=== PATIENT | male | born 1950 | race Caucasian/White ===

== ENCOUNTER 2020-12-23 15:35 | Emergency (ER) | payer MEDICARE, OTHER, SELFPAY ==
[2020-12-23] VITALS (14 sets, daily range): BP systolic 148–215; BP diastolic 80–120; PULSE 74–97; RESP 17–18; TEMP 36.6; O2SAT 97–98; BMI 28.2
--- NOTE | 2020-12-23 15:36 | EKG12_ITS ---
Test Reason : STROKE TEAM Blood Pressure : / mmHG Vent. Rate : 076 BPM Atrial Rate : 076 BPM P-R Int : 162 ms QRS Dur : 102 ms QT Int : 406 ms P-R-T Axes : 063 046 047 degrees QTc Int : 456 ms Sinus rhythm with occasional Premature ventricular complexes Otherwise normal ECG Confirmed by YUNG CHANEY, HALLE ([id number]), editor producer MELBA PERRY ([id number]) on 12/27/2020 2:15:58 PM Referred By: ELE Confirmed By:HALLE BARRAGAN MD
--- NOTE | 2020-12-23 15:36 | CT_ITS ---
STUDY: CT HEAD STROKE PROTOCOL W/O CONTRAST INJECTION REASON FOR EXAM: Male, 70 years old. Neuro deficit, acute, stroke suspected RADIATION DOSAGE (If Supplied By Facility): CTDIvol = ( ) mGy, DLP = ( ) mGycm TECHNIQUE: Transaxial CT imaging of the brain was performed without administration of intravenous contrast material. Individualized dose optimization techniques were used for this CT. COMPARISON: No relevant priors. FINDINGS: Normal soft tissue structures. Normal calvarium. Normal size ventricles and extra-axial spaces for the patient''s age. Normal white matter tracts of the cerebral hemispheres. Normal basal ganglia and thalami. Normal brainstem. Normal cerebellum. 5 cm oval area of increased attenuation within the left parietal lobe consistent with an acute parenchymal hematoma, likely hypertensive hemorrhage. Associated mass effect on the left lateral ventricle and third ventricle with approximately 5 mm of [id number] midline shift (subfalcine herniation). There are no findings of an acute ischemic infarction. Normal visualized paranasal sinuses. ASPECT score: CT/STROKE Brain/Head without Cont IMPRESSION: 5 cm acute parenchymal hematoma of the left parietal lobe likely consistent with a hypertensive hemorrhage with mass effect in 5 mm of [id number] midline shift (subfalcine herniation). N.B. : The above information has been verbally conveyed by Alvaro Villanueva MD to Jameson Gregory on 12/23/2020 15:50:46 (ET). Electronically Signed: Alvaro Villanueva MD at 15:52 EDT Tel , Service support ,
[2020-12-23] MEDS: Ondansetron 4 MG/2 ML Vial IV (15:49)
[2020-12-23] MEDS: Labetalol (Prefilled) 20 MG/4 ML IV (15:49)
[2020-12-23 15:55] LABS: Absolute Lymphocyte Count 1.29 X10^3/uL (0.83-4.51); Absolute Neutrophil Count 5.3 X10^3/uL (2.0-7.7); Basophil# 0.04 X10^3/uL; Basophil% 0.5 % (0-1); Eosinophil# 0.14 X10^3/uL; Eosinophils% 1.9 % (0-5); Hematocrit 40.8 % (40-54); Hemoglobin 14.2 g/dL (13.0-16.5); Lymphocyte # 1.29 X10^3/ul (4.0); Lymphocyte % 17.1 % (19-41); Mean Corp Hgb Conc 34.8 g/dL (32-36); Mean Corpuscular Hgb 31.6 pg (27.0-32.0); Mean Corpuscular Volume 90.9 fL (80-94); Mean Platelet Vol. 8.9 fl (6.2-12.0); Monocyte# 0.72 X10^3/uL; Monocyte% 9.6 % (0-10); NRBC Flagged by Analyzer 0 % (0-5); Neutrophil # 5.31 X10^3/uL (2.7-7.7); Neutrophil % 70.5 % (47-70); Platelet Count 260 K/mm3 (150-450); RBC Distribution Width CV 12.2 % (11.6-14.6); RBC Distribution Width SD 39.9 fl (35.1-43.9); Red Blood Count 4.49 M/mm3 (4.6-6.2); White Blood Count 7.5 K/mm3 (4.4-11.0)
--- NOTE | 2020-12-23 15:57 | CM.ED ---
Social Work Responding to stroke alert, patient spouse, Marge (Azra) present. Support provided. Patient to be life flighted to [facility]. Azra provided with directions to get to [facility]. Azra with no further questions. Azra given patient belongings. Will continue to follow as needed. Yamini ANTHONY, DIEGO-S
[2020-12-23 16:06] LABS: International Normalized Ratio 1.2; Prothrombin Time (Protime)PT. 14.2 SECONDS (11.7-14.9)
[2020-12-23] MEDS: Nicardipine HCl-0.9% Sod Chlor 20 MG/200 ML IV.SOLN 50 MG IV (16:06)
[2020-12-23 16:07] LABS: Anion Gap 6 (5-15); BUN 8 mg/dL (7-18); BUN/Creat Ratio 13.1 RATIO (10-20); Calcium,Total 9.1 mg/dL (8.5-10.1); Chloride 97 mmol/L (98-107); Creatinine, Serum 0.61 mg/dL (0.70-1.30); EST Glomerular Filtration Rate 138 mL/min (>60); Est Glom Filt Rate - Afr Amer 167 mL/min (>60); Estimated Creatinine Clearance 74.37 ml/min; Glucose 101 mg/dL (74-106); Partial Thromboplast Time 28.4 Seconds (24.1-36.2); Potassium 3.5 mmol/L (3.5-5.1); Sodium Level 130 mmol/L (136-145)
--- NOTE | 2020-12-23 16:13 | RAD_ITS ---
STUDY: X-RAY CHEST REASON FOR EXAM: Male, 70 years old. Neuro deficit, acute, stroke suspected TECHNIQUE: Single AP portable view of the chest. COMPARISON: 01/13/1950 FINDINGS: The lungs are clear and expanded. There is no demonstrated pleural abnormality. Normal size heart. Normal mediastinum and shahnaz. Normal visualized pulmonary arteries. Normal visualized aortic arch and descending thoracic aorta. Normal visualized thoracic spine. Healed fracture the right clavicle There is no demonstrated abnormality of the visualized soft tissue structures of the upper abdomen. RAD/Chest 1 View IMPRESSION: Normal x-ray examination of the chest. Electronically Signed: Alvaro Villanueva MD at 16:29 EDT Tel , Service support ,
--- NOTE | 2020-12-23 16:48 | CHAPLAIN ---
Type of Pastoral Visit ___ Initial Visit ___ Follow-up Visit ___ On-call Visit ___ General Patient Visit ___ Spiritual Assessment ___ Family Conference ___ Bereavement _x__ Rapid Response ___ Code Blue ___ Other (describe below) Pastoral Care Referral From ___ Patient ___ Family ___ Nurse ___ Physician ___ Boom Supervisor ___ Rn Immunology _x__ Other (describe below) Sacrament/Intervention ___ Active listening ___ Anointing ___ Episcopalian ___ Bereavement ___ Communion ___ Maritza exploration ___ ___ Life review ___ Prayer ___ Reconciliation ___ Sacrament of Sick _x__ Supportive presence ___ Wedding ___ Other (describe below) Pastoral Comments came to ED for stroke alert; pt is going to be transferred out to [facility]; met when she arrived and offered presence and support; SW also present; spouse declined any further services at this time
--- NOTE | 2020-12-23 16:55 | ED.DCSUM_ITS ---
- ER Visit Summary Date of Service: 12/23/20 Chief Complaint: Stroke History of Present Illness: The patient is a 70 M who presents with stroke symptoms that began approximately 30 to 45 minutes prior to arrival. Patient was installing a floor with his . His reports that he asked her to pass the bucket of glue. states that she was able to understand him when he said that. However, few minutes later he became confused and aphasic. states she has been unable to understand him since. also noted right facial weakness and right upper and lower extremity weakness. immediately called 911. EMS brought the patient to the emergency department. Patient was incontinent of urine at home. Physical Examination: Vital signs showed an elevated blood pressure 199/109. Patient is afebrile. Patient is in no acute distress. Patient is aphasic. There is right facial weakness. There is weakness of his right upper and lower extremity. Patient is able to hold his left leg and left arm up without difficulty. Heart was regular rate and rhythm. Lungs are clear and equal bilaterally. Abdomen is soft. Bowel sounds are normal. There is no tenderness. Neck is supple. Trachea is midline. There is no JVD. Oral mucosa is pink and moist. Airway is patent. Test Results: CT scan of the brain was obtained. There is a large 5 cm intraparenchymal hemorrhage in the left parietal area. There is approximately 3 to 4 mm of midline shift. There is compression on the lateral ventricle. This was interpreted by the radiologist and reviewed by myself. Portable 1 view chest x-ray was obtained. On my interpretation, lung katz are clear. There is normal cardiac silhouette. Bony thorax is normal. There is no acute process noted. Radiologist also interpreted the x-ray and agrees. CBC was within normal limits. PT with INR and PTT were normal. Basic metabolic profile showed a mild hyponatremia of 130 and chloride of 97. Creatinine was 0.61. Troponin was normal. Emergency Department Course and Treatment: Patient was given a dose of labetalol initially. Patient was started on a Cardene drip. Case was discussed with the transfer line at [facility]. Patient was transferred to the emergency department there to the service of Dr. Vaz. Patient and understood and were agreeable with the plan. All questions were answered. Disposition: Transfer to [facility] Impression: 1. Acute hemorrhagic stroke Critical care time: 30 minutes. This was time spent obtaining history, per forming physical examination, documenting, interpreting test results, discussion with consultants, and determining disposition. This note was generated with [employer] dictation software. It may contain incorrect words, spelling, and punctuation that were not noted in review of the chart prior to signing ED Disposition - Plan for ED Patient: Disposition: [facility] Diagnosis: Stroke, hemorrhagic Referrals: Care Physician,No Primary [Primary Care Provider] -
== END 2020-12-23 16:34 | disposition short-term general hospital (02) ==
PROVIDERS: Emergency Provider Emergency Medicine
DX: I61.8 Other nontraumatic intracerebral hemorrhage (principal); R47.01 Aphasia; R29.810 Facial weakness; G81.91 Hemiplegia, unspecified affecting right dominant side
CPT/HCPCS: 51702; 70450; 71045; 80048; 84484; 85025; 85610; 85730; 93005; 96365; 96374; 99285; J7030; J2405

== ENCOUNTER 2021-01-03 16:33 | Inpatient (IN) | payer MEDICARE, OTHER, SELFPAY ==
[2020-12-23 15:50] VITALS: BMI 28.2
[2021-01-03 16:42] VITALS: BP 142/72; PULSE 68; RESP 18; TEMP 37.6; O2SAT 99; BMI 27.5
--- NOTE | 2021-01-03 18:54 | NURSING ---
according to pt , pt had dentures while at [facility]. This pt did not arrive with any belongings when EMS dropped pt off. SUMEET Chavez calls [facility] about belongings and was advised to call lost and found at [facility]. This RN calls [facility] to check and see if belongings were possibly left in squad. EMS states that EMS team was informed from [facility] that the pt had no belongings.
[2021-01-03 19:40] VITALS: BP 138/72; PULSE 72; RESP 17; TEMP 37.4; O2SAT 99
[2021-01-03 20:25] VITALS: O2SAT 93
[2021-01-03 22:00] VITALS: PULSE 86; RESP 16; O2SAT 95; BMI 27.5
[2021-01-03] MEDS: Atorvastatin Calcium 20 MG Tablet PO (22:20)
[2021-01-03] MEDS: Doxazosin 1 MG Tablet 2 MG PO (22:20)
[2021-01-03] MEDS: Senna/Docusate Sodium 1 Tablet 2 TABLET PO (22:20)
[2021-01-03] MEDS: 0.9% Saline Lock 10 ML Syringe IV (23:16)
[2021-01-04 05:58] LABS: Absolute Lymphocyte Count 0.74 X10^3/uL (0.83-4.51); Absolute Neutrophil Count 6.9 X10^3/uL (2.0-7.7); Basophil# 0.04 X10^3/uL; Basophil% 0.5 % (0-1); Eosinophil# 0.18 X10^3/uL; Eosinophils% 2.1 % (0-5); Hemoglobin 12.2 g/dL (13.0-16.5); Lymphocyte # 0.74 X10^3/ul (0.83-4.51); Lymphocyte % 8.7 % (19-41); Mean Corp Hgb Conc 32.1 g/dL (32-36); Mean Corpuscular Hgb 31.4 pg (27.0-32.0); Mean Corpuscular Volume 97.9 fL (80-94); Mean Platelet Vol. 12.2 fl (6.2-12.0); Monocyte# 0.58 X10^3/uL; Monocyte% 6.8 % (0-10); NRBC Flagged by Analyzer 0 % (0-5); Neutrophil # 6.91 X10^3/uL (2.7-7.7); Neutrophil % 81.4 % (47-70); Platelet Count 161 K/mm3 (150-450); RBC Distribution Width CV 11.8 % (11.6-14.6); RBC Distribution Width SD 42.4 fl (35.1-43.9); Red Blood Count 3.88 M/mm3 (4.6-6.2); White Blood Count 8.5 K/mm3 (4.4-11.0)
[2021-01-04 06:58] LABS: Anion Gap 7 (5-15); BUN 28 mg/dL (7-18); BUN/Creat Ratio 45.2 RATIO (10-20); Calcium,Total 8.3 mg/dL (8.5-10.1); Chloride 114 mmol/L (98-107); Creatinine, Serum 0.62 mg/dL (0.70-1.30); EST Glomerular Filtration Rate 136 mL/min (>60); Est Glom Filt Rate - Afr Amer 165 mL/min (>60); Estimated Creatinine Clearance 72.16 ml/min; Glucose 108 mg/dL (74-106); Magnesium 2.2 mg/dL (1.6-2.6); Phosphorus 3.3 mg/dL (2.5-4.9); Potassium 3.6 mmol/L (3.5-5.1); Sodium Level 146 mmol/L (136-145)
[2021-01-04 07:00] VITALS: O2SAT 97
[2021-01-04] MEDS: Folic Acid 1 MG Tablet PO (08:04)
[2021-01-04] MEDS: Multivitamins,Therapeutic Tablet 1 TABLET PO (08:04)
[2021-01-04 08:13] VITALS: BP 143/77; PULSE 62; RESP 18; TEMP 36.5; O2SAT 97
[2021-01-04] MEDS: hydroCHLOROthiazide 25 MG Tablet PO (08:44)
[2021-01-04] MEDS: Senna/Docusate Sodium 1 Tablet 2 TABLET PO ×2 (08:44→20:08)
[2021-01-04] MEDS: Lisinopril 40 MG Tablet PO (08:45)
[2021-01-04 09:47] VITALS: RESP 16
--- NOTE | 2021-01-04 10:42 | PCM.HP.STD ---
Problem List (1) Hemorrhagic cerebrovascular accident (CVA) Status: Acute Comment: Intraparenchymal left parietal hemorrhage on 12/23/2020 (2) Hypertension Status: Chronic Comment: untreated at the time of hemorrhagic CVA on 12/23/20 (3) History of hepatitis C Status: Chronic Comment: Treated in 2016 (4) Heavy alcohol use Status: Chronic Comment: 6-12 beers a day (5) Tobacco dependence due to cigarettes, in remission Status: Chronic Comment: quit in 1991 but, prior to that smoked 3 PPD x 12 years (6) Hypernatremia Status: Acute (7) Macrocytic anemia Status: Acute (8) Physical debility Status: Acute (9) Oropharyngeal dysphagia Status: Acute (10) Urine retention Status: Acute (11) BPH (benign prostatic hyperplasia) Status: Suspected (12) Right hemiparesis Status: Acute (13) Anthony-neglect of right side Status: Acute (14) Aphasia complicating stroke Status: Acute History of Present Illness Date of Admission: 01/03/21 Chief Complaint: Physical debility secondary to large intraparenchymal hemorrhage involving the left basal ganglia/L frontal areas on 12/23/2020 with aphasia, right hemiplegia, dysphagia and right facial droop. Fede Dobbs is a 70 year old M with a PMH of HTN (untreated), Hep C, smoking dependence in remission and varicose VV who had an acute intraparenchymal hemorrhage on 12/23/20 involving the left basal ganglia and the L frontal lobe causing R hemiparesis, R facial droop, dysarthria and dysphagia. He was transferred from an outside ED to [facility] for definitive care. He did not regularly see a physician and in fact had no PCP prior to the hemorrhage. LDL was 89 and the HGBA1C was 5.2%. There was no aneurysm and no vascular malformation on imaging. TTE showed an EF of 58% and no atrial septal defect. His blood pressure at the outside emergency department was 224/116. NIH upon arrival at [facility] was 19. While at [facility] he completed a Phenobarb taper from 12/24/20 to 12/30/20 due to heavy ETOH use. He received Folic acid, thiamine and a MV. He was diagnosed with urine retention and at the time of transfer to the inpt rehab unit at [facility] he was being straight cath'd every 6 hours. At one time at [facility] he had a Munoz catheter. He was transferred to the acute inpt rehab unit at [facility] on 01/03/21 for > 3 hours of therapy daily to restore him at or near his baseline function prior to the hemorrhage. All paperwork from [facility] was reviewed. He did not require neurosurgical intervention while at [facility]. [] Past Medical History Past Medical History (Chronic Problems): Chronic Problems Hypertension (Chronic) untreated at the time of hemorrhagic CVA on 12/23/20 History of hepatitis C (Chronic) Treated in 2016 Heavy alcohol use (Chronic) 6-12 beers a day Tobacco dependence due to cigarettes, in remission (Chronic) quit in 1991 but, prior to that smoked 3 PPD x 12 years Allergies No Known Allergies Allergy (Verified 12/23/20 15:57) Home Medications: Ambulatory Orders Medication Instructions Recorded Multivitamins,Therapeutic 1 tablet PO DAILY 09/14/14 [Multivitamin] Psychiatric History: No pertinent psych hx Lives: Spouse/ Significant Other - 's name is Colleen Smoking Status: Former smoker - quit in 1991 - smoked 3 PPD for 12 years Tobacco Use: Cigarettes Alcohol: Heavy - 6-12 beers a day Drugs: None - *Family History Maternal History Items: - - unable to obtain due to severe aphasia Review of Systems Constitutional: Reports: Weakness. Denies: Chills, Fever, Weight Change HEENT: Reports: Difficulty Swallowing. Denies: Head Aches, Sinus Congestion, Sinus Drainage, Sore Throat Cardiovascular: Denies: Chest Pain, Edema, Light Headedness, Palpitations Respiratory: Denies: Cough, Shortness of breath at rest Gastrointestinal: Denies: Abdominal Pain, Constipation, Diarrhea, Nausea, Vomiting Genitourinary: Reports: Retention. Denies: Dysuria Musculoskeletal: Denies: Joint Pain, Joint Tenderness Skin: Denies: Rash, Wounds Neurological: Reports: Balance problems, Change in Speech, Slurred speech, Difficulty swallowing, Focal weakness, Numbness, Tingling. Denies: Headaches, Tremor, Seizures Psychiatric: Denies: Anxiety, Depression, Homicidal Ideations, Suicidal Ideations VTE Information - Inpt Only VTE Present on Admission: No VTE Mechan Device Prophylaxis: SCD's, Knee High JATIN Hose VTE Pharm Prophylaxis ordered?: No Reason prophylaxis not ordered:: Treatment Not Indicated - recent large hemorrhagic CVA Patient Problems: Active and Suspected Problems Hemorrhagic cerebrovascular accident (CVA) (Acute) Intraparenchymal left parietal hemorrhage on 12/23/2020 - Physical Exam Vitals/I&O's: Vital Signs Temp Pulse Resp BP Pulse Ox 97.7 F L 62 16 143/77 H 97 01/04/21 08:13 01/04/21 08:13 01/04/21 09:47 01/04/21 08:13 01/04/21 08:13 Oxygen Delivery Method Room Air Weight: 197 lb 5.019 oz Body Mass Index (BMI) 27.5 Finger Stick Blood Glucose 101 Intake and Output for Last 24 Hours 01/02/21 01/03/21 01/04/21 23:59 23:59 23:59 Intake Total 360 / 600 540 / 540 Output Total 1150 / 1150 Balance 360 / 0 -610 / -610 General: Alert, Cooperative, Well developed, Well nourished, - - He seems frustrated. He is able to follow simple commands but he is aphasic and answers me yes or no with any question I ask him. Not able to get his words out. HEENT: Atraumatic, PERRLA, EOMI, Normocephalic Oral: Moist Mucosa Neck: Supple, No JVD Lungs: Clear to auscultation, Diminished - in the bases, - - He is not tachypneic and there is no accessory muscle use Cardiovascular: Regular rate, Regular Rhythm, Normal S1, Normal S2, No murmurs, No Ectopic Activity, No rub noted, No Gallop Abdomen: Bowel Sounds Present, Soft, Non Tender, Non-Distended Extremities: No clubbing, No cyanosis, No edema, Capillary Refill Less than 3 Seconds, No Calf Tenderness Skin: No rashes, No breakdown Musculoskeletal: No Muscle Wasting Neurological: - - R facial droop, expressive aphasia, alert and able to follow simple commands. He has R side neglect Psych/Mental Status: Appropriate Laboratory Results 01/04/21 05:38: WBC 8.5, RBC 3.88 L, Hgb 12.2 L, Hct 38.0 L, MCV 97.9 H, MCH 31.4, MCHC 32.1, RDW Std Deviation 42.4, RDW Coeff of Osiris 11.8, Plt Count 161, MPV 12.2 H, Immature Gran % (Auto) 0.500, Neut % (Auto) 81.4 H, Lymph % (Auto) 8.7 L, Bingham % (Auto) 6.8, Eos % (Auto) 2.1, Baso % (Auto) 0.5, Absolute Neuts (auto) 6.9, Absolute Lymphs (auto) 0.74 L, Nucleated RBC % 0 01/04/21 05:38: Sodium 146 H, Potassium 3.6, Chloride 114 H, Carbon Dioxide 25.0, Anion Gap 7, BUN 28 H, Creatinine 0.62 L, Estim Creat Clear Calc 72.16, Est GFR (MDRD) Af Amer 165, Est GFR (MDRD) Non-Af 136, BUN/Creatinine Ratio 45.2 H, Glucose 108 H, Calcium 8.3 L, Phosphorus 3.3, Magnesium 2.2 Current Medications Atorvastatin Calcium (Atorvastatin Calcium 20 Mg Tablet) 20 mg PO QHS [facility] Last Admin: 01/03/21 22:20 Dose: 20 mg Documented by: Bisacodyl (Bisacodyl 10 Mg Suppository) 10 mg RC .PRN X 1 PRN PRN Reason: Constipation Doxazosin Mesylate (Doxazosin 1 Mg Tablet) 2 mg PO QHS [facility] Last Admin: 01/03/21 22:20 Dose: 2 mg Documented by: Folic Acid (Folic Acid 1 Mg Tablet) 1 mg PO DAILY@0800 [facility] Last Admin: 01/04/21 08:04 Dose: 1 mg Documented by: Hydrochlorothiazide (Hydrochlorothiazide 25 Mg Tablet) 25 mg PO DAILY [facility] Last Admin: 01/04/21 08:44 Dose: 25 mg Documented by: Lisinopril (Lisinopril 40 Mg Tablet) 40 mg PO DAILY [facility] Last Admin: 01/04/21 08:45 Dose: 40 mg Documented by: Magnesium Hydroxide (Magnesium Hydroxide 30 Ml Udc) 30 ml PO .PRN X 1 PRN PRN Reason: Constipation Multivitamins (Multivitamins,Therapeutic Tablet) [facility] Admin: 01/04/21 08:04 Dose: 1 tablet Documented by: Senna/Docusate Sodium (Senna/Docusate Sodium 1 Tablet) 2 tablet PO BID [facility] Last Admin: 01/04/21 08:44 Dose: 2 tablet Documented by: Sodium Chloride (0.9% Saline Lock 10 Ml Syringe) 10 - 40 ml IV UD PRN PRN Reason: SALINE FLUSH Last Admin: 01/03/21 23:16 Dose: 10 ml Documented by: Assessment/Plan All Active Problems Hemorrhagic cerebrovascular accident (CVA) (Acute) Hypernatremia (Acute) Macrocytic anemia (Acute) Physical debility (Acute) Oropharyngeal dysphagia (Acute) Urine retention (Acute) Right hemiparesis (Acute) Anthony-neglect of right side (Acute) Aphasia complicating stroke (Acute) Impressions 1. Physical debility due to Large L IPH involving the Left basal ganglia and the left frontal lobe on 12/23/20 - presumed to be due to uncontrolled HTN 2. HTN - untreated prior to the hemorrhage 3. Heavy ETOH use - 6-12 beers daily 4. Macrocytic anemia 5. Hypernatremia 6. Elevated BUN/creatinine ratio-more likely than not secondary to intravascular volume depletion related to diuretic use and dysphagia with less than normal intake 7. Oral pharyngeal dysphagia 8. Right side neglect 9. Right hemiparesis/right facial droop 10. Severe aphasia - expressive > receptive. He is able to follow commands 11. 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 Urine retention-BPH suspected 13. History of hepatitis C-treated in 2016 14. Tobacco dependence in remission PLAN PT for gait stability OT for ADL's ST for evaluation Analgesics as needed Bowel protocol Fall precautions Assess for Anxiety/Depression GI prophylaxis not necessary - he has no N/V/Abd pain/heartburn and no hx of GERD or PUD DVT prophylaxis with SCDs and JATIN wisdome. No pharmacologic prophylaxis at this time secondary to recent intracerebral hemorrhage Follow up with PCP, neurology following DC from IP Rehab If BP improves try Flomax - for now will maintain the Munoz Recheck a BMP in a few days - may need to discontinue the HCTZ due to hypernatremia and IV volume depletion BP goal is less than 135/85 Inpatient E&M: 23910 Init Hosp L3
[2021-01-04 11:20] LABS: AST(SGOT) 39 U/L (15-37); Alanine Aminotransfer ALT/SGPT 51 U/L (16-61); Albumin, Serum 2.9 g/dL (3.2-5.0); Alkaline Phosphatase 80 U/L (45-117); Bilirubin, Direct 0.19 mg/dL (0.00-0.30); Globulin 3.5 g/dL (2.2-4.2); Protein, Total 6.4 g/dL (6.4-8.2)
--- NOTE | 2021-01-04 11:32 | REHABEVAL_ITS ---
Admission Information Primary Diagnosis:: physical debility due to hemorrhagic CVA on 12/23/20 Actual Problem List:: Bleeding, Cognitve Impr/Memory Loss, Mobility Impaired, Self Care Deficit, Ineffective Communication, BP, Hypertension, Fluid Change- Dehydration, Alteration-Leisure Activ. Potential Problem List:: DVT, Bleeding, Infection, UTI, Aspiration, Falls, Skin Integrity, Depression Risk of Complications DVT: JATIN Hose, Sequential Compression Device, - - Pharmacologic anticoagulation for DVT prophylaxis is contraindicated at this time due to recent intracerebral hemorrhagic CVA Bleeding: Monitor Lab Values, Nursing to Teach Precautions for anti-coagulation therapy., Wound, if applicable, to be assessed every shift., Stroke patients assessed for lethargy or change in status. Infection: Clinical Staff to Monitor for S/S of infection:, S/S of infection include fever, redness, warmth, etc. Urinary Tract Infection: Monitor for frequency, burning, discomfort, or incontinence., Nursing will obtain urine sample for urinalysis and C&S when ordered. Aspiration: Clinical staff will monitor for coughing, drooling, congestion., Speech will evaluate swallowing and dsyphasia., Nursing will monitor patient swallowing during meals. Falls: Patient will be evaluated for Fall Precautions, Patient will be placed on Fall Precautions as indicated per protocol. Skin Breakdown: Nursing will assess skin daily using assessment tool., Nursing will place on Skin Breakdown Precautions as indicated. Pain: Clinical staff will assess patient's pain level per protocol., Medications will be given, if needed, and the pain level reassessed., Other methods: Massage, distraction, decrease stimulus, etc. used PRN. Plan of Care Patient requires physician specializing in physical medicine and rehab oversight to provide close medical supervision of rehab issues including: Pain Management, Sleep Problems, Bowel and Bladder, Medical and co-morbidity Management, DVT prophylaxis, Rehabilitation Leadership, Coordination of treatment team Patient needs Physical Therapy: For a minimum of 1 hour, At least 5 out of 7 days Patient needs Physical Therapy to improve:: Mobility, Mobility, Mobility, Strengthening, Transfers, Stretching, ROM, Endurance, Stairs, Gait, Balance Patient needs Occupational Therapy: For a minimum of 1 hour, At least 5 out of 7 days Patient needs Occupational Therapy to improve ADL's incl.: Eating, Grooming, Bathing, Dressing, Toileting, Toilet transfers, Community Reintegration, Higher functioning activities, Household tasks, Adaptive Equipment, Splinting, Other activities as determined Patient requires speech therapy: For a minimum of 1 hour, At least 5 out of 7 days Patient requires speech therapy for: Swallowing, Cognition, Language Skills, Compensatory Strategies Patient requires 24/ Rehabilitation Nursing for: Pain Issues, Identifying and preventing risk factors, Monitoring and reporting current medical conditions, Assisting with ambulation, transfer, and all ADL's, Teaching patients about disease process and medications, Family teaching, Providing safe environment, Bowel and Bladder Issues, Skin integrity, Medication Management Patient needs Risk And Insurance Manager/ Case Management for: Discharge Planning, Arran ging Home Equipment or Services, Family Interventions Patient needs Dietary and Nutrition Services for: Adequate Nutrition, Nutritional Supplements, Nutritional Education Goals Patient will remain: free from falls, or injury at time of discharge. Patient will perform bed mobility at: MOD I level of assist. Patient will complete transfers from bed to chair at: MOD I level of assist. Patient will ambulate: with MOD I assist, 50 feet, with LRD Patient will complete upper body dressing at: MOD I level of assist. Patient will complete lower body dressing at: Standby Assist. Patient will complete toileting at: Standby Assist. Patient will perform bathing at: Standby Assist. Patient will complete grooming at: MOD I level of assist. Patient will complete home management skills at: Standby Assist. Patient will achieve: at MOD I assist, - - 1 curb step Patient will have pain level of: of 3 or less Patient's skin will: remain intact, free from infection. Patient will receive: adequate nutrition. Discharge Planning Pt Prognosis for Sig. Practical Improv. w/in Reasonable Time: Good Estimated Length of stay (days): 28 Anticipated D/C Destination: Home with Outpt Therapy Was Preadmission Assessment Accurate?: Yes
--- NOTE | 2021-01-04 15:10 | CASEMGMT ---
Social Work Met with patient. Pt has severe expressive aphasia and unable to answer questions. Could shake head yes/no to basic questions. Unable to complete BIMS and PHQ-9. Spoke with to complete assessment. explained at length pt hx. reports pt is functioning alcoholic - does not get mean - mostly stems from untreated depression from life events. However, recently he was drinking more for pleasure as they are working hard on fixing up a home for their care home. Discussed stroke support group and depression being common after strokes due to change in lifestyle. reports she is HCPOA and is bringing in copies of AD this date. Discussed code status and she reports pt wishes to be DNR-CCA, with intubation. Notified nursing. Explained Medicare benefit and Team meeting. expressed understanding. SW to continue to follow. Frieda Stringer, RESPIRATORY SCIENTIST CLAMMER
[2021-01-04 15:18] VITALS: BMI 27.5
[2021-01-04 19:19] VITALS: BP 149/83; PULSE 75; RESP 18; TEMP 36.9; O2SAT 95
[2021-01-04 19:50] VITALS: BMI 27.5
[2021-01-04] MEDS: 0.9% Saline Lock 10 ML Syringe IV (19:51)
[2021-01-04] MEDS: Doxazosin 1 MG Tablet 2 MG PO (20:09)
[2021-01-04] MEDS: Atorvastatin Calcium 20 MG Tablet PO (20:09)
[2021-01-04 20:14] VITALS: PULSE 77; RESP 17; O2SAT 96
[2021-01-05 07:44] VITALS: O2SAT 94
[2021-01-05] MEDS: Senna/Docusate Sodium 1 Tablet 2 TABLET PO (08:08)
[2021-01-05] MEDS: Lisinopril 40 MG Tablet PO (08:08)
[2021-01-05] MEDS: hydroCHLOROthiazide 25 MG Tablet PO (08:09)
[2021-01-05] MEDS: Folic Acid 1 MG Tablet PO (08:09)
[2021-01-05] MEDS: Multivitamins,Therapeutic Tablet 1 TABLET PO (08:09)
[2021-01-05 08:20] VITALS: BP 143/75; PULSE 64; RESP 16; TEMP 37.1; O2SAT 95
--- NOTE | 2021-01-05 13:09 | NURSING ---
Msg left with Colleen about being able to be present for team in AM.
[2021-01-05 14:19] VITALS: BMI 27.5
[2021-01-05 19:19] VITALS: BP 152/70; PULSE 62; RESP 16; TEMP 36.8; O2SAT 97
[2021-01-05 19:39] VITALS: PULSE 62; RESP 16; O2SAT 97; BMI 27.5
[2021-01-05] MEDS: 0.9% Saline Lock 10 ML Syringe IV (19:59)
[2021-01-05] MEDS: Atorvastatin Calcium 20 MG Tablet PO (20:01)
[2021-01-05] MEDS: Doxazosin 1 MG Tablet 2 MG PO (20:01)
[2021-01-05] MEDS: Menthol/Lanolin/Calamine/Znox 113 GM Tube 1 APPLIC TOPICAL (20:02)
[2021-01-06] MEDS: Lisinopril 40 MG Tablet PO (07:41)
[2021-01-06] MEDS: Multivitamins,Therapeutic Tablet 1 TABLET PO (07:41)
[2021-01-06] MEDS: Senna/Docusate Sodium 1 Tablet 2 TABLET PO (07:41)
[2021-01-06] MEDS: hydroCHLOROthiazide 25 MG Tablet PO (07:41)
[2021-01-06] MEDS: Folic Acid 1 MG Tablet PO (07:41)
[2021-01-06] MEDS: Menthol/Lanolin/Calamine/Znox 113 GM Tube 1 APPLIC TOPICAL ×2 (07:48→19:56)
[2021-01-06 07:56] VITALS: BP 152/76; PULSE 60; RESP 16; TEMP 36.2; O2SAT 93
--- NOTE | 2021-01-06 11:56 | PCM.PN.BLA ---
Progress Note Brady was seen on TEAM rounds today. His Colleen was present in the room for rounds. Afebrile VSS-systolic blood pressure is mildly elevated above goal. Diastolic is within acceptable range. The heart rate has ranged from 60bpm to 77 bpm. Maintaining appropriate oxygen saturation on RA Oral intake is adequate Munoz is in place....placed for urine retention. Discussed with nursing - no problems that need addressed Reviewed the PT/OT/ST notes Medication list reviewed. No complaints today. He is more alert than he has been earlier in the week. He is sitting in the recliner and appears comfortable and in NAD. Persistent R facial droop Lungs - diminished but, CTA HRRR - no MM no edema of the ankles no rashes, no skin breakdown no calf pain poor core strength, leans heavily to the right, fatigues easily Impressions 1. post hemorrhagic stroke debility with aphasia, dysarthria, R facial droop and R hemiparesis 2. HTN 3. urine retention - suspected BPH. Was unable to tolerate Flomax at [facility] due to low blood pressures but the BP is better and will try again. 4. macrocytic anemia 5. hypernatremia - etiology? with an increased BUN/CREAT ratio.....consider DI - He has also been on a diuretic to control the BP 6. Oral pharyngeal dysphagia UA today recheck a BMP in the AM continue therapy all questions were answered Inpatient E&M: 63121 Subs Hosp L2
[2021-01-06 13:38] LABS: Bacteria 0 SEEN /hpf (None Seen); Mucous, Urine 0 SEEN /hpf (<or=2+); Squamous Epithelial Cells - UA 0 SEEN /hpf (0-5); White Blood Cells 0 SEEN /hpf (0-5)
[2021-01-06 13:48] LABS: Color, Urine Yellow (Yellow); Glucose, Dipstick Normal (Normal); Ketone-Dipstick Negative (Negative); Leukocyte Esterase-Dipstick 25 /ul (Negative); Nitrite-Dipstick Negative (Negative); Occult Blood-Urine 250 /ul (Negative); Protein-Dipstick 30 mg/dl (Negative); Urine Bilirubin Dipstick Negative (Negative); Urine Clarity Clear (Clear); Urine Urobilinogen Normal (Normal)
[2021-01-06 13:55] VITALS: BMI 27.5
[2021-01-06 14:00] LABS: Red Blood Cells-Urine 25-50 SEEN /hpf (0-5)
--- NOTE | 2021-01-06 14:30 | CASEMGMT ---
Social Work IDT met with patient and for Team meeting. Discussed patient's progress in therapy and nursing. Pt able to answer yes/no questions but still having some inaccuracy with those responses. Pt is total assist with ADLs, working on head and trunk control. Explained Medicare approved 23 days with [facility] 01/26. inquired about appeal rights, private pay and alternative DC plans. Briefly explained appeal rights and SNF placement under Medicare after RU and provided daily private pay rate. SW offered to discuss in further details those options closer to DC date to better determine pt's needs and progress at that time. agreeable. Will ReTeam. Frieda Stringer, GABRIELLE TURF KEEPER
[2021-01-06] MEDS: Tamsulosin HCl 0.4 MG Capsule PO (16:51)
[2021-01-06] MEDS: Doxazosin 1 MG Tablet 2 MG PO (19:54)
[2021-01-06] MEDS: Atorvastatin Calcium 20 MG Tablet PO (19:54)
[2021-01-06 22:00] VITALS: BP 169/86; PULSE 67; RESP 17; TEMP 36.5; O2SAT 97
[2021-01-06 23:13] VITALS: BMI 27.5
[2021-01-07 05:57] LABS: Anion Gap 7 (5-15); BUN 18 mg/dL (7-18); BUN/Creat Ratio 32.5 RATIO (10-20); Calcium,Total 8.3 mg/dL (8.5-10.1); Chloride 106 mmol/L (98-107); Creatinine, Serum 0.55 mg/dL (0.70-1.30); EST Glomerular Filtration Rate 155 mL/min (>60); Est Glom Filt Rate - Afr Amer 187 mL/min (>60); Estimated Creatinine Clearance 72.16 ml/min; Glucose 104 mg/dL (74-106); Potassium 3.2 mmol/L (3.5-5.1); Sodium Level 138 mmol/L (136-145)
[2021-01-07] MEDS: Multivitamins,Therapeutic Tablet 1 TABLET PO (07:38)
[2021-01-07] MEDS: Senna/Docusate Sodium 1 Tablet 2 TABLET PO ×2 (07:38→22:57)
[2021-01-07] MEDS: Lisinopril 40 MG Tablet PO (07:39)
[2021-01-07] MEDS: hydroCHLOROthiazide 25 MG Tablet PO (07:39)
[2021-01-07] MEDS: Folic Acid 1 MG Tablet PO (07:39)
[2021-01-07] MEDS: Menthol/Lanolin/Calamine/Znox 113 GM Tube 1 APPLIC TOPICAL ×2 (07:43→22:58)
[2021-01-07 08:04] VITALS: BP 143/69; PULSE 65; RESP 17; TEMP 36.1; O2SAT 96
[2021-01-07 08:36] VITALS: BMI 27.5
--- NOTE | 2021-01-07 09:19 | PCM.PN.BLA ---
Progress Note Afebrile Systolic blood pressure is consistently above goal. Maintaining appropriate oxygen saturation on room air. Good oral intake Urine with no white blood cells but with 25-50 RBCs per high-power field. BMP today shows a low potassium at 3.2. Sodium is down to 138 and the BUN is 18 with a creatinine of 0.55. Calcium corrected for hypoalbuminemia is within normal limits. lungs - CTA, diminished HRRR, no gallop abd - soft, ND, NT to palpation no edema, no calf tenderness no rashes and no skin breakdown Impressions 1. post stroke debility 2. HTN - not yet adequately controlled 3. hypokalemia- due to HCTZ.....he is on 40 mg of Lisinopril a day and still losing potassium. BUN/CREAT ratio is > 30. He is having some lightheadedness 4. Macrocytic anemia - etiology? May be due to the blood loss from the intracerebral bleed 5. BPH with urine retention - Munoz in place. Started on Flomax yesterday. Will order a voiding trial in 5 days. supplement potassium Recheck BMP, MAG, HH on Sunday Continue Therapy Add Amlodipine 5 mg daily to the drug regimen DC HCTZ - he has IV volume depletion, hypokalemia and lightheadedness. I do not want to compromise the intracerebral circulation in light of recent CVA and with the R hemiplegia and gait instability he is at high risk for falls if orthostatic. I suspect the reason he did not tolerate the Flomax at [facility] was hypotension due to severe dehydration...the BUN/CREAT ratio at presentation to rehab was 45. Start Sertraline 50 mg daily STROKE Vital Signs/Narrative: Vital Signs Temp Pulse Resp BP Pulse Ox 01/07/21 08:04 97 F L 65 17 143/69 H 96 Inpatient E&M: 24177 Subs Hosp L2
[2021-01-07] MEDS: Sertraline 50 MG Tablet PO (10:16)
[2021-01-07] MEDS: Potassium Chloride Oral Tablet 20 MEQ PO ×3 (10:16→15:41)
[2021-01-07] MEDS: amLODIPine 5 MG Tablet PO (10:16)
[2021-01-07] MEDS: Baclofen 10 MG Tablet 5 MG PO ×2 (15:41→22:57)
[2021-01-07] MEDS: Tamsulosin HCl 0.4 MG Capsule PO (16:30)
[2021-01-07 19:38] VITALS: BP 152/71; PULSE 63; RESP 17; TEMP 36.6; O2SAT 93
[2021-01-07] MEDS: Doxazosin 1 MG Tablet 2 MG PO (22:57)
[2021-01-07] MEDS: Atorvastatin Calcium 20 MG Tablet PO (22:57)
[2021-01-07] MEDS: 0.9% Saline Lock 10 ML Syringe IV (23:20)
[2021-01-08] MEDS: Baclofen 10 MG Tablet 5 MG PO ×3 (07:01→21:27)
[2021-01-08] MEDS: Potassium Chloride Oral Tablet 20 MEQ PO (08:10)
[2021-01-08] MEDS: Folic Acid 1 MG Tablet PO (08:10)
[2021-01-08] MEDS: amLODIPine 5 MG Tablet PO (08:11)
[2021-01-08] MEDS: Multivitamins,Therapeutic Tablet 1 TABLET PO (08:11)
[2021-01-08] MEDS: Lisinopril 40 MG Tablet PO (08:12)
[2021-01-08] MEDS: Sertraline 50 MG Tablet PO (08:12)
[2021-01-08] MEDS: Menthol/Lanolin/Calamine/Znox 113 GM Tube 1 APPLIC TOPICAL ×2 (08:16→21:26)
[2021-01-08 08:17] VITALS: BP 143/74; PULSE 60; RESP 16; TEMP 37.1; O2SAT 95
[2021-01-08 15:08] VITALS: BMI 27.5
[2021-01-08] MEDS: Tamsulosin HCl 0.4 MG Capsule PO (17:54)
[2021-01-08 18:53] VITALS: BP 135/66; PULSE 81; RESP 15; TEMP 36.7; O2SAT 96
[2021-01-08 19:45] VITALS: BMI 27.5
[2021-01-08 19:52] VITALS: PULSE 81; RESP 16; O2SAT 96
[2021-01-08] MEDS: Atorvastatin Calcium 20 MG Tablet PO (21:27)
[2021-01-08] MEDS: Doxazosin 1 MG Tablet 2 MG PO (21:27)
[2021-01-08] MEDS: 0.9% Saline Lock 10 ML Syringe IV (21:45)
[2021-01-09] MEDS: Baclofen 10 MG Tablet 5 MG PO ×3 (05:14→20:12)
[2021-01-09] MEDS: Sertraline 50 MG Tablet PO (08:16)
[2021-01-09] MEDS: Potassium Chloride Oral Tablet 20 MEQ PO (08:16)
[2021-01-09] MEDS: Folic Acid 1 MG Tablet PO (08:16)
[2021-01-09] MEDS: Multivitamins,Therapeutic Tablet 1 TABLET PO (08:16)
[2021-01-09] MEDS: amLODIPine 5 MG Tablet PO (08:16)
[2021-01-09] MEDS: Lisinopril 40 MG Tablet PO (08:16)
[2021-01-09] MEDS: Menthol/Lanolin/Calamine/Znox 113 GM Tube 1 APPLIC TOPICAL ×2 (08:18→20:11)
[2021-01-09 08:19] VITALS: BP 150/73; PULSE 63; RESP 16; TEMP 36.7; O2SAT 94
[2021-01-09 15:31] VITALS: BMI 27.5
[2021-01-09] MEDS: Tamsulosin HCl 0.4 MG Capsule PO (17:06)
[2021-01-09 19:07] VITALS: BP 165/78; PULSE 76; RESP 16; TEMP 36.7; O2SAT 94
[2021-01-09 19:25] VITALS: BMI 27.5
[2021-01-09] MEDS: Atorvastatin Calcium 20 MG Tablet PO (20:12)
[2021-01-09] MEDS: Doxazosin 1 MG Tablet 2 MG PO (20:12)
[2021-01-09] MEDS: 0.9% Saline Lock 10 ML Syringe IV (20:23)
[2021-01-09 20:33] VITALS: PULSE 76; RESP 16; O2SAT 94
[2021-01-10] MEDS: Baclofen 10 MG Tablet 5 MG PO (05:35)
[2021-01-10 05:43] LABS: Hematocrit 35.6 % (40-54); Hemoglobin 12.1 g/dL (13.0-16.5)
[2021-01-10 05:59] LABS: Anion Gap 6 (5-15); BUN 10 mg/dL (7-18); Calcium,Total 8.5 mg/dL (8.5-10.1); Chloride 102 mmol/L (98-107); EST Glomerular Filtration Rate 174 mL/min (>60); Est Glom Filt Rate - Afr Amer 210 mL/min (>60); Estimated Creatinine Clearance 72.16 ml/min; Glucose 99 mg/dL (74-106); Potassium 3.7 mmol/L (3.5-5.1); Sodium Level 134 mmol/L (136-145)
[2021-01-10] MEDS: amLODIPine 5 MG Tablet PO (07:32)
[2021-01-10] MEDS: Potassium Chloride Oral Tablet 20 MEQ PO (07:32)
[2021-01-10] MEDS: Lisinopril 40 MG Tablet PO (07:32)
[2021-01-10] MEDS: Multivitamins,Therapeutic Tablet 1 TABLET PO (07:32)
[2021-01-10] MEDS: Folic Acid 1 MG Tablet PO (07:32)
[2021-01-10] MEDS: Sertraline 50 MG Tablet PO (07:32)
[2021-01-10] MEDS: NYSTATIN 500,000 UNIT/5 ML UDC 500000 UNIT PO ×4 (07:33→21:03)
[2021-01-10] MEDS: Menthol/Lanolin/Calamine/Znox 113 GM Tube 1 APPLIC TOPICAL ×2 (07:34→21:03)
[2021-01-10 08:18] VITALS: BP 159/74; PULSE 78; RESP 15; TEMP 36.8; O2SAT 95
--- NOTE | 2021-01-10 08:24 | PCM.PN.BLA ---
Progress Note Afebrile VSS-systolic blood pressure remains above goal most of the time. Diastolic is within goal consistently now. The heart rate ranges from 60-81. Maintaining appropriate oxygen saturation on RA Oral intake is good Discussed with nursing - no problems that need addressed Reviewed the PT/OT/ST notes - PT and OT comment on Sunday that the pt was very drowsy. He was unable to feed himself or gro0om Medication list reviewed. All labs personally reviewed. The hemoglobin is 12.1 and stable. Sodium is mildly decreased at 134 and the potassium is now normal at 3.7 following supplementation. Serum bicarb is within normal limits and the BUN is 10 with a creatinine of 0.50. The magnesium is normal at 2.0. very drowsy, eyes closed, max assist to do anything in therapy today Decrease the Baclofen to 5 mg BID. Hold Baclofen until tomorrow morning at 1000. If he continues to be drowsy will DC the Baclofen PO and try neuropathic cream to the RUE prior to therapy sessions. COntinue therapy Increase the Amlodipine to 5 mg BID STROKE Vital Signs/Narrative: Vital Signs Temp Pulse Resp BP Pulse Ox 01/10/21 08:18 98.3 F 78 15 159/74 H 95
[2021-01-10 09:15] VITALS: BMI 27.5
[2021-01-10] MEDS: Tamsulosin HCl 0.4 MG Capsule PO (16:27)
[2021-01-10 19:19] VITALS: BP 154/96; PULSE 76; RESP 17; TEMP 36.6; O2SAT 95
[2021-01-10 20:48] VITALS: BMI 27.5
[2021-01-10 20:49] VITALS: PULSE 76; RESP 15; O2SAT 95
[2021-01-10] MEDS: 0.9% Saline Lock 10 ML Syringe IV (20:56)
[2021-01-10] MEDS: Doxazosin 1 MG Tablet 2 MG PO (21:03)
[2021-01-10] MEDS: Atorvastatin Calcium 20 MG Tablet PO (21:03)
[2021-01-11] MEDS: Baclofen 10 MG Tablet 5 MG PO ×2 (08:00→21:06)
[2021-01-11] MEDS: NYSTATIN 500,000 UNIT/5 ML UDC 500000 UNIT PO ×4 (08:00→20:23)
[2021-01-11] MEDS: Sertraline 50 MG Tablet PO (08:00)
[2021-01-11] MEDS: Multivitamins,Therapeutic Tablet 1 TABLET PO (08:00)
[2021-01-11] MEDS: Lisinopril 40 MG Tablet PO (08:00)
[2021-01-11] MEDS: Menthol/Lanolin/Calamine/Znox 113 GM Tube 1 APPLIC TOPICAL ×2 (08:00→21:07)
[2021-01-11] MEDS: amLODIPine 5 MG Tablet PO (08:00)
[2021-01-11] MEDS: Folic Acid 1 MG Tablet PO (08:00)
[2021-01-11 08:54] VITALS: BP 146/90; PULSE 79; RESP 16; TEMP 36.6; O2SAT 97
[2021-01-11 09:42] VITALS: BMI 27.5
--- NOTE | 2021-01-11 11:46 | NURSING ---
pt had small yellow emesis while working with therapy. BP 117/67 T 97.1, P 80 R 16, SPO2 97% RA. Dr Lemus made aware. will continue to monitor pt
[2021-01-11 11:48] VITALS: BP 117/67; PULSE 80; RESP 16; TEMP 36.2; O2SAT 97
[2021-01-11] MEDS: Tamsulosin HCl 0.4 MG Capsule PO (16:52)
[2021-01-11 18:55] VITALS: BP 146/94; PULSE 89; RESP 18; TEMP 36.7; O2SAT 96
[2021-01-11 20:45] VITALS: BMI 27.5
[2021-01-11 20:51] VITALS: PULSE 79; RESP 16; O2SAT 96
--- NOTE | 2021-01-11 21:00 | NURSING ---
Pt kept eyes closed during assessment. Pt cooperative with nursing care & hs ADLs, but drowsy. Pt opened eyes fleetingly when called by name. Pt feet elevated while in bed & positioned w/ pillow under left hip to offload buttocks while sleeping.
[2021-01-11] MEDS: Atorvastatin Calcium 20 MG Tablet PO (21:06)
[2021-01-11] MEDS: Doxazosin 1 MG Tablet 2 MG PO (21:07)
[2021-01-12 07:23] VITALS: BP 131/68; PULSE 63; RESP 16; TEMP 36.7; O2SAT 96
[2021-01-12] MEDS: Sertraline 50 MG Tablet PO (08:28)
[2021-01-12] MEDS: Folic Acid 1 MG Tablet PO (08:28)
[2021-01-12] MEDS: NYSTATIN 500,000 UNIT/5 ML UDC 500000 UNIT PO ×4 (08:29→20:46)
[2021-01-12] MEDS: amLODIPine 5 MG Tablet PO (08:29)
[2021-01-12] MEDS: Multivitamins,Therapeutic Tablet 1 TABLET PO (08:29)
[2021-01-12] MEDS: Baclofen 10 MG Tablet 5 MG PO (08:29)
[2021-01-12] MEDS: Lisinopril 40 MG Tablet PO (08:32)
[2021-01-12] MEDS: Menthol/Lanolin/Calamine/Znox 113 GM Tube 1 APPLIC TOPICAL ×2 (08:37→20:48)
--- NOTE | 2021-01-12 10:49 | PCM.PROGNOTE ---
Subjective Subjective: Pain is adequately controlled. She is sleeping well. She denies CP, SOB, calf pain, N/V, constipation and abd pain. She has no complaints today. Family is coming in tomorrow for family training. nicola lives alone and she still needs some assistance with posterior care after toileting and getting her shoes on. Objective Data Objective Data Vital Signs: Vital Signs Temp Pulse Resp BP Pulse Ox 98.0 F 63 16 131/68 H 96 01/12/21 07:23 01/12/21 07:23 01/12/21 07:23 01/12/21 07:23 01/12/21 07:23 Oxygen Delivery Method Room Air Weight: 180 lb 15.992 oz Body Mass Index (BMI) 27.5 Finger Stick Blood Glucose 101 Intake & Output: Intake and Output for Last 24 Hours 01/10/21 01/11/21 01/12/21 23:59 23:59 23:59 Intake Total 1120 / 1120 1430 / 1430 150 / 150 Output Total 1999 / 1999 1300 / 1300 250 / 250 Balance -880 / -880 130 / 130 -100 / -100 Lab / Micro Data Result Diagrams: 01/10/21 05:35 01/10/21 05:35 Physical Exam Const no apparent distress Constitutional Narrative: very drowsy, he does arouse and will keep his eyes open at times HEENT normocephalic Mouth: dry mucous membranes Neck no JVD General: trachea midline Resp clear to auscultation bilaterally Auscultation: diminished lung sounds Cardio regular rate, regular rhythm, S1 normal heart sound, S2 normal heart sound, no murmurs and no gallops Cardio Narrative: No ectopy GI normal to inspection, nondistended, normoactive bowel sounds, soft to palpation, non-tender and non-distended Extremity no clubbing, cyanosis or edema and no calf tenderness Skin General Skin Exam: no breakdown Rashes: no rashes Neuro Sensorium / Orientation: somnolent and fluctuating sensorium Meningeal Signs: no meningeal signs Cranial Nerves: other R facial droop Speech: speech abnormal Details: Positive for slurred and complete aphasia Gait (Neuro): unable to assess gait Motor Exam: strength abnormal and muscle tone abnormal hypertonic: RUE Psych Mood & Affect: flat affect Assessment & Plan Assessment/Plan (1) Hemorrhagic cerebrovascular accident (CVA): Status: Acute Code(s): I61.9 - Nontraumatic intracerebral hemorrhage, unspecified Plan: Continue therapy (2) Hypertension: Status: Chronic Code(s): I10 - Essential (primary) hypertension Qualifiers: Hypertension type: essential hypertension Qualified Code(s): I10 - Essential (primary) hypertension Plan: Continue current medications (3) History of hepatitis C: Status: Chronic Code(s): Z86.19 - Personal history of other infectious and parasitic diseases (4) Heavy alcohol use: Status: Chronic Code(s): Z78.9 - Other specified health status (5) Tobacco dependence due to cigarettes, in remission: Status: Chronic Code(s): F17.211 - Nicotine dependence, cigarettes, in remission (6) Hypernatremia: Status: Acute Code(s): E87.0 - Hyperosmolality and hypernatremia (7) Macrocytic anemia: Status: Acute Code(s): D53.9 - Nutritional anemia, unspecified (8) Physical debility: Status: Acute Code(s): R53.81 - Other malaise (9) Oropharyngeal dysphagia: Status: Acute Code(s): R13.12 - Dysphagia, oropharyngeal phase (10) Urine retention: Status: Acute Code(s): R33.9 - Retention of urine, unspecified Plan: He is currently on Flomax and doxazosin and tolerating these medications without hypotension. Voiding trial on Sunday. (11) BPH (benign prostatic hyperplasia): Status: Suspected Code(s): N40.0 - Benign prostatic hyperplasia without lower urinary tract symptoms Qualifiers: Lower urinary tract symptom detail: urinary retention Lower urinary tract symptom presence: symptoms present Qualified Code(s): N40.1 - Benign prostatic hyperplasia with lower urinary tract symptoms; R33.8 - Other retention of urine (12) Right hemiparesis: Status: Acute Code(s): G81.91 - Hemiplegia, unspecified affecting right dominant side (13) Anthony-neglect of right side: Status: Acute Code(s): R41.4 - Neurologic neglect syndrome (14) Aphasia complicating stroke: Status: Acute (15) Stuporous: Status: Acute Code(s): R40.1 - Stupor Plan: Discontinue baclofen 5 mg p.o. twice daily. Start arthritis compounded cream containing 2% baclofen, lidocaine and Voltaren to the right upper extremity 3 times daily Capacity Capacity Assessment Tool Can the patient make a choice & communicate that choice?: No Can the patient understand benefits, risks and alternatives?: No Can the patient make a logical, rational choice?: No Is there an impending, emergent risk to the patient?: No i.e. close relative (spouse, child, parent, sibling)?: Yes Inpatient E&M: 42799 Subs Hosp L2
[2021-01-12] MEDS: Arthritis Pain Compound 60 CLICK TUBE TOPICAL ×2 (13:02→20:48)
[2021-01-12 14:20] VITALS: BMI 27.5
[2021-01-12] MEDS: Tamsulosin HCl 0.4 MG Capsule PO (16:36)
[2021-01-12 19:12] VITALS: BP 114/66; PULSE 76; RESP 16; TEMP 36.6; O2SAT 98
[2021-01-12] MEDS: Atorvastatin Calcium 20 MG Tablet PO (20:46)
[2021-01-12] MEDS: Doxazosin 1 MG Tablet 2 MG PO (20:47)
[2021-01-13] MEDS: Arthritis Pain Compound 60 CLICK TUBE TOPICAL ×3 (06:19→21:42)
[2021-01-13 07:21] VITALS: BP 151/81; PULSE 67; RESP 16; TEMP 36.5; O2SAT 98
[2021-01-13] MEDS: NYSTATIN 500,000 UNIT/5 ML UDC 500000 UNIT PO ×4 (07:50→21:41)
[2021-01-13] MEDS: Multivitamins,Therapeutic Tablet 1 TABLET PO (07:50)
[2021-01-13] MEDS: Sertraline 50 MG Tablet PO (07:50)
[2021-01-13] MEDS: Folic Acid 1 MG Tablet PO (07:50)
[2021-01-13] MEDS: amLODIPine 5 MG Tablet PO (07:50)
[2021-01-13] MEDS: Lisinopril 40 MG Tablet PO (07:50)
[2021-01-13] MEDS: Menthol/Lanolin/Calamine/Znox 113 GM Tube 1 APPLIC TOPICAL ×2 (07:59→21:42)
[2021-01-13 08:40] VITALS: BMI 27.5
--- NOTE | 2021-01-13 10:26 | CASEMGMT ---
Social Work IDT met with patient and via conference call for Team meeting. Discussed patient's progress in therapy and nursing. All disciplines continue to work with pt. adjusting some medications and treatment in attempt for pt to become more alert. Explained Medicare approved 23 days with DC 01/26. IDT recommending continued therapy at SNF at that time. agreeable. Provided list of SNFs in pt room for to retrieve during visitation this date. The list provided can meet pt's needs, in desired area and in insurance network. SW offered continued assistance with DC plans. Will ReTeam. GABRIELLE SheltonW
--- NOTE | 2021-01-13 12:05 | PCM.PN.BLA ---
Progress Note Brady was seen on team rounds today. His Colleen participated by phone. He is more alert today and better able to participate with the therapists. He answers all the ROS questions with no and this is not reliable. He does not appear to be in any discomfort. Afebrile VSS - BP's are variable and have ranged from 114/66 to 151/81 over the past 24 hours. He is tilt + today. Urine in the Munoz bag appears concentrated. Maintaining appropriate oxygen saturation on RA Oral intake is fair but he put out more than he took in yesterday. Discussed with nursing - Nursing reports he is having loose stools. He is afebrile Reviewed the PT/OT/ST notes Medication list reviewed. the weights I do not think are accurate....they are a mix of bed weights and I do not find these to be reliable. I think the weight of 181 LB 10 oz is accurate and I also think the weight of 180 lb 15.99 ounces today is accurate. He did not eat well for a few days due to being so drowsy from the Baclofen. He was able to feed himself 80% of the bites he took yesterday when eating with supervision by the ST. He need voacl cues to decrease the size of the bites he is taking and he does have a weight cough when eating. Physical Exam Const no apparent distress Constitutional Narrative: he is more alert today and opening his eyes and looking at me when I speak to him General Appearance: cooperative Orientation / Consciousness: other Other Details: severe expressive aphasia Exam Limitations: language barrier and physical limitations Nutritional Appearance: thin HEENT normocephalic HEENT Narrative: MM are dry Mouth: dry mucous membranes Resp clear to auscultation bilaterally Effort and Inspection: symmetric chest movement and decreased respiratory effort Auscultation: diminished lung sounds Cardio regular rate, regular rhythm, S1 normal heart sound, S2 normal heart sound, no murmurs and no gallops Cardio Narrative: No ectopy GI normal to inspection, nondistended, normoactive bowel sounds, soft to palpation, non-tender and non-distended GI Narrative: no guarding with palpation Auscultation: normoactive bowel sounds Bladder / Kidney Exam: catheter in place Extremity no calf tenderness Skin General Skin Exam: no breakdown Rashes: no rashes Neuro Sensorium / Orientation: somnolent and fluctuating sensorium Meningeal Signs: no meningeal signs Cranial Nerves: other R facial droop Speech: speech abnormal Details: Positive for slurred and complete aphasia Gait (Neuro): unable to assess gait Motor Exam: strength abnormal and muscle tone abnormal hypertonic: RUE Assessment & Plan Assessment/Plan (1) Hemorrhagic cerebrovascular accident (CVA): Status: Acute Code(s): I61.9 - Nontraumatic intracerebral hemorrhage, unspecified Plan: Continue therapy (2) Hypertension: Status: Chronic Code(s): I10 - Essential (primary) hypertension Qualifiers: Hypertension type: essential hypertension Qualified Code(s): I10 - Essential (primary) hypertension (3) History of hepatitis C: Status: Chronic Code(s): Z86.19 - Personal history of other infectious and parasitic diseases (4) Heavy alcohol use: Status: Chronic Code(s): Z78.9 - Other specified health status (5) Tobacco dependence due to cigarettes, in remission: Status: Chronic Code(s): F17.211 - Nicotine dependence, cigarettes, in remission (6) Hypernatremia: Status: Resolved Code(s): E87.0 - Hyperosmolality and hypernatremia (7) Macrocytic anemia: Status: Acute Code(s): D53.9 - Nutritional anemia, unspecified (8) Physical debility: Status: Acute Code(s): R53.81 - Other malaise (9) Oropharyngeal dysphagia: Status: Acute Code(s): R13.12 - Dysphagia, oropharyngeal phase Plan: Plan a MBS when the effects of the PO Baclofen have worn off completely (10) Urine retention: Status: Acute Code(s): R33.9 - Retention of urine, unspecified Plan: He is currently on Flomax and doxazosin and tolerating these medications without hypotension. Voiding trial on Sunday. (11) BPH (benign prostatic hyperplasia): Status: Suspected Code(s): N40.0 - Benign prostatic hyperplasia without lower urinary tract symptoms Qualifiers: Lower urinary tract symptom presence: symptoms present Lower urinary tract symptom detail: urinary retention Qualified Code(s): N40.1 - Benign prostatic hyperplasia with lower urinary tract symptoms; R33.8 - Other retention of urine (12) Right hemiparesis: Status: Acute Code(s): G81.91 - Hemiplegia, unspecified affecting right dominant side (13) Anthony-neglect of right side: Status: Acute Code(s): R41.4 - Neurologic neglect syndrome Plan: he is now starting to move his leg on the R when the PT is showing him how to move with the R leg (14) Aphasia complicating stroke: Status: Acute (15) Stuporous: Status: Resolved Code(s): R40.1 - Stupor (16) Orthostatic hypotension: Status: Acute Code(s): I95.1 - Orthostatic hypotension Capacity Capacity Assessment Tool Can the patient make a choice & communicate that choice?: No Can the patient understand benefits, risks and alternatives?: No Can the patient make a logical, rational choice?: No i.e. close relative (spouse, child, parent, sibling)?: Comment (his Colleen is very involved with his care and visits frequently) Inpatient E&M: [id number] Subs Hosp L2
[2021-01-13] MEDS: 0.9% Normal Saline 1,000 ML 100 ML IV (12:14)
[2021-01-13] MEDS: Tamsulosin HCl 0.4 MG Capsule PO (17:02)
[2021-01-13 19:11] VITALS: BP 156/87; PULSE 77; RESP 16; TEMP 36.9; O2SAT 96
[2021-01-13] MEDS: Doxazosin 1 MG Tablet 2 MG PO (21:41)
[2021-01-13] MEDS: Atorvastatin Calcium 20 MG Tablet PO (21:41)
[2021-01-14 05:19] VITALS: BP 152/88; BP 170/93; PULSE 71; PULSE 73
[2021-01-14] MEDS: Arthritis Pain Compound 60 CLICK TUBE TOPICAL ×3 (05:24→22:29)
[2021-01-14 07:14] VITALS: BP 152/88; PULSE 59; RESP 16; TEMP 36.6; O2SAT 95
[2021-01-14] MEDS: amLODIPine 5 MG Tablet PO (08:54)
[2021-01-14] MEDS: Folic Acid 1 MG Tablet PO (08:54)
[2021-01-14] MEDS: NYSTATIN 500,000 UNIT/5 ML UDC 500000 UNIT PO ×4 (08:55→22:31)
[2021-01-14] MEDS: Sertraline 50 MG Tablet PO (08:55)
[2021-01-14] MEDS: Lisinopril 40 MG Tablet PO (08:55)
[2021-01-14] MEDS: Multivitamins,Therapeutic Tablet 1 TABLET PO (08:55)
[2021-01-14 09:00] VITALS: BP 132/68; BP 146/82; BP 160/82; PULSE 100; PULSE 79; PULSE 90
[2021-01-14] MEDS: Menthol/Lanolin/Calamine/Znox 113 GM Tube 1 APPLIC TOPICAL ×2 (13:47→22:30)
[2021-01-14 14:43] VITALS: BMI 27.5
--- NOTE | 2021-01-14 16:18 | CASEMGMT ---
Social Work Spoke with . provided preferences for SNFs - [facility] and [facility]. SW to refer. Frieda Stringer, BLOCKING MACHINE OPERATOR RN TRANSPLANT
[2021-01-14] MEDS: Tamsulosin HCl 0.4 MG Capsule PO (17:46)
[2021-01-14 19:21] VITALS: BP 157/91; PULSE 87; RESP 16; TEMP 36.4; O2SAT 96
[2021-01-14] MEDS: Doxazosin 1 MG Tablet 2 MG PO (22:30)
[2021-01-14] MEDS: Atorvastatin Calcium 20 MG Tablet PO (22:30)
[2021-01-14 22:45] VITALS: BMI 27.5
[2021-01-14] MEDS: 0.9% Saline Lock 10 ML Syringe IV (23:08)
--- NOTE | 2021-01-15 02:17 | NURSING ---
Addendum entered by Sandie Armstrong 01/15/21 06:53: PT HAD 600 MLS OF URINE OUT WHEN AGUIRRE WAS INSERTED. Original Note: 0207; PT INCONT X 2 FOR SMALL AMOUNTS OF URINE THIS ADRIANNE. BLADDER SCAN DONE 2 TIMES THIS ADRIANNE AFTER INCONTINENCE WITHIN 8 HOURS OF LAST STRAIGHT CATH. PT BLADDER SCAN AT [id number] MLS AND AT 0150 600 MLS. DUE TO PT INABILITY TO EMPTY BLADDER 16 F AGUIRRE WITH 10 ML BALLOON PLACED WITH RETURN OF 800 MLS CLEAR YELLOW URINE. PT TOLERATED PROCEDURE WITHOUT DIFFICUTLY.
[2021-01-15] MEDS: Arthritis Pain Compound 60 CLICK TUBE TOPICAL ×3 (05:28→21:26)
[2021-01-15 07:38] VITALS: BP 154/86; PULSE 72; RESP 18; TEMP 36.7; O2SAT 95
[2021-01-15] MEDS: Multivitamins,Therapeutic Tablet 1 TABLET PO (07:42)
[2021-01-15] MEDS: Folic Acid 1 MG Tablet PO (07:42)
[2021-01-15] MEDS: Lisinopril 40 MG Tablet PO (07:42)
[2021-01-15] MEDS: Sertraline 50 MG Tablet PO (07:42)
[2021-01-15] MEDS: amLODIPine 5 MG Tablet PO (07:42)
[2021-01-15] MEDS: Menthol/Lanolin/Calamine/Znox 113 GM Tube 1 APPLIC TOPICAL ×2 (07:43→21:29)
[2021-01-15 08:00] VITALS: BP 120/76; BP 128/80; BP 132/70; PULSE 78; PULSE 80; PULSE 89
[2021-01-15 09:08] VITALS: BMI 27.5
[2021-01-15] MEDS: NYSTATIN 500,000 UNIT/5 ML UDC 500000 UNIT PO ×4 (09:09→21:29)
[2021-01-15] MEDS: Loperamide 2 MG Capsule PO (16:46)
[2021-01-15] MEDS: Tamsulosin HCl 0.4 MG Capsule PO (16:47)
[2021-01-15 21:25] VITALS: BP 157/85; PULSE 69; RESP 18; TEMP 36.7; O2SAT 94; BMI 27.5
[2021-01-15] MEDS: Atorvastatin Calcium 20 MG Tablet PO (21:28)
[2021-01-15] MEDS: Doxazosin 1 MG Tablet 2 MG PO (21:28)
--- NOTE | 2021-01-15 22:36 | NURSING ---
pt tried to communicated needs to staff this and became frustrated being unable to do so, saying no, no, no. staff stated a list of needs to pt and pt would shake his head indicating no and repeating no. pt would grab this workers' hand or pat my face , trying to express what he needed. pt positioned for comfort, po fluids given, and pt was clean and dry. will leave e-mail to speech for a better communication board for pt to try. pt does follow simple commands and tries to assist staff with rolling in the bed and lifting leg .
--- NOTE | 2021-01-16 02:06 | MDS.RN ---
REVIEWED AND AGREE WITH DIRECTOR OF RELIGIOUS LIFE ASSESSMENT AND HAND OFF NOTE
[2021-01-16] MEDS: Arthritis Pain Compound 60 CLICK TUBE TOPICAL ×3 (05:45→22:03)
[2021-01-16 07:40] VITALS: BP 140/78; PULSE 63; RESP 16; TEMP 36.3; O2SAT 97
[2021-01-16 08:30] VITALS: BP 110/70; BP 120/64; BP 124/78; PULSE 75; PULSE 80; PULSE 82
[2021-01-16 08:48] VITALS: BMI 27.5
[2021-01-16] MEDS: NYSTATIN 500,000 UNIT/5 ML UDC 500000 UNIT PO ×4 (09:29→22:02)
[2021-01-16] MEDS: Lisinopril 40 MG Tablet PO (09:29)
[2021-01-16] MEDS: Multivitamins,Therapeutic Tablet 1 TABLET PO (09:29)
[2021-01-16] MEDS: amLODIPine 5 MG Tablet PO (09:29)
[2021-01-16] MEDS: Sertraline 50 MG Tablet PO (09:29)
[2021-01-16] MEDS: Folic Acid 1 MG Tablet PO (09:29)
[2021-01-16] MEDS: Menthol/Lanolin/Calamine/Znox 113 GM Tube 1 APPLIC TOPICAL ×2 (09:30→22:03)
[2021-01-16] MEDS: Loperamide 2 MG Capsule PO (09:30)
--- NOTE | 2021-01-16 11:58 | PCM.PROGNOTE ---
Subjective Subjective: Brady has no complaints. He still has severe expressive aphasia and all he can say is no and sometimes he is nodding his head yes at the same time he is saying no. He is able to follow simple commands and he does feed himself for ST. Since he can no get his words out he sometimes makes gestures to express himself. He waves good morning and smiles at me when I am talking with him. I reviewed the PT/OT/ST notes and we discussed him on TEAM rounds this morning. He is much more alert this week and the Arthritis compounded cream is helping with the spasms in the RUE. He appears to be comfortable in the recliner in the therapy room. He is tolerating the Sertraline with no obvious side effect. Objective Data Objective Data He is no longer tilt positive. The Munoz catheter had to be reinserted for urine retention while on doxazosin 2 mg p.o. nightly and Flomax 0.4 mg daily. He is not feeding himself but eats well when the nurses feed him. He will drink his supplements when he is handed the cup. Vital Signs: Vital Signs Temp Pulse Resp BP Pulse Ox 97.3 F L 82 16 120/64 97 01/16/21 07:40 01/16/21 08:30 01/16/21 07:40 01/16/21 08:30 01/16/21 07:40 Oxygen Delivery Method Room Air Weight: 180 lb 15.992 oz Body Mass Index (BMI) 27.5 Finger Stick Blood Glucose 101 Orthostatic Vital Signs Start: 01/14/21 05:19 Freq: q24h Status: Active Protocol: Activity Type Activity Date Activity User E-Sign Co-Sign Detail Recorded Client Recorded Date Recorded By Document 01/16/21 08:30 BL [id number] 01/16/21 11:27 BL 01/16/21 08:30 Orthostatic Vitals Standing -Blood Pressure (90/60-120/80) 110/70 -Extremity Use Left Arm -Pulse Rate (60-100) 80 Sitting -Blood Pressure (90/60-120/80) 124/78 H -Extremity Use Left Arm -Pulse Rate (60-100) 75 Lying -Blood Pressure (90/60-120/80) 120/64 -Extremity Use Left Arm -Pulse Rate (60-100) 82 Intake & Output: Intake and Output for Last 24 Hours 01/14/21 01/15/21 01/16/21 23:59 23:59 23:59 Intake Total 1320 / 1320 1290 / 1290 240 / 240 Output Total 1475 / 1475 2074 / 2074 450 / 450 Balance -155 / -155 -785 / -785 -210 / -210 Lab / Micro Data Result Diagrams: 01/17/21 05:52 01/17/21 05:52 Physical Exam Const alert and no apparent distress Constitutional Narrative: Continues to have severe expressive aphasia and unable to say anything but no to me. He is able to say a few common automatisms with ST. he is able to follow some simple commands for me. General Appearance: cooperative Orientation / Consciousness: other Other Details: severe expressive aphasia Exam Limitations: language barrier and physical limitations Nutritional Appearance: thin HEENT head/scalp atraumatic Neck supple General: trachea midline Resp clear to auscultation bilaterally Effort and Inspection: symmetric chest movement and decreased respiratory effort Auscultation: diminished lung sounds Cardio regular rate, regular rhythm, S1 normal heart sound, S2 normal heart sound, no murmurs, no rub and no gallops Cardio Narrative: No ectopy GI normal to inspection, nondistended, normoactive bowel sounds and soft to palpation GI Narrative: no guarding with palpation Auscultation: normoactive bowel sounds Bladder / Kidney Exam: catheter in place Extremity no clubbing, cyanosis or edema Extremity Narrative: Negative Homans, negative Dilip Skin General Skin Exam: no breakdown Rashes: no rashes Neuro Neuro Narrative: Persistent right facial droop. Severe expressive aphasia and receptive aphasia to a lesser degree. Continues to have right side neglect especially of the right upper extremity. Strength in the right upper extremity is 0/5. He is able to move the right lower extremity somewhat and strength is 2/5. No seizure like activity. Sensorium / Orientation: somnolent and fluctuating sensorium Meningeal Signs: no meningeal signs Cranial Nerves: other R facial droop Speech: speech abnormal Details: Positive for slurred and complete aphasia Gait (Neuro): unable to assess gait Motor Exam: strength abnormal and muscle tone abnormal hypertonic: RUE Psych Psych Narrative: He makes eye contact and he smiles at the staff. He is waving good morning to me. Has good facial expression and does not appear to be in any distress. Mood & Affect: flat affect Assessment & Plan Assessment/Plan (1) Hemorrhagic cerebrovascular accident (CVA): Status: Acute Code(s): I61.9 - Nontraumatic intracerebral hemorrhage, unspecified Plan: Continue therapy. I suspect that he will need to go to a SNF for additional therapy prior to returning home. (2) Aphasia complicating stroke: Status: Acute Plan: Continue speech therapy (3) Physical debility: Status: Acute Code(s): R53.81 - Other malaise Plan: Continue therapy (4) Right hemiparesis: Status: Acute Code(s): G81.91 - Hemiplegia, unspecified affecting right dominant side (5) Oropharyngeal dysphagia: Status: Acute Code(s): R13.12 - Dysphagia, oropharyngeal phase Plan: He will have an MBS on 01/18/21. (6) Anthony-neglect of right side: Status: Acute Code(s): R41.4 - Neurologic neglect syndrome Plan: he is now starting to move his leg on the R when the PT is showing him how to move with the R leg (7) Urine retention: Status: Acute Code(s): R33.9 - Retention of urine, unspecified Plan: He is currently on Flomax and doxazosin and tolerating these medications without hypotension. Voiding trial failed and the Munoz had to be reinserted. Will likely try 1 more voiding trial prior to DC. I am going to DC the Cardura and start Proscar to help shrink the prostate. (8) Hypertension: Status: Chronic Code(s): I10 - Essential (primary) hypertension Qualifiers: Hypertension type: essential hypertension Qualified Code(s): I10 - Essential (primary) hypertension Plan: Blood pressure is currently well controlled. (9) Heavy alcohol use: Status: Chronic Code(s): Z78.9 - Other specified health status Plan: Drinks 6-12 beers daily at home. Alcohol cessation advised or at least cutting back to 1-2 beers daily. (10) Tobacco dependence due to cigarettes, in remission: Status: Chronic Code(s): F17.211 - Nicotine dependence, cigarettes, in remission Plan: Smoking cessation counseling was done. (11) Hypernatremia: Status: Resolved Code(s): E87.0 - Hyperosmolality and hypernatremia (12) History of hepatitis C: Status: Chronic Code(s): Z86.19 - Personal history of other infectious and parasitic diseases (13) Macrocytic anemia: Status: Acute Code(s): D53.9 - Nutritional anemia, unspecified (14) BPH (benign prostatic hyperplasia): Status: Suspected Code(s): N40.0 - Benign prostatic hyperplasia without lower urinary tract symptoms Qualifiers: Lower urinary tract symptom presence: symptoms present Lower urinary tract symptom detail: urinary retention Qualified Code(s): N40.1 - Benign prostatic hyperplasia with lower urinary tract symptoms; R33.8 - Other retention of urine (15) Stuporous: Status: Resolved Code(s): R40.1 - Stupor (16) Orthostatic hypotension: Status: Resolved Code(s): I95.1 - Orthostatic hypotension (17) Dehydration: Status: Resolved Code(s): E86.0 - Dehydration Visit Charges Inpatient E&M: 02141 Subs Hosp L2
[2021-01-16] MEDS: Tamsulosin HCl 0.4 MG Capsule PO (18:25)
[2021-01-16 19:34] VITALS: BP 144/73; PULSE 60; RESP 17; TEMP 36.4; O2SAT 97
[2021-01-16] MEDS: Atorvastatin Calcium 20 MG Tablet PO (22:02)
[2021-01-16] MEDS: Doxazosin 1 MG Tablet 2 MG PO (22:03)
[2021-01-16 22:50] VITALS: BMI 27.5
[2021-01-16] MEDS: 0.9% Saline Lock 10 ML Syringe IV (23:04)
[2021-01-17 05:59] LABS: Hematocrit 35.3 % (40-54); Hemoglobin 12.2 g/dL (13.0-16.5); Mean Corp Hgb Conc 34.6 g/dL (32-36); Mean Corpuscular Hgb 31.6 pg (27.0-32.0); Mean Corpuscular Volume 91.5 fL (80-94); Mean Platelet Vol. 9.8 fl (6.2-12.0); Platelet Count 215 K/mm3 (150-450); RBC Distribution Width CV 12.2 % (11.6-14.6); RBC Distribution Width SD 40.6 fl (35.1-43.9); Red Blood Count 3.86 M/mm3 (4.6-6.2); White Blood Count 5.1 K/mm3 (4.4-11.0)
[2021-01-17] MEDS: Arthritis Pain Compound 60 CLICK TUBE TOPICAL ×3 (06:00→20:49)
[2021-01-17 06:40] LABS: Anion Gap 7 (5-15); BUN 8 mg/dL (7-18); BUN/Creat Ratio 14.8 RATIO (10-20); Calcium,Total 8.6 mg/dL (8.5-10.1); Chloride 102 mmol/L (98-107); Creatinine, Serum 0.54 mg/dL (0.70-1.30); EST Glomerular Filtration Rate 158 mL/min (>60); Est Glom Filt Rate - Afr Amer 192 mL/min (>60); Estimated Creatinine Clearance 72.16 ml/min; Glucose 97 mg/dL (74-106); Potassium 3.2 mmol/L (3.5-5.1); Sodium Level 136 mmol/L (136-145)
[2021-01-17] MEDS: Lisinopril 40 MG Tablet PO (07:33)
[2021-01-17] MEDS: Loperamide 2 MG Capsule PO (07:33)
[2021-01-17] MEDS: Multivitamins,Therapeutic Tablet 1 TABLET PO (07:33)
[2021-01-17] MEDS: Sertraline 50 MG Tablet PO (07:33)
[2021-01-17] MEDS: Folic Acid 1 MG Tablet PO (07:33)
[2021-01-17] MEDS: amLODIPine 5 MG Tablet PO (07:33)
[2021-01-17] MEDS: Menthol/Lanolin/Calamine/Znox 113 GM Tube 1 APPLIC TOPICAL ×2 (07:37→20:49)
[2021-01-17 08:00] VITALS: BP 135/75; PULSE 63; RESP 16; TEMP 36.6; O2SAT 95
[2021-01-17] MEDS: NYSTATIN 500,000 UNIT/5 ML UDC 500000 UNIT PO ×4 (11:31→20:50)
[2021-01-17 12:15] VITALS: BP 126/70; BP 132/74; BP 138/80; PULSE 74; PULSE 76; PULSE 80
[2021-01-17 13:35] VITALS: BMI 27.5
[2021-01-17] MEDS: Tamsulosin HCl 0.4 MG Capsule PO (17:27)
[2021-01-17 19:07] VITALS: BP 147/81; PULSE 63; RESP 16; TEMP 36.7; O2SAT 96
[2021-01-17 20:35] VITALS: BMI 27.5
[2021-01-17] MEDS: Atorvastatin Calcium 20 MG Tablet PO (20:48)
[2021-01-17] MEDS: Doxazosin 1 MG Tablet 2 MG PO (20:49)
[2021-01-17 20:59] VITALS: PULSE 63; RESP 16
[2021-01-18] MEDS: Arthritis Pain Compound 60 CLICK TUBE TOPICAL ×3 (05:45→22:19)
[2021-01-18 08:38] VITALS: BP 124/78; PULSE 71; RESP 16; TEMP 36.7; O2SAT 93
[2021-01-18] MEDS: Potassium Chloride Oral Tablet 20 MEQ PO (08:49)
[2021-01-18] MEDS: Sertraline 50 MG Tablet PO (08:49)
[2021-01-18] MEDS: Multivitamins,Therapeutic Tablet 1 TABLET PO (08:49)
[2021-01-18] MEDS: NYSTATIN 500,000 UNIT/5 ML UDC 500000 UNIT PO ×4 (08:49→22:20)
[2021-01-18] MEDS: Folic Acid 1 MG Tablet PO (08:49)
[2021-01-18] MEDS: Lisinopril 40 MG Tablet PO (08:49)
[2021-01-18] MEDS: amLODIPine 5 MG Tablet PO (08:49)
[2021-01-18 10:12] VITALS: BMI 27.5
--- NOTE | 2021-01-18 14:48 | SP.MBSS_ITS ---
Modified Barium Swallow - Patient Information Study Date: 01/18/21 Study Time: 10:45 Direct Billable Minutes: 140 Total Minutes procedure & reportin Diagnosis: dysphagia Referring Physician: Annie Lemus Reason for Referral: Objective assessment of swallow function under fluoroscopy recommended; history of silent aspiration on previous MBS Medical History: Fede Dobbs is a 70 year old M with a PMH of HTN (untreated), Hep C, smoking dependence in remission and varicose VV who had an acute intraparenchymal hemorrhage on 12/23/20 involving the left basal ganglia and the L frontal lobe causing R hemiparesis, R facial droop, dysarthria and dysphagia. He was transferred from an outside ED to [facility] for definitive care. He did not regularly see a physician and in fact had no PCP prior to the hemorrhage. LDL was 89 and the HGBA1C was 5.2%. There was no aneurysm and no vascular malformation on imaging. TTE showed an EF of 58% and no atrial septal defect. His blood pressure at the outside emergency department was 224/116. NIH upon arrival at [facility] was 19. While at [facility] he completed a Phenobarb taper from 12/24/20 to 12/30/20 due to heavy ETOH use. He received Folic acid, thiamine and a MV. He was diagnosed with urine retention and at the time of transfer to the inpt rehab unit at [facility] he was being straight cath'd every 6 hours. At one time at [facility] he had a Munoz catheter. He was transferred to the acute inpt rehab unit at [facility] on 01/03/21 for > 3 hours of therapy daily to restore him at or near his baseline function prior to the hemorrhage. MBS completed at [facility] on 12/29/20 w/ patient noted to be a silent aspirator. Recommended puree textures/mildly thick liquids. Aspiration precautions - strict 1:1 supervision, placement on left side, benefits from liquid wash, and medications crushed in pureed textures. Current Diet Ordered: pureed textures/mildly thick (nectar) liquids Dentition: Upper Dentures, Lower Dentures - newest dentures were lost at [facility] prior to [facility] RU admission; old dentures used & require adhesive d/t poor fit Mental Status: Impaired - difficulty following commands s/p CVA d/t expressive/receptive aphasia Respiratory Status: Oxygenating on Room Air - Penetration-Aspiration Scale Penetration-Aspiration Scale: OBJECTIVE ASSESSMENT OF SWALLOW FUNCTION (QUANTITATIVE ? PER TRIAL): PENETRATION / ASPIRATION SCALE (MONIQUE): 1 = does not enter airway 2 = enters airway/above vocal folds/ejected 3 = enters airway/above vocal folds/not ejected 4 = enters airway/contacts vocal folds/ejected 5 = enters airway/contacts vocal folds/not ejected 6 = enters airway/below vocal folds/ejected 7 = enters airway/below vocal folds/not ejected despite effort 8 = enters airway/below vocal folds/no effort VIDEOFLOROSCOPIC SCALE SCORE (MONIQUE): Grade I = aspiration of material that has penetrated into the laryngeal vestibule, intact cough reflex Grade II = aspiration < 10 % of the bolus, intact cough reflex Grade III = aspiration of < 10 % of the bolus, reduced cough reflex or aspiration of > 10 % of the bolus, intact cough reflex Grade IV = aspiration of > 10 % of the bolus, reduced cough reflex - Penetration-Aspiration Scale Score Thin Liquid via teaspoon Result: 5= enters airways/contacts vocal folds/not ejected - weak cough response Comment: Grade III = aspiration of > 10 % of the bolus, intact cough reflex Thin Liquid via teaspoon Trial 2 Result: 1= does not enter airway Thin Liquid via cup Result: 8= enters airway/below vocal folds/no effort Comment: Grade III = aspiration of < 10 % of the bolus, reduced cough reflex Thin Liquid via cup Trial 2 Result: 8= enters airway/below vocal folds/no effort Comment: Grade III = aspiration of < 10 % of the bolus, reduced cough reflex Thin Liquid via large sip from straw Result: 8= enters airway/below vocal folds/no effort Comment: Grade III = aspiration of < 10 % of the bolus, reduced cough reflex Thin Liquid via small single sip from cup Result: 4= enters airway/contacts vocal folds/ejected Thin Liquid via small single sip from cup Trial 2 Result: 1= does not enter airway Pudding Result: 1= does not enter airway Pudding Trial 2 Result: 1= does not enter airway Comment: visible contrast lining the vocal folds during/after deglutition but was unable to visualize cause, suspect d/t pharyngeal residue penetrating into the laryngeal vestibule between trials and/or laryngeal vestibule penetration from prior trials accumulating/consolidating atop vocal folds Cookie Result: 1= does not enter airway Comment: penetration that lined the vocal folds previously dropped below the folds (silent aspiration) - aspiration not resultant from this trial but likely from pharyngeal residue penetration between trials that was not visible under fluoroscopy [place] Thick Liquid via large single sip from cup Result: 3= enters airways/above vocal folds/not ejected [place] Thick Liquid via small single sip from cup Result: 1= does not enter airway Thin Liquid via small single sip from cup Trial 3 Result: 2= enter airway/above vocal folds/ejected Thin Liquid via small single sip from cup Trial 4 Result: 5= enters airways/contacts vocal folds/not ejected - Oral Phase Labial Seal: Interlabial escape, no progression to anterior lip Tongue Control During Bolus Hold: Posterior escape of greater than half of bolus Bolus Preparation/Mastication: Disorganized chewing/mashing with solid pieces of bolus unchewed Bolus Transport/Lingual Motion: Slowed tongue motion Oral Residue: Residue collection on oral structures - Pharyngeal Phase Initiation of Pharyngeal Swallow: Bolus head in pyriforms Soft Palate Elevation: No bolus between soft palate and pharyngeal wall Laryngeal Elevation: Comp. Superior move thyroid cart w/comp. apprx arytenoid cart-epig pet Anterior Hyoid Excursion: No anterior movement Epiglottic Movement: Complete inversion Laryngeal Vestibule Closure at Height of Swallow: Incomplete; narrow column of air/contrast in laryngeal vestibule Pharyngeal Stripping Wave: Present - diminished Pharyngoesophageal Segment Opening: Complete distension and complete duration; no obstruction of flow Tongue Base Retraction: Narrow column of contrast between tongue base & post. pharyngeal wall Pharyngeal Residue: Trace residue within or on pharyngeal structures - Treatment Strategies Effects of treatment strategies attemped:: Chin tuck attempted = unable to accurately execute Cued cough/throat clearing = able to expel penetration/aspiration, although inconsistently able to execute Dry swallow = effective to clear pharyngeal residue, unable to execute swallow consistently which resulted in additional penetration/aspiration of residue - Diagnosis/Impression Diagnosis: moderate oropharyngeal dysphagia Impression: Patient presents with moderate oropharyngeal dysphagia (R13.12) s/p an acute intraparenchymal hemorrhage on 12/23/20 involving the left basal ganglia and the L frontal lobe. Swallow function is characterized by: * impaired labial seal w/ anterior bolus leakage * suboptimal lingual control w/ bolus pooling to the floor of mouth and into the R buccal cavity, as well as posterior pharyngeal loss contributing to pre- prandial penetration and aspiration * mild mastication inefficiency w/ reduced oral clearance and right buccal pocketing * delayed pharyngeal swallow onset timing w/ liquids pooling to the pyriform sinuses prior to swallow onset resulting in penetration/aspiration of contrast from the pyriforms * adequate hyolaryngeal elevation, suboptimal anterior hyoid movement * oral weakness, reduced tongue based retraction, reduced posterior pharyngeal stripping wave action and suboptimal thyrohyoid elevation resulted in oral and pharyngeal residue retention noted which contributed to post-prandial penetration/aspiration between swallows * unable to view esophageal clearance d/t shoulder width/positioning blocking esophagus * weak cough response to initial aspiration; all subsequent aspiration was silent * cued cough/throat clear was effective to eject penetration/aspiration, but unable to consistently initiate a swallow to clear expectorated contrast w/ subsequent re-penetration/aspiration of contrast - Recommendations Diet: Puree Textures, [place]-thick Liquids Compensatory Strategies: Small Bites, Small Sips, No Straws, Slow Rate, Sitting upright, Remain sitting upright for 30 minutes after PO intake Supervision: 1:1 Close Supervision - feed as needed Recommend Repeat Modified Barium Swallow: Yes Need for Skilled Speech Therapy Services: Yes Comment: Patient requires intensive skilled speech-language intervention targeting: * Oral strengthening exercises to facilitate improved lingual and labial strength/control * Oropharyngeal strengthening exercises to facilitate improved swallow onset timing, laryngeal vestibule closure/pressure, pharyngeal motility * Respiratory Muscle Strength Training to improve cough strength for improve airway protection * Would strongly discourage advancement past nectar thickened liquids without completion of a repeat modified barium swallow study due to the extent of aspirate identified that was SILENT in nature * Consider implementation of the Huang Free Water Protocol (FFWP), as manipulation of thin liquids with above recommended aspiration precautions may promote improved hydration and improved intraoral bolus control during initiation and execution of the swallow to facilitate improved airway protection and eventual successful upgrade to least restrictive means of PO intake (thin liquids) Education Completed: 1. Described result of evaluation., 2. Pt understands evaluation & agrees with goals and treatment plan. - verbally updated re: MBS findings, 7. Pt requires further education on strategies & risks. - Status Active ST Patient: Active - Contact Information [facility] Speech Therapy:: Dionne Blanton M.A., [facility] [address] [id number] [email or web address]
--- NOTE | 2021-01-18 16:39 | CASEMGMT ---
Social Work Met with patient's at length per her request to discuss several topics. overall expressed concerns financially for her and her patient. Discussed finances and SW explained Medicaid for her and pt. agreeable to complete application and realistic that pt may need LTC. Provided [place] application and offered continued assistance until DC. Explained whichever SNF pt DCs to, staff will continue to assist with MILEY process. also very overwhelmed with situation - tearful, anxious - and inquiring about support services for her. Explained and provided information on stroke support group, individual counseling. states she has her own medical issues and does not have a PCP. Encouraged to establish a PCP to assist with those concerns as well as anxiety. agreeable. Provided healthcare provider directory. Provided ongoing supportive listening, emotional and verbal support throughout conversation. Informed [facility] and [facility] have accepted pt. Left two messages with Tamanna Aguirre and not return. Encouraged to choose facility at Team and SW to assist with finalizing DC plans. appreciative of support and time from SW. Will continue to follow. GABRIELLE SheltonW
[2021-01-18] MEDS: Tamsulosin HCl 0.4 MG Capsule PO (17:01)
--- NOTE | 2021-01-18 19:01 | PN.TCU_ITS ---
Subjective Subjective: Patient seen, examined. He has no new problems, concerns, issues, complaints. He is sleepy, but it is early in the AM. Objective Data Objective Data Vital Signs: Vital Signs Temp Pulse Resp BP Pulse Ox 98.0 F 71 16 124/78 H 93 01/18/21 08:38 01/18/21 08:38 01/18/21 08:38 01/18/21 08:38 01/18/21 08:38 Oxygen Delivery Method Room Air Weight: 82.1 kg Body Mass Index (BMI) 27.5 Finger Stick Blood Glucose 101 Orthostatic Vital Signs Start: 01/14/21 05:19 Freq: q24h Status: Active Protocol: Activity Type Activity Date Activity User E-Sign Co-Sign Detail Recorded Client Recorded Date Recorded By Document 01/17/21 12:15 BL [id number] 01/17/21 13:35 BL 01/17/21 12:15 Orthostatic Vitals Standing -Blood Pressure (90/60-120/80) 138/80 H -Extremity Use Left Arm -Pulse Rate (60-100) 74 Sitting -Blood Pressure (90/60-120/80) 126/70 H -Extremity Use Left Arm -Pulse Rate (60-100) 80 Lying -Blood Pressure (90/60-120/80) 132/74 H -Extremity Use Left Arm -Pulse Rate (60-100) 76 Intake & Output: Intake and Output for Last 24 Hours 01/16/21 01/17/21 01/18/21 23:59 23:59 23:59 Intake Total 1160 / 1160 1260 / 1260 1080 / 1080 Output Total 1250 / 1250 1150 / 1250 1300 / 1300 Balance -90 / -90 110 / 10 -220 / -220 Lab / Micro Data Result Diagrams: 01/17/21 05:52 01/17/21 05:52 Physical Exam Const alert and oriented x3 General Appearance: cooperative HEENT normocephalic Eyes PERRL and EOMs intact bilaterally Neck supple, no JVD and no carotid bruits Resp normal respiratory effort, normal air movement and clear to auscultation bilaterally Cardio regular rate and regular rhythm GI normal to inspection, nondistended, normoactive bowel sounds, non-tender and non-distended Extremity normal capillary refill General Extremity: Negative for edema Skin no rashes or lesions noted General Skin Exam: no breakdown Neuro Neuro Narrative: Right hemiparesis. Psych affect normal Appearance: appropriate Assessment & Plan Assessment/Plan (1) Debility: Status: Acute Code(s): R53.81 - Other malaise (2) Dysphagia: Status: Acute Code(s): R13.10 - Dysphagia, unspecified (3) Stroke: Status: Acute Code(s): I63.9 - Cerebral infarction, unspecified (4) Hypertension: Status: Chronic Code(s): I10 - Essential (primary) hypertension (5) Hyperlipidemia: Status: Acute Code(s): E78.5 - Hyperlipidemia, unspecified (6) Osteoarthritis: Status: Acute Code(s): M19.90 - Unspecified osteoarthritis, unspecified site (7) Benign prostate hyperplasia: Status: Acute Code(s): N40.0 - Benign prostatic hyperplasia without lower urinary tract symptoms (8) Chronic diarrhea: Status: Chronic Code(s): K52.9 - Noninfective gastroenteritis and colitis, unspecified (9) Hypokalemia: Status: Acute Code(s): E87.6 - Hypokalemia (10) Depression: Status: Acute Code(s): F32.9 - Major depressive disorder, single episode, unspecified Plan: 70 year old male with below past medical history hospitalized for stroke, admitted to for > 3 hours daily rehabilitation, strengthening, prior to disposition determination. * Debility - PT/OT. * Dysphagia - ST. * Pain - Tylenol 650MG Q6H PRN. * Bowel - Senna/colace 2 tablets BID, MOM 30ML daily PRN, Dulcolax 10MG [place] daily PRN. * Hypertension - Lisinopril 40MG daily, Amlodipine 5MG daily. * Osteoarthritis - Arthritis Compound topical TID. * Hyperlipidemia - Atorvastatin 20MG QHS. * BPH - Doxazosin 2MG QHS, Tamsulosin 0.4MG daily. * Folate deficiency - Folic acid 1MG daily. * Chronic diarrhea - Loperamide 2MG Q4H PRN. * Skin irritation - Calmoseptine topica BID. * Nutrition - MVI daily. * Thrush - Nystatin 500,000 4x/day for 10 days. * Hypokalemia - KCL 20MEQ daily. * Depression - Sertraline 50MG daily. Capacity Capacity Assessment Tool Can the patient make a choice & communicate that choice?: Unable to Determine Can the patient understand benefits, risks and alternatives?: Unable to Determine Can the patient make a logical, rational choice?: Unable to Determine Is the choice the patient makes consistent w/ their values?: Unable to Determine Is there an impending, emergent risk to the patient?: No Does the patient have an Advance Directive?: Yes Is there a Surrogate Available?: Yes i.e. HCPOA: Yes i.e. close relative (spouse, child, parent, sibling)?: Yes
[2021-01-18 19:35] VITALS: BP 149/83; PULSE 66; RESP 16; TEMP 36.9; O2SAT 94
[2021-01-18 21:16] VITALS: BMI 27.5
[2021-01-18 21:23] VITALS: PULSE 68; RESP 16; O2SAT 97
[2021-01-18] MEDS: Doxazosin 1 MG Tablet 2 MG PO (22:20)
[2021-01-18] MEDS: Atorvastatin Calcium 20 MG Tablet PO (22:20)
[2021-01-18] MEDS: Menthol/Lanolin/Calamine/Znox 113 GM Tube 1 APPLIC TOPICAL (22:20)
[2021-01-19] MEDS: Arthritis Pain Compound 60 CLICK TUBE TOPICAL ×3 (04:41→21:42)
[2021-01-19] MEDS: Folic Acid 1 MG Tablet PO (07:50)
[2021-01-19] MEDS: Potassium Chloride Oral Tablet 20 MEQ PO (07:50)
[2021-01-19] MEDS: Multivitamins,Therapeutic Tablet 1 TABLET PO (07:50)
[2021-01-19] MEDS: NYSTATIN 500,000 UNIT/5 ML UDC 500000 UNIT PO ×4 (07:51→21:42)
[2021-01-19] MEDS: Sertraline 50 MG Tablet PO (07:51)
[2021-01-19] MEDS: Lisinopril 40 MG Tablet PO (07:51)
[2021-01-19] MEDS: amLODIPine 5 MG Tablet PO (07:51)
[2021-01-19] MEDS: Menthol/Lanolin/Calamine/Znox 113 GM Tube 1 APPLIC TOPICAL ×2 (07:52→21:43)
[2021-01-19 08:39] VITALS: BP 143/77; PULSE 70; RESP 18; TEMP 36.9; O2SAT 94
[2021-01-19 09:02] VITALS: BMI 27.5
--- NOTE | 2021-01-19 14:14 | CASEMGMT ---
Social Work completed both Medicaid applications. Submitted to S. Frieda Stringer, REHABILITATION ENGINEER EXPORT DOCUMENTS CLERK
[2021-01-19] MEDS: Tamsulosin HCl 0.4 MG Capsule PO (16:39)
--- NOTE | 2021-01-19 18:54 | PN.TCU_ITS ---
Subjective Subjective: Patient seen, examined. He is more awake today. He can only say no, and point, significant aphasia. Objective Data Objective Data Vital Signs: Vital Signs Temp Pulse Resp BP Pulse Ox 98.5 F 70 18 143/77 H 94 01/19/21 08:39 01/19/21 08:39 01/19/21 08:39 01/19/21 08:39 01/19/21 08:39 Oxygen Delivery Method Room Air Weight: 82.3 kg Body Mass Index (BMI) 27.5 Finger Stick Blood Glucose 101 Orthostatic Vital Signs Start: 01/14/21 05:19 Freq: Status: Active Protocol: Activity Type Activity Date Activity User E-Sign Co-Sign Detail Recorded Client Recorded Date Recorded By Document 01/17/21 12:15 BL [id number] 01/17/21 13:35 BL 01/17/21 12:15 Orthostatic Vitals Standing -Blood Pressure (90/60-120/80) 138/80 H -Extremity Use Left Arm -Pulse Rate (60-100) 74 Sitting -Blood Pressure (90/60-120/80) 126/70 H -Extremity Use Left Arm -Pulse Rate (60-100) 80 Lying -Blood Pressure (90/60-120/80) 132/74 H -Extremity Use Left Arm -Pulse Rate (60-100) 76 Intake & Output: Intake and Output for Last 24 Hours 01/17/21 01/18/21 01/19/21 23:59 23:59 23:59 Intake Total 1260 / 1260 1080 / 1330 1390 / 1390 Output Total 1150 / 1250 1300 / 1600 1840 / 1840 Balance 110 / 10 -220 / -270 -450 / -450 Lab / Micro Data Result Diagrams: 01/17/21 05:52 01/17/21 05:52 Physical Exam Const alert and oriented x3 General Appearance: cooperative HEENT normocephalic Eyes PERRL and EOMs intact bilaterally Neck supple, no JVD and no carotid bruits Resp normal respiratory effort, normal air movement and clear to auscultation bilaterally Cardio regular rate and regular rhythm GI normal to inspection, nondistended, normoactive bowel sounds, non-tender and non-distended Bladder / Kidney Exam: catheter in place Extremity normal capillary refill General Extremity: Negative for edema Skin no rashes or lesions noted General Skin Exam: no breakdown Neuro Neuro Narrative: Right hemiplegia. Psych affect normal Appearance: appropriate Assessment & Plan Assessment/Plan (1) Debility: (2) Dysphagia: (3) Stroke: (4) Hypertension: (5) Hyperlipidemia: (6) Osteoarthritis: (7) Benign prostate hyperplasia: (8) Chronic diarrhea: (9) Hypokalemia: (10) Depression: PLAN: 70 year old male with below past medical history hospitalized for stroke, admitted to for > 3 hours daily rehabilitation, strengthening, prior to disposition determination. * Debility - PT/OT. * Dysphagia - ST. * Pain - Tylenol 650MG Q6H PRN. * Bowel - Senna/colace 2 tablets BID, MOM 30ML daily PRN, Dulcolax 10MG UT daily PRN. * Hypertension - Lisinopril 40MG daily, Amlodipine 5MG daily. * Osteoarthritis - Arthritis Compound topical TID. * Hyperlipidemia - Atorvastatin 20MG QHS. * BPH - Doxazosin 2MG QHS, Tamsulosin 0.4MG daily. * Folate deficiency - Folic acid 1MG daily. * Chronic diarrhea - Loperamide 2MG Q4H PRN. * Skin irritation - Calmoseptine topica BID. * Nutrition - MVI daily. * Thrush - Nystatin 500,000 4x/day for 10 days. * Hypokalemia - KCL 20MEQ daily. * Depression - Sertraline 50MG daily. Capacity Capacity Assessment Tool Can the patient make a choice & communicate that choice?: Unable to Determine Can the patient understand benefits, risks and alternatives?: Unable to Determine Can the patient make a logical, rational choice?: Unable to Determine Is the choice the patient makes consistent w/ their values?: Unable to Determine Is there an impending, emergent risk to the patient?: No Does the patient have an Advance Directive?: Yes Is there a Surrogate Available?: Yes i.e. HCPOA: Yes i.e. close relative (spouse, child, parent, sibling)?: Yes
[2021-01-19 21:00] VITALS: BMI 27.5
[2021-01-19] MEDS: Doxazosin 1 MG Tablet 2 MG PO (21:42)
[2021-01-19] MEDS: Atorvastatin Calcium 20 MG Tablet PO (21:42)
[2021-01-19 22:00] VITALS: BP 151/88; PULSE 73; RESP 16; TEMP 36.8; O2SAT 95
[2021-01-20 06:00] VITALS: BP 129/86; PULSE 64; RESP 16; TEMP 36.8; O2SAT 93
[2021-01-20 06:19] LABS: Anion Gap 5 (5-15); BUN 5 mg/dL (7-18); BUN/Creat Ratio 8.5 RATIO (10-20); Calcium,Total 8.5 mg/dL (8.5-10.1); Chloride 104 mmol/L (98-107); Creatinine, Serum 0.59 mg/dL (0.70-1.30); EST Glomerular Filtration Rate 144 mL/min (>60); Est Glom Filt Rate - Afr Amer 174 mL/min (>60); Estimated Creatinine Clearance 72.16 ml/min; Glucose 91 mg/dL (74-106); Potassium 3.4 mmol/L (3.5-5.1); Sodium Level 136 mmol/L (136-145)
[2021-01-20] MEDS: Loperamide 2 MG Capsule PO ×2 (06:23→16:02)
[2021-01-20] MEDS: Arthritis Pain Compound 60 CLICK TUBE TOPICAL ×3 (06:24→20:33)
[2021-01-20] MEDS: Multivitamins,Therapeutic Tablet 1 TABLET PO (08:14)
[2021-01-20] MEDS: Sertraline 50 MG Tablet PO (08:14)
[2021-01-20] MEDS: amLODIPine 5 MG Tablet PO (08:14)
[2021-01-20] MEDS: Potassium Chloride Oral Tablet 20 MEQ PO (08:14)
[2021-01-20] MEDS: Folic Acid 1 MG Tablet PO (08:14)
[2021-01-20] MEDS: NYSTATIN 500,000 UNIT/5 ML UDC 500000 UNIT PO (08:14)
[2021-01-20] MEDS: Lisinopril 40 MG Tablet PO (08:14)
[2021-01-20 08:45] VITALS: BMI 27.5
--- NOTE | 2021-01-20 10:17 | NURSING ---
see therapy notes for functional abilities and goals
[2021-01-20] MEDS: Menthol/Lanolin/Calamine/Znox 113 GM Tube 1 APPLIC TOPICAL ×2 (11:10→20:33)
--- NOTE | 2021-01-20 15:54 | CASEMGMT ---
Social Work IDT met with patient and for Team meeting. Discussed patient's progress in therapy and nursing.Therapy modeling task prior to pt completing and having improved accuracy, however, remains max-total x2 for ADLS. ST to begin working on Vital Stim treatment. Per and ST request, contacted [facility] and [facility] to inquire if ST has Vital Stim - [facility] does not, [facility] does. would like pt to DC to [facility] 01/26. Notified both facilities. Scheduled cot transport through [facility] for 1100. Plan: DC to [facility] skilled 01/26 GABRIELLE SheltonW
[2021-01-20] MEDS: Tamsulosin HCl 0.4 MG Capsule PO (17:40)
--- NOTE | 2021-01-20 20:04 | PCM.DC.SUM ---
Providers Date of Admission: 01/03/21 Primary Care Physician: No Primary Care Phys Reason For Visit: STROKE Diagnosis Discharge Diagnosis (1) Debility: Status: Acute Code(s): R53.81 - Other malaise (2) Dysphagia: Status: Acute Code(s): R13.10 - Dysphagia, unspecified (3) Stroke: Status: Acute Code(s): I63.9 - Cerebral infarction, unspecified (4) Hypertension: Status: Chronic Code(s): I10 - Essential (primary) hypertension (5) Hyperlipidemia: Status: Acute Code(s): E78.5 - Hyperlipidemia, unspecified (6) Osteoarthritis: Status: Acute Code(s): M19.90 - Unspecified osteoarthritis, unspecified site (7) Benign prostate hyperplasia: Status: Acute Code(s): N40.0 - Benign prostatic hyperplasia without lower urinary tract symptoms (8) Chronic diarrhea: Status: Chronic Code(s): K52.9 - Noninfective gastroenteritis and colitis, unspecified (9) Hypokalemia: Status: Acute Code(s): E87.6 - Hypokalemia (10) Depression: Status: Acute Code(s): F32.9 - Major depressive disorder, single episode, unspecified Medications at Discharge Home Medications multivitamin with folic acid [Thera] 1 tab PO DAILY 09/14/14 acetaminophen [Tylenol] 650 mg PO Q6H PRN PRN 30 Days tab 01/20/21 amlodipine 5 mg PO DAILY #30 tab 01/20/21 atorvastatin 20 mg PO QHS 30 Days #30 tab 01/20/21 baclofen 2.5 mg PO 2000 30 Days #8 tab 01/20/21 bisacodyl 10 mg NJ .PRN X 1 PRN 30 Days ea 01/20/21 doxazosin 2 mg PO QHS 30 Days #60 tab 01/20/21 folic acid 1 mg PO DAILY@0800 30 Days tab 01/20/21 lisinopril 40 mg PO DAILY 30 Days #30 tab 01/20/21 loperamide 2 mg PO Q4H PRN PRN 30 Days cap 01/20/21 magnesium hydroxide 30 ml PO .PRN X 1 PRN 30 Days ml 01/20/21 menthol-zinc oxide [Calmoseptine] 1 applic TOPICAL BID 30 Days g 01/20/21 potassium chloride [Klor-Con M20] 20 meq PO DAILYCM 30 Days #30 tab 01/20/21 sennosides-docusate sodium [Stool Softener-Stimulant Laxat] 2 tab PO BID 30 Days #120 tab 01/20/21 sertraline 50 mg PO DAILY 30 Days #30 tab 01/20/21 tamsulosin 0.4 mg PO DAILY@1730 30 Days cap 01/20/21 Hospital Course Operations None Procedures None Summary of Care Provided Minutes Spent on Discharge: 35 Hospital Course: ? 70 year old male with below past medical history hospitalized for stroke, admitted to for > 3 hours daily rehabilitation, strengthening, prior to disposition determination. Right upper extremity spasticity treated with low dose Baclofen 2.5MG QHS, consider splint. Vital stim recommended to help strengthening swallowing muscles. ?Discharge to [facility] Skilled 01/26/2021. Physical Exam Const alert and oriented x3 General Appearance: cooperative HEENT normocephalic Eyes PERRL and EOMs intact bilaterally Neck supple, no JVD and no carotid bruits Resp normal respiratory effort, normal air movement and clear to auscultation bilaterally Cardio regular rate and regular rhythm GI normal to inspection, nondistended, normoactive bowel sounds, non-tender and non-distended Extremity normal capillary refill General Extremity: Negative for edema Skin no rashes or lesions noted General Skin Exam: no breakdown Neuro Neuro Narrative: Right hemiplegia. Speech: speech abnormal Details: Positive for other (Expressive aphasia.) Gait (Neuro): spastic hemiparesis Psych affect normal Appearance: appropriate ABG / Lab / Microbiology Data Result Diagrams: 01/17/21 05:52 01/20/21 05:15 Laboratory: Laboratory Results - last 24 hr 01/20/21 05:15 Sodium 136 Potassium 3.4 L Chloride 104 Carbon Dioxide 27.0 Anion Gap 5 BUN 5 L Creatinine 0.59 L Estim Creat Clear Calc 72.16 Est GFR (MDRD) Af Amer 174 Est GFR (MDRD) Non-Af 144 BUN/Creatinine Ratio 8.5 L Glucose 91 Calcium 8.5 D/C Instructions Discharge Diet: - (Pureed food, nectar/mildly thick liquids; 1500ML Fluid restriction. ) Weight Bearing Status: Weight bearing as tolerated Call your doctor if you observe: Fever of 101 or Higher, Inability to urinate, Shortness of breath, Dizziness, Chest pain and Uncontrolled pain Additional Instructions: Discharge to [facility] skilled 01/26/2021. Please Follow Up With: Shubham Saez When: 1 week. Meaningful Use Info Meaningful Use Diagnoses (Choose all that apply): Hemorrhagic CVA CVA Therapy Assessed for PT,OT and/or ST?: Yes Discharge Plan Admission Admit Date/Time: 01/03/21 16:33 Primary Reason for Your Visit: Debility Attending Provider: Annie Lemus Primary Care Provider: Care Physician,No Primary Instructions Additional Instructions / Restrictions: Discharge to [facility] skilled 01/26/2021. Discharge Orders/Prescriptions Prescriptions: New acetaminophen [Tylenol] 325 mg Tablet 650 mg PO Q6H PRN PRN (Reason: Pain Score 1-10) 30 Days RF: 0 atorvastatin 20 mg Tablet 20 mg PO QHS 30 Days Qty: 30 RF: 0 amlodipine 5 mg Tablet 5 mg PO DAILY Qty: 30 RF: 0 baclofen 10 mg Tablet 2.5 mg PO 1999 30 Days Qty: 8 RF: 0 bisacodyl 10 mg Suppository 10 mg NJ .PRN X 1 PRN (Reason: Constipation) 30 Days RF: 0 doxazosin 1 mg Tablet 2 mg PO QHS 30 Days Qty: 60 RF: 0 folic acid 1 mg Tablet 1 mg PO DAILY@0800 30 Days RF: 0 loperamide 2 mg Capsule 2 mg PO Q4H PRN PRN (Reason: Diarrhea) 30 Days RF: 0 magnesium hydroxide 400 mg/5 mL Suspension 30 ml PO .PRN X 1 PRN (Reason: Constipation) 30 Days RF: 0 lisinopril 40 mg Tablet 40 mg PO DAILY 30 Days Qty: 30 RF: 0 Calmoseptine 0.44-20.6 % Ointment 1 applic topical BID 30 Days RF: 0 sennosides-docusate sodium [Stool Softener-Stimulant Laxat] 8.6-50 mg Tablet 2 tab PO BID 30 Days Qty: 120 RF: 0 potassium chloride [Klor-Con M20] 20 mEq Tablet,Er Particles/Crystals 20 meq PO DAILYCM 30 Days Qty: 30 RF: 0 tamsulosin 0.4 mg Capsule 0.4 mg PO DAILY@1730 30 Days RF: 0 sertraline 50 mg Tablet 50 mg PO DAILY 30 Days Qty: 30 RF: 0 Continued multivitamin with folic acid [Thera] 1 TABLET tablet 1 tab PO DAILY RF: 0 Referrals / Follow Up: Care Physician,No Primary [Primary Care Provider] - Disposition Disposition (needs filled in before D/C Order can be placed): Retirement Facility
[2021-01-20 20:29] VITALS: BP 155/89; PULSE 86; RESP 16; TEMP 36.6; O2SAT 97
[2021-01-20] MEDS: Doxazosin 1 MG Tablet 2 MG PO (20:32)
[2021-01-20] MEDS: Atorvastatin Calcium 20 MG Tablet PO (20:32)
[2021-01-20] MEDS: Baclofen 10 MG Tablet 2.5 MG PO (20:33)
--- NOTE | 2021-01-20 20:38 | TREXTCAR_ITS ---
Diet 01/10/21 15:01 Diet: Cardiac - Heart Healthy Food consistency:: Pureed Liquid Consistency:: Kibler/Mildly Thick Dietary Modifications:: Sodium Restricted Type of Dietary Supplement:: Ensure Pudding Is pt able to select menu?: No Fluid restriction:: 1500 mL Diet Comments: THOROUGH ORAL CARE; Ensure Pudding L&D; 1 scoop beneprotein ev gianfranco meal Wound(s) rt frontal neck: Wound Type: Abrasion Problem/Diagnosis (1) Debility: Status: Acute (2) Dysphagia: Status: Acute (3) Stroke: Status: Acute (4) Hypertension: Status: Chronic (5) Hyperlipidemia: Status: Acute (6) Osteoarthritis: Status: Acute (7) Benign prostate hyperplasia: Status: Acute (8) Chronic diarrhea: Status: Chronic (9) Hypokalemia: Status: Acute (10) Depression: Status: Acute Allergies/Procedures Done in Hospital Allergies No Known Allergies Allergy (Verified 12/23/20 15:57) Type of Care/Length of Stay Estimated LOS: More Than 30 Days Type of Care Needed: Skilled Rehab Potential: Fair Prognosis: Fair Additional Orders/Day of Discharge Day of Discharge: 01/26/21 Dietary and Speech Recommendations Dietitian Recommendations/Changes: Therapeutic diet Cardiac; sodium-restricted; 1500ml FR w/ consistency 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 Will continue ensure pudding BID w/ lunch and dinner; will add 1 scoop darian eprotein w/ meals Speech Linguistic Eval Summary: Initially, not oriented, alert, or conversant. Pt. extremely lethargic, required max tactile stimulation to become alert. Pt. unable to express wants/needs besides basic yes/no questions. Automatic speech impaired, attempted to verbalize however significantly impaired articulation. Able to imitate ah mama w/ mod cues, unable to repeat any other vowels or CVCV words. Phrase completions w/ open ended nursery rhymes w/ mod-max cues. Pt. able to follow 1 step directions w/ 80% acc after model from ST. Pt. benefit s from modeling of desired task before assessment d/t to decreased receptive comprehension. Pt. performed significantly higher when he was aware/understood what was being asked of him. When utilizing iPad, able to identify correct picture out of an array of 2 with 90% acc Elisabeth once a model/trials w/ hand over hand assistance provided. D/t suspected hemispatial neglect, pt. benefited from yes/no options being placed up/down vs. left/right. Able to answer orientation yes/no questions w/ 80% acc utilizing visual aid (pointing to the yes/no up/down on paper). Able to answer simple yes no questions w/ 75% utilizing visual aid. Pt presents w/ receptive and severe expressive non-fluent aphasia, complicated by dysarthria and a possible hemispatial neglect. Further assessment of vision recommended. Follow Up Care Please Follow Up With: Shubham Saez Discharge Plan Admission Admit Date/Time: 01/03/21 16:33 Primary Reason for Your Visit: Debility Attending Provider: Annie Lemus Primary Care Provider: Care Physician,Zo Primary Instructions Additional Instructions / Restrictions: Discharge to [facility] skilled 01/26/2021. Discharge Orders/Prescriptions Prescriptions: New acetaminophen [Tylenol] 325 mg Tablet 650 mg PO Q6H PRN PRN (Reason: Pain Score 1-10) 30 Days RF: 0 atorvastatin 20 mg Tablet 20 mg PO QHS 30 Days Qty: 30 RF: 0 amlodipine 5 mg Tablet 5 mg PO DAILY Qty: 30 RF: 0 baclofen 10 mg Tablet 2.5 mg PO 1999 30 Days Qty: 8 RF: 0 bisacodyl 10 mg Suppository 10 mg RI .PRN X 1 PRN (Reason: Constipation) 30 Days RF: 0 doxazosin 1 mg Tablet 2 mg PO QHS 30 Days Qty: 60 RF: 0 folic acid 1 mg Tablet 1 mg PO DAILY@0800 30 Days RF: 0 loperamide 2 mg Capsule 2 mg PO Q4H PRN PRN (Reason: Diarrhea) 30 Days RF: 0 magnesium hydroxide 400 mg/5 mL Suspension 30 ml PO .PRN X 1 PRN (Reason: Constipation) 30 Days RF: 0 lisinopril 40 mg Tablet 40 mg PO DAILY 30 Days Qty: 30 RF: 0 Calmoseptine 0.44-20.6 % Ointment 1 applic topical BID 30 Days RF: 0 sennosides-docusate sodium [Stool Softener-Stimulant Laxat] 8.6-50 mg Tablet 2 tab PO BID 30 Days Qty: 120 RF: 0 potassium chloride [Klor-Con M20] 20 mEq Tablet,Er Particles/Crystals 20 meq PO DAILYCM 30 Days Qty: 30 RF: 0 tamsulosin 0.4 mg Capsule 0.4 mg PO DAILY@1730 30 Days RF: 0 sertraline 50 mg Tablet 50 mg PO DAILY 30 Days Qty: 30 RF: 0 Continued multivitamin with folic acid [Thera] 1 TABLET tablet 1 tab PO DAILY RF: 0 Referrals / Follow Up: Care Physician,No Primary [Primary Care Provider] - Disposition Disposition (needs filled in before D/C Order can be placed): [facility]
[2021-01-21] MEDS: Arthritis Pain Compound 60 CLICK TUBE TOPICAL ×3 (05:12→21:15)
[2021-01-21 08:06] VITALS: BP 153/90; PULSE 75; RESP 12; TEMP 36.9; O2SAT 96
[2021-01-21] MEDS: Multivitamins,Therapeutic Tablet 1 TABLET PO (08:52)
[2021-01-21] MEDS: Folic Acid 1 MG Tablet PO (08:52)
[2021-01-21] MEDS: Potassium Chloride Oral Tablet 20 MEQ PO (08:52)
[2021-01-21] MEDS: amLODIPine 5 MG Tablet PO (08:53)
[2021-01-21] MEDS: Sertraline 50 MG Tablet PO (08:54)
[2021-01-21] MEDS: Lisinopril 40 MG Tablet PO (08:54)
[2021-01-21] MEDS: Menthol/Lanolin/Calamine/Znox 113 GM Tube 1 APPLIC TOPICAL ×2 (08:59→23:01)
--- NOTE | 2021-01-21 10:56 | CASEMGMT ---
Social Work Received pt's Medicaid pending number #[id number]. Notified [facility]. Frieda Stringer, [employer]
[2021-01-21 15:39] VITALS: BMI 27.5
[2021-01-21] MEDS: Tamsulosin HCl 0.4 MG Capsule PO (17:40)
[2021-01-21] MEDS: Baclofen 10 MG Tablet 2.5 MG PO (21:13)
[2021-01-21] MEDS: Doxazosin 1 MG Tablet 2 MG PO (21:15)
[2021-01-21] MEDS: Atorvastatin Calcium 20 MG Tablet PO (21:15)
[2021-01-21 21:40] VITALS: BP 141/86; PULSE 99; RESP 18; TEMP 36.9; O2SAT 95
[2021-01-21 23:39] VITALS: BMI 27.5
[2021-01-22] MEDS: Arthritis Pain Compound 60 CLICK TUBE TOPICAL ×3 (05:54→20:12)
[2021-01-22] MEDS: Multivitamins,Therapeutic Tablet 1 TABLET PO (08:09)
[2021-01-22] MEDS: Sertraline 50 MG Tablet PO (08:09)
[2021-01-22] MEDS: Folic Acid 1 MG Tablet PO (08:09)
[2021-01-22] MEDS: Lisinopril 40 MG Tablet PO (08:09)
[2021-01-22] MEDS: amLODIPine 5 MG Tablet PO (08:09)
[2021-01-22] MEDS: Potassium Chloride Oral Tablet 20 MEQ PO (08:10)
[2021-01-22] MEDS: Loperamide 2 MG Capsule PO (08:11)
[2021-01-22] MEDS: Menthol/Lanolin/Calamine/Znox 113 GM Tube 1 APPLIC TOPICAL ×2 (08:11→20:32)
[2021-01-22 10:00] VITALS: BP 141/81; PULSE 77; RESP 18; TEMP 36.6; O2SAT 95
[2021-01-22 15:24] VITALS: BMI 27.5
[2021-01-22] MEDS: Tamsulosin HCl 0.4 MG Capsule PO (17:21)
[2021-01-22 19:57] VITALS: BP 154/80; PULSE 72; RESP 18; TEMP 36.4; O2SAT 97
[2021-01-22] MEDS: Baclofen 10 MG Tablet 2.5 MG PO (20:11)
[2021-01-22] MEDS: Doxazosin 1 MG Tablet 2 MG PO (20:13)
[2021-01-22] MEDS: Atorvastatin Calcium 20 MG Tablet PO (20:13)
[2021-01-22 20:30] VITALS: BMI 27.5
[2021-01-23] MEDS: Arthritis Pain Compound 60 CLICK TUBE TOPICAL ×3 (05:19→20:44)
[2021-01-23] MEDS: Loperamide 2 MG Capsule PO (06:08)
[2021-01-23] MEDS: Potassium Chloride Oral Tablet 20 MEQ PO (07:49)
[2021-01-23] MEDS: Folic Acid 1 MG Tablet PO (07:49)
[2021-01-23] MEDS: Sertraline 50 MG Tablet PO (07:49)
[2021-01-23] MEDS: Lisinopril 40 MG Tablet PO (07:49)
[2021-01-23] MEDS: amLODIPine 5 MG Tablet PO (07:49)
[2021-01-23] MEDS: Menthol/Lanolin/Calamine/Znox 113 GM Tube 1 APPLIC TOPICAL ×2 (07:50→20:44)
[2021-01-23] MEDS: Multivitamins,Therapeutic Tablet 1 TABLET PO (07:50)
[2021-01-23 08:27] VITALS: BP 120/70; PULSE 70; RESP 18; TEMP 36.4; O2SAT 95
[2021-01-23 15:13] VITALS: BMI 27.5
[2021-01-23] MEDS: Tamsulosin HCl 0.4 MG Capsule PO (17:49)
[2021-01-23 20:03] VITALS: BP 134/82; PULSE 84; RESP 17; TEMP 36.1; O2SAT 96
[2021-01-23] MEDS: Atorvastatin Calcium 20 MG Tablet PO (20:44)
[2021-01-23] MEDS: Doxazosin 1 MG Tablet 2 MG PO (20:44)
[2021-01-23] MEDS: Baclofen 10 MG Tablet 2.5 MG PO (20:45)
[2021-01-24] MEDS: Arthritis Pain Compound 60 CLICK TUBE TOPICAL ×3 (05:54→21:12)
[2021-01-24 07:10] VITALS: BP 149/88; PULSE 61; RESP 12; TEMP 36.7; O2SAT 98
[2021-01-24] MEDS: Potassium Chloride Oral Tablet 20 MEQ PO (08:11)
[2021-01-24] MEDS: Sertraline 50 MG Tablet PO (08:11)
[2021-01-24] MEDS: Loperamide 2 MG Capsule PO (08:11)
[2021-01-24] MEDS: amLODIPine 5 MG Tablet PO (08:11)
[2021-01-24] MEDS: Multivitamins,Therapeutic Tablet 1 TABLET PO (08:11)
[2021-01-24] MEDS: Folic Acid 1 MG Tablet PO (08:11)
[2021-01-24] MEDS: Lisinopril 40 MG Tablet PO (08:11)
[2021-01-24] MEDS: Menthol/Lanolin/Calamine/Znox 113 GM Tube 1 APPLIC TOPICAL ×2 (08:12→21:12)
[2021-01-24 09:07] VITALS: BMI 27.5
--- NOTE | 2021-01-24 11:59 | PCM.PROGNOTE ---
Subjective Subjective: Afebrile since admission Blood pressure is still not consistently controlled with diastolic frequently greater than 85 and systolic greater than 135. Heart rate is within normal limits. Maintaining appropriate oxygen saturation on room air. Oral intake is adequate. PT/ST/OT notes were reviewed. Therapy reports that the patient is more awake but is still requiring a max assist of 2 for all activities. The right upper extremity is contracted.....no change with the reinstitution of very low Baclofen at by Dr. Mcqueen. He also goes into spasm when you touch the R hamstring and he appears to be in pain. He does not look comfortable in the chair and seems to be sitting so the R buttock is not firmly on the seat. ? whether he may have sciatica? He still is only saying no to me. I reviewed the labs from 1 week ago and his hemoglobin is stable at 12.1. White blood cell count is within normal limits. Platelets are normal. Potassium was low at 3.4 but he was placed on supplementation. Creatinine was stable. Objective Data Objective Data Vital Signs: Vital Signs Temp Pulse Resp BP Pulse Ox 98.0 F 61 12 149/88 H 98 01/24/21 07:10 01/24/21 07:10 01/24/21 07:10 01/24/21 07:10 01/24/21 07:10 Oxygen Delivery Method Room Air Weight: 181 lb 7.047 oz Body Mass Index (BMI) 27.5 Finger Stick Blood Glucose 101 Orthostatic Vital Signs Start: 01/14/21 05:19 Freq: Status: Active Protocol: Activity Type Activity Date Activity User E-Sign Co-Sign Detail Recorded Client Recorded Date Recorded By Document 01/17/21 12:15 [id number] 01/17/21 13:35 01/17/21 12:15 Orthostatic Vitals Standing -Blood Pressure (90/60-120/80) 138/80 H -Extremity Use Left Arm -Pulse Rate (60-100) 74 Sitting -Blood Pressure (90/60-120/80) 126/70 H -Extremity Use Left Arm -Pulse Rate (60-100) 80 Lying -Blood Pressure (90/60-120/80) 132/74 H -Extremity Use Left Arm -Pulse Rate (60-100) 76 Intake & Output: Intake and Output for Last 24 Hours 01/22/21 01/23/21 01/24/21 23:59 23:59 23:59 Intake Total 1340 / 1340 1330 / 1330 582 / 582 Output Total 1370 / 1370 1230 / 1230 950 / 950 Balance -30 / -30 100 / 100 -368 / -368 Lab / Micro Data Result Diagrams: 01/17/21 05:52 01/20/21 05:15 Micro: Microbiology 01/24/21 06:15 Interface Orders SARS-CoV-2 Antigen (Rapid) - Final Physical Exam Const alert Constitutional Narrative: follows me with his eyes. Able to follow commands but, still with severe expressive aphasia. General Appearance: cooperative HEENT normocephalic and moist oral mucous membranes Eyes PERRL Neck supple Resp normal respiratory effort Auscultation: diminished lung sounds Cardio regular rate, regular rhythm, S1 normal heart sound, S2 normal heart sound, no murmurs and no gallops GI normal to inspection, nondistended, normoactive bowel sounds Extremity no clubbing, cyanosis or edema Skin General Skin Exam: no breakdown Rashes: no rashes Neuro Neuro Narrative: Persistent right facial droop. Moving his right leg well now but has rigidity/contracture of the right upper extremity and little movement. Psych Appearance: appropriate Assessment & Plan Assessment/Plan (1) Hemorrhagic cerebrovascular accident (CVA): PLAN: Continue therapy. He has made progress but it has been very slow and he will need fpc facility at discharge. (2) Rigidity (muscles): PLAN: Baclofen at 2.5 mg nightly has not been helpful. An increased dose of baclofen was tried in the past and he became very somnolent. The arthritis compounded cream worked for a brief time but then he became more rigid in his right upper extremity. He now also has some rigidity in his right leg especially when stimulated. Hx is very limited due to the aphasia. He could be having focal seizures OR sciatica in the leg and just increased tone in the RUE? Will DC the Baclofen and start low dose Gabapentin. (3) Hypokalemia: PLAN: started on a potassium supplement by Dr. Mcqueen - will check a BMP in the AM (4) Hypertension: PLAN: controlled with the current medication (5) Aphasia complicating stroke: PLAN: Continue speech therapy (6) Benign prostate hyperplasia: PLAN: with obstruction leading to urine retention......failed voiding trial on Cardura 2 mg at HS and Flomax 0.4 mg daily. Will DC the Cardura and start Proscar. Monitor the BP closely for any increase off Cardura. Visit Charges Inpatient E&M: 29580 Subs Hosp L2
[2021-01-24] MEDS: Gabapentin 100 MG Capsule PO (16:15)
[2021-01-24] MEDS: Tamsulosin HCl 0.4 MG Capsule PO (16:16)
[2021-01-24 18:37] VITALS: BP 145/81; PULSE 70; RESP 18; TEMP 36.8; O2SAT 96
[2021-01-24] MEDS: Atorvastatin Calcium 20 MG Tablet PO (21:13)
[2021-01-24 22:00] VITALS: PULSE 76; RESP 16
[2021-01-25] MEDS: Arthritis Pain Compound 60 CLICK TUBE TOPICAL ×3 (04:40→20:03)
[2021-01-25 06:00] LABS: Hematocrit 38.2 % (40-54); Hemoglobin 12.4 g/dL (13.0-16.5); Mean Corp Hgb Conc 32.5 g/dL (32-36); Mean Corpuscular Hgb 29.7 pg (27.0-32.0); Mean Corpuscular Volume 91.6 fL (80-94); Platelet Count 160 K/mm3 (150-450); RBC Distribution Width CV 12.3 % (11.6-14.6); RBC Distribution Width SD 41.2 fl (35.1-43.9); Red Blood Count 4.17 M/mm3 (4.6-6.2); White Blood Count 5.4 K/mm3 (4.4-11.0)
[2021-01-25 06:27] LABS: Anion Gap 4 (5-15); BUN 8 mg/dL (7-18); Chloride 102 mmol/L (98-107); Creatinine, Serum 0.57 mg/dL (0.70-1.30); EST Glomerular Filtration Rate 149 mL/min (>60); Est Glom Filt Rate - Afr Amer 180 mL/min (>60); Estimated Creatinine Clearance 72.16 ml/min; Glucose 92 mg/dL (74-106); Potassium 4.4 mmol/L (3.5-5.1); Sodium Level 133 mmol/L (136-145)
[2021-01-25] MEDS: Finasteride 5 MG Tablet PO (07:47)
[2021-01-25] MEDS: Multivitamins,Therapeutic Tablet 1 TABLET PO (07:47)
[2021-01-25] MEDS: Potassium Chloride Oral Tablet 20 MEQ PO (07:47)
[2021-01-25] MEDS: amLODIPine 5 MG Tablet PO (07:47)
[2021-01-25] MEDS: Gabapentin 100 MG Capsule PO ×2 (07:47→18:00)
[2021-01-25] MEDS: Folic Acid 1 MG Tablet PO (07:47)
[2021-01-25] MEDS: Lisinopril 40 MG Tablet PO (07:48)
[2021-01-25] MEDS: Sertraline 50 MG Tablet PO (07:48)
[2021-01-25] MEDS: Menthol/Lanolin/Calamine/Znox 113 GM Tube 1 APPLIC TOPICAL ×2 (07:50→20:03)
[2021-01-25 09:13] VITALS: BP 146/84; PULSE 76; RESP 17; TEMP 36.6; O2SAT 95
[2021-01-25 17:00] VITALS: BMI 27.5
[2021-01-25] MEDS: Tamsulosin HCl 0.4 MG Capsule PO (18:00)
[2021-01-25] MEDS: Senna/Docusate Sodium 1 Tablet 2 TABLET PO (20:04)
[2021-01-25] MEDS: Atorvastatin Calcium 20 MG Tablet PO (20:04)
[2021-01-25 20:07] VITALS: BP 141/85; PULSE 72; RESP 18; TEMP 37.2; O2SAT 93
[2021-01-26] MEDS: Arthritis Pain Compound 60 CLICK TUBE TOPICAL (05:07)
[2021-01-26 07:09] VITALS: BP 121/69; PULSE 86; RESP 17; TEMP 36.6; O2SAT 96
[2021-01-26] MEDS: Folic Acid 1 MG Tablet PO (07:51)
[2021-01-26] MEDS: Loperamide 2 MG Capsule PO (07:51)
[2021-01-26] MEDS: Menthol/Lanolin/Calamine/Znox 113 GM Tube 1 APPLIC TOPICAL (07:52)
[2021-01-26] MEDS: Multivitamins,Therapeutic Tablet 1 TABLET PO (07:52)
[2021-01-26] MEDS: amLODIPine 5 MG Tablet PO (07:52)
[2021-01-26] MEDS: Gabapentin 100 MG Capsule PO (07:52)
[2021-01-26] MEDS: Potassium Chloride Oral Tablet 20 MEQ PO (07:52)
[2021-01-26] MEDS: Lisinopril 40 MG Tablet PO (07:53)
[2021-01-26] MEDS: Sertraline 50 MG Tablet PO ×2 (07:53→11:15)
[2021-01-26] MEDS: Finasteride 5 MG Tablet PO (07:53)
[2021-01-26 09:01] VITALS: BMI 27.5
--- NOTE | 2021-01-26 09:54 | PN_ITS ---
Subjective Subjective Afebrile VSS-blood pressure today is 121/69. Heart rate is within normal limits. Maintaining appropriate oxygen saturation on RA Oral intake is good I am not sure the weights prior to 01/05 were reliable as they are bed weights. I do not believe he has lost 27 lbs since admission to the rehab unit. His weight has been stable since 01/05/21. Tammy remains in due to failing the voiding trial on 2 agents for BPH and the doses could not be further increased due to orthostatic hypotension Discussed with nursing - no problems that need addressed Reviewed the PT/OT/ST notes - He stood up and took a few steps yesterday for the first time. Rigidity has improved with Gabapentin Medication list reviewed. All lab from 01/25/2021 was reviewed. Sodium is a little low at 133. The BUN/creatinine ratio is 14. Creatinine is stable at 0.57. Hemoglobin is stable. Potassium is 4.4 on potassium supplementation. Mag is 2. don has no complaints today. He denies CP, SOB, cough, burning with urination. Objective Data Objective Data Vital Signs: Vital Signs Temp Pulse Resp BP Pulse Ox 97.9 F 86 17 121/69 H 96 01/26/21 07:09 01/26/21 07:09 01/26/21 07:09 01/26/21 07:09 01/26/21 07:09 Oxygen Delivery Method Room Air Weight: 179 lb 7.3 oz Body Mass Index (BMI) 27.5 Finger Stick Blood Glucose 101 Orthostatic Vital Signs Start: 01/14/21 05:19 Freq: Status: Active Protocol: Activity Type Activity Date Activity User E-Sign Co-Sign Detail Recorded Client Recorded Date Recorded By Document 01/17/21 12:15 BL [id number] 01/17/21 13:35 BL 01/17/21 12:15 Orthostatic Vitals Standing -Blood Pressure (90/60-120/80) 138/80 H -Extremity Use Left Arm -Pulse Rate (60-100) 74 Sitting -Blood Pressure (90/60-120/80) 126/70 H -Extremity Use Left Arm -Pulse Rate (60-100) 80 Lying -Blood Pressure (90/60-120/80) 132/74 H -Extremity Use Left Arm -Pulse Rate (60-100) 76 Intake & Output: Intake and Output for Last 24 Hours 01/24/21 01/25/21 01/26/21 23:59 23:59 23:59 Intake Total 1492 / 1492 930 / 1170 840 / 840 Output Total 2525 / 2525 1750 / 2450 1000 / 1000 Balance -1033 / -1033 -820 / -1280 -160 / -160 Lab / Micro Data Result Diagrams: 01/25/21 05:34 01/25/21 05:34 Micro: Microbiology 01/24/21 06:15 Interface Orders SARS-CoV-2 Antigen (Rapid) - Final Physical Exam Const alert and no apparent distress Constitutional Narrative: follows me with his eyes. Able to follow commands but, still with severe expressive aphasia. He was able to say Hi to me today and I was able to understand him. He was also able to say a few words I understood. General Appearance: cooperative Orientation / Consciousness: other Other Details: severe expressive aphasia Exam Limitations: language barrier and physical limitations Nutritional Appearance: thin HEENT normocephalic, head/scalp atraumatic and moist oral mucous membranes Eyes PERRL and EOMs intact bilaterally Neck supple and no JVD General: trachea midline Resp normal respiratory effort and clear to auscultation bilaterally Resp Narrative: He was lying nearly flat in bed with no SOB, conversational dyspnea or tachypnea. Effort and Inspection: symmetric chest movement and decreased respiratory effort Auscultation: diminished lung sounds Cardio regular rate, regular rhythm, S1 normal heart sound, S2 normal heart sound, no murmurs, no rub and no gallops GI normal to inspection, nondistended, normoactive bowel sounds, soft to palpation, non-tender and non-distended Auscultation: normoactive bowel sounds Bladder / Kidney Exam: catheter in place Extremity no clubbing, cyanosis or edema and no calf tenderness Skin General Skin Exam: no breakdown Rashes: no rashes Neuro Neuro Narrative: Persistent right facial droop. Moving his right leg well now but has rigidity/contracture of the right upper extremity and little movement. He has some shoulder movement today but is still rigid and contracted at the elbow. Sensorium / Orientation: somnolent and fluctuating sensorium Cranial Nerves: other R facial droop Speech: speech abnormal Details: Positive for slurred and complete aphasia Gait (Neuro): unable to assess gait Motor Exam: strength abnormal and muscle tone abnormal hypertonic: RUE Psych Psych Narrative: He is more interactive now. He is paying attention to where other people are in the therapy room and he is able to focus better when you are addressing him. Much more alert than at admission to the wound care center. Appearance: appropriate Assessment & Plan Assessment/Plan (1) Hemorrhagic cerebrovascular accident (CVA): PLAN: Continue therapy. Transfer to SNF today. He is very alert and he was able to take a few steps yesterday with a lot of assistance but, he has been unable to do that prior to today. (2) Rigidity (muscles): PLAN: He did not tolerate Baclofen due to severe drowsiness and inability to participate in therapy. HE is now on Gabapentin at 100 mg BID......since Sunday and he is alert and less rigid in the RLE and somewhat less rigid in the RUE but still has contracture in the RUE. If he continues to have contracture in the RUE in a few days I would increase the Gabapentin to 200 mg BID. (3) Hypokalemia: PLAN: resolved (4) Hypertension: QUALIFIERS: Hypertension type: essential hypertension Qualified Code(s): I10 - Essential (primary) hypertension PLAN: controlled with the current medication (5) Aphasia complicating stroke: PLAN: Continue speech therapy......mostly expressive aphasia. (6) Benign prostate hyperplasia: QUALIFIERS: Lower urinary tract symptom presence: symptoms present Lower urinary tract symptom detail: urinary retention Qualified Code(s): N40.1 - Benign prostatic hyperplasia with lower urinary tract symptoms; R33.8 - Other retention of urine PLAN: with obstruction leading to urine retention......failed voiding trial on Cardura 2 mg at HS and Flomax 0.4 mg daily. Cardura was discontinued and the patient was started on Proscar 5 mg daily. He is tolerating this without orthostatic hypotension. Blood pressure remains well controlled off Cardura. Would attempt a voiding trial in approximately 1 week on Flomax and Proscar. Will need to follow-up with urology post discharge (7) Hyponatremia: PLAN: Mild. Not on a diuretic. Would recheck a BMP in 5 to 7 days. Visit Charges Inpatient E&M: [id number] [facility] L2
--- NOTE | 2021-01-26 10:00 | NURSING ---
Report called to [facility] nurse Ness at this time.
--- NOTE | 2021-01-26 11:15 | ED.RN ---
pt discharged to [facility] via stretcher and [facility].
[2021-01-26 11:37] VITALS: BP 146/84; PULSE 76; RESP 17; TEMP 36.6; O2SAT 95
== END 2021-01-26 11:40 | disposition skilled nursing facility (03) | DRG 57 ==
PROVIDERS: Family Medicine Geriatric Medicine; Admitting Provider Internal Medicine; Visit Provider Internal Medicine
DX: I69.351 Hemiplegia and hemiparesis following cerebral infarction affecting right dominant side (principal); E87.0 Hyperosmolality and hypernatremia; B37.0 Candidal stomatitis; I69.391 Dysphagia following cerebral infarction; I69.392 Facial weakness following cerebral infarction; I69.320 Aphasia following cerebral infarction; R13.12 Dysphagia, oropharyngeal phase; N40.0 Benign prostatic hyperplasia without lower urinary tract symptoms; I10 Essential (primary) hypertension; Z86.19 Personal history of other infectious and parasitic diseases; E87.6 Hypokalemia; R33.9 Retention of urine, unspecified; E78.5 Hyperlipidemia, unspecified; M19.90 Unspecified osteoarthritis, unspecified site; F32.9 Major depressive disorder, single episode, unspecified; I95.1 Orthostatic hypotension; Z87.891 Personal history of nicotine dependence
CPT/HCPCS: 36415; 74230; 80048; 80076; 81001; 83735; 84100; 85014; 85018; 85025; 85027; 87426; 92507; 92523; 92526; 92610; 92611; 97110; 97112; 97116; 97140; 97162; 97166; 97530; 97535; 97802; 97803; 99251; J7030; J7040; A4216; G0463

== ENCOUNTER 2021-03-21 17:49 | Emergency (ER) | payer MEDICARE, OTHER, SELFPAY ==
[2021-03-21 17:51] VITALS: BP 136/83; PULSE 102; RESP 26; TEMP 36.3; O2SAT 94; BMI 26.2
--- NOTE | 2021-03-21 18:22 | CT_ITS ---
STUDY: CT BRAIN WITHOUT CONTRAST REASON FOR EXAM: Male, 70 years old. seizure RADIATION DOSAGE (If Supplied By Facility): CTDIvol = ( 44.99 ) mGy, DLP = ( 812.98 ) mGycm TECHNIQUE: Transaxial CT imaging of the brain was performed without administration of intravenous contrast material. Individualized dose optimization techniques were used for this CT. COMPARISON: 12/23/2020 FINDINGS: Normal soft tissue structures. Normal calvarium. There is mild cerebral atrophy with widening of the extra-axial spaces and ventricular dilatation. There are areas of decreased attenuation within the white matter tracts of the supratentorial brain, consistent with microvascular disease changes. Normal basal ganglia and thalami. Normal brainstem. Normal cerebellum. Encephalomalacia within the left parietal lobe at the site of the previously seen hemorrhage. No acute hemorrhage. There are no findings of an acute ischemic infarction. Normal visualized paranasal sinuses. CT/Brain/Head without Contrast IMPRESSION: Encephalomalacia within the left parietal lobe at site of prior hemorrhage. No acute hemorrhage. Electronically Signed: Alvaro Villanueva MD at 20:32 EDT Tel , Service support ,
--- NOTE | 2021-03-21 18:22 | EKG12_ITS ---
Test Reason : CP Blood Pressure : / mmHG Vent. Rate : 090 BPM Atrial Rate : 090 BPM P-R Int : 140 ms QRS Dur : 102 ms QT Int : 382 ms P-R-T Axes : 050 040 058 degrees QTc Int : 467 ms Normal sinus rhythm Normal ECG Confirmed by ANGELIQUE CHANEY, MILTON ([id number]), book editor MELBA PERRY ([id number]) on 03/23/2021 1:57:01 PM Referred By: JOSE Confirmed By:MILTON MERINO MD
[2021-03-21 18:40] LABS: Anion Gap 10 (5-15); BUN 10 mg/dL (7-18); BUN/Creat Ratio 13.7 RATIO (10-20); Calcium,Total 9.1 mg/dL (8.5-10.1); Chloride 100 mmol/L (98-107); Creatinine, Serum 0.73 mg/dL (0.70-1.30); EST Glomerular Filtration Rate 113 mL/min (>60); Est Glom Filt Rate - Afr Amer 136 mL/min (>60); Estimated Creatinine Clearance 63.35 ml/min; Glucose 107 mg/dL (74-106); Potassium 4.1 mmol/L (3.5-5.1); Sodium Level 132 mmol/L (136-145)
[2021-03-21 18:48] LABS: Mucous, Urine 0 SEEN /hpf (<or=2+); Squamous Epithelial Cells - UA 0 SEEN /hpf (0-5)
[2021-03-21 18:54] LABS: Color, Urine Yellow (Yellow); Glucose, Dipstick Normal (Normal); Ketone-Dipstick 5 mg/dl (Negative); Leukocyte Esterase-Dipstick 500 /ul (Negative); Nitrite-Dipstick Positive (Negative); Occult Blood-Urine 25 /ul (Negative); Protein-Dipstick 30 mg/dl (Negative); Urine Bilirubin Dipstick Negative (Negative); Urine Clarity Cloudy (Clear); Urine Urobilinogen Normal (Normal); Urine pH 6.5 (5.0 - 8.0)
[2021-03-21 18:55] LABS: Absolute Lymphocyte Count 0.87 X10^3/uL (0.83-4.51); Absolute Neutrophil Count 8.1 X10^3/uL (2.0-7.7); Basophil# 0.08 X10^3/uL; Basophil% 0.8 % (0-1); Eosinophil# 0.16 X10^3/uL; Eosinophils% 1.6 % (0-5); Hemoglobin 13.1 g/dL (13.0-16.5); Lymphocyte # 0.87 X10^3/ul (0.83-4.51); Lymphocyte % 8.7 % (19-41); Mean Corp Hgb Conc 32.8 g/dL (32-36); Mean Corpuscular Hgb 28.9 pg (27.0-32.0); Mean Corpuscular Volume 88.1 fL (80-94); Mean Platelet Vol. 9.8 fl (6.2-12.0); Monocyte# 0.66 X10^3/uL; Monocyte% 6.6 % (0-10); NRBC Flagged by Analyzer 0 % (0-5); Neutrophil # 8.14 X10^3/uL (2.7-7.7); Neutrophil % 80.9 % (47-70); Platelet Count 326 K/mm3 (150-450); RBC Distribution Width CV 12.4 % (11.6-14.6); RBC Distribution Width SD 39.9 fl (35.1-43.9); Red Blood Count 4.54 M/mm3 (4.6-6.2); White Blood Count 10.1 K/mm3 (4.4-11.0)
--- NOTE | 2021-03-21 18:57 | EDS_ITS ---
HPI History of Present Illness Chief Complaint: Seizure Informant: EMS and SNF Onset/Context/Timing Onset: Today Narrative Narrative: Patient presents via EMS secondary to concern for possible seizure. Patient had history of hemorrhagic stroke in December of this year. He has right- sided hemiparesis and aphasia. Per EMS, staff at the F noted some twitching in his upper extremities. EMS states patient did not seem postictal on their arrival. Past history significant for BPH Hypertension High cholesterol CVA with right hemiparesis and aphasia. [facility] Medical History (Updated 03/21/21 @ 21:[address] Nelda Luo MD) Aphasia complicating stroke Benign prostate hyperplasia Hyperlipidemia Hypertension Osteoarthritis Right hemiparesis Stroke Home Medications multivitamin with folic acid [Thera] 1 tab PO DAILY 09/14/14 [History Last Taken Unknown] acetaminophen [Tylenol] 650 mg PO Q6H PRN PRN 30 Days tab 01/20/21 [Rx Last Taken Unknown] amlodipine 5 mg PO DAILY #30 tab 01/20/21 [Rx Last Taken Unknown] atorvastatin 20 mg PO QHS 30 Days #30 tab 01/20/21 [Rx Last Taken Unknown] bisacodyl 10 mg RI .PRN X 1 PRN 30 Days ea 01/20/21 [Rx Last Taken Unknown] folic acid 1 mg PO DAILY@0800 30 Days tab 01/20/21 [Rx Last Taken Unknown] lisinopril 40 mg PO DAILY 30 Days #30 tab 01/20/21 [Rx Last Taken Unknown] loperamide 2 mg PO Q4H PRN PRN 30 Days cap 01/20/21 [Rx Last Taken Unknown] magnesium hydroxide 30 ml PO .PRN X 1 PRN 30 Days ml 01/20/21 [Rx Last Taken Unknown] menthol-zinc oxide [Calmoseptine] 1 applic TOPICAL BID 30 Days g 01/20/21 [Rx Last Taken Unknown] potassium chloride [Klor-Con M20] 20 meq PO DAILYCM 30 Days #30 tab 01/20/21 [Rx Last Taken Unknown] sennosides-docusate sodium [Stool Softener-Stimulant Laxat] 2 tab PO BID 30 Days #120 tab 01/20/21 [Rx Last Taken Unknown] tamsulosin 0.4 mg PO DAILY@1730 30 Days cap 01/20/21 [Rx Last Taken Unknown] gabapentin [Neurontin] 100 mg PO BID #60 cap 01/26/21 [Rx Last Taken Unknown] sertraline [Zoloft] 100 mg PO DAILY #30 tab 01/26/21 [Rx Last Taken Unknown] sulfamethoxazole-trimethoprim [Bactrim] 2 tab PO BID 03/21/21 [History Last Taken Unknown] Allergy/AdvReac Type Severity Reaction Status Date / Time No Known Allergies Allergy Verified 03/21/21 18:01 Social History Smoking Status: Former smoker ROS ROS ED Review of Systems ROS Unobtainable: other Details: Patient does have some aphasia noted from prior stroke. He is able to answer yes/no questions. Constitutional Constitutional ED: Denies chills or fever(s) Eyes Eyes: Denies change in vision ENT ENT ED: Denies sore throat Cardiovascular Cardiovascular: Denies chest pain Respiratory/Chest Respiratory/Chest: Denies cough or dyspnea Gastrointestinal Gastrointestinal: Denies abdominal pain, diarrhea, nausea or vomiting Genitourinary Genitourinary ED: Reports dysuria Neurologic Neurologic: Reports other Details: Chronic right-sided ; Denies headache(s) Allergic/Immunologic Allergic/Immunologic ED: Denies urticaria EXAM Physical Exam Const Vital Signs: 03/21/21 17:51 03/21/21 19:53 03/21/21 21:16 Temperature 97.3 F L Temperature Source Temporal Pulse Rate 102 H 84 80 Respiratory Rate 26 H 21 H 19 H Blood Pressure 136/83 H 140/78 H 124/78 H Blood Pressure Mean 100 98 93 Pulse Ox 94 94 94 Oxygen Delivery Method Room Air Room Air Room Air 03/21/21 21:43 Temperature Temperature Source Pulse Rate 82 Respiratory Rate 23 H Blood Pressure 142/82 H Blood Pressure Mean Pulse Ox 95 Oxygen Delivery Method Positive well nourished and well developed General Appearance ED: well developed HEENT Reports normocephalic and head/scalp atraumatic Eyes PERRL and EOMs intact bilaterally Neck supple Chest Wall inspection of chest normal and palpation of chest normal Resp normal respiratory effort and clear to auscultation bilaterally Cardio regular rate and regular rhythm GI normal to inspection, nondistended, normoactive bowel sounds Palpation: soft Extremity Extremity Narrative: Right upper extremity contracture. Right lower extremity weakness. Neuro Neuro Narrative: Neuro exam at baseline per at bedside. Sensorium / Orientation: alert Psych mental status grossly normal Skin no rashes or lesions noted MDM MDM MDM Narrative Medical decision making narrative: EKG, labs, urinalysis are obtained. Lab Data Attestation: I reviewed the patient's lab results. Labs: Laboratory Results - last 24 hr 03/21/21 03/21/21 03/21/21 17:35 17:35 18:45 WBC 10.1 RBC 4.54 L Hgb 13.1 Hct 40.0 MCV 88.1 MCH 28.9 MCHC 32.8 RDW Std Deviation 39.9 RDW Coeff of Osiris 12.4 Plt Count 326 MPV 9.8 Immature Gran % (Auto) 1.400 H Neut % (Auto) 80.9 H Lymph % (Auto) 8.7 L Anderson % (Auto) 6.6 Eos % (Auto) 1.6 Baso % (Auto) 0.8 Absolute Neuts (auto) 8.1 H Absolute Lymphs (auto) 0.87 Nucleated RBC % 0 Sodium 132 L Potassium 4.1 Chloride 100 Carbon Dioxide 22.0 Anion Gap 10 BUN 10 Creatinine 0.73 Estim Creat Clear Calc 63.35 Est GFR (MDRD) Af Amer 136 Est GFR (MDRD) Non-Af 113 BUN/Creatinine Ratio 13.7 Glucose 107 H Calcium 9.1 Urine Color Yellow Urine Clarity Cloudy Urine pH 6.5 Ur Specific [place] 1.020 Urine Protein 30 H Urine Glucose (UA) Normal Urine Ketones 5 H Urine Occult Blood 25 H Urine Nitrite Positive H Urine Bilirubin Negative Urine Urobilinogen Normal Ur Leukocyte Esterase 500 H Urine RBC 0-5 SEEN Urine WBC 10-25 SEEN Ur Squamous Epith Cells 0 SEEN Urine Bacteria 1+ Urine Mucus 0 SEEN Radiography Diagnostic Testing: Radiology Impression Brain CT 03/21/21 18:22 IMPRESSION: Encephalomalacia within the left parietal lobe at site of prior hemorrhage. No acute hemorrhage. Electronically Signed: Alvaro Villanueva MD at 20:32 EDT Tel , Service support , EKG Initial EKG: Attestation: I personally reviewed and interpreted this EKG as follows: Interpretation: Sinus Rhythm (Sinus at 90 with no acute ischemia.) Treatment and Re-Evaluation Comments:: Test results discussed with patient and at bedside. At this ti me I cannot verify whether the patient truly had a seizure or not. Urinalysis this does reveal infection, however patient is currently on antibiotic and has a chronic indwelling Munoz catheter. He will continue the antibiotic treatment recently started. I did speak with Dr. Levi, covering for Dr. Nadja hernandez. He will pass along the information to Dr. Saez for further follow- up. Discharge Plan Triage Chief Complaint: Seizure ED Provider: Nelda Luo Dx/Rx/DC Orders Clinical Impression: Episode of shaking Prescriptions: No Action multivitamin with folic acid [Thera] 1 TABLET tablet 1 tab PO DAILY RF: 0 acetaminophen [Tylenol] 325 mg Tablet 650 mg PO Q6H PRN PRN (Reason: Pain Score 1-10) 30 Days RF: 0 atorvastatin 20 mg Tablet 20 mg PO QHS 30 Days Qty: 30 RF: 0 amlodipine 5 mg Tablet 5 mg PO DAILY Qty: 30 RF: 0 bisacodyl 10 mg Suppository 10 mg RI .PRN X 1 PRN (Reason: Constipation) 30 Days RF: 0 folic acid 1 mg Tablet 1 mg PO DAILY@0800 30 Days RF: 0 loperamide 2 mg Capsule 2 mg PO Q4H PRN PRN (Reason: Diarrhea) 30 Days RF: 0 magnesium hydroxide 400 mg/5 mL Suspension 30 ml PO .PRN X 1 PRN (Reason: Constipation) 30 Days RF: 0 lisinopril 40 mg Tablet 40 mg PO DAILY 30 Days Qty: 30 RF: 0 Calmoseptine 0.44-20.6 % Ointment 1 applic topical BID 30 Days RF: 0 sennosides-docusate sodium [Stool Softener-Stimulant Laxat] 8.6-50 mg Tablet 2 tab PO BID 30 Days Qty: 120 RF: 0 potassium chloride [Klor-Con M20] 20 mEq Tablet,Er Particles/Crystals 20 meq PO DAILYCM 30 Days Qty: 30 RF: 0 tamsulosin 0.4 mg Capsule 0.4 mg PO DAILY@1730 30 Days RF: 0 sertraline [Zoloft] 100 mg Tablet 100 mg PO DAILY Qty: 30 RF: 0 gabapentin [Neurontin] 100 mg Capsule 100 mg PO BID Qty: 60 RF: 0 sulfamethoxazole-trimethoprim [Bactrim] 400-80 mg Tablet 2 tab PO BID RF: 0 Primary Care Provider: Shubham Saez Referrals: Shubham Saez MD [Primary Care Provider] - Activity Restrictions/Additional Instructions: As discussed at bedside, I am unable to determine whether the shaking activity that was witnessed was truly seizure activity or not. Please continue the antibiotics you are on for your UTI. I did speak with your physician and they will follow up with you closely. Disposition Disposition: Home, Self Care Discharge Date/Time: 03/21/21 22:20
[2021-03-21 19:05] LABS: Bacteria 1+ /hpf (None Seen); Red Blood Cells-Urine 0-5 SEEN /hpf (0-5); White Blood Cells 10-25 SEEN /hpf (0-5)
[2021-03-21] MEDS: 0.9% Normal Saline 1,000 ML 200 ML IV (19:35)
[2021-03-21 19:53] VITALS: BP 140/78; PULSE 84; RESP 21; O2SAT 94
[2021-03-21 21:16] VITALS: BP 124/78; PULSE 80; RESP 19; O2SAT 94
[2021-03-21 21:43] VITALS: BP 142/82; PULSE 82; RESP 23; O2SAT 95
--- NOTE | 2021-03-21 22:20 | ED.RN ---
Report called to [facility].
== END 2021-03-21 22:20 | disposition home or self-care (01) ==
PROVIDERS: Emergency Provider Emergency Medicine; PCP Family Medicine
DX: R25.3 Fasciculation (principal); N39.0 Urinary tract infection, site not specified; Z96.0 Presence of urogenital implants; I10 Essential (primary) hypertension; I69.320 Aphasia following cerebral infarction; I69.351 Hemiplegia and hemiparesis following cerebral infarction affecting right dominant side; N40.0 Benign prostatic hyperplasia without lower urinary tract symptoms; E78.00 Pure hypercholesterolemia, unspecified; E78.5 Hyperlipidemia, unspecified; M19.90 Unspecified osteoarthritis, unspecified site; Z79.899 Other long term (current) drug therapy; Z87.891 Personal history of nicotine dependence
CPT/HCPCS: 70450; 80048; 81001; 85025; 87077; 87086; 87088; 87186; 93005; 96360; 96361; 99285; J7030; A4216

== ENCOUNTER 2021-04-28 11:31 | Inpatient (IN) | payer MEDICARE, OTHER, SELFPAY ==
[2021-04-28] VITALS (12 sets, daily range): BP systolic 115–186; BP diastolic 61–111; PULSE 84–128; RESP 16–22; TEMP 36.7–37.8; O2SAT 93–98; BMI 25.0
--- NOTE | 2021-04-28 11:45 | RAD_ITS ---
STUDY: X-RAY CHEST REASON FOR EXAM: Male, 70 years old. Dyspnea TECHNIQUE: Single AP portable view of the chest. Limited examination overlying the right hemithorax. COMPARISON: Comparison is made with prior study dated 12/23/2020. FINDINGS: The lungs are clear and expanded. There is no demonstrated pleural abnormality. Normal size heart. Normal mediastinum and shahnaz. Normal visualized pulmonary arteries. There is atherosclerotic tortuosity of the aortic arch and descending thoracic aorta. There are diffuse degenerative changes of the visualized thoracic spine. Normal visualized ribs, clavicles, and shoulders. There is no demonstrated abnormality of the visualized soft tissue structures of the upper abdomen. RAD/Chest 1 View (Portable) IMPRESSION: Limited exam. The patient''s left upper extremity is overlying the right hemithorax. Left lung is clear. Electronically Signed: Robles Sanchez MD at 12:45 EDT , Service support ,
--- NOTE | 2021-04-28 11:45 | EKG12_ITS ---
Test Reason : GEN ILL Blood Pressure : / mmHG Vent. Rate : 121 BPM Atrial Rate : 121 BPM P-R Int : 148 ms QRS Dur : 094 ms QT Int : 336 ms P-R-T Axes : 046 059 055 degrees QTc Int : 477 ms Sinus tachycardia Nonspecific ST abnormality Abnormal ECG Confirmed by ANGELIQUE CHANEY, MILTON ([id number]), story editor MEME YANEZ ([id number]) on 05/03/2021 8:41:40 AM Referred By: Confirmed By:MILTON MERINO MD
--- NOTE | 2021-04-28 11:48 | EX.ED.DYSGE1 ---
HPI History of Present Illness Chief Complaint: General Illness Detail of Chief Complaint: Not feeling well since last evening Informant: patient Narrative Narrative: Patient presents from [facility] with complaint of feeling shaky and loose stools throughout the night. Patient was noted to be tachycardic. Patient denies nausea or vomiting. He denies abdominal pain. He denies any chest pain. He complains of some mild shortness of breath. He has had no cough. He has had both Covid vaccines. Patient sustained a stroke that was hemorrhagic on December 23 and has right-sided weakness related to that. Patient has speech difficulty related to that. gives a lot of the history but patient is appropriate in answering questions and following commands. Patient has an indwelling Munoz catheter and apparently had a UTI 1 month ago. Prior similar symptoms: No PFSH PFS Medical History (Updated 04/28/21 @ 14:[address] Bere Gloria, ) Aphasia complicating stroke Benign prostate hyperplasia Hyperlipidemia Hypertension Osteoarthritis Right hemiparesis Stroke Home Medications multivitamin with folic acid [Thera] 1 tab PO DAILY 09/14/14 [History Last Taken 04/28/21] amlodipine 5 mg PO DAILY #30 tab 01/20/21 [Rx Last Taken 04/28/21] atorvastatin 20 mg PO QHS 30 Days #30 tab 01/20/21 [Rx Last Taken 04/27/21] folic acid 1 mg PO DAILY@0800 30 Days tab 01/20/21 [Rx Last Taken 04/28/21] lisinopril 40 mg PO DAILY 30 Days #30 tab 01/20/21 [Rx Last Taken 04/28/21] tamsulosin 0.4 mg PO DAILY@1730 30 Days cap 01/20/21 [Rx Last Taken 04/27/21] gabapentin [Neurontin] 100 mg PO BID #60 cap 01/26/21 [Rx Last Taken 04/28/21] sertraline [Zoloft] 100 mg PO DAILY #30 tab 01/26/21 [Rx Last Taken 04/28/21] acetaminophen [Tylenol] 650 mg PO Q4H PRN PRN 04/28/21 [History Last Taken 04/28/21 06:45] cyclobenzaprine [Flexeril] 5 mg PO QHS 04/28/21 [History Last Taken 04/27/21] potassium chloride 20 meq PO TIDCM 04/28/21 [History Last Taken 04/28/21] Allergy/AdvReac Type Severity Reaction Status Date / Time No Known Allergies Allergy Verified 04/28/21 11:37 Social History Smoking Status: Former smoker ROS ROS ED ROS Narrative Generalized weakness Constitutional Constitutional ED: Reports systems reviewed and no addt'l complaints, except as documented; Denies body ache(s), change in weight or chills Eyes Eyes: Denies acute decrease in peripheral vision, change in vision, double vision or loss of vision ENT ENT ED: Reports none; Denies ear pain, lip swelling, loss taste/smell, neck pain, otalgia or sore throat Cardiovascular Cardiovascular: Reports none; Denies abdominal pain, chest pain with activity, leg edema, lightheadedness, palpitations, rapid heart rate or syncope Respiratory/Chest Respiratory/Chest: Reports none and dyspnea; Denies change in mental status, dry cough, hemoptysis, shortness of breath at rest or shortness of breath with exertion Gastrointestinal Gastrointestinal: Reports none and diarrhea; Denies abdominal pain, change in stool character, hematemesis, hematochezia, melena, rectal bleeding or vomiting Genitourinary Genitourinary ED: Reports none; Denies abdominal discomfort, anuria, dysuria, genital pain or polyuria Musculoskeletal Musculoskeletal: Reports none; Denies arthralgias, back pain, difficulty walking, extremity pain, muscle weakness or myalgias Integumentary Reports none; Denies abscess or rash Neurologic Neurologic: Reports none; Denies abnormal gait, confusion, focal weakness, frequent falls, headache(s), loss of vision, numbness, paresthesias, radicular pain, vertigo or weakness Psychiatric Psychiatric: Reports systems reviewed and no addt'l complaints, except as documented and none; Denies behavioral changes, confusion, difficulty concentrating, hallucinations, suicidal ideation, tactile hallucinations or visual hallucinations Endocrine Endocrinology: Denies none, cold intolerance, excessive sweating, fatigue or heat intolerance Hematologic/Lymphatic Hematologic/Lymphatic: Reports none; Denies anemia, easy bleeding or easy bruising Allergic/Immunologic Allergic/Immunologic ED: Denies as per HPI, none, lip swelling, mouth swelling, throat swelling, tongue swelling or hives EXAM Physical Exam Const Vital Signs: 04/28/21 11:31 04/28/21 11:36 04/28/21 11:37 Temperature 100.1 F H 100.1 F H Temperature Source Temporal Temporal Pulse Rate 128 H 128 H Respiratory Rate 22 H 22 H Respiratory Effort Short of Breath Blood Pressure 182/111 H 182/111 H Blood Pressure Mean 134 134 Pulse Ox 97 97 Oxygen Delivery Method Room Air Room Air 04/28/21 12:36 04/28/21 13:00 04/28/21 13:31 Temperature 98.6 F 98.6 F Temperature Source Oral Oral Pulse Rate 121 H 121 H 124 H Respiratory Rate 18 18 20 H Respiratory Effort Blood Pressure 183/110 H 183/110 H 186/110 H Blood Pressure Mean 134 134 135 Pulse Ox 95 95 94 Oxygen Delivery Method Room Air Room Air Room Air 04/28/21 14:00 Temperature 98.7 F Temperature Source Oral Pulse Rate 116 H Respiratory Rate 18 Respiratory Effort Blood Pressure 179/99 H Blood Pressure Mean 125 Pulse Ox 93 Oxygen Delivery Method Room Air Positive well nourished and well developed General Appearance ED: well developed and NAD HEENT Reports TM's clear and moist mucous membranes normocephalic and atraumatic; Negative for trauma or tenderness Tympanic Membrane ED: Yes TM's clear Eyes PERRL and EOMs intact bilaterally General Eye ED: Negative for pale conjunctiva or scleral icterus Neck no lymphadenopathy, supple and no JVD General: Negative for tenderness Chest Wall inspection of chest normal and palpation of chest normal Chest: Negative for tenderness Resp normal respiratory effort and clear to auscultation bilaterally Effort and Inspection: Negative for respiratory distress or pain with movement Auscultation: Negative for rhonchi, wheezes or diminished lung sounds Cardio regular rhythm, S1 normal heart sound, S2 normal heart sound and no murmurs Rate: tachycardic Peripheral Pulses: pulses 2+ throughout GI normal to inspection, nondistended, normoactive bowel sounds, soft to palpation, non-tender, non-distended and no masses Back/Spine no CVA tenderness and no thoracic nor lumbar tenderness Extremity normal to inspection General Extremety ED: Negative for edema General Extremity: Negative for edema Neuro oriented x3, CN's II-XII intact bilaterally, no sensory deficits noted and gait normal Sensorium / Orientation: awake, alert, oriented to person, oriented to place and oriented to time Motor Exam: strength 5/5 throughout and strength abnormal Psych mental status grossly normal Skin no rashes or lesions noted and no wounds MDM MDM MDM Narrative Medical decision making narrative: Patient noted to have significant UTI. Initially was empiricly started on Levaquin eyes I thought he may have the development of a right lower lobe pneumonia. Radiology however thought his x-ray appeared unremarkable other than he had his right arm across his chest which may have caused some increased artifact over the right lungs. Patient will be admitted for IV antibiotics and fluids. He meets sepsis criteria. Lab Data Attestation: I reviewed the patient's lab results. Labs: Laboratory Results - last 24 hr 04/28/21 04/28/21 04/28/21 11:50 11:50 11:50 WBC 10.0 RBC 4.74 Hgb 13.6 Hct 40.3 MCV 85.0 MCH 28.7 MCHC 33.7 RDW Std Deviation 40.9 RDW Coeff of Osiris 13.1 Plt Count 257 MPV 10.1 Immature Gran % (Auto) 0.800 Neut % (Auto) 80.8 H Lymph % (Auto) 4.5 L [place] % (Auto) 5.2 Eos % (Auto) 8.5 H Baso % (Auto) 0.2 Absolute Neuts (auto) 8.1 H Absolute Lymphs (auto) 0.45 L Nucleated RBC % 0 Sodium 132 L Potassium 3.7 Chloride 99 Carbon Dioxide 20.0 L Anion Gap 13 BUN 12 Creatinine 0.63 L Estim Creat Clear Calc 65.55 Est GFR (MDRD) Af Amer 162 Est GFR (MDRD) Non-Af 134 BUN/Creatinine Ratio 19.1 Glucose 138 H Lactic Acid 2.0 Calcium 9.1 Total Bilirubin 0.70 AST 21 ALT 29 Alkaline Phosphatase 113 Troponin I High Sens 26.0 Total Protein 7.1 Albumin 4.0 Globulin 3.1 Albumin/Globulin Ratio 1.3 Urine Color Urine Clarity Urine pH Ur Specific [place] Urine Protein Urine Glucose (UA) Urine Ketones Urine Occult Blood Urine Nitrite Urine Bilirubin Urine Urobilinogen Ur Leukocyte Esterase Urine RBC Urine WBC Ur Squamous Epith Cells Urine Bacteria Urine Mucus 04/28/21 14:07 WBC RBC Hgb Hct MCV MCH MCHC RDW Std Deviation RDW Coeff of Osiris Plt Count MPV Immature Gran % (Auto) Neut % (Auto) Lymph % (Auto) [place] % (Auto) Eos % (Auto) Baso % (Auto) Absolute Neuts (auto) Absolute Lymphs (auto) Nucleated RBC % Sodium Potassium Chloride Carbon Dioxide Anion Gap BUN Creatinine Estim Creat Clear Calc Est GFR (MDRD) Af Amer Est GFR (MDRD) Non-Af BUN/Creatinine Ratio Glucose Lactic Acid Calcium Total Bilirubin AST ALT Alkaline Phosphatase Troponin I High Sens Total Protein Albumin Globulin Albumin/Globulin Ratio Urine Color Yellow Urine Clarity Cloudy Urine pH 7.0 Ur Specific [place] 1.010 Urine Protein 100 H Urine Glucose (UA) Normal Urine Ketones 5 H Urine Occult Blood 250 H Urine Nitrite Positive H Urine Bilirubin Negative Urine Urobilinogen Normal Ur Leukocyte Esterase 500 H Urine RBC 0 SEEN Urine WBC >100 SEEN Ur Squamous Epith Cells 0 SEEN Urine Bacteria 0 SEEN Urine Mucus 0 SEEN Radiography Chest X-Ray - ED: 1 View Diagnostic Testing: Radiology Impression Chest X-Ray 04/28/21 11:45 IMPRESSION: Limited exam. The patient''s left upper extremity is overlying the right hemithorax. Left lung is clear. Electronically Signed: Robles Sanchez MD at 12:45 EDT , Service support , 1 view chest x-ray obtained interpreted by myself initially as increased markings in the right lower lobe consistent with infiltrate however radiology felt the lungs were clear and exam was limited to the fact that patient had his right arm across his chest due to the fact that he is got contractures from prior stroke. EKG Initial EKG: Comments: Sinus rhythm with a ventricular rate of [address] changes Discharge Plan Triage Chief Complaint: General Illness ED Provider: Bere Gloria Dx/Rx/DC Orders Clinical Impression: Acute UTI, Sepsis Prescriptions: No Action multivitamin with folic acid [Thera] 1 TABLET tablet 1 tab PO DAILY RF: 0 atorvastatin 20 mg Tablet 20 mg PO QHS 30 Days Qty: 30 RF: 0 amlodipine 5 mg Tablet 5 mg PO DAILY Qty: 30 RF: 0 folic acid 1 mg Tablet 1 mg PO DAILY@0800 30 Days RF: 0 lisinopril 40 mg Tablet 40 mg PO DAILY 30 Days Qty: 30 RF: 0 tamsulosin 0.4 mg Capsule 0.4 mg PO DAILY@1730 30 Days RF: 0 sertraline [Zoloft] 100 mg Tablet 100 mg PO DAILY Qty: 30 RF: 0 gabapentin [Neurontin] 100 mg Capsule 100 mg PO BID Qty: 60 RF: 0 potassium chloride 20 mEq/15 mL Liquid 20 meq PO TIDCM RF: 0 cyclobenzaprine [Flexeril] 5 mg Tablet 5 mg PO QHS RF: 0 acetaminophen [Tylenol] 325 mg tablet 650 mg PO Q4H PRN PRN (Reason: Pain Score 1-10) RF: 0 Primary Care Provider: Shubham Saez Referrals: Shubham Saez MD [Primary Care Provider] - Disposition Disposition: Acute Care Hospital [facility]
[2021-04-28] MEDS: 0.9% Normal Saline 1,000 ML 1000 ML IV (11:58)
[2021-04-28 12:24] LABS: ALB/GLOB Ratio 1.3 RATIO (0.9-2.4); AST(SGOT) 21 U/L (15-37); Alanine Aminotransfer ALT/SGPT 29 U/L (16-61); Alkaline Phosphatase 113 U/L (45-117); Anion Gap 13 (5-15); BUN 12 mg/dL (7-18); BUN/Creat Ratio 19.1 RATIO (10-20); Calcium,Total 9.1 mg/dL (8.5-10.1); Chloride 99 mmol/L (98-107); Creatinine, Serum 0.63 mg/dL (0.70-1.30); EST Glomerular Filtration Rate 134 mL/min (>60); Est Glom Filt Rate - Afr Amer 162 mL/min (>60); Estimated Creatinine Clearance 65.55 ml/min; Globulin 3.1 g/dL (2.2-4.2); Glucose 138 mg/dL (74-106); Potassium 3.7 mmol/L (3.5-5.1); Protein, Total 7.1 g/dL (6.4-8.2); Sodium Level 132 mmol/L (136-145)
[2021-04-28 12:56] LABS: Absolute Lymphocyte Count 0.45 X10^3/uL (0.83-4.51); Absolute Neutrophil Count 8.1 X10^3/uL (2.0-7.7); Basophil# 0.02 X10^3/uL; Basophil% 0.2 % (0-1); Eosinophil# 0.85 X10^3/uL; Eosinophils% 8.5 % (0-5); Hematocrit 40.3 % (40-54); Hemoglobin 13.6 g/dL (13.0-16.5); Lymphocyte # 0.45 X10^3/ul (0.83-4.51); Lymphocyte % 4.5 % (19-41); Mean Corp Hgb Conc 33.7 g/dL (32-36); Mean Corpuscular Hgb 28.7 pg (27.0-32.0); Mean Platelet Vol. 10.1 fl (6.2-12.0); Monocyte# 0.52 X10^3/uL; Monocyte% 5.2 % (0-10); NRBC Flagged by Analyzer 0 % (0-5); Neutrophil # 8.06 X10^3/uL (2.7-7.7); Neutrophil % 80.8 % (47-70); POSITIVE DIFFERENTIAL YES; POSITIVE MORPHOLOGY YES; Platelet Count 257 K/mm3 (150-450); RBC Distribution Width CV 13.1 % (11.6-14.6); RBC Distribution Width SD 40.9 fl (35.1-43.9); Red Blood Count 4.74 M/mm3 (4.6-6.2)
[2021-04-28] MEDS: Ondansetron 4 MG/2 ML Vial IV (13:00)
[2021-04-28] MEDS: Morphine 4 MG/ML Syringe IV (13:00)
[2021-04-28 13:01] LABS: Differential Indicated SCAN CRITERIA MET
[2021-04-28] MEDS: levoFLOXacin IV 750 MG/150 ML BAG 100 MG IV (13:01)
[2021-04-28] MEDS: 0.9% Normal Saline 1,000 ML 150 ML IV (13:01)
[2021-04-28 14:14] LABS: Bacteria 0 SEEN /hpf (None Seen); Mucous, Urine 0 SEEN /hpf (<or=2+); Red Blood Cells-Urine 0 SEEN /hpf (0-5); Squamous Epithelial Cells - UA 0 SEEN /hpf (0-5)
[2021-04-28 14:17] LABS: Color, Urine Yellow (Yellow); Glucose, Dipstick Normal (Normal); Ketone-Dipstick 5 mg/dl (Negative); Leukocyte Esterase-Dipstick 500 /ul (Negative); Nitrite-Dipstick Positive (Negative); Occult Blood-Urine 250 /ul (Negative); Protein-Dipstick 100 mg/dl (Negative); Urine Bilirubin Dipstick Negative (Negative); Urine Clarity Cloudy (Clear); Urine Urobilinogen Normal (Normal)
[2021-04-28 14:27] LABS: White Blood Cells >100 SEEN /hpf (0-5)
--- NOTE | 2021-04-28 15:00 | HP.PCM.HOS_ITS ---
HPI - General General Date of Admission: 04/28/21 Date of Service: 04/28/21 Chief Complaint: Lethargy, fatigue, fever, chills, loose stools, tachycardic. HPI Narrative The patient is a 70 y/o M w/ PMHx: HTN, HLD, OBED, Hx Hemorrhagic CVA w/ chronic R sided hemiparesis, aphasia and oropharyngeal dysphagia who presents to the [facility] ED on 04/28/21 with history of chills, fevers, intermittent loose stools, tachycardia, lethargy starting 24 hours prior, worsening prompting transition from residential facility to ED for evaluation. Patient did have urinary tract infection 1 month prior and was treated but patient and family are unable to relay specific antibiotic therapy regimen. We have you of records does demonstrate notable resistance patterns. Work-up in the ED included T1 100.1, heart rate initially 128, BP initially 182/111, respiratory rate 22, 97% on room air, CBC with WC 10, hemoglobin 13.6, platelet 257 with left shift and lymphopenia, BMP with sodium 132,, DEXA 20, BUN/creatinine 12/0.63, glucose 138, lactic acid 2.0, unremarkable hepatic profile, high-sensitivity troponin XX 6, chest x-ray with no acute cardiopulmonary findings although limited study, rapid Covid antigen negative. In the ED following review of cultures from prior with the ED physician decision for meropenem administration. [facility] Medical History (Updated 04/28/21 @ 17:[address] Natividad Starr MD) Aphasia complicating stroke Benign prostate hyperplasia Hyperlipidemia Hypertension Osteoarthritis Right hemiparesis Stroke Home Medications multivitamin with folic acid [Thera] 1 tab PO DAILY 09/14/14 [History Last Taken 04/28/21] amlodipine 5 mg PO DAILY #30 tab 01/20/21 [Rx Last Taken 04/28/21] atorvastatin 20 mg PO QHS 30 Days #30 tab 01/20/21 [Rx Last Taken 04/27/21] folic acid 1 mg PO DAILY@0800 30 Days tab 01/20/21 [Rx Last Taken 04/28/21] lisinopril 40 mg PO DAILY 30 Days #30 tab 01/20/21 [Rx Last Taken 04/28/21] tamsulosin 0.4 mg PO DAILY@1730 30 Days cap 01/20/21 [Rx Last Taken 04/27/21] gabapentin [Neurontin] 100 mg PO BID #60 cap 01/26/21 [Rx Last Taken 04/28/21] sertraline [Zoloft] 100 mg PO DAILY #30 tab 01/26/21 [Rx Last Taken 04/28/21] acetaminophen [Tylenol] 650 mg PO Q4H PRN PRN 04/28/21 [History Last Taken 04/28/21 06:45] cyclobenzaprine [Flexeril] 5 mg PO QHS 04/28/21 [History Last Taken 04/27/21] potassium chloride 20 meq PO TIDCM 04/28/21 [History Last Taken 04/28/21] Allergy/AdvReac Type Severity Reaction Status Date / Time No Known Allergies Allergy Verified 04/28/21 11:37 Family History (Updated 04/28/21 @ 17:[address] Natividad Starr MD) Mother CVA (cerebral vascular accident) Rheumatoid arthritis Father Cancer Pancreatic cancer Surgical History (Updated 04/28/21 @ 17:[address] Natividad Starr MD) History of umbilical hernia repair S/P tonsillectomy and adenoidectomy Social History (Updated 04/28/21 @ 17:[address] Natividad Starr MD) housing: senior care Smoking Status: Former smoker alcohol intake: former substance use type: does not use ROS ROS Narrative Admission Review of Systems: CONSTITUTIONAL: No weight loss, + fever, chills, weakness or fatigue. HEENT: Eyes: No visual loss, blurred vision, double vision or yellow sclerae. Ears, Nose, Throat: No hearing loss, sneezing, congestion, runny nose or sore throat. SKIN: No rash or itching, lesions, wounds. CARDIOVASCULAR: No chest pain, chest pressure or chest discomfort, palpitations, edema, orthopnea, syncopal events. RESPIRATORY: No shortness of breath, cough or sputum, wheezing, hemoptysis. GASTROINTESTINAL: + anorexia, diarrhea, No nausea, vomiting, abdominal pain, melena, BRBPR. GENITOURINARY: No dysuria, frequency, urgency or retention. NEUROLOGICAL: + Lethargy, s/p prior CVA w/ R sided hemiparesis. No headache, dizziness, syncope, paralysis, ataxia, change in bowel or bladder control, s eizure. MUSCULOSKELETAL: + muscle, back pain, joint pain or stiffness. HEMATOLOGIC: + anemia, bleeding or bruising. LYMPHATICS: No enlarged nodes. No history of splenectomy. PSYCHIATRIC: + history of depression or anxiety. ENDOCRINOLOGIC: No reports of sweating, cold or heat intolerance. No polyuria or polydipsia. ALLERGIES: No history of asthma, hives, eczema or rhinitis. Vital Signs Vital Signs Vital Signs: 04/28/21 11:31 04/28/21 11:36 04/28/21 11:37 Temperature 100.1 F H 100.1 F H Temperature Source Temporal Temporal Pulse Rate 128 H 128 H Respiratory Rate 22 H 22 H Respiratory Effort Short of Breath Blood Pressure 182/111 H 182/111 H Blood Pressure Mean 134 134 Pulse Ox 97 97 Oxygen Delivery Method Room Air Room Air 04/28/21 12:36 04/28/21 13:00 04/28/21 13:31 Temperature 98.6 F 98.6 F Temperature Source Oral Oral Pulse Rate 121 H 121 H 124 H Respiratory Rate 18 18 20 H Respiratory Effort Blood Pressure 183/110 H 183/110 H 186/110 H Blood Pressure Mean 134 134 135 Pulse Ox 95 95 94 Oxygen Delivery Method Room Air Room Air Room Air 04/28/21 14:00 Temperature 98.7 F Temperature Source Oral Pulse Rate 116 H Respiratory Rate 18 Respiratory Effort Blood Pressure 179/99 H Blood Pressure Mean 125 Pulse Ox 93 Oxygen Delivery Method Room Air Weight Weight: 164 lb 14.492 oz Body Mass Index (BMI) 25.0 Physical Exam Narrative Physical Examination: General: Awake, alert, oriented to self, place and recent events, improved from initial presentation, remains cooperative, seated upright in the ED bed, fatigued appearing. Skin: Normal color, normal turgor, no icterus, no cyanosis. HEENT: AT/NC, EOMI, PERRLA, dry MM, no carotid bruits or JVD noted. Lungs: Mildly diminished, greater bases, appropriate effort, no evidence of any distress, no rales, ronchi or wheezing. Heart: Tachycardic with regular rhythm; no gallop, rub audible. Abdomen: Soft, NTTP, no suprapubic tenderness, ND, mildly hyperactive BS, no HSM. Extremities: No cyanosis, no clubbing, status post prior CVA with right-sided hemiparesis, contractures present especially right upper extremity. Neurological: Patient awake, alert, oriented as noted, cognitive function appears baseline intact, improved as had been more lethargic per report; pupils equally reactive to light and accommodation, cranial nerves II-XII grossly normal, status post CVA with right-sided chronic hemiparesis, contractors present, strength severely globally decreased given underlying prior deficits and acute presentation as noted. Psychiatric: Affect appears fatigued, no acute evidence of depressive or anxiety feelings. Results Lab / Micro Data Result Diagrams: 04/28/21 11:50 04/28/21 11:50 Labs: Laboratory Results - last 24 hr 04/28/21 11:50: Sodium 132 L, Potassium 3.7, Chloride 99, Carbon Dioxide 20.0 L, Anion Gap 13, BUN 12, Creatinine 0.63 L, Estim Creat Clear Calc 65.55, Est GFR (MDRD) Af Amer 162, Est GFR (MDRD) Non-Af 134, BUN/Creatinine Ratio 19.1, Glucose 138 H, Calcium 9.1, Total Bilirubin 0.70, AST 21, ALT 29, Alkaline Phosphatase 113, Troponin I High Sens 26.0, Total Protein 7.1, Albumin 4.0, Globulin 3.1, Albumin/Globulin Ratio 1.3 04/28/21 11:50: Lactic Acid 2.0 04/28/21 11:50: WBC 10.0, RBC 4.74, Hgb 13.6, Hct 40.3, MCV 85.0, MCH 28.7, MCHC 33.7, RDW Std Deviation 40.9, RDW Coeff of Osiris 13.1, Plt Count 257, MPV 10.1, Immature Gran % (Auto) 0.800, Neut % (Auto) 80.8 H, Lymph % (Auto) 4.5 L, [place] % (Auto) 5.2, Eos % (Auto) 8.5 H, Baso % (Auto) 0.2, Absolute Neuts (auto) 8.1 H, Absolute Lymphs (auto) 0.45 L, Nucleated RBC % 0 04/28/21 14:07: Urine Color Yellow, Urine Clarity Cloudy, Urine pH 7.0, Ur Specific [place] 1.010, Urine Protein 100 H, Urine Glucose (UA) Normal, Urine Ketones 5 H, Urine Occult Blood 250 H, Urine Nitrite Positive H, Urine Bilirubin Negative, Urine Urobilinogen Normal, Ur Leukocyte Esterase 500 H, Urine RBC 0 SEEN, Urine WBC >100 SEEN, Ur Squamous Epith Cells 0 SEEN, Urine Bacteria 0 SEEN, Urine Mucus 0 SEEN Micro: Microbiology 04/28/21 12:00 Mucosa - Nose SARS-CoV-2 Antigen (Rapid) - Final Radiology Impression Chest X-Ray 04/28/21 11:45 IMPRESSION: Limited exam. The patient''s left upper extremity is overlying the right hemithorax. Left lung is clear. Electronically Signed: Robles Sanchez MD at 12:45 EDT , Service support , Assessment & Plan Assessment/Plan (1) Acute UTI: (2) Sepsis: QUALIFIERS: Sepsis type: sepsis due to unspecified organism Sepsis acute organ dysfunction status: with acute organ dysfunction Severe sepsis acute organ dysfunction type: unspecified Severe sepsis shock status: without septic shock Qualified Code(s): A41.9 - Sepsis, unspecified organism; R65.20 - Severe sepsis without septic shock PLAN: The patient is a 70 y/o M w/ PMHx: HTN, HLD, OBED, Hx Hemorrhagic CVA w/ chronic R sided hemiparesis, aphasia and oropharyngeal dysphagia who presents to the [facility] ED on 04/28/21 with history of chills, fevers, intermittent loose stools, tachycardia, lethargy starting 24 hours prior, worsening prompting transition from residential facility to ED for evaluation. 1. Acute Sepsis secondary to Acute Complicated UTI with Chronic Indwelling Engle Catheter: Will admit to [place] telemetry status, UA upon ED evaluation remarkable, engle changed in the ED prior to admission, pending UCx, continue IVFs, monitor I/Os, continue IV meropenem from review of most recent cultures as notable resistance patterns and request ID evaluation w/ transition as able pending sensitivities and speciation. Given history of loose stools although suspect likely associate with UTI will request stool enteric pathogen as well as C. difficile to be cautious. Bld cx x 2 obtained in the ED. 2. History of Hemorrhagic CVA: Patient with chronic right-sided hemiparesis, aphasia as well as oropharyngeal dysphagia, will continue on mechanical soft/nectar thick with continued PT, OT, speech therapy consultations, maintain on aspiration and fall precautions, continue hypertensive regimen, statin therapy. 3. Hypertension: Continue home regimen including amlodipine, lisinopril with hold parameters as needed, PRN hydralazine. 4. Hyperlipidemia: We will continue statin home therapy. 5. Anxiety and depression: We will continue patient home Zoloft regimen. 6. BPH: We will continue patient home Flomax regimen. 7. DVT prophylaxis: SCDs, given significant hemorrhagic stroke history recently this year will defer chemoprophylaxis at this time. 8. CODE status: Patient DANYA is his who is and living will is currently in place. Discussed CODE status at length including difference between FULL code, DNR-CCA and DNR-CC status. Following discussions about the differences in these status, requested \Full Code status. Advanced Care Planning Face to Face Time: 16 minutes. Charges/Coding Visit Charges Inpatient E&M: 13045 Init Hosp L3 Procedures Hospitalists Procedures: 44134 Advncd Care Plan 30 Min
--- NOTE | 2021-04-28 15:13 | NURSING ---
MED SURG WHITE UTI, SEPSIS
[2021-04-28 15:52] LABS: Magnesium 1.7 mg/dL (1.6-2.6); Phosphorus 2.4 mg/dL (2.5-4.9)
[2021-04-28] MEDS: Potassium Chloride Oral Soln 20 MEQ/15 ML UDC PO (18:04)
[2021-04-28] MEDS: Tamsulosin HCl 0.4 MG Capsule PO (18:04)
[2021-04-28] MEDS: Atorvastatin Calcium 20 MG Tablet PO (22:36)
[2021-04-28] MEDS: cycloBENZAPRine HCl 5 MG TABLET PO (22:36)
[2021-04-28] MEDS: Gabapentin 100 MG Capsule PO (22:36)
[2021-04-29] VITALS (12 sets, daily range): BP systolic 99–145; BP diastolic 38–92; PULSE 66–101; RESP 16–18; TEMP 36.4–37.2; O2SAT 94–100
[2021-04-29] MEDS: 0.9% Normal Saline 1,000 ML 125 ML IV ×2 (01:09→12:25)
[2021-04-29 07:14] LABS: Absolute Lymphocyte Count 0.77 X10^3/uL (0.83-4.51); Absolute Neutrophil Count 3.8 X10^3/uL (2.0-7.7); Basophil# 0.01 X10^3/uL; Basophil% 0.2 % (0-1); Eosinophil# 0.07 X10^3/uL; Eosinophils% 1.4 % (0-5); Hematocrit 38.3 % (40-54); Hemoglobin 12.1 g/dL (13.0-16.5); Lymphocyte # 0.77 X10^3/ul (0.83-4.51); Lymphocyte % 15.4 % (19-41); Mean Corp Hgb Conc 31.6 g/dL (32-36); Mean Corpuscular Hgb 28.5 pg (27.0-32.0); Mean Corpuscular Volume 90.3 fL (80-94); Mean Platelet Vol. 10.1 fl (6.2-12.0); Monocyte# 0.38 X10^3/uL; Monocyte% 7.6 % (0-10); NRBC Flagged by Analyzer 0 % (0-5); Neutrophil # 3.75 X10^3/uL (2.7-7.7); Platelet Count 194 K/mm3 (150-450); RBC Distribution Width CV 13.2 % (11.6-14.6); RBC Distribution Width SD 43.9 fl (35.1-43.9); Red Blood Count 4.24 M/mm3 (4.6-6.2)
[2021-04-29 07:55] LABS: ALB/GLOB Ratio 1.1 RATIO (0.9-2.4); AST(SGOT) 25 U/L (15-37); Alanine Aminotransfer ALT/SGPT 27 U/L (16-61); Albumin, Serum 3.3 g/dL (3.2-5.0); Alkaline Phosphatase 87 U/L (45-117); Anion Gap 6 (5-15); BUN 7 mg/dL (7-18); BUN/Creat Ratio 13.6 RATIO (10-20); Calcium,Total 8.7 mg/dL (8.5-10.1); Chloride 106 mmol/L (98-107); Creatinine, Serum 0.52 mg/dL (0.70-1.30); EST Glomerular Filtration Rate 168 mL/min (>60); Est Glom Filt Rate - Afr Amer 203 mL/min (>60); Estimated Creatinine Clearance 65.55 ml/min; Globulin 2.9 g/dL (2.2-4.2); Glucose 82 mg/dL (74-106); Potassium 3.6 mmol/L (3.5-5.1); Protein, Total 6.2 g/dL (6.4-8.2); Sodium Level 137 mmol/L (136-145)
[2021-04-29] MEDS: Multivitamins,Therapeutic Tablet 1 TABLET PO (08:34)
[2021-04-29] MEDS: Sertraline 100 MG Tablet PO (08:34)
[2021-04-29] MEDS: Folic Acid 1 MG Tablet PO (08:34)
[2021-04-29] MEDS: Lisinopril 40 MG Tablet PO (08:34)
[2021-04-29] MEDS: amLODIPine 5 MG Tablet PO (08:34)
[2021-04-29] MEDS: Potassium Chloride Oral Soln 20 MEQ/15 ML UDC PO ×3 (08:35→19:15)
[2021-04-29] MEDS: Gabapentin 100 MG Capsule PO ×2 (08:35→21:51)
--- NOTE | 2021-04-29 10:26 | CASEMGMT ---
Addendum entered by Luiza Jacome 04/29/21 12:12: CAROLINA placed another call to Rubina at [facility]. Rubina confirms pt is able to return when medically ready. Rubina states if pt discharges tomorrow (Sunday) pt will not need a new COVID but if pt discharges Sunday, pt will need new COVID. CAROLINA wrote this on Green Sheet. SW placed Green sheet, transport form, COVID tool on pt's chart. Plan: Return to [facility] skilled when medically cleared. If pt discharges Sunday, pt will NOT NEED a new COVID test. If pt discharges on Sunday, pt WILL NEED a new COVID test. Addendum entered by Luiza Jacome 04/29/21 11:10: CAROLINA met with pt. Pt is very hard to understanding, unsure if he knows orientation questions. Pt did confirm he came from [facility] and plan is to return. Pt gave permission for this worker to call his . SW placed a call to pt's Colleen. Colleen confirms pt is from [facility] and plan is to return. Colleen states pt will need transportation back to [facility]. Original Note: Social Work Note Pt is listed as being from [facility]. CAROLINA placed a call to [facility] and spoke with Rubina in admissions. Rubina states pt is skilled, pt is at [facility] under Medicare A, will need to check with business office to determine if pt is able to return when medically cleared. CAROLINA faxed updated clinicals to [facility]. Luiza Jacome CLINIC RECEPTIONIST, FILAMENT COIL WINDER
--- NOTE | 2021-04-29 12:20 | CASEMGMT ---
Social Work Note Per teaching manager questions, pt has completed HCPOA and LW and provided copies to [facility]. SW reviewed chart, both HCPOA and LW are on file. SW printed off copies and placed on pt's chart. Luiza Jacome CRIMINAL DEFENSE LAWYER, FLASH WELDER
--- NOTE | 2021-04-29 13:13 | PN.HOSP_ITS ---
Subjective Subjective Patient seen and examined. Patient is quite confused and unable to answer any questions and keeps muttering incoherently. Unable to do comprehensive review of systems. He has otherwise remained hemodynamically stable. He has been managed for UTI. Objective Data Objective Data Vital Signs: Vital Signs Temp Pulse Resp BP Pulse Ox 97.7 F L 96 18 145/92 H 94 04/29/21 08:47 04/29/21 11:35 04/29/21 08:47 04/29/21 08:47 04/29/21 08:47 Oxygen Delivery Method Room Air Weight: 164 lb 14.492 oz Body Mass Index (BMI) 25.0 Intake & Output: Intake and Output for Last 24 Hours 04/27/21 04/28/21 04/29/21 23:59 23:59 23:59 Intake Total 1290 / 1290 2269.16 / 2269.16 Output Total 1000 / 1600 850 / 850 Balance 290 / -310 1419.16 / 1419.16 Medical Nutrition Assessment Dietitian: Nutrition Therapy Diagnosis Start: 04/29/21 11:05 Freq: Status: Active Protocol: Document 04/29/21 11:22 SUBHA (Rec: 04/29/21 11:22 [facility] [id number]) Nutrition Malnutrition Evidence of Malnutrition Exists Yes Malnutrition (moderate): Chronic Evidenced By Weight Loss (Severe),Physical Changes (Moderate) Clinical Problem Biting/Chewing Difficulty Etiology and swallowing difficulties related to CVA Signs/Symptoms as evidenced by need for modified consistency diet Status Active Problem Acute Disease or Injury Related Malnutrition Etiology related to chronic diarrhea and inadequate oral intake to meet estimated nutrition needs and maintain stable weight Signs/Symptoms as evidenced by fat/muscle loss in arms/face and 20.8% weight loss x 4 months prior to admission Status Active Problem Recommendation Dietitian Recommendations/Changes Will change diet to Cardiac - mech soft (moist&minced) / nectar thick liquids. Will provide magic cup or ensure pudding w/ meals for increased nutrition if consumed. Lab / Micro Data Result Diagrams: 04/29/21 06:31 04/29/21 06:31 Labs: Laboratory Results - last 24 hr 04/28/21 11:50: Phosphorus 2.4 L, Magnesium 1.7 04/28/21 14:07: Urine Color Yellow, Urine Clarity Cloudy, Urine pH 7.0, Ur Specific [place] 1.010, Urine Protein 100 H, Urine Glucose (UA) Normal, Urine Ketones 5 H, Urine Occult Blood 250 H, Urine Nitrite Positive H, Urine Bilirubin Negative, Urine Urobilinogen Normal, Ur Leukocyte Esterase 500 H, Urine RBC 0 SEEN, Urine WBC >100 SEEN, Ur Squamous Epith Cells 0 SEEN, Urine Bacteria 0 SEEN, Urine Mucus 0 SEEN 04/29/21 06:31: WBC 5.0, RBC 4.24 L, Hgb 12.1 L, Hct 38.3 L, MCV 90.3 D, MCH 28.5, MCHC 31.6 L D, RDW Std Deviation 43.9, RDW Coeff of Osiris 13.2, Plt Count 194, MPV 10.1, Immature Gran % (Auto) 0.400, Neut % (Auto) 75.0 H, Lymph % (Auto) 15.4 L, [place] % (Auto) 7.6, Eos % (Auto) 1.4, Baso % (Auto) 0.2, Absolute Neuts (auto) 3.8, Absolute Lymphs (auto) 0.77 L, Nucleated RBC % 0 04/29/21 06:31: Sodium 137, Potassium 3.6, Chloride 106, Carbon Dioxide 25.0, Anion Gap 6, BUN 7, Creatinine 0.52 L, Estim Creat Clear Calc 65.55, Est GFR (MDRD) Af Amer 203, Est GFR (MDRD) Non-Af 168, BUN/Creatinine Ratio 13.6, Glucose 82, Calcium 8.7, Total Bilirubin 0.60, AST 25, ALT 27, Alkaline Phosphatase 87, Total Protein 6.2 L, Albumin 3.3, Globulin 2.9, Albumin/Globulin Ratio 1.1 Micro: Microbiology 04/28/21 12:00 Mucosa - Nose SARS-CoV-2 Antigen (Rapid) - Final 04/28/21 14:07 Urine Catheter - Engle Urine Culture - Preliminary GNR lactose paper pattern inspector Physical Exam Const alert Orientation / Consciousness: confused and disoriented Exam Limitations: altered mental status HEENT head/scalp atraumatic Head and Scalp: normocephalic Mouth: dry mucous membranes Eyes PERRL, EOMs intact bilaterally and conjunctivae normal Neck no lymphadenopathy Resp Resp Narrative: diminished breath sounds bibasally. on room air. Cardio regular rate, regular rhythm, S1 normal heart sound, S2 normal heart sound and no murmurs GI normal to inspection, nondistended, normoactive bowel sounds and soft to palpation Extremity normal to inspection, full ROM and no clubbing, cyanosis or edema Peripheral Pulses: Yes pulses 2+ throughout Skin no rashes or lesions noted Neuro Neuro Narrative: confused, residual right hemiparesis from previous CVA Sensorium / Orientation: awake Psych Psych Narrative: confused, flat affect Assessment & Plan Assessment/Plan (1) Acute UTI: (2) Sepsis: QUALIFIERS: Sepsis type: sepsis due to unspecified organism Sepsis acute organ dysfunction status: with acute organ dysfunction Severe sepsis acute organ dysfunction type: unspecified Severe sepsis shock status: without septic shock Qualified Code(s): A41.9 - Sepsis, unspecified organism; R65.20 - Severe sepsis without septic shock PLAN: #Sepsis due to UTI * in setting of chronic indwelling Engle catheter * engle catheter was changed in the ED. * on IV meropenem due to previous culture sensitivities * ID consulted. * blood cultures also pending * urine culture growing gram negative lactose paper pattern inspector; speciation pending * #History of hemorrhagic CVA with chronic right hemiparesis * PT/OT on board. Fall precautions * #Expressive aphasia with oropharyngeal dysphagia * on mechanical soft/nectar thick diet * aspiration precautions * #Hypertension: on amlodipine and lisinopril. IV hydralazine prn. #Hyperlipidemia: on statin #Anxiety and depression: on zoloft. #BPH: on flomax DVT prophylaxis; SCDs. Charges/Coding Visit Charges Inpatient E&M: 52340 Subs Hosp L2
--- NOTE | 2021-04-29 15:06 | PCM.CONS.GEN ---
Assessment & Plan Assessment/Plan (1) Acute UTI: PLAN: Prior cx with resistant citrobacter and morganella. Ucx pending, agree with meropenem. Encouraged him to get covid shot, and he is interested. Will follow, thank you HPI Consult Data Date of Consult: 04/29/21 HPI Narrative HPI Narrative: HALLE ALVA, is a 70 M with h/o HTN, HLD, OBED, Hx Hemorrhagic CVA w/ chronic R sided hemiparesis, aphasia and oropharyngeal dysphagia, presented from [facility] with 1-2 days of fever, chills, decreased mental status. Denies any abd pain, flank pain, dysuria. Has not gotten covid vaccine. Admitted, started on meropenem, feeling better today. Full ROS performed and neg except as noted above. [facility] Medical History Aphasia complicating stroke Benign prostate hyperplasia Hyperlipidemia Hypertension Osteoarthritis Right hemiparesis Stroke Home Medications multivitamin with folic acid [Thera] 1 tab PO DAILY 09/14/14 [History Last Taken 04/28/21] amlodipine 5 mg PO DAILY #30 tab 01/20/21 [Rx Last Taken 04/28/21] atorvastatin 20 mg PO QHS 30 Days #30 tab 01/20/21 [Rx Last Taken 04/27/21] folic acid 1 mg PO DAILY@0800 30 Days tab 01/20/21 [Rx Last Taken 04/28/21] lisinopril 40 mg PO DAILY 30 Days #30 tab 01/20/21 [Rx Last Taken 04/28/21] tamsulosin 0.4 mg PO DAILY@1730 30 Days cap 01/20/21 [Rx Last Taken 04/27/21] gabapentin [Neurontin] 100 mg PO BID #60 cap 01/26/21 [Rx Last Taken 04/28/21] sertraline [Zoloft] 100 mg PO DAILY #30 tab 01/26/21 [Rx Last Taken 04/28/21] acetaminophen [Tylenol] 650 mg PO Q4H PRN PRN 04/28/21 [History Last Taken 04/28/21 06:45] cyclobenzaprine [Flexeril] 5 mg PO QHS 04/28/21 [History Last Taken 04/27/21] potassium chloride 20 meq PO TIDCM 04/28/21 [History Last Taken 04/28/21] Allergy/AdvReac Type Severity Reaction Status Date / Time No Known Allergies Allergy Verified 04/28/21 11:37 Family History (Updated 04/28/21 @ 17:[address] Natividad Starr MD) Mother CVA (cerebral vascular accident) Rheumatoid arthritis Father Cancer Pancreatic cancer Surgical History (Updated 04/28/21 @ 17:[address] Natividad Starr MD) History of umbilical hernia repair S/P tonsillectomy and adenoidectomy Social History (Updated 04/28/21 @ 17:[address] Natividad Starr MD) [facility]: [facility] Smoking Status: Former smoker alcohol intake: former substance use type: does not use Physical Exam Const alert and no apparent distress General Appearance: cooperative HEENT normocephalic and head/scalp atraumatic Eyes PERRL Neck supple and No nodes Resp normal air movement and clear to auscultation bilaterally Cardio regular rate and regular rhythm GI normal to inspection, nondistended, normoactive bowel sounds Extremity no clubbing, cyanosis or edema Skin no rashes or lesions noted Neuro Neuro Narrative: prior stroke Medical Records Data Medical Nutrition Assessment Dietitian: Nutrition Therapy Diagnosis Start: 04/29/21 11:05 Freq: Status: Active Protocol: Document 04/29/21 11:22 SUBHA (Rec: 04/29/21 11:22 [facility] [id number]) Nutrition Malnutrition Evidence of Malnutrition Exists Yes Malnutrition (moderate): Chronic Evidenced By Weight Loss (Severe),Physical Changes (Moderate) Clinical Problem Biting/Chewing Difficulty Etiology and swallowing difficulties related to CVA Signs/Symptoms as evidenced by need for modified consistency diet Status Active Problem Acute Disease or Injury Related Malnutrition Etiology related to chronic diarrhea and inadequate oral intake to meet estimated nutrition needs and maintain stable weight Signs/Symptoms as evidenced by fat/muscle loss in arms/face and 20.8% weight loss x 4 months prior to admission Status Active Problem Recommendation Dietitian Recommendations/Changes Will change diet to Cardiac - mech soft (moist&minced) / nectar thick liquids. Will provide magic cup or ensure pudding w/ meals for increased nutrition if consumed. Lab / Micro Data Result Diagrams: 04/29/21 06:31 04/29/21 06:31 Labs: Laboratory Results - last 24 hr 04/28/21 11:50: Phosphorus 2.4 L, Magnesium 1.7 08/13/21 06:31: WBC 5.0, RBC 4.24 L, Hgb 12.1 L, Hct 38.3 L, MCV 90.3 D, MCH 28.5, MCHC 31.6 L D, RDW Std Deviation 43.9, RDW Coeff of Osiris 13.2, Plt Count 194, MPV 10.1, Immature Gran % (Auto) 0.400, Neut % (Auto) 75.0 H, Lymph % (Auto) 15.4 L, [place] % (Auto) 7.6, Eos % (Auto) 1.4, Baso % (Auto) 0.2, Absolute Neuts (auto) 3.8, Absolute Lymphs (auto) 0.77 L, Nucleated RBC % 0 04/29/21 06:31: Sodium 137, Potassium 3.6, Chloride 106, Carbon Dioxide 25.0, Anion Gap 6, BUN 7, Creatinine 0.52 L, Estim Creat Clear Calc 65.55, Est GFR (MDRD) Af Amer 203, Est GFR (MDRD) Non-Af 168, BUN/Creatinine Ratio 13.6, Glucose 82, Calcium 8.7, Total Bilirubin 0.60, AST 25, ALT 27, Alkaline Phosphatase 87, Total Protein 6.2 L, Albumin 3.3, Globulin 2.9, Albumin/Globulin Ratio 1.1 Micro: Microbiology 04/28/21 12:00 Mucosa - Nose SARS-CoV-2 Antigen (Rapid) - Final 04/28/21 14:07 Urine Catheter - Munoz Urine Culture - Preliminary GNR lactose special needs nanny
[2021-04-29] MEDS: Tamsulosin HCl 0.4 MG Capsule PO (16:48)
[2021-04-29] MEDS: cycloBENZAPRine HCl 5 MG TABLET PO (21:51)
[2021-04-29] MEDS: Atorvastatin Calcium 20 MG Tablet PO (21:51)
[2021-04-30] VITALS (8 sets, daily range): BP systolic 113–137; BP diastolic 76–84; PULSE 66–108; RESP 16–18; TEMP 36.3–37.2; O2SAT 93–100
[2021-04-30] MEDS: 0.9% Normal Saline 1,000 ML 100 ML IV ×2 (02:23→18:25)
[2021-04-30 06:32] LABS: Absolute Lymphocyte Count 1.14 X10^3/uL (0.83-4.51); Absolute Neutrophil Count 3.7 X10^3/uL (2.0-7.7); Basophil# 0.03 X10^3/uL; Basophil% 0.5 % (0-1); Eosinophils% 3.6 % (0-5); Hematocrit 38.2 % (40-54); Hemoglobin 12.3 g/dL (13.0-16.5); Lymphocyte # 1.14 X10^3/ul (0.83-4.51); Lymphocyte % 20.8 % (19-41); Mean Corp Hgb Conc 32.2 g/dL (32-36); Mean Corpuscular Hgb 28.3 pg (27.0-32.0); Mean Platelet Vol. 9.9 fl (6.2-12.0); Monocyte# 0.43 X10^3/uL; Monocyte% 7.8 % (0-10); NRBC Flagged by Analyzer 0 % (0-5); Neutrophil # 3.66 X10^3/uL (2.7-7.7); Neutrophil % 66.9 % (47-70); Platelet Count 180 K/mm3 (150-450); RBC Distribution Width CV 13.2 % (11.6-14.6); RBC Distribution Width SD 42.8 fl (35.1-43.9); Red Blood Count 4.34 M/mm3 (4.6-6.2); White Blood Count 5.5 K/mm3 (4.4-11.0)
[2021-04-30 06:46] LABS: Anion Gap 6 (5-15); BUN 9 mg/dL (7-18); BUN/Creat Ratio 27.5 RATIO (10-20); Calcium,Total 8.3 mg/dL (8.5-10.1); Chloride 106 mmol/L (98-107); Creatinine, Serum 0.33 mg/dL (0.70-1.30); EST Glomerular Filtration Rate 284 mL/min (>60); Est Glom Filt Rate - Afr Amer 343 mL/min (>60); Estimated Creatinine Clearance 65.55 ml/min; Glucose 81 mg/dL (74-106); Potassium 3.6 mmol/L (3.5-5.1); Sodium Level 137 mmol/L (136-145)
[2021-04-30] MEDS: Gabapentin 100 MG Capsule PO ×2 (08:07→21:23)
[2021-04-30] MEDS: Multivitamins,Therapeutic Tablet 1 TABLET PO (08:07)
[2021-04-30] MEDS: amLODIPine 5 MG Tablet PO (08:07)
[2021-04-30] MEDS: Folic Acid 1 MG Tablet PO (08:07)
[2021-04-30] MEDS: Sertraline 100 MG Tablet PO (08:07)
[2021-04-30] MEDS: Potassium Chloride Oral Soln 20 MEQ/15 ML UDC PO (08:08)
[2021-04-30] MEDS: Lisinopril 40 MG Tablet PO (08:08)
--- NOTE | 2021-04-30 13:17 | PN.HOSP_ITS ---
Subjective Subjective Patient seen and examined. He is much more alert today and communicative. He has no complaints today and feels much better. He has no complaints today. Review of systems is otherwise negative. Objective Data Objective Data Vital Signs: Vital Signs Temp Pulse Resp BP Pulse Ox 97.3 F L 74 18 133/84 H 93 04/30/21 07:55 04/30/21 09:00 04/30/21 07:55 04/30/21 07:55 04/30/21 07:57 Oxygen Delivery Method Room Air Weight: 165 lb 9.074 oz Body Mass Index (BMI) 25.0 Intake & Output: Intake and Output for Last 24 Hours 04/28/21 04/29/21 04/30/21 23:59 23:59 23:59 Intake Total 1290 / 1290 3199.58 / 3399.58 1356.25 / 1356.25 Output Total 1000 / 1600 1500 / 2000 2300 / 2300 Balance 290 / -310 1699.58 / 1399.58 -943.75 / -943.75 Medical Nutrition Assessment Dietitian: Nutrition Therapy Diagnosis Start: 04/29/21 11:05 Freq: Status: Active Protocol: Document 04/29/21 11:22 SUBHA (Rec: 04/29/21 11:22 [facility] [id number]) Nutrition Malnutrition Evidence of Malnutrition Exists Yes Malnutrition (moderate): Chronic Evidenced By Weight Loss (Severe),Physical Changes (Moderate) Clinical Problem Biting/Chewing Difficulty Etiology and swallowing difficulties related to CVA Signs/Symptoms as evidenced by need for modified consistency diet Status Active Problem Acute Disease or Injury Related Malnutrition Etiology related to chronic diarrhea and inadequate oral intake to meet estimated nutrition needs and maintain stable weight Signs/Symptoms as evidenced by fat/muscle loss in arms/face and 20.8% weight loss x 4 months prior to admission Status Active Problem Recommendation Dietitian Recommendations/Changes Will change diet to Cardiac - mech soft (moist&minced) / nectar thick liquids. Will provide magic cup or ensure pudding w/ meals for increased nutrition if consumed. Lab / Micro Data Result Diagrams: 04/30/21 05:55 04/30/21 05:55 Labs: Laboratory Results - last 24 hr 04/30/21 05:55: WBC 5.5, RBC 4.34 L, Hgb 12.3 L, Hct 38.2 L, MCV 88.0, MCH 28.3, MCHC 32.2, RDW Std Deviation 42.8, RDW Coeff of Osiris 13.2, Plt Count 180, MPV 9.9, Immature Gran % (Auto) 0.400, Neut % (Auto) 66.9, Lymph % (Auto) 20.8, [place] % (Auto) 7.8, Eos % (Auto) 3.6, Baso % (Auto) 0.5, Absolute Neuts (auto) 3.7, Absolute Lymphs (auto) 1.14, Nucleated RBC % 0 04/30/21 05:55: Sodium 137, Potassium 3.6, Chloride 106, Carbon Dioxide 25.0, Anion Gap 6, BUN 9, Creatinine 0.33 L, Estim Creat Clear Calc 65.55, Est GFR (MDRD) Af Amer 343, Est GFR (MDRD) Non-Af 284, BUN/Creatinine Ratio 27.5 H, Glucose 81, Calcium 8.3 L Micro: Microbiology 04/28/21 12:10 Blood Culture (Wb) - Left Forearm Blood Culture - Preliminary No growth in 48 hours. 04/28/21 11:50 Blood Culture (Wb) - Left Hand Blood Culture - Preliminary No growth in 48 hours. 04/28/21 12:00 Mucosa - Nose SARS-CoV-2 Antigen (Rapid) - Final 04/28/21 14:07 Urine Catheter - Engle Urine Culture - Preliminary GNR lactose director of district office Physical Exam Const alert, oriented x3 and no apparent distress Exam Limitations: no limitations HEENT head/scalp atraumatic Head and Scalp: normocephalic Eyes PERRL, EOMs intact bilaterally and conjunctivae normal Neck no lymphadenopathy Resp normal respiratory effort and no use of accessory muscles Resp Narrative: diminished breath sounds bibasally. on room air. Cardio regular rate, regular rhythm, S1 normal heart sound, S2 normal heart sound and n o murmurs GI normal to inspection, nondistended, normoactive bowel sounds and soft to palpation Extremity normal to inspection, full ROM and no clubbing, cyanosis or edema Peripheral Pulses: Yes pulses 2+ throughout Skin no rashes or lesions noted Neuro oriented x3 Neuro Narrative: residual right hemiparesis from previous CVA Sensorium / Orientation: awake and alert Psych affect normal Assessment & Plan Assessment/Plan (1) Acute UTI: (2) Sepsis: QUALIFIERS: Sepsis type: sepsis due to unspecified organism Sepsis acute organ dysfunction status: with acute organ dysfunction Severe sepsis acute organ dysfunction type: unspecified Severe sepsis shock status: without septic shock Qualified Code(s): A41.9 - Sepsis, unspecified organism; R65.20 - Severe sepsis without septic shock PLAN: #Sepsis due to UTI * in setting of chronic indwelling Engle catheter * engle catheter was changed in the ED. * on IV meropenem due to previous culture sensitivities * urine culture growing gram negative rods * blood cultures negative so far * await speciation * #History of hemorrhagic CVA with chronic right hemiparesis * PT/OT on board. Fall precautions * #Expressive aphasia with oropharyngeal dysphagia * on mechanical soft/nectar thick diet * aspiration precautions * #Hypertension: on amlodipine and lisinopril. IV hydralazine prn. #Hyperlipidemia: on statin #Anxiety and depression: on zoloft. #BPH: on flomax DVT prophylaxis; SCDs. Disposition: for dc tomorrow. Charges/Coding Visit Charges Inpatient E&M: 66293 Subs Hosp L2
[2021-04-30] MEDS: Potassium Chloride Oral Tablet 20 MEQ PO (16:53)
[2021-04-30] MEDS: Tamsulosin HCl 0.4 MG Capsule PO (16:53)
[2021-04-30] MEDS: cycloBENZAPRine HCl 5 MG TABLET PO (21:23)
[2021-04-30] MEDS: Atorvastatin Calcium 20 MG Tablet PO (21:23)
[2021-05-01 03:32] VITALS: BP 148/83; PULSE 82; RESP 16; TEMP 36.4; O2SAT 96
[2021-05-01] MEDS: 0.9% Normal Saline 1,000 ML 100 ML IV (04:02)
[2021-05-01 06:59] LABS: Absolute Lymphocyte Count 0.81 X10^3/uL (0.83-4.51); Basophil# 0.04 X10^3/uL; Basophil% 0.6 % (0-1); Eosinophil# 0.19 X10^3/uL; Eosinophils% 2.9 % (0-5); Hematocrit 36.3 % (40-54); Hemoglobin 11.7 g/dL (13.0-16.5); Lymphocyte # 0.81 X10^3/ul (0.83-4.51); Lymphocyte % 12.5 % (19-41); Mean Corp Hgb Conc 32.2 g/dL (32-36); Mean Corpuscular Hgb 28.5 pg (27.0-32.0); Mean Corpuscular Volume 88.5 fL (80-94); Monocyte# 0.47 X10^3/uL; Monocyte% 7.2 % (0-10); NRBC Flagged by Analyzer 0 % (0-5); Neutrophil # 4.96 X10^3/uL (2.7-7.7); Neutrophil % 76.3 % (47-70); Platelet Count 198 K/mm3 (150-450); RBC Distribution Width CV 12.9 % (11.6-14.6); White Blood Count 6.5 K/mm3 (4.4-11.0)
[2021-05-01 07:05] LABS: Anion Gap 6 (5-15); BUN 8 mg/dL (7-18); BUN/Creat Ratio 26.7 RATIO (10-20); Calcium,Total 8.3 mg/dL (8.5-10.1); Chloride 104 mmol/L (98-107); EST Glomerular Filtration Rate 313 mL/min (>60); Est Glom Filt Rate - Afr Amer 379 mL/min (>60); Estimated Creatinine Clearance 65.55 ml/min; Glucose 85 mg/dL (74-106); Potassium 3.4 mmol/L (3.5-5.1); Sodium Level 137 mmol/L (136-145)
[2021-05-01 08:16] VITALS: BP 158/100; PULSE 89; RESP 20; TEMP 36.8; O2SAT 100
[2021-05-01] MEDS: Multivitamins,Therapeutic Tablet 1 TABLET PO (08:59)
[2021-05-01] MEDS: Potassium Chloride Oral Tablet 20 MEQ PO ×2 (08:59→12:05)
[2021-05-01] MEDS: Folic Acid 1 MG Tablet PO (08:59)
[2021-05-01] MEDS: Potassium Chloride Oral Tablet 20 MEQ 40 MEQ PO (08:59)
[2021-05-01] MEDS: Gabapentin 100 MG Capsule PO (08:59)
[2021-05-01] MEDS: Lisinopril 40 MG Tablet PO (08:59)
[2021-05-01] MEDS: amLODIPine 5 MG Tablet PO (08:59)
[2021-05-01] MEDS: Sertraline 100 MG Tablet PO (09:00)
--- NOTE | 2021-05-01 11:26 | DS.PCM_ITS ---
Providers Date of Admission: 04/28/21 Primary Care Physician: Dr. Shubham Saez MD Consultations 04/28/21 17:44 Consult: Infectious Disease Routine Consulting Provider: Abel Lee Reason for Consult: Complicated UTI, several resistances on prior UCx EMERGENT Consult: No MD Notified: Yes Date Notified: 04/29/21 Time Notified: 05:16 Method of Notification: Answering Service Reason For Visit: SEPSIS, COMPLICATED UTI Diagnosis Discharge Diagnosis (1) Acute UTI: Status: Acute Code(s): N39.0 - Urinary tract infection, site not specified (2) Sepsis: Status: Acute Code(s): A41.9 - Sepsis, unspecified organism Qualifiers: Sepsis type: sepsis due to unspecified organism Sepsis acute organ dysfunction status: with acute organ dysfunction Severe sepsis acute organ dysfunction type: unspecified Severe sepsis shock status: without septic shock Qualified Code(s): A41.9 - Sepsis, unspecified organism; R65.20 - Severe sepsis without septic shock Medications at Discharge Home Medications multivitamin with folic acid [Thera] 1 tab PO DAILY 09/14/14 amlodipine 5 mg PO DAILY #30 tab 01/20/21 atorvastatin 20 mg PO QHS 30 Days #30 tab 01/20/21 folic acid 1 mg PO DAILY@0800 30 Days tab 01/20/21 lisinopril 40 mg PO DAILY 30 Days #30 tab 01/20/21 tamsulosin 0.4 mg PO DAILY@1730 30 Days cap 01/20/21 gabapentin [Neurontin] 100 mg PO BID #60 cap 01/26/21 sertraline [Zoloft] 100 mg PO DAILY #30 tab 01/26/21 acetaminophen [Tylenol] 650 mg PO Q4H PRN PRN 04/28/21 cyclobenzaprine 5 mg PO QHS 04/28/21 potassium chloride 20 meq PO TIDCM 04/28/21 cefdinir 300 mg PO BID #14 cap 05/01/21 Hospital Course Operations None Procedures None Summary of Care Provided Minutes Spent on Discharge: 45 Hospital Course: Patient is a 70 y/o male with an extensive PMH as outlined who was admitted via the ED on 04/28/2021 with a complaint of fever, chills, intermittent diarrhea, tachycardia and lethargy which had all started about 24 hours prior. he had been treated for UTI one month ago. On admission he was found to have lactic acid of 2, wbc of 10 and covid test was negative. CXR showed no acute cardiopumonary findings. Urinalysis showed evidence of UTI. She was admitted and managed for sepsis due to UTI and started on IV meropenem based on previous sensitivities. He was hydrated with IV fluids. Patient started feeling better and his altered mentation improved. Blood cultures were negative and urine culture Citrobacter freundii which was sensitive to ceftriaxone. [facility]. cefdinir 300 mg twice daily for 5 days. He is to follow-up with his primary care doctor in 1 to 2 weeks. Patient was seen and examined prior to discharge. He felt much better and had no complaints. Review of systems is otherwise negative. Labs and vitals reviewed. Home meds reviewed and reconciled. Physical Exam Const alert, oriented x3 and no apparent distress General Appearance: cooperative and comfortable Orientation / Consciousness: confused and disoriented Exam Limitations: no limitations HEENT normocephalic, head/scalp atraumatic, hearing grossly normal bilaterally and moist oral mucous membranes Eyes PERRL, EOMs intact bilaterally and conjunctivae normal Neck no lymphadenopathy Resp normal respiratory effort, no retractions, no use of accessory muscles and clear to auscultation bilaterally Resp Narrative: on room air. Cardio regular rate, regular rhythm, S1 normal heart sound, S2 normal heart sound and no murmurs GI normal to inspection, nondistended, normoactive bowel sounds, soft to palpation, non-tender and non-distended Extremity normal to inspection, full ROM and no clubbing, cyanosis or edema Skin no rashes or lesions noted Neuro oriented x3 Neuro Narrative: residual right spastic hemiparesis from previous CVA Sensorium / Orientation: awake and alert Psych affect normal Medical Records Data Medical Nutrition Assessment Dietitian: Nutrition Therapy Diagnosis Start: 04/29/21 11:05 Freq: Status: Active Protocol: Document 04/29/21 11:22 [facility] (Rec: 04/29/21 11:22 [facility] [id number]) Nutrition Malnutrition Evidence of Malnutrition Exists Yes Malnutrition (moderate): Chronic Evidenced By Weight Loss (Severe),Physical Changes (Moderate) Clinical Problem Biting/Chewing Difficulty Etiology and swallowing difficulties related to CVA Signs/Symptoms as evidenced by need for modified consistency diet Status Active Problem Acute Disease or Injury Related Malnutrition Etiology related to chronic diarrhea and inadequate oral intake to meet estimated nutrition needs and maintain stable weight Signs/Symptoms as evidenced by fat/muscle loss in arms/face and 20.8% weight loss x 4 months prior to admission Status Active Problem Recommendation Dietitian Recommendations/Changes Will change diet to Cardiac - mech soft (moist&minced) / nectar thick liquids. Will provide magic cup or ensure pudding w/ meals for increased nutrition if consumed. Weight / BMI Weight Weight: 167 lb 8.821 oz Body Mass Index (BMI) 25.0 ABG / Lab / Microbiology Data Result Diagrams: 05/01/21 05:42 05/01/21 05:42 Laboratory: Laboratory Results - last 24 hr 05/01/21 05:42: WBC 6.5, RBC 4.10 L, Hgb 11.7 L, Hct 36.3 L, MCV 88.5, MCH 28.5, MCHC 32.2, RDW Std Deviation 42.0, RDW Coeff of Osiris 12.9, Plt Count 198, MPV 10.0, Immature Gran % (Auto) 0.500, Neut % (Auto) 76.3 H, Lymph % (Auto) 12.5 L, [place] % (Auto) 7.2, Eos % (Auto) 2.9, Baso % (Auto) 0.6, Absolute Neuts (auto) 5.0, Absolute Lymphs (auto) 0.81 L, Nucleated RBC % 0 05/01/21 05:42: Sodium 137, Potassium 3.4 L, Chloride 104, Carbon Dioxide 27.0, Anion Gap 6, BUN 8, Creatinine 0.30 L, Estim Creat Clear Calc 65.55, Est GFR (MDRD) Af Amer 379, Est GFR (MDRD) Non-Af 313, BUN/Creatinine Ratio 26.7 H, Glucose 85, Calcium 8.3 L Microbiology: Microbiology 04/28/21 14:07 Urine Catheter - Munoz Urine Culture - Final Citrobacter freundii 04/28/21 12:10 Blood Culture (Wb) - Left Forearm Blood Culture - Preliminary No growth in 48 hours. 04/28/21 11:50 Blood Culture (Wb) - Left Hand Blood Culture - Preliminary No growth in 48 hours. 04/28/21 12:00 Mucosa - Nose SARS-CoV-2 Antigen (Rapid) - Final D/C Instructions Discharge Diet: Low fat / Low cholesterol and - (mechanical soft/nectar thick diet, aspiration precautions) Discharge Activity: Return to Normal Activity Weight Bearing Status: Weight bearing as tolerated Call your doctor if you observe: Fever of 101 or Higher, Shortness of breath, Swelling in the ankles and Increased palpitations (irregular heartbeat) Meaningful Use Info Meaningful Use Diagnoses (Choose all that apply): None applicable Discharge Plan Admission Admit Date/Time: 04/28/21 15:19 Primary Reason for Your Visit: sepsis due to UTI Attending Provider: Joselin Glalego Primary Care Provider: Shubham Saez Consulting Providers: Abel Lee Instructions Patient Instructions: Urinary Tract Infections in Men, Understanding Urinary Tract ... Discharge Orders/Prescriptions Prescriptions: New cefdinir 300 mg capsule 300 mg PO BID Qty: 14 RF: 0 Continued multivitamin with folic acid [Thera] 1 TABLET tablet 1 tab PO DAILY RF: 0 atorvastatin 20 mg Tablet 20 mg PO QHS 30 Days Qty: 30 RF: 0 amlodipine 5 mg Tablet 5 mg PO DAILY Qty: 30 RF: 0 folic acid 1 mg Tablet 1 mg PO DAILY@0800 30 Days RF: 0 lisinopril 40 mg Tablet 40 mg PO DAILY 30 Days Qty: 30 RF: 0 tamsulosin 0.4 mg Capsule 0.4 mg PO DAILY@1730 30 Days RF: 0 sertraline [Zoloft] 100 mg Tablet 100 mg PO DAILY Qty: 30 RF: 0 gabapentin [Neurontin] 100 mg Capsule 100 mg PO BID Qty: 60 RF: 0 potassium chloride 20 mEq/15 mL Liquid 20 meq PO TIDCM RF: 0 cyclobenzaprine 5 mg Tablet 5 mg PO QHS RF: 0 acetaminophen [Tylenol] 325 mg tablet 650 mg PO Q4H PRN PRN (Reason: Pain Score 1-10) RF: 0 Referrals / Follow Up: Shubham Saez MD [Primary Care Provider] - Within 1 Week Disposition Disposition (needs filled in before D/C Order can be placed): [facility] Charges/Coding Visit Charges Inpatient E&M: 79204 Disch Hosp
--- NOTE | 2021-05-01 11:44 | PCM.TXEXTCAR ---
Diet 04/28/21 16:00 Diet: Cardiac - Heart Healthy Food consistency:: Mechanical (Minced/Moist) Liquid Consistency:: [place]/Mildly Thick Is pt able to select menu?: No Diet Comments: magic cup or ensure pudding with meals Wound(s) coccyx: Wound Type: Pressure Injury Problem/Diagnosis (1) Acute UTI: Status: Acute (2) Sepsis: Status: Acute Allergies/Procedures Done in Hospital Allergies No Known Allergies Allergy (Verified 04/28/21 11:37) Type of Care/Length of Stay Estimated LOS: Convalescent Care Less Than 30 days Type of Care Needed: Skilled Rehab Potential: Good Prognosis: Good Additional Orders/Day of Discharge Day of Discharge: 05/01/21 Dietary and Speech Recommendations Dietitian Recommendations/Changes: Will change diet to Cardiac - mech soft (moist&minced) / nectar thick liquids. Will provide magic cup or ensure pudding w/ meals for increased nutrition if consumed. Speech Linguistic Eval Summary: Pt alert and oriented to full name although required time to verbally provide name. Pt unable to accurately provide or location although made several attempts. Pt named 1/8 items in room during confrontation naming task. Pt able to follow verbal directions with mild cues and occasional repetition. Pt tasked with counting 1-10 and although pt named numbers between 1-10, pt unable to count 1-10 straight through. When tasked to name days of the week pt provided numbers 13-17. Pt familiar to [facility] department at [facility] as he was admitted to [facility] rehab unit for several weeks. Pt has excellent participation. Discharge Plan Admission Admit Date/Time: 04/28/21 15:19 Primary Reason for Your Visit: sepsis due to UTI Attending Provider: Joselin Gallego Primary Care Provider: Shubham Saez Consulting Providers: Abel Lee Instructions Patient Instructions: Urinary Tract Infections in Men, Understanding Urinary Tract ... Discharge Orders/Prescriptions Prescriptions: New cefdinir 300 mg capsule 300 mg PO BID Qty: 14 RF: 0 Continued multivitamin with folic acid [Thera] 1 TABLET tablet 1 tab PO DAILY RF: 0 atorvastatin 20 mg Tablet 20 mg PO QHS 30 Days Qty: 30 RF: 0 amlodipine 5 mg Tablet 5 mg PO DAILY Qty: 30 RF: 0 folic acid 1 mg Tablet 1 mg PO DAILY@0800 30 Days RF: 0 lisinopril 40 mg Tablet 40 mg PO DAILY 30 Days Qty: 30 RF: 0 tamsulosin 0.4 mg Capsule 0.4 mg PO DAILY@1730 30 Days RF: 0 sertraline [Zoloft] 100 mg Tablet 100 mg PO DAILY Qty: 30 RF: 0 gabapentin [Neurontin] 100 mg Capsule 100 mg PO BID Qty: 60 RF: 0 potassium chloride 20 mEq/15 mL Liquid 20 meq PO TIDCM RF: 0 cyclobenzaprine 5 mg Tablet 5 mg PO QHS RF: 0 acetaminophen [Tylenol] 325 mg tablet 650 mg PO Q4H PRN PRN (Reason: Pain Score 1-10) RF: 0 Referrals / Follow Up: Shubham Saez MD [Primary Care Provider] - Within 1 Week Disposition Disposition (needs filled in before D/C Order can be placed): Nursing Home Facility
--- NOTE | 2021-05-01 14:34 | NURSING ---
green sheet followed, info faxed to [facility]. physician's ambulance arranged transport for 16:30. called with forklift picker time.
--- NOTE | 2021-05-01 14:55 | NURSING ---
at request of [facility] nurse Eamon keating, states cannot locate pt orders- refaxed to [phone] with fax cover sheet.
[2021-05-01 15:09] VITALS: BP 146/81; PULSE 97; RESP 18; TEMP 37; O2SAT 98
== END 2021-05-01 17:15 | disposition skilled nursing facility (03) | DRG 699 ==
LOC: ED 15:11 → MS3 15:25
PROVIDERS: Admitting Provider Family Medicine; Emergency Provider Emergency Medicine; PCP Family Medicine; Visit Provider Student in an Organized Health Care Education/Training Program
DX: T83.511A Infection and inflammatory reaction due to indwelling urethral catheter, initial encounter (principal); I69.351 Hemiplegia and hemiparesis following cerebral infarction affecting right dominant side; E44.0 Moderate protein-calorie malnutrition; Z68.25 Body mass index [BMI] 25.0-25.9, adult; N39.0 Urinary tract infection, site not specified; I69.391 Dysphagia following cerebral infarction; I69.320 Aphasia following cerebral infarction; R13.12 Dysphagia, oropharyngeal phase; D64.9 Anemia, unspecified; E78.5 Hyperlipidemia, unspecified; I10 Essential (primary) hypertension; M19.90 Unspecified osteoarthritis, unspecified site; N40.0 Benign prostatic hyperplasia without lower urinary tract symptoms; Z87.440 Personal history of urinary (tract) infections; Z87.891 Personal history of nicotine dependence; Z79.899 Other long term (current) drug therapy
CPT/HCPCS: 36415; 51702; 71045; 80048; 80053; 81001; 83605; 83735; 84100; 84484; 85025; 87040; 87077; 87086; 87088; 87186; 87426; 92507; 92523; 92526; 92610; 93005; 97110; 97163; 97166; 97530; 97535; 97802; 99251; 99285; J2185; J7030; J7050; A4216; G0463; J2405

== ENCOUNTER 2021-05-13 19:54 | Emergency (ER) | payer MEDICARE, OTHER, SELFPAY ==
[2021-05-13 19:57] VITALS: BP 149/96; PULSE 98; RESP 16; TEMP 36.9; O2SAT 92; BMI 21.9
[2021-05-13 20:16] LABS: Bedside Glucose 141 mg/dL (70-110)
--- NOTE | 2021-05-13 20:43 | CT_ITS ---
STUDY: CT BRAIN WITHOUT CONTRAST REASON FOR EXAM: Male, 71 years old. Seizure RADIATION DOSAGE (If Supplied By Facility): CTDIvol = ( 44.99 ) mGy, DLP = ( 829.85 ) mGycm TECHNIQUE: Transaxial CT imaging of the brain was performed without administration of intravenous contrast material. Individualized dose optimization techniques were used for this CT. COMPARISON: No relevant priors. FINDINGS: Normal soft tissue structures. Normal calvarium. Encephalomalacia left temporal lobe with stable gyriform subtle increased density. There is moderate cerebral atrophy with widening of the extra-axial spaces and ventricular dilatation. There are areas of decreased attenuation within the white matter tracts of the supratentorial brain, consistent with microvascular disease changes. Normal basal ganglia and thalami. Normal brainstem. Normal cerebellum. Intracranial atherosclerosis. There is no intracranial hemorrhage. There are no findings of an acute ischemic infarction. Normal visualized paranasal sinuses. 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 MRI with and without contrast may be helpful. Electronically Signed: Vaibhav Cain MD at 21:24 EDT , Service support ,
--- NOTE | 2021-05-13 20:44 | EKG12_ITS ---
Test Reason : POSS CVA Blood Pressure : / mmHG Vent. Rate : 092 BPM Atrial Rate : 092 BPM P-R Int : 174 ms QRS Dur : 100 ms QT Int : 364 ms P-R-T Axes : 051 049 059 degrees QTc Int : 450 ms Normal sinus rhythm Normal ECG Confirmed by YUNG CHAENY, HALLE ([id number]), proposal editor MEME YANEZ ([id number]) on 05/16/2021 12:51:43 PM Referred By: DR ALVAREZ Confirmed By:HALLE BARRAGAN MD
[2021-05-13 20:59] LABS: Absolute Lymphocyte Count 0.79 X10^3/uL (0.83-4.51); Absolute Neutrophil Count 9.1 X10^3/uL (2.0-7.7); Basophil# 0.05 X10^3/uL; Basophil% 0.5 % (0-1); Eosinophil# 0.12 X10^3/uL; Eosinophils% 1.1 % (0-5); Hemoglobin 12.8 g/dL (13.0-16.5); Lymphocyte # 0.79 X10^3/ul (0.83-4.51); Lymphocyte % 7.4 % (19-41); Mean Corp Hgb Conc 32.8 g/dL (32-36); Mean Corpuscular Hgb 28.3 pg (27.0-32.0); Mean Corpuscular Volume 86.1 fL (80-94); Mean Platelet Vol. 9.9 fl (6.2-12.0); Monocyte# 0.57 X10^3/uL; Monocyte% 5.3 % (0-10); NRBC Flagged by Analyzer 0 % (0-5); Neutrophil # 9.11 X10^3/uL (2.7-7.7); Neutrophil % 85.1 % (47-70); Platelet Count 275 K/mm3 (150-450); RBC Distribution Width CV 12.8 % (11.6-14.6); RBC Distribution Width SD 39.8 fl (35.1-43.9); Red Blood Count 4.53 M/mm3 (4.6-6.2); White Blood Count 10.7 K/mm3 (4.4-11.0)
--- NOTE | 2021-05-13 21:00 | RAD_ITS ---
STUDY: X-RAY CHEST REASON FOR EXAM: Male, 71 years old. Fever TECHNIQUE: Single frontal view of the chest. COMPARISON: 04/28/2021 FINDINGS: Metallic coils right lower lobe. The lungs are clear and expanded. There is no demonstrated pleural abnormality. Normal size heart. Normal mediastinum and shahnaz. Normal visualized pulmonary arteries. Normal visualized aortic arch and descending thoracic aorta. Normal visualized thoracic spine. Normal visualized ribs, clavicles, and shoulders. There is no demonstrated abnormality of the visualized soft tissue structures of the upper abdomen. RAD/Chest 1 View (Portable) IMPRESSION: No acute disease Electronically Signed: Vaibhav Cain MD at 21:53 EDT , Service support ,
[2021-05-13 21:05] LABS: International Normalized Ratio 1.3; Partial Thromboplast Time 31.8 Seconds (24.1-36.2); Prothrombin Time (Protime)PT. 15.1 SECONDS (11.7-14.9)
[2021-05-13 21:24] VITALS: BP 146/91; PULSE 74; RESP 16; TEMP 36.9; O2SAT 95
[2021-05-13 21:29] LABS: ALB/GLOB Ratio 1.1 RATIO (0.9-2.4); AST(SGOT) 23 U/L (15-37); Alanine Aminotransfer ALT/SGPT 30 U/L (16-61); Albumin, Serum 3.6 g/dL (3.2-5.0); Alkaline Phosphatase 103 U/L (45-117); Anion Gap 9 (5-15); BUN 8 mg/dL (7-18); BUN/Creat Ratio 13.7 RATIO (10-20); Calcium,Total 8.9 mg/dL (8.5-10.1); Chloride 103 mmol/L (98-107); Creatinine, Serum 0.58 mg/dL (0.70-1.30); EST Glomerular Filtration Rate 146 mL/min (>60); Est Glom Filt Rate - Afr Amer 176 mL/min (>60); Estimated Creatinine Clearance 71.21 ml/min; Globulin 3.2 g/dL (2.2-4.2); Glucose 120 mg/dL (74-106); Potassium 3.8 mmol/L (3.5-5.1); Protein, Total 6.8 g/dL (6.4-8.2); Sodium Level 133 mmol/L (136-145); Troponin-I HS 6 pg/mL (3.0-78.0)
[2021-05-13] MEDS: Acetaminophen 500 MG Tablet 1000 MG PO (21:34)
[2021-05-13 21:58] LABS: Lactic Acid 1.1 mmol/L (0.4-1.9)
--- NOTE | 2021-05-13 22:33 | EX.ED.DYSGE1 ---
HPI History of Present Illness Chief Complaint: Confusion Narrative Narrative: Patient presenting for evaluation secondary to altered mental status. Patient has the misfortune of having a history of having a hemorrhagic stroke back in December and is currently undergoing recovery. Patient was recently discharged from the residential and is staying at home with . She actually reports that he had been doing pretty well over the course of the last couple of days but today he had a couple of episodes of altered mentation that concerned her. She reports that he has had 2 separate episodes where he has had some shaking. Initially it was his right arm that is hemiparetic secondary to a stroke that was shaking for period of time. She reports that she called 911, patient was responsive through this episode and when the paramedics arrived she opted to the patient not be transported as he stated that he felt well. Patient then had another episode where he was puckering his lips and looking upwards for period of time, she called 911 and the patient was then brought into the emergency department. States that she has concern for the possibility of the patient having a urinary tract infection currently as he has been having some cloudy urine from his Munoz, sent an outpatient urine study in today but has not heard results of that. There is been no fevers. Patient currently feels well. There is no history of seizures. There was no postictal episode following this. There is no loss of bowel continence. Review of systems otherwise negative. [facility] Medical History Aphasia complicating stroke Benign prostate hyperplasia Hyperlipidemia Hypertension Osteoarthritis Right hemiparesis Stroke Home Medications multivitamin with folic acid [Thera] 1 tab PO DAILY 09/14/14 [History Last Taken 04/28/21] amlodipine 5 mg PO DAILY #30 tab 01/20/21 [Rx Last Taken 04/28/21] atorvastatin 20 mg PO QHS 30 Days #30 tab 01/20/21 [Rx Last Taken 04/27/21] folic acid 1 mg PO DAILY@0800 30 Days tab 01/20/21 [Rx Last Taken 04/28/21] lisinopril 40 mg PO DAILY 30 Days #30 tab 01/20/21 [Rx Last Taken 04/28/21] tamsulosin 0.4 mg PO DAILY@1730 30 Days cap 01/20/21 [Rx Last Taken 04/27/21] gabapentin [Neurontin] 100 mg PO BID #60 cap 01/26/21 [Rx Last Taken 04/28/21] sertraline [Zoloft] 100 mg PO DAILY #30 tab 01/26/21 [Rx Last Taken 04/28/21] acetaminophen [Tylenol] 650 mg PO Q4H PRN PRN 04/28/21 [History Last Taken 04/28/21 06:45] cyclobenzaprine 5 mg PO QHS 04/28/21 [History Last Taken 04/27/21] potassium chloride 20 meq PO TIDCM 04/28/21 [History Last Taken 04/28/21] cefdinir 300 mg PO BID #14 cap 05/01/21 [Rx Last Taken Unknown] cephalexin 500 mg PO Q12 #14 capsule 05/13/21 [Rx Last Taken Unknown] Allergy/AdvReac Type Severity Reaction Status Date / Time No Known Allergies Allergy Verified 05/13/21 19:56 Family History Mother CVA (cerebral vascular accident) Rheumatoid arthritis Father Cancer Pancreatic cancer Surgical History History of umbilical hernia repair S/P tonsillectomy and adenoidectomy Social History housing: residential Smoking Status: Former smoker alcohol intake: former substance use type: does not use ROS ROS ED Constitutional Constitutional ED: Denies chills or fever(s) ENT ENT ED: Denies rhinorrhea Cardiovascular Cardiovascular: Denies chest pain Respiratory/Chest Respiratory/Chest: Denies cough or dyspnea Gastrointestinal Gastrointestinal: Denies abdominal pain, diarrhea, nausea or vomiting Genitourinary Genitourinary ED: Reports other Details: Cloudy urine Musculoskeletal Musculoskeletal: Denies back pain Integumentary Denies rash Neurologic Neurologic: Reports weakness and other Details: Shaking Psychiatric Psychiatric: Denies depression Endocrine Endocrinology: Denies fatigue Allergic/Immunologic Allergic/Immunologic ED: Denies urticaria EXAM Physical Exam Const Vital Signs: 05/13/21 19:57 05/13/21 21:24 Temperature 98.4 F 98.4 F Temperature Source Temporal Temporal Pulse Rate 98 74 Respiratory Rate 16 16 Blood Pressure 149/96 H 146/91 H Blood Pressure Mean 113 109 Pulse Ox 92 95 Oxygen Delivery Method Room Air Room Air Positive well nourished and well developed Constitutional Narrative: Appears somewhat older than stated age General Appearance ED: well developed and NAD HEENT Reports moist mucous membranes HEENT Narrative: Temporal wasting is noted Negative for trauma or tenderness Eyes EOMs intact bilaterally Neck no lymphadenopathy, supple and no JVD Chest Wall inspection of chest normal Resp normal respiratory effort and clear to auscultation bilaterally Cardio regular rate, regular rhythm, no murmurs and peripheral pulses 2+ throughout GI normal to inspection, nondistended, normoactive bowel sounds, non-tender and no masses Palpation: soft Back/Spine normal to inspection Extremity Extremity Narrative: Patient has contracture of the right upper extremity and baseline hemiparesis of the right side but is unchanged General Extremety ED: Negative for tenderness Neuro oriented x3 Neuro Narrative: Right-sided weakness is unchanged, no signs of new left-sided symptoms. Patient is able to phonate normally per his Sensorium / Orientation: alert Psych mental status grossly normal Skin no rashes or lesions noted MDM MDM MDM Narrative Medical decision making narrative: Patient presented secondary to an episode of altered mental status. EKG was obtained was found to be unremarkable. CBC does not demonstrate any evidence of leukocytosis does show somewhat of a neutrophilic predominance. Coagulation profiles were found to be unremarkable. Chemistry shows normal renal function without any's evidence of electrolyte derangement, no anion gap or acidosis. Lactic acid was 1.1 which would point away from the patient having a convulsive episode. Liver panel was found to be unremarkable. Chest x-ray by my personal review as well as radiology is negative. CT imaging of the brain shows chronic changes associated with the patient's hemorrhagic stroke but nothing acute. Patient is at his mental baseline currently. He had these convulsive episodes, which seem less likely to have been seizures given the fact that he seemed like he was awake and responsive and he had a reassuring work-up with a negative lactic acid and no postictal episode following his episodes. I discussed with the patient and his about the benefits of admission versus discharge, and given the fact that it is Sunday we would not have access to EEG in the hospital and it would not necessarily benefit the patient to admit him to the hospital as he is back to his cognitive baseline. Patient at this point I believe would benefit from treatment for likely catheter associated urinary tract infection and potentially associated encephalopathic changes from that. I will be placed on Keflex. I informed the that should he have repeat episodes or she become concerned that he would need to represent to the emergency department for likely admission and potentially transfer, she did voiced understanding of this. And the patient was discharged in stable condition. Lab Data Labs: Laboratory Results - last 24 hr 05/13/21 05/13/21 05/13/21 20:11 20:30 20:30 WBC 10.7 RBC 4.53 L Hgb 12.8 L Hct 39.0 L MCV 86.1 MCH 28.3 MCHC 32.8 RDW Std Deviation 39.8 RDW Coeff of Osiris 12.8 Plt Count 275 MPV 9.9 Immature Gran % (Auto) 0.600 Neut % (Auto) 85.1 H Lymph % (Auto) 7.4 L [place] % (Auto) 5.3 Eos % (Auto) 1.1 Baso % (Auto) 0.5 Absolute Neuts (auto) 9.1 H Absolute Lymphs (auto) 0.79 L Nucleated RBC % 0 PT 15.1 H INR 1.3 APTT 31.8 Sodium Potassium Chloride Carbon Dioxide Anion Gap BUN Creatinine Estim Creat Clear Calc Est GFR (MDRD) Af Amer Est GFR (MDRD) Non-Af BUN/Creatinine Ratio Glucose Lactic Acid Calcium Total Bilirubin AST ALT Alkaline Phosphatase Troponin I High Sens Total Protein Albumin Globulin Albumin/Globulin Ratio POC Glucose 141 H 05/13/21 05/13/21 20:30 21:08 WBC RBC Hgb Hct MCV MCH MCHC RDW Std Deviation RDW Coeff of Osiris Plt Count MPV Immature Gran % (Auto) Neut % (Auto) Lymph % (Auto) [place] % (Auto) Eos % (Auto) Baso % (Auto) Absolute Neuts (auto) Absolute Lymphs (auto) Nucleated RBC % PT INR APTT Sodium 133 L Potassium 3.8 Chloride 103 Carbon Dioxide 21.0 Anion Gap 9 BUN 8 Creatinine 0.58 L Estim Creat Clear Calc 71.21 Est GFR (MDRD) Af Amer 176 Est GFR (MDRD) Non-Af 146 BUN/Creatinine Ratio 13.7 Glucose 120 H Lactic Acid 1.1 Calcium 8.9 Total Bilirubin 0.50 AST 23 ALT 30 Alkaline Phosphatase 103 Troponin I High Sens 6 Total Protein 6.8 Albumin 3.6 Globulin 3.2 Albumin/Globulin Ratio 1.1 POC Glucose Radiography Diagnostic Testing: Radiology Impression Brain CT 05/13/21 20:43 IMPRESSION: 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 MRI with and without contrast may be helpful. Electronically Signed: Vaibhav Cain MD at 21:24 EDT , Service support , Chest X-Ray 05/13/21 21:00 IMPRESSION: No acute disease Electronically Signed: Vaibhav Cain MD at 21:53 EDT , Service support , Discharge Plan Triage Chief Complaint: Confusion Other Complaint: Munoz C/O ED Provider: Malik Lawrence Dx/Rx/DC Orders Clinical Impression: Altered mental status, Munoz catheter in place Instructions: ED Urinary Tract Infections in Men Prescriptions: New cephalexin 500 mg capsule 500 mg PO Q12 Qty: 14 RF: 0 No Action multivitamin with folic acid [Thera] 1 TABLET tablet 1 tab PO DAILY RF: 0 atorvastatin 20 mg Tablet 20 mg PO QHS 30 Days Qty: 30 RF: 0 amlodipine 5 mg Tablet 5 mg PO DAILY Qty: 30 RF: 0 folic acid 1 mg Tablet 1 mg PO DAILY@0800 30 Days RF: 0 lisinopril 40 mg Tablet 40 mg PO DAILY 30 Days Qty: 30 RF: 0 tamsulosin 0.4 mg Capsule 0.4 mg PO DAILY@1730 30 Days RF: 0 sertraline [Zoloft] 100 mg Tablet 100 mg PO DAILY Qty: 30 RF: 0 gabapentin [Neurontin] 100 mg Capsule 100 mg PO BID Qty: 60 RF: 0 potassium chloride 20 mEq/15 mL Liquid 20 meq PO TIDCM RF: 0 cyclobenzaprine 5 mg Tablet 5 mg PO QHS RF: 0 acetaminophen [Tylenol] 325 mg tablet 650 mg PO Q4H PRN PRN (Reason: Pain Score 1-10) RF: 0 cefdinir 300 mg capsule 300 mg PO BID Qty: 14 RF: 0 Primary Care Provider: Lacho Mcqueen Chi Referrals: Inder Tinajero MD [STAFF PHYSICIAN] - 1-2 Weeks Lacho Mcqueen Chi, MD [Primary Care Provider] - 3-5 Days Disposition Disposition: Home, Self Care
[2021-05-13 22:47] LABS: Mucous, Urine 0 SEEN /hpf (<or=2+); Squamous Epithelial Cells - UA 0 SEEN /hpf (0-5)
[2021-05-13 22:55] LABS: Color, Urine Yellow (Yellow); Glucose, Dipstick Normal (Normal); Ketone-Dipstick Negative (Negative); Leukocyte Esterase-Dipstick 500 /ul (Negative); Nitrite-Dipstick Positive (Negative); Occult Blood-Urine 250 /ul (Negative); Protein-Dipstick 100 mg/dl (Negative); Urine Bilirubin Dipstick Negative (Negative); Urine Clarity Cloudy (Clear); Urine Urobilinogen Normal (Normal)
[2021-05-13 23:08] LABS: Red Blood Cells-Urine 0-5 SEEN /hpf (0-5); White Blood Cells 25-50 SEEN /hpf (0-5)
[2021-05-13 23:09] LABS: Bacteria 1+ /hpf (None Seen)
[2021-05-13 23:40] VITALS: BP 137/89; PULSE 75; RESP 16; TEMP 37.1; O2SAT 99
[2021-05-13] MEDS: Cephalexin 250 MG Capsule 500 MG PO (23:48)
== END 2021-05-14 00:01 | disposition home or self-care (01) ==
PROVIDERS: Emergency Provider Emergency Medicine; PCP Family Medicine Geriatric Medicine
DX: R41.82 Altered mental status, unspecified (principal); Z96.0 Presence of urogenital implants; A41.51 Sepsis due to Escherichia coli [E. coli]; N39.0 Urinary tract infection, site not specified; I10 Essential (primary) hypertension; E78.5 Hyperlipidemia, unspecified; N40.0 Benign prostatic hyperplasia without lower urinary tract symptoms; M19.90 Unspecified osteoarthritis, unspecified site; I69.320 Aphasia following cerebral infarction; I69.351 Hemiplegia and hemiparesis following cerebral infarction affecting right dominant side; Z79.899 Other long term (current) drug therapy; Z87.891 Personal history of nicotine dependence
CPT/HCPCS: 70450; 71045; 80053; 81001; 82962; 83605; 84484; 85025; 85610; 85730; 87040; 87077; 87086; 87088; 87186; 87426; 93005; 99285; A4216

== ENCOUNTER → 2021-05-13 | Outpatient (CLI) | payer MEDICARE, OTHER, SELFPAY | END | disposition home or self-care (01) | LOC: LABSPEC 12:24 | PROVIDERS: PCP Family Medicine; Visit Provider Family Medicine Geriatric Medicine | DX: A41.51 Sepsis due to Escherichia coli [E. coli] (principal); N39.0 Urinary tract infection, site not specified | CPT/HCPCS: 87077; 87086; 87088 ==

== ENCOUNTER → 2021-06-14 08:17 | Outpatient (CLI) | payer MEDICARE, OTHER, SELFPAY ==
--- NOTE | 2021-06-14 08:21 | AAVD_ITS ---
Reason For Study: AAA Aorta Measurements Aorta Doppler Measurements Proximal aorta measures1.92 x 1.91cm. in cross- Peak systolic flow velocities within the proximal sectional axis. aorta measure 56.4 cm/sec. Proximal aorta measures1.92cm. in longitudinal Peak systolic flow velocities within the mid aorta axis. measure 62 cm/sec. Mid aorta measures1.71 x 1.72cm. in cross- Peak systolic flow velocities within the distal sectional axis. aorta measure 42.1 cm/sec. Mid aorta measures1.73cm. in longitudinal axis. Distal aorta measures1.26 x 1.25cm. in cross- sectional axis. Distal aorta measures1.26cm. in longitudinal axis. Left Iliac Artery Left iliac artery measures 1.00 x 1.00 cm. in the cross-sectional axis. Left iliac artery measures 1.01 cm. in the longitudinal axis. Peak systolic velocity in the left iliac artery measures 47.9 cm/sec. Right Iliac Artery Right iliac artery measures 1.21 x 1.17 cm. in the cross-sectional axis. Right iliac artery measures 1.19 cm. in the longitudinal axis. Peak systolic velocity in the right iliac artery measures 52.3 cm/sec. Procedure Aorta IVC Iliac vasculature or bypass grafts [id number]. Exam performed in department. VL/Abd Aortic/IVC Duplex scan Interpretation Summary The dimensions of the intra-abdominal aorta appear normal, without evidence of aneurysmal dilatation. The iliac arteries also appear normal in caliber bilaterally. The i ntra-abdominal aorta and iliac arteries appear patent, demonstrating normal, pulsatile arterial flow and normal peak systolic velocities. Ordering Physician: Lacho Mcqueen Referring Physician: Lacho Mcqueen Chi Performed By: Luiza Colbert RVT
--- NOTE | 2021-06-14 08:23 | CT_ITS ---
STUDY: LOW DOSE CT LUNG CANCER SCREENING REASON FOR EXAM: Male, 71 years old. SMOKER RADIATION DOSAGE (If Supplied By Facility): CTDIvol = ( 3.02 ) mGy, DLP = ( 98.17 ) mGycm TECHNIQUE: No contrast was administered. Low dose technique was utilized (average mAS-38 and kVp 120). 1.25 mm axial source images with a slice interval of 1.25-mm were reconstructed in lung windows. 2.5 mm axial source images with a slice interval of 2.5-mm were reconstructed in lung windows. 5.0 mm axial source images with a slice interval of 5.0-mm were reconstructed in soft tissue windows. Nodule measured using lung windows on PACS and/or independent workstation with automated measurement of minimum and maximum diameter. Nodule measurement reported as average diameter rounded to the nearest whole number. Growth is defined as an increase ins size of greater than 1.5 mm. COMPARISON: None. NODULES: No suspicious nodules are seen. Emphysema: Emphysematous changes. Increased linear markings at the right lung base suggestive of scarring and/or linear atelectasis. Endobronchial lesion: None Aorta: Atherosclerotic plaque formation. Coronary arteries: Coronary artery calcification. Heart: Unremarkable Pulmonary artery: Unremarkable Mediastinal nodes: Small mediastinal lymph nodes. Other chest and abdominal findings: CT/Low Dose CT Lung Screening IMPRESSION: Lung-RADS category 2 - Continue annual screening with LDCT in 12 months. IMPORTANT NOTES FOR USE: ACR Lung-RADS Version 1.1 Assessment Categories Release Date: 2018 Category: Coded 0-4 bases on nodule(s) with highest degree of suspicion. Negative screen is defined as categories 1 and 2; a positive screen is defined as categories 3 and 4. Category 3 and 4A nodules that are unchanged on interval CT should be coded as category 2, and individuals returned to screening in 12 months. Category 4X: Category 3 or 4 nodules with additional imaging findings that increase the suspicion of lung cancer, such as spiculation, GGN that doubles in size in 1 year, enlarged lymph notes, etc. Category Modifiers: S (significant finding unrelated to lung cancer) Electronically Signed: Robles Sanchez MD at 10:58 EDT , Service support ,
[2021-06-14 10:59] LABS: Absolute Lymphocyte Count 0.79 X10^3/uL (0.83-4.51); Basophil# 0.03 X10^3/uL; Basophil% 0.5 % (0-1); Eosinophil# 0.09 X10^3/uL; Eosinophils% 1.4 % (0-5); Hematocrit 43.7 % (40-54); Hemoglobin 14.3 g/dL (13.0-16.5); Lymphocyte # 0.79 X10^3/ul (0.83-4.51); Lymphocyte % 12.5 % (19-41); Mean Corp Hgb Conc 32.7 g/dL (32-36); Mean Corpuscular Hgb 28.5 pg (27.0-32.0); Mean Corpuscular Volume 87.1 fL (80-94); Mean Platelet Vol. 9.3 fl (6.2-12.0); Monocyte# 0.36 X10^3/uL; Monocyte% 5.7 % (0-10); NRBC Flagged by Analyzer 0 % (0-5); Neutrophil # 5.02 X10^3/uL (2.7-7.7); Neutrophil % 79.4 % (47-70); Platelet Count 234 K/mm3 (150-450); RBC Distribution Width CV 13.6 % (11.6-14.6); RBC Distribution Width SD 43.6 fl (35.1-43.9); Red Blood Count 5.02 M/mm3 (4.6-6.2); White Blood Count 6.3 K/mm3 (4.4-11.0)
[2021-06-14 11:59] LABS: ALB/GLOB Ratio 1.1 RATIO (0.9-2.4); AST(SGOT) 12 U/L (15-37); Alanine Aminotransfer ALT/SGPT 20 U/L (16-61); Albumin, Serum 3.7 g/dL (3.2-5.0); Alkaline Phosphatase 102 U/L (45-117); Anion Gap 8 (5-15); BUN 5 mg/dL (7-18); BUN/Creat Ratio 10.5 RATIO (10-20); Calcium,Total 8.9 mg/dL (8.5-10.1); Chloride 102 mmol/L (98-107); Creatinine, Serum 0.48 mg/dL (0.70-1.30); EST Glomerular Filtration Rate 184 mL/min (>60); Est Glom Filt Rate - Afr Amer 223 mL/min (>60); Globulin 3.4 g/dL (2.2-4.2); Glucose 96 mg/dL (74-106); Protein, Total 7.1 g/dL (6.4-8.2); Sodium Level 139 mmol/L (136-145); Thyroid Stim Hormone (TSH) 3.02 uIU/mL (0.358-3.74)
[2021-06-14 14:19] LABS: Hepatitis C Antibody Preliminary Reactive (Nonreactive); Vitamin D,25 Hydroxy 26.9 ng/mL
== END ==
PROVIDERS: PCP Family Medicine Geriatric Medicine; Referring Provider Family Medicine Geriatric Medicine; Visit Provider Family Medicine Geriatric Medicine
DX: I71.4 Abdominal aortic aneurysm, without rupture (principal); F17.210 Nicotine dependence, cigarettes, uncomplicated; E55.9 Vitamin D deficiency, unspecified; R53.83 Other fatigue; Z13.89 Encounter for screening for other disorder
CPT/HCPCS: 36415; 71271; 80053; 82306; 84443; 85025; 86803; 93978

== ENCOUNTER 2021-06-25 03:12 | Observation (INO) | payer MEDICARE, OTHER, SELFPAY ==
[2021-06-25] VITALS (10 sets, daily range): BP systolic 121–149; BP diastolic 78–99; PULSE 68–94; RESP 15–18; TEMP 36.1–37.4; O2SAT 93–99; BMI 23.0; BMI 20.3
--- NOTE | 2021-06-25 03:37 | CT_ITS ---
EXAM: CT Head Without Intravenous Contrast CLINICAL INDICATION: 71 years old, Male; seizure TECHNIQUE: Multiple axial images were obtained of the head without intravenous contrast. This CT exam was performed using one or more of the following dose reduction techniques: automated exposure control, adjustment of the mA and/or kV according to patient size, and/or use of iterative reconstruction technique. This report was created using [employer] report generation technology. COMPARISON: Head CT dated 03/21/2021. FINDINGS: Brain and extra-axial spaces: Encephalomalacia left frontal lobe and left basal ganglia consistent with old infarcts. There is a stable area of increased attenuation in the left basal ganglia likely due to calcification. Small vessel ischemic/degenerative changes. Cerebral and cerebellar atrophy. No intra- or extra-axial hemorrhage. No intracranial mass or mass effect. No hydrocephalus. Basal cisterns are patent. Bones/joints: Unremarkable. No discrete lytic or blastic abnormalities. Vasculature: Atherosclerotic disease. Sinuses: Unremarkable as visualized. Clear. Mastoid air cells: Unremarkable. Clear. Orbits: Visualized globes, extraocular muscles, optic nerves and retrobulbar fat appear unremarkable. CT/Brain/Head without Contrast IMPRESSION: 1. Encephalomalacia left frontal lobe and left basal ganglia consistent with old infarcts. There is a stable area of increased attenuation in the left basal ganglia likely due to calcification. 2. Small vessel ischemic/degenerative changes. 3. Cerebral and cerebellar atrophy. ASSESSMENT: ABNORMAL report - There are abnormal findings in this report which may be related or unrelated to the reason for the exam. Electronically Signed: Sridhar Diane MD at 4:29 EDT Tel , Service support ,
--- NOTE | 2021-06-25 03:38 | EKG12_ITS ---
Test Reason : DYSRYTHMIA Blood Pressure : / mmHG Vent. Rate : 085 BPM Atrial Rate : 085 BPM P-R Int : 168 ms QRS Dur : 092 ms QT Int : 388 ms P-R-T Axes : 055 052 064 degrees QTc Int : 461 ms Normal sinus rhythm Normal ECG Confirmed by YAJAIRA CHANEY, JUAN MANUEL ([id number]), newspaper photo editor MEME YANEZ ([id number]) on 06/27/2021 12:49:14 PM Referred By: MADHURI Confirmed By:ADONIS GATES MD
--- NOTE | 2021-06-25 03:38 | EX.ED.DYSGE1 ---
HPI History of Present Illness Chief Complaint: Neuro S/Sx Informant: patient, spouse/S.O. and EMS Onset/Context/Timing Onset: Today (JPTA) Context: Sudden Onset (Patient was sleeping) Quality: See below Current Severity: Gone Maximum Severity: Severe Worsened by: Nothing Relieved by: Nothing in particular Associated Symptoms Associated Symptoms: Patient denies Narrative Narrative: called EMS because she awoke to unusual noise coming from her who was asleep in his hospital bed in the living room. He had a hemorrhagic stroke in December, and was discharged from group home/rehab at the end of April, now they are doing OT, PT, and nursing care at home. states when she went to see what was going on, he was not responsive although he was breathing on his own, and seemed like he was trying to do something with his dentures in his mouth, with his mouth. Simultaneously, making lots of noises that seem to be related to secretions in his mouth. EMS picked him up and by the time she met him here, he was back to normal. The patient indicates to her that he remembers her trying to get his attention but was unable to communicate. History is somewhat limited because the patient already has difficulty communicating and talking from his stroke in December, his residual deficits include hemiparesis on the right and he is unable to walk as a result of that. He denies a headache right now, chest pain, any other symptoms he states he feels fine and his agrees that he is currently at his baseline. When asked if he has a history of seizures, when he was in the group home he was seen here in the emergency department because staff thought maybe he had a seizure but no details are known and he has never followed up with neurology and was not admitted at that time. He is on no antiantiseizure medications. [facility] Medical History Aphasia complicating stroke Benign prostate hyperplasia Hyperlipidemia Hypertension Osteoarthritis Right hemiparesis Stroke Home Medications amlodipine 5 mg PO DAILY #30 tab 01/20/21 [Rx Last Taken 04/28/21] sertraline [Zoloft] 100 mg PO DAILY #30 tab 01/26/21 [Rx Last Taken 04/28/21] Allergy/AdvReac Type Severity Reaction Status Date / Time No Known Allergies Allergy Verified 06/25/21 03:19 Family History Mother CVA (cerebral vascular accident) Rheumatoid arthritis Father Cancer Pancreatic cancer Surgical History History of umbilical hernia repair S/P tonsillectomy and adenoidectomy Social History housing: group home Smoking Status: Former smoker alcohol intake: former substance use type: does not use ROS ROS ED Constitutional Constitutional ED: Denies chills or fever(s) Eyes Eyes: Denies change in vision or diplopia ENT ENT ED: Denies rhinorrhea or sore throat Cardiovascular Cardiovascular: Denies chest pain or palpitations Respiratory/Chest Respiratory/Chest: Denies cough or dyspnea Gastrointestinal Gastrointestinal: Denies abdominal pain, diarrhea, nausea or vomiting Genitourinary Genitourinary ED: Denies dysuria or hematuria Musculoskeletal Musculoskeletal: Denies back pain or neck pain Integumentary Denies abscess or rash Neurologic Neurologic: Reports as per HPI, paresthesias and weakness; Denies headache(s) Psychiatric Psychiatric: Denies anxiety or suicidal thoughts EXAM Physical Exam Const Vital Signs: 06/25/21 03:14 06/25/21 03:21 06/25/21 04:22 Temperature 97 F L 97 F L Temperature Source Temporal Temporal Pulse Rate 94 94 71 Respiratory Rate 18 18 15 Blood Pressure 146/99 H 146/99 H 145/93 H Blood Pressure Mean 114 114 110 Pulse Ox 94 94 93 06/25/21 05:09 Temperature Temperature Source Pulse Rate 75 Respiratory Rate 16 Blood Pressure 132/85 H Blood Pressure Mean 100 Pulse Ox 94 Positive well nourished and well developed General Appearance ED: well developed and NAD HEENT Reports moist mucous membranes normocephalic and atraumatic Eyes PERRL and EOMs intact bilaterally Neck full ROM and supple Resp normal respiratory effort and clear to auscultation bilaterally Cardio regular rate, regular rhythm and no murmurs GI non-tender and non-distended Auscultation: normoactive bowel sounds Palpation: soft Back/Spine no CVA tenderness General Back: other FROM Extremity normal to inspection General Extremety ED: Negative for edema, pulses abnormal or tenderness General Extremity: Negative for edema or pulses abnormal Neuro Neuro Narrative: Flexion contracture right upper extremity unable to move. Also unable to move right lower extremity with positive Babinski. Left upper and left lower extremities move with normal 5/5 strength and normal sensation, which is decreased on the right. At baseline mental status at this time per . Sensorium / Orientation: awake and alert Skin no rashes or lesions noted and no wounds MDM MDM MDM Narrative Medical decision making narrative: My concern is that the patient could have had an unusual seizure, he certainly has a nidus for this with his encephalomalacia. I repeated his head CT, it shows no acute hemorrhage or other acute abnormality. His labs are unremarkable, but interestingly it does show an elevated lactate, which may be consistent with recent seizure activity. We watched him in the ER and he had no recurrent episodes. I think he may be best served with an inpatient observation and an EEG, which is actually available tomorrow, with an inpatient neurology consult subsequently to see if it would be beneficial to place him on antiepileptics here. Lab Data Attestation: I reviewed the patient's lab results. Labs: Laboratory Results - last 24 hr 06/25/21 06/25/21 06/25/21 03:24 03:24 03:43 WBC 5.4 RBC 4.95 Hgb 14.0 Hct 41.9 MCV 84.6 MCH 28.3 MCHC 33.4 RDW Std Deviation 41.5 RDW Coeff of Osiris 13.3 Plt Count 228 MPV 9.3 Immature Gran % (Auto) 0.200 Neut % (Auto) 62.2 Lymph % (Auto) 26.5 Rutherford % (Auto) 8.5 Eos % (Auto) 2.0 Baso % (Auto) 0.6 Absolute Neuts (auto) 3.4 Absolute Lymphs (auto) 1.43 Nucleated RBC % 0 Sodium 136 Potassium 3.9 Chloride 102 Carbon Dioxide 25.0 Anion Gap 9 BUN 10 Creatinine 0.64 L Estim Creat Clear Calc 68.84 Est GFR (MDRD) Af Amer 159 Est GFR (MDRD) Non-Af 131 BUN/Creatinine Ratio 15.7 Glucose 110 H Lactic Acid 2.4 H* Calcium 8.9 Radiography Diagnostic Testing: Clinical Impression(s) from Imaging Studies Brain CT 06/25/21 03:37 IMPRESSION: 1. Encephalomalacia left frontal lobe and left basal ganglia consistent with old infarcts. There is a stable area of increased attenuation in the left basal ganglia likely due to calcification. 2. Small vessel ischemic/degenerative changes. 3. Cerebral and cerebellar atrophy. ASSESSMENT: ABNORMAL report - There are abnormal findings in this report which may be related or unrelated to the reason for the exam. Electronically Signed: Sridhar Diane MD at 4:29 EDT Tel , Service support , EKG Initial EKG: Attestation: I personally reviewed and interpreted this EKG as follows: Interpretation: Sinus Rhythm and No Acute Injury Pattern Prior EKG tracings: available for review Prior: Unchanged Discharge Plan Dx/Rx/DC Orders Clinical Impression: Seizure, History of hemorrhagic cerebrovascular accident (CVA) with residual deficit Disposition Disposition: Acute Care Hospital [facility]
[2021-06-25 03:44] LABS: Absolute Lymphocyte Count 1.43 X10^3/uL (0.83-4.51); Absolute Neutrophil Count 3.4 X10^3/uL (2.0-7.7); Basophil# 0.03 X10^3/uL; Basophil% 0.6 % (0-1); Eosinophil# 0.11 X10^3/uL; Hematocrit 41.9 % (40-54); Lymphocyte # 1.43 X10^3/ul (0.83-4.51); Lymphocyte % 26.5 % (19-41); Mean Corp Hgb Conc 33.4 g/dL (32-36); Mean Corpuscular Hgb 28.3 pg (27.0-32.0); Mean Corpuscular Volume 84.6 fL (80-94); Mean Platelet Vol. 9.3 fl (6.2-12.0); Monocyte# 0.46 X10^3/uL; Monocyte% 8.5 % (0-10); NRBC Flagged by Analyzer 0 % (0-5); Neutrophil # 3.36 X10^3/uL (2.7-7.7); Neutrophil % 62.2 % (47-70); Platelet Count 228 K/mm3 (150-450); RBC Distribution Width CV 13.3 % (11.6-14.6); RBC Distribution Width SD 41.5 fl (35.1-43.9); Red Blood Count 4.95 M/mm3 (4.6-6.2); White Blood Count 5.4 K/mm3 (4.4-11.0)
[2021-06-25 03:53] LABS: Anion Gap 9 (5-15); BUN 10 mg/dL (7-18); BUN/Creat Ratio 15.7 RATIO (10-20); Calcium,Total 8.9 mg/dL (8.5-10.1); Chloride 102 mmol/L (98-107); Creatinine, Serum 0.64 mg/dL (0.70-1.30); EST Glomerular Filtration Rate 131 mL/min (>60); Est Glom Filt Rate - Afr Amer 159 mL/min (>60); Estimated Creatinine Clearance 68.84 ml/min; Glucose 110 mg/dL (74-106); Potassium 3.9 mmol/L (3.5-5.1); Sodium Level 136 mmol/L (136-145)
[2021-06-25 04:41] LABS: Lactic Acid 2.4 mmol/L (0.4-1.9)
--- NOTE | 2021-06-25 05:33 | HP.PCM.HOS_ITS ---
HPI - General HPI Narrative HALLE ALVA, is a 71 M who presented to the urgency department at [facility] on 06/25/2021 with a chief complaint of acute mental status change. The gives his history as the patient has communication difficulties with his recent hemorrhagic stroke in December 2020. The reported that she h eard some snorting in the living room. The patient sleeps in his hospital bed in the living room and she went out to see was going on and he was not responsive but he was breathing on his own and seems to be spitting his dentures out. He simultaneously was making a lot of noises that seem to be grunting in nature. She reports that his eyes were rolled back in his head and his legs were drawn up but there was no tonic-clonic movement per her description. She states he remained confused for approximately 30 minutes following the event. No urinary continence but the patient has a chronic Munoz. No bowel incontinence. As noted above Mr. Alva suffered from a hemorrhagic stroke on 12/23/2020 to involve the left basal ganglia and the left frontal lobe that has resulted in right hemiparesis, right facial droop, dysarthria, and dysphagia. At that time he was transferred to [facility] and then underwent rehab here following. He was then discharged to [facility] where he was until April and has been home with his and her care since his discharge from the [facility]. He had overall been doing well. He has a chronic Munoz that was replaced on 06/08/2021 most recently and has an appointment with urology on Sunday to evaluate removal. This catheter has been in place since his stroke. While he was at the assisted in March he suffered from an episode that was concerning for seizure as [facility] staff noted some twitching in his upper extremities. At that time he was diagnosed with acute UTI discharged with antibiotics and has had no other events since that point in time until today. He was also admitted here in April with an acute UTI as well. His reports that he is currently back to his baseline mental status. His vital signs were overall unremarkable other than some elevated blood pressure. He takes amlodipine 5 mg a day at home. His CBC was unremarkable. His BMP was unremarkable. He had a mildly elevated lactic acid at 2.4. A CT of his brain was obtained and showed encephalomalacia of the left frontal lobe and left basal ganglia, small vessel ischemic and degenerative changes, and cerebellar and cerebral atrophy. His EKG showed normal sinus rhythm without any ST-T wave mayer ges. We were requested to admit this patient for further work-up and concern for seizure. [facility] Medical History (Updated 06/25/21 @ 05:[address] Alisha Fletcher DO) Aphasia complicating stroke Benign prostate hyperplasia Dysphagia Hyperlipidemia Hypertension Osteoarthritis Right hemiparesis Stroke Urine retention Home Medications amlodipine 5 mg PO DAILY #30 tab 01/20/21 [Rx Last Taken 04/28/21] sertraline [Zoloft] 100 mg PO DAILY #30 tab 01/26/21 [Rx Last Taken 04/28/21] Allergy/AdvReac Type Severity Reaction Status Date / Time No Known Allergies Allergy Verified 06/25/21 03:19 Family History Mother CVA (cerebral vascular accident) Rheumatoid arthritis Father Cancer Pancreatic cancer Surgical History History of umbilical hernia repair S/P tonsillectomy and adenoidectomy Social History housing: assisted Smoking Status: Former smoker alcohol intake: former substance use type: does not use ROS Constitutional Constitutional: Denies anorexia, change in weight, chills, fatigue, fever(s), malaise, night sweats, weakness or other Eyes Eyes: Denies blurry vision, change in eye color, change in vision, discharge from eye(s), double vision, erythema, eye pain, loss of vision or other ENT HEENT: Denies abnormal hearing, dysphagia, ear pain, epistaxis, headache(s), hearing loss, nasal congestion, nasal discharge, post nasal drip, sinus pressure, sore throat or other Cardiovascular Cardiovascular: Denies chest pain, claudication, dyspnea on exertion, edema, lightheadedness, orthopnea, palpitations, paroxysmal nocturnal dyspnea, rapid heart rate, syncope or other Respiratory/Chest Respiratory/Chest: Denies cough, dyspnea, excessive phlegm production, hemoptysis, productive cough, shortness of breath at rest, shortness of breath with exertion, wheezing or other Gastrointestinal Gastrointestinal: Denies abdominal pain, coffee ground emesis, constipation, diarrhea, dyspepsia, hematemesis, hematochezia, loose stools, melena, nausea, vomiting or other Genitourinary Genitourinary: Reports difficulty urinating, urinary hesitancy and other Details: Patient with chronic Munoz ; Denies burning urination, dysuria, hematuria, nocturia, urinary frequency, urinary incontinence or urinary urgency Musculoskeletal Musculoskeletal: Denies arthralgias, back pain, joint pain, joint stiffness, joint swelling, myalgias, neck pain or other Neurologic Neurologic: Reports abnormal gait, abnormal speech, confusion, focal weakness, seizure-like activity and other Details: Right-sided hemiparesis, right facial droop, dysarthria, dysphagia Endocrine Endocrinology: Denies change in body appearance, cold intolerance, excessive sweating, heat intolerance, polydipsia, polyuria or other Hematologic/Lymphatic Hematologic/Lymphatic: Denies anemia, easy bleeding, easy bruising, lymphad enopathy or other Allergic/Immunologic Allergic/Immunologic: Denies rhinitis, hives, eczemia, asthma or other Vital Signs Vital Signs Vital Signs: 06/25/21 03:14 06/25/21 03:21 06/25/21 04:22 Temperature 97 F L 97 F L Temperature Source Temporal Temporal Pulse Rate 94 94 71 Respiratory Rate 18 18 15 Blood Pressure 146/99 H 146/99 H 145/93 H Blood Pressure Mean 114 114 110 Pulse Ox 94 94 93 06/25/21 05:09 Temperature Temperature Source Pulse Rate 75 Respiratory Rate 16 Blood Pressure 132/85 H Blood Pressure Mean 100 Pulse Ox 94 Weight Weight: 72.892 kg Body Mass Index (BMI) 23.0 Physical Exam Const alert and no apparent distress Constitutional Narrative: Older alert male of normal body habitus lying in bed, at bedside orientation questions are difficult secondary to his dysarthria General Appearance: cooperative HEENT normocephalic, head/scalp atraumatic, hearing grossly normal bilaterally, moist oral mucous membranes and oropharynx normal; Negative for dentition normal HEENT Narrative: Dentures in place, Mallampati 2, no thrush Eyes PERRL, EOMs intact bilaterally and conjunctivae normal Eyes Narrative: No scleral icterus Neck no lymphadenopathy, supple, no JVD and no carotid bruits Resp normal respiratory effort, no retractions, no use of accessory muscles and clear to auscultation bilaterally Auscultation: Negative for crackles, rales, rhonchi or wheezes Cardio regular rate, regular rhythm, S1 normal heart sound, S2 normal heart sound, no murmurs, no rub, no gallops, no clicks and no JVD GI normal to inspection, nondistended, normoactive bowel sounds, soft to palpation, non-tender and non-distended Extremity no clubbing, cyanosis or edema Extremity Narrative: Right upper and lower extremity contractures, decreased lean muscle mass, increased tone Peripheral Pulses: Yes pulses 2+ throughout Skin no rashes or lesions noted, no wounds, skin turgor normal, no jaundice, no petechiae and no mottling Neuro No CN's II-XII intact bilaterally, No moves all extremities and No no focal motor deficits Neuro Narrative: Right facial droop, right tongue deviation-all other cranial nerves intact, right hemiparesis, dysarthria Sensorium / Orientation: awake and alert Speech: Negative for speech normal Motor Exam: Negative for strength 5/5 throughout Psych affect normal Psych Narrative: Very pleasant and follow as well managed Results Lab / Micro Data Attestation: I reviewed the patient's lab results. Result Diagrams: 06/25/21 03:24 06/25/21 03:24 Labs: Laboratory Results - last 24 hr 06/25/21 03:24: WBC 5.4, RBC 4.95, Hgb 14.0, Hct 41.9, MCV 84.6, MCH 28.3, MCHC 33.4, RDW Std Deviation 41.5, RDW Coeff of Osiris 13.3, Plt Count 228, MPV 9.3, Immature Gran % (Auto) 0.200, Neut % (Auto) 62.2, Lymph % (Auto) 26.5, Menard % (Auto) 8.5, Eos % (Auto) 2.0, Baso % (Auto) 0.6, Absolute Neuts (auto) 3.4, Absolute Lymphs (auto) 1.43, Nucleated RBC % 0 06/25/21 03:24: Sodium 136, Potassium 3.9, Chloride 102, Carbon Dioxide 25.0, Anion Gap 9, BUN 10, Creatinine 0.64 L, Estim Creat Clear Calc 68.84, Est GFR (MDRD) Af Amer 159, Est GFR (MDRD) Non-Af 131, BUN/Creatinine Ratio 15.7, Glucose 110 H, Calcium 8.9 06/25/21 03:43: Lactic Acid 2.4 H* Radiology Impression Brain CT 06/25/21 03:37 IMPRESSION: 1. Encephalomalacia left frontal lobe and left basal ganglia consistent with old infarcts. There is a stable area of increased attenuation in the left basal ganglia likely due to calcification. 2. Small vessel ischemic/degenerative changes. 3. Cerebral and cerebellar atrophy. ASSESSMENT: ABNORMAL report - There are abnormal findings in this report which may be related or unrelated to the reason for the exam. Electronically Signed: Sridhar Diane MD at 4:29 EDT Tel , Service support , Assessment & Plan Assessment/Plan (1) Altered mental status: (2) Munoz catheter in place: (3) Lactic acidosis: PLAN: Acute mental status change-suspected seizure -It sounds like this based on his history that he is having seizure activity -Lactate elevated and suspect is related to the above -Patient has had one other event similar to this in which she had a urinary t ract infection -We will check UA to rule out infection as inciting etiology -Check EEG -Seizure precautions -Will order as needed Ativan in case any further events -Would recommend SOC consult in the a.m. -Patient may need AEDs Lactic acidosis -Suspect this is related to seizure activity -No signs of sepsis or acute infection History of urinary tract infection/urinary retention with chronic Munoz/BPH -Check UA if appears infected would recommend Munoz change -Last Munoz was exchanged on 06/08/2021 -Patient has had a Munoz since his stroke for urinary retention -If UA appears infected will start empiric antibiotics and sent for culture after Munoz exchanged History of intraparenchymal hemorrhage -December 2020 -Seems that this was related to uncontrolled hypertension -Patient following with therapies as an outpatient -No current changes -Residual deficits are right-sided hemiparesis with hypertonicity, dysarthria, dysphagia Dysphagia/dysarthria -Patient will be following with speech as an outpatient -Modified diet is mechanical soft with nectar thick liquids - notes that patient has tried less thickened liquids and has had aspiration issues but had no history of aspiration pneumonia Hypertension -Continue amlodipine -Continue to monitor Depression -Continue Zoloft History of hepatitis C -Underwent treatment in 2016 History of heavy alcohol abuse -No use since stroke History of tobacco abuse -Remote DVT prophylaxis -Lovenox prophylactic dosing -SCDs CODE STATUS -DNR CCA no intubation per discussion with the patient and his in the emergency department upon admission Charges/Coding Visit Charges Inpatient E&M: 93296 Init Hosp L3
[2021-06-25 06:11] LABS: Mucous, Urine 0 SEEN /hpf (<or=2+); Squamous Epithelial Cells - UA 0 SEEN /hpf (0-5)
[2021-06-25 06:14] LABS: Color, Urine Yellow (Yellow); Glucose, Dipstick Normal (Normal); Ketone-Dipstick Negative (Negative); Leukocyte Esterase-Dipstick 500 /ul (Negative); Nitrite-Dipstick Negative (Negative); Occult Blood-Urine 10 /ul (Negative); Protein-Dipstick 100 mg/dl (Negative); Specific Gravity, Urine 1.015 (1.002-1.030); Urine Bilirubin Dipstick Negative (Negative); Urine Clarity Sl. Cloudy (Clear); Urine Urobilinogen Normal (Normal)
[2021-06-25 06:20] LABS: Bacteria 2+ /hpf (None Seen)
[2021-06-25 06:21] LABS: Amorphous Sediment 2+; Red Blood Cells-Urine 0-5 SEEN /hpf (0-5); White Blood Cells 10-25 SEEN /hpf (0-5)
--- NOTE | 2021-06-25 06:39 | PCS.PANDOC ---
PANDEMIC DOCUMENTATION INITIATED: Date: 05/02/2021 Time: 190
[2021-06-25 08:09] LABS: Reflex Lactate? Y
[2021-06-25] MEDS: Sertraline 100 MG Tablet PO (08:34)
[2021-06-25] MEDS: Enoxaparin 40 MG/0.4 ML Syringe SC (08:34)
[2021-06-25] MEDS: amLODIPine 5 MG Tablet PO (08:34)
[2021-06-25] MEDS: Ondansetron 4 MG/2 ML Vial IV (08:56)
[2021-06-25] MEDS: 0.9% Saline Lock 10 ML Syringe IV (08:56)
[2021-06-25 09:10] LABS: Lactic Acid 0.8 mmol/L (0.4-1.9)
--- NOTE | 2021-06-25 11:50 | TELEMED_ITS ---
SOC Telemed has confirmed receipt of a request for visit. This document confirms receipt of the order initiating the consult. To find the results of the consultation, please view the patient's reports for the scanned Telemed Consult.
--- NOTE | 2021-06-25 12:59 | PN.HOSP_ITS ---
Documented by User: Viridiana Merlos POOL INSTALLER, POOL INSTALLER-C 06/25/21 13:14 Subjective Subjective Patient seen and examined. at bedside. Admitted early this morning due to suspected seizure activity. Patient and deny further seizure activity since admission. EEG and SOC neurology consult pending. Objective Data Objective Data Vital Signs: Vital Signs Temp Pulse Resp BP Pulse Ox 99.4 F H 78 16 142/85 H 96 06/25/21 08:23 06/25/21 08:23 06/25/21 08:23 06/25/21 08:23 06/25/21 08:23 Oxygen Delivery Method Room Air Weight: 154 lb 5.177 oz Body Mass Index (BMI) 20.3 Medical Nutrition Assessment Dietitian: Malnutrition Criteria Met Start: 06/25/21 11:53 Freq: Status: Active Protocol: Document 06/25/21 12:08 AG (Rec: 06/25/21 12:09 AG [id number]) Nutrition Malnutrition Evidence of Malnutrition Exists Yes Malnutrition (severe): Chronic Evidenced By Suboptimal Energy Intake ( Severe),Weight Loss (Severe), Physical Changes (Moderate) Clinical Problem Chronic Disease or Condition Related Malnutrition Etiology severe chronic malnutrition r/ t inadequate energy intake Signs/Symptoms as evidenced by unintentional wt loss of 25.2#/14% x 5 months; estimated PO intake meeting <75% of estimated nutritional needs >3 months; Moderate physical changes appreciated upon physical exam - muscle wasting/fat loss in upper extremities, orbital, acromion region Status Active Problem Recommendation Dietitian Recommendations/Changes continue cardiac diet. Consistency per TRANSITION COACH- will consult for evaluation. Will d /c vegan modification- will select meals for pt that abide by their dietary preferences. No ONS at this time per family request. Lab / Micro Data Result Diagrams: 06/25/21 03:24 06/25/21 03:24 Labs: Laboratory Results - last 24 hr 06/25/21 03:24: WBC 5.4, RBC 4.95, Hgb 14.0, Hct 41.9, MCV 84.6, MCH 28.3, MCHC 33.4, RDW Std Deviation 41.5, RDW Coeff of Osiris 13.3, Plt Count 228, MPV 9.3, Immature Gran % (Auto) 0.200, Neut % (Auto) 62.2, Lymph % (Auto) 26.5, [place] % (Auto) 8.5, Eos % (Auto) 2.0, Baso % (Auto) 0.6, Absolute Neuts (auto) 3.4, Absolute Lymphs (auto) 1.43, Nucleated RBC % 0 06/25/21 03:24: Sodium 136, Potassium 3.9, Chloride 102, Carbon Dioxide 25.0, Anion Gap 9, BUN 10, Creatinine 0.64 L, Estim Creat Clear Calc 68.84, Est GFR (MDRD) Af Amer 159, Est GFR (MDRD) Non-Af 131, BUN/Creatinine Ratio 15.7, Glucose 110 H, Calcium 8.9 06/25/21 03:43: Lactic Acid 2.4 H* 06/25/21 06:01: Urine Color Yellow, Urine Clarity Sl. Cloudy, Urine pH 7.0, Ur Specific [place] 1.015, Urine Protein 100 H, Urine Glucose (UA) Normal, Urine Ketones Negative, Urine Occult Blood 10 H, Urine Nitrite Negative, Urine Bilirubin Negative, Urine Urobilinogen Normal, Ur Leukocyte Esterase 500 H, Urine RBC 0-5 SEEN, Urine WBC 10-25 SEEN, Ur Squamous Epith Cells 0 SEEN, Amorphous Sediment 2+, Urine Bacteria 2+, Urine Mucus 0 SEEN 06/25/21 08:24: Lactic Acid 0.8 Radiography Diagnostic Testing: Radiology Impression Brain CT 06/25/21 03:37 IMPRESSION: 1. Encephalomalacia left frontal lobe and left basal ganglia consistent with old infarcts. There is a stable area of increased attenuation in the left basal ganglia likely due to calcification. 2. Small vessel ischemic/degenerative changes. 3. Cerebral and cerebellar atrophy. ASSESSMENT: ABNORMAL report - There are abnormal findings in this report which may be related or unrelated to the reason for the exam. Electronically Signed: Sridhar iDane MD at 4:29 EDT Tel , Service support , Physical Exam Const alert, oriented x3 and no apparent distress Orientation / Consciousness: awake, oriented to person, oriented to place and oriented to time HEENT normocephalic and moist oral mucous membranes Eyes PERRL, EOMs intact bilaterally and conjunctivae normal Neck no lymphadenopathy Resp normal respiratory effort and clear to auscultation bilaterally Cardio regular rate, regular rhythm and no murmurs Peripheral Pulses: pulses 2+ throughout GI normal to inspection, nondistended, normoactive bowel sounds, non-tender and non-distended Extremity normal to inspection Skin no rashes or lesions noted Lesions: no lesions Rashes: no rashes Trauma: no lacerations or abrasions Neuro CN's II-XII intact bilaterally, no focal motor deficits, no sensory deficits noted and deep tendon reflexes 2+ bilaterally Neuro Narrative: Chronic right-sided hemiparesis, dysarthria Psych mental status grossly normal and affect normal Assessment & Plan Assessment/Plan (1) Altered mental status: PLAN: 1. Suspected new onset seizure-EEG and SOC neurology consult pending. Brain CT on admission consistent with old infarcts. 2. Lactic acidosis-suspect reactive related to #1. No evidence of infection. Lactic acidosis resolved. 3. History of urinary retention with recurrent UTI/chronic Munoz catheter following CVA-patient is scheduled to establish with urology on Sunday to discuss removing catheter. Munoz catheter last changed 06/08/2021. Urine with 2+ bacteria, 500 leukocyte. Negative nitrite. Afebrile, no leukocytosis. Obtain urine culture. 4. History of intraparenchymal hemorrhage-chronic right-sided deficits, dysarthria and dysphagia. PT/OT/ST. very involved with care. Modified diet per speech therapy recommendations. 5. Hypertension-continue amlodipine. 6. Depression-continue Zoloft. 7. History of hepatitis C-treated in 2015. 8. History of heavy alcohol use-no further use since CVA. DVT prophylaxis-Lovenox sc This patient was seen by ELDA Knowles under the supervision of Dr. Gallego. Documented by User: Dr. Joselin Gallego MD 06/25/21 13:25 Objective Data Lab / Micro Data Result Diagrams: 06/25/21 03:24 06/25/21 03:24 Charges/Coding Addendum Addendum: Patient seen by Viridiana SCHROEDER under my supervision Patient seen and examined. was by his bedside. He was admitted in the early hours of today with a complaint of altered mental status. He had an acute hemorrhagic stroke on 12/26/2020 and has had subsequent problems with communication. says she heard some snorting from the living room where the patient sleeps, and found him minimally responsive, whilst making grunting noises. THere were concerns about possible seizure, as she said his eyes were rolled back in his head, and legs were drawn up. He has a chronic Munoz catheter in place. He has a chronic Munoz in place. He was also recently diagnosed with UTI back in March 2021 and treated with antibiotics. He was also admitted in April [address] of the brain done showed encephalomalacia of the left frontal lobe and left basal ganglia with small vessel ischemic and degenerative changes and cerebellar and cerebral atrophy. He had no active complaints and said he was back to his baseline. Review of systems otherwise negative. He has remained hemodynamically stable. O/E: Const alert, oriented x3 and no apparent distress Orientation / Consciousness: awake, oriented to person, HEENT normocephalic and moist oral mucous membranes Eyes PERRL, EOMs intact bilaterally and conjunctivae normal Neck no lymphadenopathy Resp normal respiratory effort and clear to auscultation bilaterally Cardio regular rate, regular rhythm and no murmurs Peripheral Pulses: pulses 2+ throughout GI normal to inspection, nondistended, normoactive bowel sounds, non-tender and non-distended Extremity normal to inspection Skin no rashes or lesions noted Lesions: no lesions Rashes: no rashes Trauma: no lacerations or abrasions Neuro Neuro Narrative: Chronic right-sided hemiparesis, dysarthria Psych mental status grossly normal and affect normal Patient is awaiting an EEG. Neurology also consulted. PT OT on board. Fall precautions. IV Ativan as needed for seizures. Patient's urinalysis showed 2+ bacteria. Urine culture obtained and pending. Indwelling Munoz catheter tiffanie nged 06/08/2021. In light of patient's history of hemorrhagic stroke, I do think it would be beneficial for him to be on an antiseizure medication to prevent seizures. Will await neurology recommendations. SCDs for DVT prophylaxis. Rest as per Viridiana Gaurang, POOL INSTALLER-C's note, which I have reviewed and endorsed. Visit Charges OBSV E&M: 09344 Subsequent observation care L2
--- NOTE | 2021-06-25 13:15 | CASEMGMT ---
RN CM TELEGRAPHIC TYPEWRITER OPERATOR CHIEF CM to room to meet with patient and , who is at bedside, for initial transition planning/care coordination assessment. RN KAREN introduced self and role at [facility]. Pt able to answer questions w/yes and no responses or by shaking/nodding his head, as this is his baseline since hemorrhagic CVA. voices understanding and consents to assessment at this time. Pt resting in bed in no distress at this time. Care providers, pharmacy, and demographics verified/updated at this time. PCP: Dr Mcqueen Specialists: Has appt w/[facility], [place] Mckoy-urology, on 06/27 @ 1:30 PM to get established as a new pt. [facility] Benef[facility]: Yes Living Will/HPOA: Pt has LW and HPOA, who is his , Colleen LNOK: , Colleen. states they do not have any children and no family nearby. Pt's brother lives in [place]. Living Arrangements: Pt lives w/, Colleen, in mobile home w/ramp entrance. provides all care for pt 09/04. sponge baths pt. There is a girl that lives close to them that will sit w/pt when has to leave to run errands. They do not have any friends or family nearby for support/help. Transportation: [facility] DME: has the following DME: stand-up walker, BSC, transport chair, hospital bed, W/C, Beasy slide Board. Also has shower chair, not using at this time. sponge-baths pt. [facility] and has purchased some as well. Denies need for further DME at this time. HHC/SNF: Hx [facility] and [facility]. Active w/[facility] for RN and PT/OT. They do not have ST available. states Dr Mcqueen's office just arranged for pt to switch to [facility] to begin next week and pt to receive SN, PT/OT, and ST w/them. wishes for pt to return home and pt nodded his head and said yes when asked if this were his wishes as well. /pt provided w/list of local private duty aides and list of local SNF's, as interested in respite care info. voices no further concerns/needs at this time. [facility] form explained re: Observation status for treatment of altered mental status. Explained hospitalization will be paid per pt's insurance policy for Outpatient billing and condition will continue to be evaluated for Inpt necessity. Also let /pt know that [facility] sends paper in the billing packet with their phone number if questions arise. Discussed Pharmacy section of [facility] form and self administered medication guideline. verbalizes understanding and does not have further questions. Form signed, copy made and placed in chart, and original given to . PLAN: Home w/HELLEN w/[facility] (until is switches to [facility] next week), spousal support, and discharge plans in place. Brad DELGADON RN CM
--- NOTE | 2021-06-25 19:20 | CASEMGMT ---
SOCIAL WORK Follow up call made to patient's to discuss resources per Lee JONES's request. Education provided on Private Duty Home Care, respite care, and adult day care. All questions answered and provided with SW contact information for any further needs. Plan for patient to return home at discharge. Gurmeet Jackson, CRACKING AND FANNING MACHINE OPERATOR, ROOM SERVICE RUNNER
[2021-06-25] MEDS: levETIRAcetam 500 MG Tablet PO (22:08)
[2021-06-26 02:58] VITALS: BP 122/66; PULSE 55; RESP 16; TEMP 36.9; O2SAT 96
[2021-06-26] MEDS: 0.9% Saline Lock 10 ML Syringe IV (03:09)
[2021-06-26 06:01] LABS: Absolute Lymphocyte Count 1.11 X10^3/uL (0.83-4.51); Absolute Neutrophil Count 3.4 X10^3/uL (2.0-7.7); Basophil# 0.03 X10^3/uL; Basophil% 0.6 % (0-1); Hematocrit 37.1 % (40-54); Hemoglobin 12.4 g/dL (13.0-16.5); Lymphocyte # 1.11 X10^3/ul (0.83-4.51); Mean Corp Hgb Conc 33.4 g/dL (32-36); Mean Corpuscular Hgb 28.4 pg (27.0-32.0); Mean Corpuscular Volume 85.1 fL (80-94); Mean Platelet Vol. 9.1 fl (6.2-12.0); Monocyte# 0.41 X10^3/uL; Monocyte% 8.1 % (0-10); NRBC Flagged by Analyzer 0 % (0-5); Neutrophil # 3.38 X10^3/uL (2.7-7.7); Neutrophil % 66.9 % (47-70); Platelet Count 199 K/mm3 (150-450); RBC Distribution Width CV 13.3 % (11.6-14.6); RBC Distribution Width SD 41.2 fl (35.1-43.9); Red Blood Count 4.36 M/mm3 (4.6-6.2); White Blood Count 5.1 K/mm3 (4.4-11.0)
[2021-06-26 06:27] LABS: Anion Gap 4 (5-15); BUN 8 mg/dL (7-18); BUN/Creat Ratio 18.1 RATIO (10-20); Calcium,Total 8.8 mg/dL (8.5-10.1); Chloride 107 mmol/L (98-107); Creatinine, Serum 0.44 mg/dL (0.70-1.30); EST Glomerular Filtration Rate 200 mL/min (>60); Est Glom Filt Rate - Afr Amer 242 mL/min (>60); Estimated Creatinine Clearance 66.11 ml/min; Glucose 95 mg/dL (74-106); Phosphorus 3.3 mg/dL (2.5-4.9); Potassium 3.7 mmol/L (3.5-5.1); Sodium Level 137 mmol/L (136-145)
[2021-06-26 08:40] VITALS: BP 116/75; PULSE 64; RESP 16; TEMP 36.3; O2SAT 96
[2021-06-26] MEDS: Sertraline 100 MG Tablet PO (08:45)
[2021-06-26] MEDS: levETIRAcetam 500 MG Tablet PO ×2 (08:45→21:11)
[2021-06-26] MEDS: amLODIPine 10 MG Tablet PO (08:49)
[2021-06-26 09:03] VITALS: O2SAT 93
--- NOTE | 2021-06-26 10:53 | PN.HOSP_ITS ---
Documented by User: Viridiana Merlos MARKING ROOM SUPERVISOR, MARKING ROOM SUPERVISOR-C 06/26/21 11:14 Subjective Subjective Patient seen and examined. Alert and appropriate this morning. No acute events overnight per nursing and patient report. Later notified by nursing that patient appeared more drowsy following Keppra administration and is concerned about patient being on this medication when he returns home. Plan for MRI 06/27. Objective Data Objective Data Vital Signs: Vital Signs Temp Pulse Resp BP Pulse Ox 97.4 F L 64 16 116/75 93 06/26/21 08:40 06/26/21 08:40 06/26/21 08:40 06/26/21 08:40 06/26/21 09:03 Oxygen Delivery Method Room Air Weight: 154 lb 5.177 oz Body Mass Index (BMI) 20.3 Intake & Output: Intake and Output for Last 24 Hours 06/24/21 06/25/21 06/26/21 23:59 23:59 23:59 Intake Total 420 / 420 0 / 0 Output Total 550 / 750 400 / 400 Balance -130 / -330 -400 / -400 Medical Nutrition Assessment Dietitian: Malnutrition Criteria Met Start: 06/25/21 11:53 Freq: Status: Active Protocol: Document 06/25/21 12:08 (Rec: 06/25/21 12:09 [id number]) Nutrition Malnutrition Evidence of Malnutrition Exists Yes Malnutrition (severe): Chronic Evidenced By Suboptimal Energy Intake ( Severe),Weight Loss (Severe), Physical Changes (Moderate) Clinical Problem Chronic Disease or Condition Related Malnutrition Etiology severe chronic malnutrition r/ t inadequate energy intake Signs/Symptoms as evidenced by unintentional wt loss of 25.2#/14% x 5 months; estimated PO intake meeting <75% of estimated nutritional needs >3 months; Moderate physical changes appreciated upon physical exam - muscle wasting/fat loss in upper extremities, orbital, acromion region Status Active Problem Recommendation Dietitian Recommendations/Changes continue cardiac diet. Consistency per TUNG NUT GROWER- will consult for evaluation. Will d /c vegan modification- will select meals for pt that abide by their dietary preferences. No ONS at this time per family request. Lab / Micro Data Result Diagrams: 06/26/21 05:54 06/26/21 05:54 Labs: Laboratory Results - last 24 hr 06/26/21 05:54: WBC 5.1, RBC 4.36 L, Hgb 12.4 L, Hct 37.1 L, MCV 85.1, MCH 28.4, MCHC 33.4, RDW Std Deviation 41.2, RDW Coeff of Osiris 13.3, Plt Count 199, MPV 9.1, Immature Gran % (Auto) 0.400, Neut % (Auto) 66.9, Lymph % (Auto) 22.0, [place] % (Auto) 8.1, Eos % (Auto) 2.0, Baso % (Auto) 0.6, Absolute Neuts (auto) 3.4, Absolute Lymphs (auto) 1.11, Nucleated RBC % 0 06/26/21 05:54: Sodium 137, Potassium 3.7, Chloride 107, Carbon Dioxide 26.0, Anion Gap 4 L, BUN 8, Creatinine 0.44 L, Estim Creat Clear Calc 66.11, Est GFR (MDRD) Af Amer 242, Est GFR (MDRD) Non-Af 200, BUN/Creatinine Ratio 18.1, Glucose 95, Calcium 8.8, Phosphorus 3.3, Magnesium 2.0 Micro: Microbiology 06/25/21 06:01 Urine Catheter - Catheter Urine Culture - Preliminary Gram negative ammy Physical Exam Const alert, oriented x3 and no apparent distress Orientation / Consciousness: awake, oriented to person, oriented to place and oriented to time HEENT normocephalic and moist oral mucous membranes Eyes PERRL, EOMs intact bilaterally and conjunctivae normal Neck no lymphadenopathy Resp normal respiratory effort and clear to auscultation bilaterally Cardio regular rate, regular rhythm and no murmurs Peripheral Pulses: pulses 2+ throughout GI normal to inspection, nondistended, normoactive bowel sounds, non-tender and non-distended Extremity normal to inspection Skin no rashes or lesions noted Lesions: no lesions Rashes: no rashes Trauma: no lacerations or abrasions Neuro CN's II-XII intact bilaterally, no focal motor deficits, no sensory deficits noted and deep tendon reflexes 2+ bilaterally Neuro Narrative: Chronic right-sided hemiparesis, dysarthria Psych mental status grossly normal and affect normal Assessment & Plan Assessment/Plan (1) Seizure: PLAN: 1. New onset seizure-SOC neurology consulted. Recommended Keppra 500 mg twice daily. MRI pending. Brain CT on admission consistent with old infarcts. EEG abnormal with mild generalized slowing, no epileptiform activity. Seizure precautions. Anticipate discharge 06/27/2021 following MRI. 2. Lactic acidosis-suspect reactive related to #1. No evidence of infection. Lactic acidosis resolved. 3. History of urinary retention with recurrent UTI/chronic Munoz catheter following CVA-patient is scheduled to establish with urology on Sunday to discuss removing catheter. Munoz catheter last changed 06/08/2021. Urine with 2+ bacteria, 500 leukocyte. Negative nitrite. Afebrile, no leukocytosis. Urine culture with greater than 100,000 colony count GNR. Begin IV Rocephin pending final culture. 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 4. History of intraparenchymal hemorrhage-chronic right-sided deficits, dysarthria and dysphagia. PT/OT/ST. very involved with care. Modified diet per speech therapy recommendations. 5. Hypertension-continue amlodipine. 6. Depression-continue Zoloft. 7. History of hepatitis C-treated in 2015. 8. History of heavy alcohol use-no further use since CVA. DVT prophylaxis-SCDs Discharge planning: Discharge 06/27/2021 following MRI. This patient was seen by ELDA Knowles under the supervision of Dr. Gallego. Documented by User: Dr. Joselin Gallego MD 06/26/21 13:28 Objective Data Lab / Micro Data Result Diagrams: 06/26/21 05:54 06/26/21 05:54 Charges/Coding Addendum Addendum: Patient seen by Viridiana SCHROEDER under my supervision Patient seen and examined. He is much more alert today and has no complaints. He had an uneventful night. He was started on Keppra as per SOC neurology yesterday. Review of systems otherwise negative. He has remained hemodynamically stable. O/E: Const alert, oriented x3 and no apparent distress Orientation / Consciousness: awake, oriented to person, HEENT normocephalic and moist oral mucous membranes Eyes PERRL, EOMs intact bilaterally and conjunctivae normal Neck no lymphadenopathy Resp normal respiratory effort and clear to auscultation bilaterally Cardio regular rate, regular rhythm and no murmurs Peripheral Pulses: pulses 2+ throughout GI normal to inspection, nondistended, normoactive bowel sounds, non-tender and non-distended Extremity normal to inspection Skin no rashes or lesions noted Lesions: no lesions Rashes: no rashes Trauma: no lacerations or abrasions Neuro Neuro Narrative: Chronic right-sided hemiparesis, dysarthria Psych mental status grossly normal and affect normal Patient had EEG yesterday which was abnormal with mild generalized slowing which was nonspecific and could be secondary to medication side effect, toxic or metabolic etiologies with no epileptiform activity is noted. Patient started on keppra per neurology. Awaiting MRI of the brain, which will be done tomorrow. PT./OT on board. Fall precautions. Urine culture also pending. is awaiting an EEG. Neurology also consulted. PT OT on board. Fall precautions. IV Ativan as needed for seizures. Patient's urinalysis showed 2+ bacteria. Urine culture obtained and pending. Indwelling Munoz catheter changed 06/08/2021. In light of patient's history of hemorrhagic stroke, I do think it would be beneficial for him to be on an antiseizure medication to prevent seizures. Will await neurology recommendations. SCDs for DVT prophyl axis. For likely discharge tomorrow after MRI depending on results. Rest as per ELDA Knowles's note, which I have reviewed and endorsed. Visit Charges OBSV E&M: 50255 Subsequent observation care L2
[2021-06-26] MEDS: Ceftriaxone 1 GM/50 mL Premix x1 IV (13:10)
[2021-06-26 16:33] VITALS: BP 126/80; PULSE 66; RESP 16; TEMP 37.1; O2SAT 97
--- NOTE | 2021-06-26 16:35 | NURSING ---
Patient's voiced concerns that Don seemed more out of it than he usually is. She states when she was attempting to put his shirt on today that he was not following instructions like he usually does at home. She is concerned that the Keppra is making him too drowsy and she is thinking she will not be able to manage this at home. She became tearful and shared that she was frustrated that this medication is needed and that they were doing so well and making so much progress. Now it feels like we have backslid. This RN notified TOMASZ Kemp of the 's concerns. Viridiana states that the patient will stay overnight and will have an MRI tomorrow 06/27. Patient's notified of same. Emotional support and active listening given. Will monitor. CM and SW are involved.
[2021-06-26 21:02] VITALS: BP 131/69; PULSE 62; RESP 16; TEMP 37; O2SAT 96
[2021-06-27 03:38] VITALS: BP 124/73; PULSE 60; RESP 16; TEMP 36.6; O2SAT 96
--- NOTE | 2021-06-27 09:00 | MRI_ITS ---
STUDY: MRI BRAIN WITHOUT CONTRAST REASON FOR EXAM: Male, 71 years old. new onset seizure, HX PREV CVA, GARBLED SPEECH, RT SIDE FLACID TECHNIQUE: Standardized multiplanar fat and water weighted pulse sequences were obtained. COMPARISON: 06/25/2021 and 12/23/2020 CT is of the head FINDINGS: There is mild cerebral atrophy with widening of the extra-axial spaces and ventricular dilatation. There are multiple white matter hyperintensities, distributed throughout the deep white matter tracts of the cerebral hemispheres, consistent with moderate chronic white matter ischemic changes. There is left temporal frontal encephalomalacia and gliosis with hemosiderin staining, findings correspond to the area of prior hemorrhage. There is no extra-axial fluid accumulation. Normal sella turcica, pituitary gland, infundibular stalk, optic chiasm and hypothalamus. Normal tectal plate and pineal gland. MRI/Brain without Contrast IMPRESSION: No acute intracranial abnormality. Prior left temporofrontal hemorrhage. Electronically Signed: Aleyda Francisco MD at 11:25 EDT Tel , Service support ,
[2021-06-27 09:44] VITALS: BP 139/80; PULSE 78; RESP 16; TEMP 36.4; O2SAT 100
--- NOTE | 2021-06-27 10:05 | CASEMGMT ---
Addendum entered by Luiza Jacome 06/27/21 11:43: CAROLINA received call from Michell with TCU stating pt has used all 100 skilled days under Medicare and pt has not had a 60 day break in care from SNF. Pt would need to go to SNF under pending Medicaid or paying privately. CAROLINA in to speak with pt's Colleen and updated her that pt has no skilled days under Medicare left so pt would need to discharge to SNF under pending Medicaid or pay privately. Colleen states they applied for Medicaid but didn't qualify for it. CAROLINA explained then that pt would need to go private pay to SNF. Colleen states she will just take pt home then. CAROLINA updated RN CM. CAROLINA placed a call to Michell with TCU and updated her, SW asked about pt returning to [facility], pt doesn't qualify for [facility]. Plan: Home with [facility] Original Note: Social Work Note CAROLINA updated that pt's Colleen is requesting TCU at discharge. CAROLINA placed a call to Michell with TCU and provided referral. TCU is able to accept pt once medically cleared. CAROLINA in to speak with pt and pt's Colleen. CAROLINA introduced self and role at [facility]. Colleen confirms she would like pt to discharge to TCU. CAROLINA attempted to provide Colleen with provided a list of SNF providers including quality and resource use data and consistent with the patient?s preferred geographic region, medical needs, and insurance network and she refused list stating she already got one. CAROLINA updated Colleen that TCU is able to accept pt when pt is medically cleared. Colleen states understanding. Plan: TCU when medically cleared Luiza Jacome PRINTED CIRCUIT BOARD REWORKER, ED SPECIAL EDUCATION TEACHER
--- NOTE | 2021-06-27 11:12 | CASEMGMT ---
Social Work Note Per embedded firmware engineer questions, pt has completed HCPOA and LW and provided documents to [facility]. SW reviewed chart, both HCPOA and LW are on file at [facility]. SW printed off documents and placed on pt's chart. Luiza Jacome MSW, PRIME MINISTER
--- NOTE | 2021-06-27 12:19 | CASEMGMT ---
TEGAN Araya at [facility] to confirm that pt is set up to start care with them. She states he is. RN CM in to pt room. is requesting SN, PT, OT, ST and GERONTOLOGICAL NURSE PRACTITIONER for pt. TEGAN Araya to add SN to order. Pt states she has been provided with resources and denies need for SENIOR LINUX UNIX ENGINEER. She denies further needs at this time. Pt to dc home with [facility].
[2021-06-27] MEDS: Sertraline 100 MG Tablet PO (12:20)
[2021-06-27] MEDS: 0.9% Saline Lock 10 ML Syringe IV (12:20)
[2021-06-27] MEDS: Ceftriaxone 1 GM/50 ML BAG IV (12:20)
[2021-06-27] MEDS: amLODIPine 10 MG Tablet PO (12:20)
[2021-06-27 12:30] VITALS: BP 127/74; PULSE 80; RESP 16; TEMP 36.4; O2SAT 98
--- NOTE | 2021-06-27 12:48 | DCINST_ITS ---
Discharge Instructions Diet Discharge Diet: - ([place] thick liquids, mechanical soft food consistency) Activity Discharge Activity: Return to Normal Activity Dressing / Incision Call your doctor if you observe: - (Recurrent seizure activity) Follow Up Care Test Results: Test results from this visit will be discussed in further detail at your follow-up appointment, if applicable. Discharge Plan Admission Admit Date/Time: 06/25/21 05:06 Primary Reason for Your Visit: New onset seizure Attending Provider: Corrine Durham Primary Care Provider: Lacho Mcqueen Chi Discharge Orders/Prescriptions Prescriptions: New amlodipine 10 mg Tablet 10 mg PO DAILY 30 Days Qty: 30 RF: 0 Continued sertraline [Zoloft] 100 mg Tablet 100 mg PO DAILY Qty: 30 RF: 0 Discontinued amlodipine 5 mg Tablet 5 mg PO DAILY Qty: 30 RF: 0 Referrals / Follow Up: Arnold Hinton MD [STAFF PHYSICIAN] - See Referral Note (Follow up with urology as scheduled) Lacho Mcqueen Chi, MD [Primary Care Provider] - Within 1 Week Disposition Disposition (needs filled in before D/C Order can be placed): Home Health Service
--- NOTE | 2021-06-27 12:57 | PCM.DC.SUM ---
Documented by User: Viridiana Merlos NP, [employer]UST[employer]-C 06/27/21 13:11 Providers Date of Admission: 06/25/21 Date of Discharge: 06/27/21 Primary Care Physician: Dr. Lacho Mcqueen MD Reason For Visit: ALTERED MENTAL STATUS Diagnosis Discharge Diagnosis (1) Seizure: Status: Acute Code(s): R56.9 - Unspecified convulsions Medications at Discharge Home Medications sertraline [Zoloft] 100 mg PO DAILY #30 tab 01/26/21 amlodipine 10 mg PO DAILY 30 Days #30 tab 06/27/21 Hospital Course Operations None Procedures Electroencephalogram Summary of Care Provided Minutes Spent on Discharge: 35 Hospital Course: Patient is a 71-year-old male admitted 06/25/2021 due to altered mental status. 1. New onset seizure-SOC neurology consulted. Brain CT on admission with old infarcts. EEG with mild generalized slowing, no epileptiform activity. MRI of brain with prior left temporal frontal hemorrhage, no acute abnormality. Recommended Keppra 500 mg twice daily. Patient concerned for drowsiness and drunk appearance following Keppra administration and refusing Keppra at discharge. 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 Per request, will hold Keppra at discharge however discussed with if he has further episodes of seizure activity, will need to reconsider antiepileptic regimen. Discussed neurology outpatient referral and patient's would like to follow-up with PCP only for now and will follow up with neurology if recommended by PCP. 2. Lactic acidosis-suspect reactive related to #1. No other evidence of infection. Lactic acidosis resolved. 3. History of urinary retention with recurrent UTI/chronic Munoz catheter following CVA-patient is scheduled to establish with urology to discuss removing catheter. Munoz catheter last changed 06/08/2021. Urine with 2+ bacteria, 500 leukocyte. Negative nitrite. Afebrile, no leukocytosis. Urine culture with greater than 100,000 colony count Morganella. 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 Will not treat further at this time. 4. History of intraparenchymal hemorrhage-chronic right-sided deficits, dysarthria and dysphagia. PT/OT/ST. very involved with care. Modified diet per speech therapy recommendations. Home health at discharge for ongoing therapies. 5. Hypertension-continue amlodipine. Amlodipine increased to 10 mg daily. 6. Depression-continue Zoloft. 7. History of hepatitis C-treated in 2016. 8. History of heavy alcohol use-no further use since CVA. Physical Exam Const alert, oriented x3 and no apparent distress Orientation / Consciousness: awake, oriented to person, oriented to place and oriented to time HEENT normocephalic and moist oral mucous membranes Eyes PERRL, EOMs intact bilaterally and conjunctivae normal Neck no lymphadenopathy Resp normal respiratory effort and clear to auscultation bilaterally Cardio regular rate, regular rhythm and no murmurs Peripheral Pulses: pulses 2+ throughout GI normal to inspection, nondistended, normoactive bowel sounds, non-tender and non-distended Extremity normal to inspection Skin no rashes or lesions noted Lesions: no lesions Rashes: no rashes Trauma: no lacerations or abrasions Neuro CN's II-XII intact bilaterally, no focal motor deficits, no sensory deficits noted and deep tendon reflexes 2+ bilaterally Neuro Narrative: Chronic right-sided hemiparesis, dysarthria Psych mental status grossly normal and affect normal Patient seen and examined prior to discharge. Physical assessment as noted above. Patient is stable for discharge with follow up recommendations as noted above. This patient was seen by ELDA Knowles under the supervision of Dr. Durham. Medical Records Data Medical Nutrition Assessment Dietitian: Malnutrition Criteria Met Start: 06/25/21 11:53 Freq: Status: Active Protocol: Document 06/25/21 12:08 (Rec: 06/25/21 12:09 [id number]) Nutrition Malnutrition Evidence of Malnutrition Exists Yes Malnutrition (severe): Chronic Evidenced By Suboptimal Energy Intake ( Severe),Weight Loss (Severe), Physical Changes (Moderate) Clinical Problem Chronic Disease or Condition Related Malnutrition Etiology severe chronic malnutrition r/ t inadequate energy intake Signs/Symptoms as evidenced by unintentional wt loss of 25.2#/14% x 5 months; estimated PO intake meeting <75% of estimated nutritional needs >3 months; Moderate physical changes appreciated upon physical exam - muscle wasting/fat loss in upper extremities, orbital, acromion region Status Active Problem Recommendation Dietitian Recommendations/Changes continue cardiac diet. Consistency per [employer]- will consult for evaluation. Will d /c vegan modification- will select meals for pt that abide by their dietary preferences. No ONS at this time per family request. Weight / BMI Weight Weight: 154 lb 5.177 oz Body Mass Index (BMI) 20.3 ABG / Lab / Microbiology Data Result Diagrams: 06/26/21 05:54 06/26/21 05:54 Microbiology: Microbiology 06/25/21 06:01 Urine Catheter - Catheter Urine Culture - Final Morganella morganii sp morgani Radiography Diagnostic Testing: Radiology Impression Brain MRI 06/27/21 09:00 IMPRESSION: No acute intracranial abnormality. Prior left temporofrontal hemorrhage. Electronically Signed: Aleyda Francisco MD at 11:25 EDT Tel , Service support , D/C Instructions Discharge Diet: - ([place] thick liquids, mechanical soft food consistency) Call your doctor if you observe: - (Recurrent seizure activity) Meaningful Use Info Meaningful Use Diagnoses (Choose all that apply): None applicable Discharge Plan Admission Admit Date/Time: 06/25/21 05:06 Primary Reason for Your Visit: New onset seizure Attending Provider: Corrine Durham Primary Care Provider: Lacho Mcqueen Chi Discharge Orders/Prescriptions Prescriptions: New amlodipine 10 mg Tablet 10 mg PO DAILY 30 Days Qty: 30 RF: 0 Continued sertraline [Zoloft] 100 mg Tablet 100 mg PO DAILY Qty: 30 RF: 0 Discontinued amlodipine 5 mg Tablet 5 mg PO DAILY Qty: 30 RF: 0 Referrals / Follow Up: Arnold Hinton MD [STAFF PHYSICIAN] - See Referral Note (Follow up with urology as scheduled) Lacho Mcqueen Chi, MD [Primary Care Provider] - Within 1 Week Disposition Disposition (needs filled in before D/C Order can be placed): Home Health Service Documented by User: Dr. Corrine Durham MD 06/28/21 08:02 Providers Date of Admission: 06/25/21 Reason For Visit: ALTERED MENTAL STATUS Medications at Discharge Home Medications sertraline [Zoloft] 100 mg PO DAILY #30 tab 01/26/21 amlodipine 10 mg PO DAILY 30 Days #30 tab 06/27/21 ABG / Lab / Microbiology Data Result Diagrams: 06/26/21 05:54 06/26/21 05:54 Discharge Plan Admission Admit Date/Time: 06/25/21 05:06 Primary Reason for Your Visit: New onset seizure Attending Provider: Corrine Durham Primary Care Provider: Lacho Mcqueen Chi Discharge Orders/Prescriptions Prescriptions: New amlodipine 10 mg Tablet 10 mg PO DAILY 30 Days Qty: 30 RF: 0 Continued sertraline [Zoloft] 100 mg Tablet 100 mg PO DAILY Qty: 30 RF: 0 Discontinued amlodipine 5 mg Tablet 5 mg PO DAILY Qty: 30 RF: 0 Referrals / Follow Up: Arnold Hinton MD [STAFF PHYSICIAN] - See Referral Note (Follow up with urology as scheduled) Lacho Mcqueen Chi, MD [Primary Care Provider] - Within 1 Week Disposition Disposition (needs filled in before D/C Order can be placed): Home Health Service Charges/Coding Addendum Addendum: This patient was seen in conjunction with Viridiana Merlos. I have independently interviewed and examined the patient and reviewed pertinent historical, laboratory, and other data. I have reviewed her note and concur with her documentation 71-year-old male with past medical history of CVA -hemorrhagic in 2020, who comes in with acute mental status change. Per patient's , patient has some snorting in the living room. Patient was found unresponsive, breathing on his own and spitting out his dentures. His eyes appeared rolled back, legs drawn, appeared to be making lots of noises In the ED, he was found to have a lactic acidosis which was likely secondary to suspected seizure activity. CT of the brain showed encephalomalacia. EEG showed nonspecific mild generalized slowness SOC was consulted and thought this was likely a localization related seizure from his old stroke. Keppra 500 mg p.o. twice daily was recommended. MRI brain was done and was unremarkable. Patient was recommended to continue on Keppra twice daily. His did not want discontinued. She will follow up with her outpatient neurologist. Physical exam: General: Alert, aphasic, not pale not jaundiced HEENT: Atraumatic Oral: Moist Mucosa Neck: Supple Lungs: Clear to auscultation Cardiovascular: HS I+II, regular, no murmurs Abdomen: Bowel Sounds Present, Soft, Non Tender Extremities: No edema Skin: No rashes, No breakdown Neurological: Chronic right-sided hemiparesis Visit Charges OBSV E&M: [id number] Observation care discharge
--- NOTE | 2021-06-27 12:57 | CASEMGMT ---
Social Work Note SW received call from Santy with [facility] stating they were planning on discharging services with pt tomorrow as pt's PCP ordered Speech Therapy and they do not have a speech therapist that comes to [place]. Luiza Jacome KILN CLEANER, POWER SHOVEL OPERATOR HELPER
--- NOTE | 2021-06-27 14:47 | CASEMGMT ---
Addendum entered by Luiza Jacome 06/27/21 15:21: RN updated on transportation time Original Note: Social Work Note RN updated this worker that pt will need transportation home via cot. SW accessed trip assist and arranged transportation via cot for 4:00pm. Transportation form completed and given to physician office secretary. SW updated pt and pt's Colleen on transportation time. Luiza Jacome FEATHER SAWYER, DETAIL DRAFTER
--- NOTE | 2021-06-27 15:46 | NURSING ---
Updated patient's that the ID doctor states his catheter culture looks like it is colonized so there is no need for any further antibiotics at discharge. Patient's voices understanding.
== END 2021-06-27 16:10 | disposition home health service (06) ==
LOC: ED 04:46 → MS3 05:40
PROVIDERS: Admitting Provider Internal Medicine; Emergency Provider Emergency Medicine; PCP Family Medicine Geriatric Medicine; Visit Provider Internal Medicine
DX: R56.9 Unspecified convulsions (principal); I69.351 Hemiplegia and hemiparesis following cerebral infarction affecting right dominant side; I69.320 Aphasia following cerebral infarction; I69.322 Dysarthria following cerebral infarction; I69.391 Dysphagia following cerebral infarction; I69.392 Facial weakness following cerebral infarction; R13.10 Dysphagia, unspecified; E78.5 Hyperlipidemia, unspecified; I10 Essential (primary) hypertension; F10.11 Alcohol abuse, in remission; M19.90 Unspecified osteoarthritis, unspecified site; N40.0 Benign prostatic hyperplasia without lower urinary tract symptoms; Z79.899 Other long term (current) drug therapy; Z87.891 Personal history of nicotine dependence; Z86.19 Personal history of other infectious and parasitic diseases; E87.2 Acidosis; F32.9 Major depressive disorder, single episode, unspecified
CPT/HCPCS: 36415; 70450; 70551; 80048; 81001; 83605; 83735; 84100; 85025; 87077; 87086; 87088; 87186; 92526; 92610; 93005; 95819; 96365; 96366; 96372; 96375; 97162; 97166; 97802; 99218; 99251; 99285; J7040; A4216; G0378; G0463; J2405

== ENCOUNTER → 2021-07-04 | Outpatient (CLI) | payer MEDICARE, OTHER, SELFPAY | END | disposition home or self-care (01) | LOC: LABSPEC 13:12 | PROVIDERS: PCP Family Medicine Geriatric Medicine; Referring Provider Family Medicine Geriatric Medicine; Visit Provider Family Medicine Geriatric Medicine | DX: R19.7 Diarrhea, unspecified (principal) | CPT/HCPCS: 82274; 83630; 87177; 87209; 87493; 87506 ==

== ENCOUNTER 2021-07-14 10:23 | Outpatient (RCR) | payer MEDICARE, OTHER, SELFPAY ==
[2021-07-14 11:05] LABS: Color, Urine Amber (Yellow); Glucose, Dipstick Normal (Normal); Ketone-Dipstick Negative (Negative); Leukocyte Esterase-Dipstick 500 /ul (Negative); Nitrite-Dipstick Negative (Negative); Occult Blood-Urine 250 /ul (Negative); Protein-Dipstick 100 mg/dl (Negative); Specific Gravity, Urine 1.015 (1.002-1.030); Urine Bilirubin Dipstick Negative (Negative); Urine Clarity Turbid (Clear); Urine Urobilinogen Normal (Normal)
== END 2021-07-17 02:38 | disposition home or self-care (01) ==
LOC: HHLAB 10:23
PROVIDERS: PCP Family Medicine Geriatric Medicine; Visit Provider Family Medicine Geriatric Medicine
DX: N39.0 Urinary tract infection, site not specified (principal); R56.9 Unspecified convulsions; Z46.6 Encounter for fitting and adjustment of urinary device
CPT/HCPCS: 81002; 87077; 87086; 87088; 87186

== ENCOUNTER 2021-07-20 13:59 | Emergency (ER) | payer MEDICARE, OTHER, SELFPAY ==
[2021-07-20 14:01] VITALS: BP 143/85; PULSE 70; RESP 17; TEMP 36.7; O2SAT 98; BMI 22.4
[2021-07-20 14:10] VITALS: BP 143/85
[2021-07-20 15:37] LABS: Absolute Lymphocyte Count 1.08 X10^3/uL (0.83-4.51); Basophil# 0.03 X10^3/uL; Basophil% 0.5 % (0-1); Eosinophil# 0.21 X10^3/uL; Eosinophils% 3.6 % (0-5); Hemoglobin 13.2 g/dL (13.0-16.5); Lymphocyte # 1.08 X10^3/ul (0.83-4.51); Lymphocyte % 18.7 % (19-41); Mean Corp Hgb Conc 33.8 g/dL (32-36); Mean Corpuscular Hgb 28.6 pg (27.0-32.0); Mean Corpuscular Volume 84.4 fL (80-94); Mean Platelet Vol. 8.9 fl (6.2-12.0); Monocyte# 0.42 X10^3/uL; Monocyte% 7.3 % (0-10); NRBC Flagged by Analyzer 0 % (0-5); Neutrophil # 4.01 X10^3/uL (2.7-7.7); Neutrophil % 69.6 % (47-70); Platelet Count 223 K/mm3 (150-450); RBC Distribution Width CV 13.2 % (11.6-14.6); RBC Distribution Width SD 40.6 fl (35.1-43.9); Red Blood Count 4.62 M/mm3 (4.6-6.2); White Blood Count 5.8 K/mm3 (4.4-11.0)
[2021-07-20 15:46] LABS: Bacteria 0 SEEN /hpf (None Seen); Mucous, Urine 0 SEEN /hpf (<or=2+); Red Blood Cells-Urine 0 SEEN /hpf (0-5); Squamous Epithelial Cells - UA 0 SEEN /hpf (0-5)
[2021-07-20 15:49] LABS: International Normalized Ratio 1.2; Prothrombin Time (Protime)PT. 14.3 SECONDS (11.7-14.9)
[2021-07-20 15:50] LABS: Partial Thromboplast Time 31.4 Seconds (24.1-36.2)
[2021-07-20 15:53] LABS: Color, Urine Yellow (Yellow); Glucose, Dipstick Normal (Normal); Ketone-Dipstick Negative (Negative); Leukocyte Esterase-Dipstick 500 /ul (Negative); Nitrite-Dipstick Negative (Negative); Occult Blood-Urine 250 /ul (Negative); Protein-Dipstick 15 mg/dl (Negative); Urine Bilirubin Dipstick Negative (Negative); Urine Clarity Sl. Cloudy (Clear); Urine Urobilinogen Normal (Normal)
[2021-07-20 15:57] LABS: Anion Gap 4 (5-15); BUN 9 mg/dL (7-18); BUN/Creat Ratio 18.5 RATIO (10-20); Calcium,Total 8.4 mg/dL (8.5-10.1); Chloride 105 mmol/L (98-107); Creatinine, Serum 0.49 mg/dL (0.70-1.30); EST Glomerular Filtration Rate 179 mL/min (>60); Est Glom Filt Rate - Afr Amer 217 mL/min (>60); Estimated Creatinine Clearance 72.82 ml/min; Glucose 98 mg/dL (74-106); Potassium 3.4 mmol/L (3.5-5.1); Sodium Level 136 mmol/L (136-145)
[2021-07-20 16:04] LABS: White Blood Cells 0-5 SEEN /hpf (0-5)
--- NOTE | 2021-07-20 16:04 | EX.ED.DYSGE1 ---
HPI History of Present Illness Chief Complaint: Munoz C/O Narrative Narrative: Patient is a 71-year-old male who has a chronic indwelling Munoz catheter. Patient and states that he had sediment in the urine on Sunday and therefore the home health aide change the catheter out. They state the urine sample at that time showed changes consistent with infection and placed him on Macrobid. They also state he has had recent C. difficile and is currently on vancomycin orally. They report that after the catheter change it is not abnormal for him to have some bleeding that evening but his urine was clear. However this morning noticed that the urine appeared red/orange in color. They contacted the physician who advised him to flush it which did seem to improve the color of the urine but then it returned to blood once again and therefore patient comes in for evaluation. [facility] Medical History Aphasia complicating stroke Benign prostate hyperplasia Dysphagia Munoz catheter in place History of hemorrhagic cerebrovascular accident (CVA) with residual deficit Hyperlipidemia Hypertension Osteoarthritis Right hemiparesis Seizure Stroke Urine retention Home Medications sertraline [Zoloft] 100 mg PO DAILY #30 tab 01/26/21 [Rx Last Taken 06/24/21] amlodipine 10 mg PO DAILY 30 Days #30 tab 06/27/21 [Rx Last Taken Unknown] nitrofurantoin macrocrystal 100 mg PO BID 07/20/21 [History Last Taken Unknown] vancomycin 125 mg PO 4X/DAY 07/20/21 [History Last Taken Unknown] Allergy/AdvReac Type Severity Reaction Status Date / Time No Known Allergies Allergy Verified 07/20/21 14:00 Family History Mother CVA (cerebral vascular accident) Rheumatoid arthritis Father Cancer Pancreatic cancer Surgical History History of umbilical hernia repair S/P tonsillectomy and adenoidectomy Social History housing: senior living Smoking Status: Former smoker alcohol intake: former substance use type: does not use ROS ROS ED Constitutional Constitutional ED: Denies chills or fever(s) ENT ENT ED: Denies sore throat Cardiovascular Cardiovascular: Denies chest pain Respiratory/Chest Respiratory/Chest: Denies cough or dyspnea Gastrointestinal Gastrointestinal: Reports diarrhea; Denies abdominal pain, nausea or vomiting Genitourinary Genitourinary ED: Reports hematuria; Denies dysuria Musculoskeletal Musculoskeletal: Denies myalgias Integumentary Denies rash Neurologic Neurologic: Denies headache(s) Hematologic/Lymphatic Hematologic/Lymphatic: Denies easy bleeding or easy bruising EXAM Physical Exam Const Vital Signs: 07/20/21 14:01 07/20/21 14:10 07/20/21 16:26 Temperature 98.1 F Temperature Source Oral Pulse Rate 70 71 Respiratory Rate 17 Blood Pressure 143/85 H 143/85 H 148/81 H Blood Pressure Mean 104 104 103 Pulse Ox 98 Oxygen Delivery Method Room Air Positive well nourished and well developed General Appearance ED: well developed HEENT Reports moist mucous membranes Eyes PERRL and EOMs intact bilaterally Neck supple Resp normal respiratory effort and clear to auscultation bilaterally GI normal to inspection, nondistended, normoactive bowel sounds, non-tender and non-distended GI Narrative: No voluntary guarding or rigidity no pulsatile mass no organomegaly noted Auscultation: normoactive bowel sounds Palpation: soft Narrative: Patient has an indwelling Munoz catheter there is no blood or discharge from around the urethral meatus. No skin breakdown to suggest trauma or infection. No testicular pain or swelling noted Extremity Extremity Narrative: Patient has chronic changes secondary to his disability but no new/acute findings Neuro oriented x3 and CN's II-XII intact bilaterally Sensorium / Orientation: alert Psych mental status grossly normal Skin no rashes or lesions noted MDM MDM MDM Narrative Medical decision making narrative: Patient presented to the ER with stable vitals and report of blood in his Munoz catheter. The bag had orange/red discoloration concerning for blood but the urine inside the tubing was now clear. He has been on oral vancomycin because of C. difficile and Macrobid secondary to a UTI. Therefore this time I did elect to perform repeat laboratory studies. Labs showed normal white count and hemoglobin as well as platelet function. Bleeding times are normal as well as his kidney function. The catheter was flushed and after doing so the urine is now clear with no discoloration or blood. As labs showed normal kidney function he does not have vancomycin induced nephrotoxicity. There is no retained UTI as the urine shows no signs of bacteria. With the clearing of the urine discoloration with flushing I do feel that the discoloration was most likely due to his Macrobid and not true blood. However at this time as the catheter is draining properly and overall laboratory studies are negative he can be discharged home Lab Data Attestation: I reviewed the patient's lab results. Labs: Laboratory Results - last 24 hr 07/20/21 07/20/21 07/20/21 15:25 15:25 15:25 WBC 5.8 RBC 4.62 Hgb 13.2 Hct 39.0 L MCV 84.4 MCH 28.6 MCHC 33.8 RDW Std Deviation 40.6 RDW Coeff of [place] 13.2 Plt Count 223 MPV 8.9 Immature Gran % (Auto) 0.300 Neut % (Auto) 69.6 Lymph % (Auto) 18.7 L [place] % (Auto) 7.3 Eos % (Auto) 3.6 Baso % (Auto) 0.5 Absolute Neuts (auto) 4.0 Absolute Lymphs (auto) 1.08 Nucleated RBC % 0 PT 14.3 INR 1.2 APTT 31.4 Sodium 136 Potassium 3.4 L Chloride 105 Carbon Dioxide 27.0 Anion Gap 4 L BUN 9 Creatinine 0.49 L Estim Creat Clear Calc 72.82 Est GFR (MDRD) Af Amer 217 Est GFR (MDRD) Non-Af 179 BUN/Creatinine Ratio 18.5 Glucose 98 Calcium 8.4 L Urine Color Urine Clarity Urine pH Ur Specific [place] Urine Protein Urine Glucose (UA) Urine Ketones Urine Occult Blood Urine Nitrite Urine Bilirubin Urine Urobilinogen Ur Leukocyte Esterase Urine RBC Urine WBC Ur Squamous Epith Cells Calcium Oxalate Crystal Urine Bacteria Urine Mucus 07/20/21 15:35 WBC RBC Hgb Hct MCV MCH MCHC RDW Std Deviation RDW Coeff of [place] Plt Count MPV Immature Gran % (Auto) Neut % (Auto) Lymph % (Auto) [place] % (Auto) Eos % (Auto) Baso % (Auto) Absolute Neuts (auto) Absolute Lymphs (auto) Nucleated RBC % PT INR APTT Sodium Potassium Chloride Carbon Dioxide Anion Gap BUN Creatinine Estim Creat Clear Calc Est GFR (MDRD) Af Amer Est GFR (MDRD) Non-Af BUN/Creatinine Ratio Glucose Calcium Urine Color Yellow Urine Clarity Sl. Cloudy Urine pH 7.0 Ur Specific [place] 1.010 Urine Protein 15 H Urine Glucose (UA) Normal Urine Ketones Negative Urine Occult Blood 250 H Urine Nitrite Negative Urine Bilirubin Negative Urine Urobilinogen Normal Ur Leukocyte Esterase 500 H Urine RBC 0 SEEN Urine WBC 0-5 SEEN Ur Squamous Epith Cells 0 SEEN Calcium Oxalate Crystal 1+ Urine Bacteria 0 SEEN Urine Mucus 0 SEEN Discharge Plan Triage Chief Complaint: Munoz C/O ED Provider: Jose Alejandro Martin Dx/Rx/DC Orders Clinical Impression: Munoz catheter problem, Hematuria, Adverse drug reaction Instructions: ED Munoz Catheter, Care Prescriptions: No Action sertraline [Zoloft] 100 mg Tablet 100 mg PO DAILY Qty: 30 RF: 0 amlodipine 10 mg Tablet 10 mg PO DAILY 30 Days Qty: 30 RF: 0 vancomycin 125 mg capsule 125 mg PO 4X/DAY RF: 0 nitrofurantoin macrocrystal 100 mg capsule 100 mg PO BID RF: 0 Primary Care Provider: Lacho Mcqueen Chi Referrals: Lcaho Mcqueen Chi, MD [Primary Care Provider] - Disposition Disposition: Home, Self Care
[2021-07-20 16:05] LABS: Calcium Oxalate Crystals Ur 1+ /hpf (<or=2+)
[2021-07-20 16:26] VITALS: BP 148/81; PULSE 71
[2021-07-20 17:22] VITALS: BP 157/81; PULSE 62
[2021-07-20 18:18] VITALS: BP 157/78; PULSE 71
== END 2021-07-20 18:56 | disposition home or self-care (01) ==
PROVIDERS: Emergency Provider Emergency Medicine; PCP Family Medicine Geriatric Medicine
DX: T83.9XXA Unspecified complication of genitourinary prosthetic device, implant and graft, initial encounter (principal); R31.9 Hematuria, unspecified; I10 Essential (primary) hypertension; E78.5 Hyperlipidemia, unspecified; N40.0 Benign prostatic hyperplasia without lower urinary tract symptoms; M19.90 Unspecified osteoarthritis, unspecified site; G40.909 Epilepsy, unspecified, not intractable, without status epilepticus; I69.351 Hemiplegia and hemiparesis following cerebral infarction affecting right dominant side; Z79.899 Other long term (current) drug therapy; Z87.891 Personal history of nicotine dependence
CPT/HCPCS: 80048; 81001; 85025; 85610; 85730; 99284

== ENCOUNTER → 2021-08-18 10:15 | Outpatient (CLI) | payer MEDICARE, OTHER, SELFPAY | PROVIDERS: PCP Family Medicine Geriatric Medicine; Visit Provider Family Medicine Geriatric Medicine | DX: R19.7 Diarrhea, unspecified (principal) | CPT/HCPCS: 82274; 83630; 87177; 87209; 87493; 87506 ==

== ENCOUNTER 2021-09-26 12:17 | Outpatient (CLI) | payer MEDICARE, OTHER, SELFPAY ==
--- NOTE | 2021-09-26 12:22 | US_ITS ---
STUDY: RENAL ULTRASOUND - COMPLETE REASON FOR EXAM: Male, 71 years old. URINE RETENTION TECHNIQUE: Ultrasound evaluation of the kidneys was performed with real-time and static lopez-scale imaging. COMPARISON: None. FINDINGS: RIGHT KIDNEY: Normal location of the right kidney, which is normal in size. The right kidney measures 10.6 cm x 4.8 cm x 4.7 cm. There is a normal cortex of the right kidney. The renal cortex measures 1.4 cm. There is no right renal mass or cyst. There are no right renal calculi. There is no right hydronephrosis. DISTAL RIGHT URETER: There is non-visualization of the distal right ureter. There is no demonstrated right ureterovesical junction calculus. There is a visualized right ureteral jet. LEFT KIDNEY: Normal location of the left kidney, which is normal in size. The left kidney measures 11.4 cm x 5.4 cm x 6.2 cm. There is a normal cortex of the left kidney. The renal cortex measures 1.8 cm. There is no left renal mass or cyst. I suspect a 5 mm calculus in the midpole of the kidney. There is no left hydronephrosis. DISTAL LEFT URETER: There is non-visualization of the distal left ureter. There is no demonstrated left ureterovesical junction calculus. There is a visualized left ureteral jet. BLADDER: The distended urinary bladder has a volume of 276 ml. There is a normal wall thickness of the distended urinary bladder. There is diffuse trabeculation of the floor of the bladder. Possible 1.2 cm x 0.8 cm calculus at the base of the bladder. US/Kidney and Bladder IMPRESSION: There is trabeculation at the base of the bladder. Findings suggestive of a 1.2 cm x 0.8 cm bladder calculus. Electronically Signed: Robles Sanchez MD at 14:17 EST , Service support ,
== END 2021-09-26 23:59 | disposition short-term general hospital (02) ==
LOC: US 12:20
PROVIDERS: PCP Family Medicine Geriatric Medicine; Referring Provider Urology; Visit Provider Urology
DX: R33.9 Retention of urine, unspecified (principal)
CPT/HCPCS: 76770

== ENCOUNTER 2021-10-19 12:35 | Outpatient (CLI) | payer MEDICARE, OTHER, SELFPAY ==
--- NOTE | 2021-10-19 14:11 | SP.MBSS_ITS ---
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 He received inpatient speech therapy services for aphasia, dysarthria, and dysphagia from 01/04/2021-01/25/2021. Pt had MBS study 01/18/2021 revealing silent aspiration of thin liquids. He is currently seeing home health speech therapy for oropharyngeal strengthening and training in diet recommendations: Minced and moist textures / Mildly thick liquids and Huang Free Water Protocol. The patient has been referred for repeat MBS study to assess appropriateness for diet advancement. Additional PMH includes Aphasia, Benign prostate hyperplasia, HLD, HTN, Osteoarthritis, R hemiparesis, and Urine retention. Current Diet Ordered: Minced and Moist Textures / [place] Thick Liquids Dentition: Upper Dentures, Lower Dentures Comment: Pt has aphasia. He demonstrated ability to follow all commands during the study. Respiratory Status: Oxygenating on Room Air - Penetration-Aspiration Scale Penetration-Aspiration Scale: OBJECTIVE ASSESSMENT OF SWALLOW FUNCTION (QUANTITATIVE ? PER TRIAL): PENETRATION / ASPIRATION SCALE (MONIQUE): 1 = does not enter airway 2 = enters airway/above vocal folds/ejected 3 = enters airway/above vocal folds/not ejected 4 = enters airway/contacts vocal folds/ejected 5 = enters airway/contacts vocal folds/not ejected 6 = enters airway/below vocal folds/ejected 7 = enters airway/below vocal folds/not ejected despite effort 8 = enters airway/below vocal folds/no effort VIDEOFLOROSCOPIC SCALE SCORE (MONIQUE): Grade I = aspiration of material that has penetrated into the laryngeal vestibule, intact cough reflex Grade II = aspiration < 10 % of the bolus, intact cough reflex Grade III = aspiration of < 10 % of the bolus, reduced cough reflex or aspiration of > 10 % of the bolus, intact cough reflex Grade IV = aspiration of > 10 % of the bolus, reduced cough reflex - Penetration-Aspiration Scale Score Thin Liquid via teaspoon Result: 1= does not enter airway Thin Liquid via teaspoon Trial 2 Result: 1= does not enter airway Thin Liquid via small single sip from cup Result: 1= does not enter airway Thin Liquid via small single sip from cup Trial 2 Result: 1= does not enter airway Thin Liquid via sequential sips from cup Result: 8= enters airway/below vocal folds/no effort Comment: Grade III = aspiration of < 10 % of the bolus, SILENT aspiration Thin Liquid via small single sip from cup Trial 3 Result: 1= does not enter airway [place] Thick Liquid via small single sip from cup Result: 1= does not enter airway [place] Thick Liquid via small single sip from cup Result: 1= does not enter airway Pudding with esophageal screen Result: 1= does not enter airway Cookie Result: 2= enter airway/above vocal folds/ejected Thin Liquid via single sip from straw Result: 1= does not enter airway Thin Liquid via sequential sips from straw Result: 6= enters airway/below vocal folds/ejected Comment: Cough reflex appeared to fully eject contrast aspirated just below vocal folds. Thin Liquid via small single sip from cup Trial 4 Result: 1= does not enter airway Thin Liquid via teaspoon Trial 3 Result: 8= enters airway/below vocal folds/no effort Comment: Grade III = aspiration of < 10 % of the bolus, SILENT aspiration Thin Liquid via small single sip from cup Trial 5 Result: 1= does not enter airway - Oral Phase Labial Seal: No Labial Escape Tongue Control During Bolus Hold: Posterior escape of greater than half of bolus Bolus Preparation/Mastication: Disorganized chewing/mashing with solid pieces of bolus unchewed Bolus Transport/Lingual Motion: Delayed initiation of tongue motion Oral Residue: Residue collection on oral structures - Pharyngeal Phase Initiation of Pharyngeal Swallow: Bolus head in valleculae Soft Palate Elevation: No bolus between soft palate and pharyngeal wall Laryngeal Elevation: Partial superior movement thyroid cart/partial apprx aryt- epig petiole Anterior Hyoid Excursion: Partial anterior movement Epiglottic Movement: Complete inversion Laryngeal Vestibule Closure at Height of Swallow: Incomplete; narrow column of air/contrast in laryngeal vestibule Pharyngeal Stripping Wave: Present - complete Pharyngoesophageal Segment Opening: Complete distension and complete duration; no obstruction of flow Tongue Base Retraction: Trace column of contrast between tongue base & post. pharyngeal wall Pharyngeal Residue: Trace residue within or on pharyngeal structures - Esophageal Phase Esophageal Clearance: Complete clearance - Treatment Strategies Effects of treatment strategies attemped:: Use of straws = Not effective. Slow rate = Effective. Decreased bolus size = Effective. - Diagnosis/Impression Diagnosis: Mild Oropharyngeal Phase Dysphagia (R13.12) Impression: The oral phase of the swallow is primarily marked by decreased bolus control and delayed swallow onset. The patient presented with posterior loss of >50% of the bolus to the pharynx, resulting in suboptimal bolus placement upon swallow onset. This delayed swallow onset was evident especially with liquid trials. He had decreased mastication abilities, requiring extended time to masticate and resulting in premature posterior loss of bolus. The pharyngeal phase of the swallow is primarily marked by decreased airway protection due to mildly decreased laryngeal elevation and anterior hyoid excursion. He presented with penetration during the swallow of cookie trial; however, bolus fully ejected from the laryngeal vestibule. He demonstrated silent aspiration of sequential sips via cup and sip via tsp. He was able to eject aspirate of sequential sips via straw with cough reflex. - Recommendations Diet: Thin Liquids Comment: Soft and Bite Size Textures For mixed consistencies, consider thickening liquid to nectar (mildly) thick or blending consistencies. Oral care before and after meals. Compensatory Strategies: Small Sips - by CUP ONLY, Slow Rate - Sips and bites one at a time, Sitting upright, Assist with verbal cues to use recommended strategies Supervision: Assist as needed Recommend Repeat Modified Barium Swallow: TBD Comment: Repeat MBS study per therapist's discretion if concern for poor diet tolerance for current diet or concern with tolerance of future trials to further upgrade solid textures. Need for Skilled Speech Therapy Services: Yes Comment: Will recommend the patient for outpatient dysphagia therapy to address remaining deficits in oropharyngeal swallow function. Would consider the patient for oropharyngeal strengthening to improve lingual coordination and strength to prevent premature spillage, as well as promote laryngeal elevation and improved swallow onset (Effortful swallow, effortful breath hold and swallow, Tessa). Would consider the patient for strengthening and trials of intake with NMES. The patient would benefit from thorough education regarding diet recommendations and recommended compensatory strategies. If pt is unable to follow precautions for consumption of thin liquids or change in pulmonary status, would consider patient for liquid downgrade to nectar thick liquids with implementation for FFWP. Education Completed: 1. Described result of evaluation., 4. Family/caregivers understand evaluation & agree w/ goals & tx plan., 7. Pt requires further ed ucation on strategies & risks. Comment: Educated pt, pt's , HH therapist, OP therapist results and recommendations of MBS study. Education well received. - Status Active ST Patient: Active - Contact Information [facility] Speech Therapy:: Perri Galeano M.A. [facility] Speech-Language Pathologist [facility] [address] [place] [address] [email or web address] [phone] 10/19/21 15:15
== END 2021-10-19 23:59 | disposition short-term general hospital (02) ==
LOC: RAD 12:36
PROVIDERS: PCP Internal Medicine; Referring Provider Internal Medicine; Visit Provider Internal Medicine
DX: R13.10 Dysphagia, unspecified (principal)
CPT/HCPCS: 74230; 92611

== ENCOUNTER 2021-10-31 10:00 | Outpatient (RCR) | payer MEDICARE, OTHER, SELFPAY ==
--- NOTE | 2021-10-25 12:43 | ST ---
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 He received inpatient speech therapy services for aphasia, dysarthria, and dysphagia from 01/04/2021-01/25/2021. Pt had MBS study 01/18/2021 revealing silent aspiration of thin liquids. He is currently seeing home health speech therapy for oropharyngeal strengthening and training in diet recommendations: Minced and moist textures / Mildly thick liquids and Huang Free Water Protocol. The patient has been referred for repeat MBS study to assess appropriateness for diet advancement. Additional PMH includes Aphasia, Benign prostate hyperplasia, HLD, HTN, Osteoarthritis, R hemiparesis, and Urine retention. Current Diet Ordered: Minced and Moist Textures / [place] Thick Liquids Dentition: Upper Dentures, Lower Dentures Comment: Pt has aphasia. He demonstrated ability to follow all commands during the study. Respiratory Status: Oxygenating on Room Air - Penetration-Aspiration Scale Penetration-Aspiration Scale: OBJECTIVE ASSESSMENT OF SWALLOW FUNCTION (QUANTITATIVE ? PER TRIAL): PENETRATION / ASPIRATION SCALE (MONIQUE): 1 = does not enter airway 2 = enters airway/above vocal folds/ejected 3 = enters airway/above vocal folds/not ejected 4 = enters airway/contacts vocal folds/ejected 5 = enters airway/contacts vocal folds/not ejected 6 = enters airway/below vocal folds/ejected 7 = enters airway/below vocal folds/not ejected despite effort 8 = enters airway/below vocal folds/no effort VIDEOFLOROSCOPIC SCALE SCORE (MONIQUE): Grade I = aspiration of material that has penetrated into the laryngeal vestibule, intact cough reflex Grade II = aspiration < 10 % of the bolus, intact cough reflex Grade III = aspiration of < 10 % of the bolus, reduced cough reflex or aspiration of > 10 % of the bolus, intact cough reflex Grade IV = aspiration of > 10 % of the bolus, reduced cough reflex - Penetration-Aspiration Scale Score Thin Liquid via teaspoon Result: 1= does not enter airway Thin Liquid via teaspoon Trial 2 Result: 1= does not enter airway Thin Liquid via small single sip from cup Result: 1= does not enter airway Thin Liquid via small single sip from cup Trial 2 Result: 1= does not enter airway Thin Liquid via sequential sips from cup Result: 8= enters airway/below vocal folds/no effort Comment: Grade III = aspiration of < 10 % of the bolus, SILENT aspiration Thin Liquid via small single sip from cup Trial 3 Result: 1= does not enter airway [place] Thick Liquid via small single sip from cup Result: 1= does not enter airway [place] Thick Liquid via small single sip from cup Result: 1= does not enter airway Pudding with esophageal screen Result: 1= does not enter airway Cookie Result: 2= enter airway/above vocal folds/ejected Thin Liquid via single sip from straw Result: 1= does not enter airway Thin Liquid via sequential sips from straw Result: 6= enters airway/below vocal folds/ejected Comment: Cough reflex appeared to fully eject contrast aspirated just below vocal folds. Thin Liquid via small single sip from cup Trial 4 Result: 1= does not enter airway Thin Liquid via teaspoon Trial 3 Result: 8= enters airway/below vocal folds/no effort Comment: Grade III = aspiration of < 10 % of the bolus, SILENT aspiration Thin Liquid via small single sip from cup Trial 5 Result: 1= does not enter airway - Oral Phase Labial Seal: No Labial Escape Tongue Control During Bolus Hold: Posterior escape of greater than half of bolus Bolus Preparation/Mastication: Disorganized chewing/mashing with solid pieces of bolus unchewed Bolus Transport/Lingual Motion: Delayed initiation of tongue motion Oral Residue: Residue collection on oral structures - Pharyngeal Phase Initiation of Pharyngeal Swallow: Bolus head in valleculae Soft Palate Elevation: No bolus between soft palate and pharyngeal wall Laryngeal Elevation: Partial superior movement thyroid cart/partial apprx aryt-epig petiole Anterior Hyoid Excursion: Partial anterior movement Epiglottic Movement: Complete inversion Laryngeal Vestibule Closure at Height of Swallow: Incomplete; narrow column of air/contrast in laryngeal vestibule Pharyngeal Stripping Wave: Present - complete Pharyngoesophageal Segment Opening: Complete distension and complete duration; no obstruction of flow Tongue Base Retraction: Trace column of contrast between tongue base & post. pharyngeal wall Pharyngeal Residue: Trace residue within or on pharyngeal structures - Esophageal Phase Esophageal Clearance: Complete clearance - Treatment Strategies Effects of treatment strategies attempted:: Use of straws = Not effective. Slow rate = Effective. Decreased bolus size = Effective. - Diagnosis/Impression Diagnosis: Mild Oropharyngeal Phase Dysphagia (R13.12) Impression: The oral phase of the swallow is primarily marked by decreased bolus control and delayed swallow onset. The patient presented with posterior loss of >50% of the bolus to the pharynx, resulting in suboptimal bolus placement upon swallow onset. This delayed swallow onset was evident especially with liquid trials. He had decreased mastication abilities, requiring extended time to masticate and resulting in premature posterior loss of bolus. The pharyngeal phase of the swallow is primarily marked by decreased airway protection due to mildly decreased laryngeal elevation and anterior hyoid excursion. He presented with penetration during the swallow of cookie trial; however, bolus fully ejected from the laryngeal vestibule. He demonstrated silent aspiration of sequential sips via cup and sip via tsp. He was able to eject aspirate of sequential sips via straw with cough reflex. - Recommendations Diet: Thin Liquids Comment: Soft and Bite Size Textures For mixed consistencies, consider thickening liquid to nectar (mildly) thick or blending consistencies. Oral care before and after meals. Compensatory Strategies: Small Sips - by CUP ONLY, Slow Rate - Sips and bites one at a time, Sitting upright, Assist with verbal cues to use recommended strategies Supervision: Assist as needed Recommend Repeat Modified Barium Swallow: TBD Comment: Repeat MBS study per therapist's discretion if concern for poor diet tolerance for current diet or concern with tolerance of future trials to further upgrade solid textures. Need for Skilled Speech Therapy Services: Yes Comment: Will recommend the patient for outpatient dysphagia therapy to address remaining deficits in oropharyngeal swallow function. Would consider the patient for oropharyngeal strengthening to improve lingual coordination and strength to prevent premature spillage, as well as promote laryngeal elevation and improved swallow onset (Effortful swallow, effortful breath hold and swallow, Tessa). Would consider the patient for strengthening and trials of intake with NMES. The patient would benefit from thorough education regarding diet recommendations and recommended compensatory strategies. If pt is unable to follow precautions for consumption of thin liquids or change in pulmonary status, would consider patient for liquid downgrade to nectar thick liquids with implementation for FFWP. Education Completed: 1. Described result of evaluation., 4. Family/caregivers understand evaluation & agree w/ goals & tx plan., 7. Pt requires further education on strategies & risks. Comment: Educated pt, pt's , HH therapist, OP therapist results and recommendations of MBS study. Education well received. - Contact Information [facility] Speech Therapy:: Perri Galeano M.A. [facility] Speech-Language Pathologist [facility] [address] [place] [address] [email or web address] [phone] 10/19/21 15:15
--- NOTE | 2021-11-02 10:54 | HP.SP.AD_ITS ---
History - History Date of Eval: 10/25/21 Medical Diagnosis (from RX): Dysphagia, aphasia, dysarthria Date of Onset of Diagnosis: 12/23/20 Previous speech therapy: Yes Results: Rehab from 01/04/21 to 01/25/21 then [facility]. No speech therapy until July 07 until Oct 08 through home health. 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 He received inpatient. speech therapy services for aphasia, dysarthria, and dysphagia from 01/04/2021-01/25/2021. Pt had. MBS study 01/18/2021 revealing silent aspiration of thin liquids. Additional PMH includes Aphasia,. Benign prostate hyperplasia, HLD, HTN, Osteoarthritis, R hemiparesis, and Urine retention. Smoking Status: Former smoker Hx Smoking: Yes Hx Smoking Cessation Date: 12/21/91 Hx Tobacco Use: No Hx Smoking Exposure: No - Pain Is pain an issue with your current prescribed condition?: No - Personal Right Hearing Abillity: Normal Left Hearing Abillity: Normal Patients Living Arrangements: With Significant Other Patient Allergies - Allergies Allergies No Known Allergies Allergy (Verified 11/01/21 08:08) Objective Oral Motor - Respiratory Status Respiratory Status: Room Air Subjective Dysphagia - Symptoms Reported Symptoms/Problems with: Hx of Aspiration - Current Diet Solids Current Diet: Soft - Current Diet Liquids Current Liquids: Thin Objective Dysphagia - Results Swallowing Within Normal Limits: No Swallowing Diagnosis: Oropharyngeal Phase Dysphagia Severity: Mild Modified Barium Results Hx MBS Report Entered: Yes MBS Results (from prior exam): 10/25/21 12:43 Speech Therapy by Laith Young Modified Barium Swallow Study MR#: [id number] Acct: [id number] Name: HALLE ALVA Rep #: [id number] : 1950 71 From: Perri Galeano M.A. [facility]-PATTERN CHART WRITER Modified Barium Swallow - Patient Information Study Date: 10/19/21 Study Time: 13:00 Direct Billable Minutes: 110 Total Minutes procedure & reportin Diagnosis: Hemorrhagic CVA (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 He received inpatient speech therapy services for aphasia, dysarthria, and dysphagia from 01/04/2021- 01/25/2021. Pt had MBS study 01/18/2021 revealing silent aspiration of thin liquids. He is currently seeing home health speech therapy for oropharyngeal strengthening and training in diet recommendations: Minced and moist textures / Mildly thick liquids and Huang Free Water Protocol. The patient has been referred for repeat MBS study to assess appropriateness for diet advancement. Additional PMH includes Aphasia, Benign prostate hyperplasia, HLD, HTN, Osteoarthritis, R hemiparesis, and Urine retention. Current Diet Ordered: Minced and Moist Textures / Chancellor Thick Liquids Dentition: Upper Dentures, Lower Dentures Comment: Pt has aphasia. He demonstrated ability to follow all commands during the study. Respiratory Status: Oxygenating on Room Air - Penetration-Aspiration Scale Penetration-Aspiration Scale: OBJECTIVE ASSESSMENT OF SWALLOW FUNCTION (QUANTITATIVE ? PER TRIAL): PENETRATION / ASPIRATION SCALE (MONIQUE): 1 = does not enter airway 2 = enters airway/above vocal folds/ejected 3 = enters airway/above vocal folds/not ejected 4 = enters airway/contacts vocal folds/ejected 5 = enters airway/contacts vocal folds/not ejected 6 = enters airway/below vocal folds/ejected 7 = enters airway/below vocal folds/not ejected despite effort 8 = enters airway/below vocal folds/no effort VIDEOFLOROSCOPIC SCALE SCORE (MONIQUE): Grade I = aspiration of material that has penetrated into the laryngeal vestibule, intact cough reflex Grade II = aspiration < 10 % of the bolus, intact cough reflex Grade III = aspiration of < 10 % of the bolus, reduced cough reflex or aspiration of > 10 % of the bolus, intact cough reflex Grade IV = aspiration of > 10 % of the bolus, reduced cough reflex - Penetration-Aspiration Scale Score Thin Liquid via teaspoon Result: 1= does not enter airway Thin Liquid via teaspoon Trial 2 Result: 1= does not enter airway Thin Liquid via small single sip from cup Result: 1= does not enter airway Thin Liquid via small single sip from cup Trial 2 Result: 1= does not enter airway Thin Liquid via sequential sips from cup Result: 8= enters airway/below vocal folds/no effort Comment: Grade III = aspiration of < 10 % of the bolus, SILENT aspiration Thin Liquid via small single sip from cup Trial 3 Result: 1= does not enter airway Chancellor Thick Liquid via small single sip from cup Result: 1= does not enter airway Honey Thick Liquid via small single sip from cup Result: 1= does not enter airway Pudding with esophageal screen Result: 1= does not enter airway Cookie Result: 2= enter airway/above vocal folds/ejected Thin Liquid via single sip from straw Result: 1= does not enter airway Thin Liquid via sequential sips from straw Result: 6= enters airway/below vocal folds/ejected Comment: Cough reflex appeared to fully eject contrast aspirated just below vocal folds. Thin Liquid via small single sip from cup Trial 4 Result: 1= does not enter airway Thin Liquid via teaspoon Trial 3 Result: 8= enters airway/below vocal folds/no effort Comment: Grade III = aspiration of < 10 % of the bolus, SILENT aspiration Thin Liquid via small single sip from cup Trial 5 Result: 1= does not enter airway - Oral Phase Labial Seal: No Labial Escape Tongue Control During Bolus Hold: Posterior escape of greater than half of bolus Bolus Preparation/Mastication: Disorganized chewing/mashing with solid pieces of bolus unchewed Bolus Transport/Lingual Motion: Delayed initiation of tongue motion Oral Residue: Residue collection on oral structures - Pharyngeal Phase Initiation of Pharyngeal Swallow: Bolus head in valleculae Soft Palate Elevation: No bolus between soft palate and pharyngeal wall Laryngeal Elevation: Partial superior movement thyroid cart/partial apprx aryt- epig petiole Anterior Hyoid Excursion: Partial anterior movement Epiglottic Movement: Complete inversion Laryngeal Vestibule Closure at Height of Swallow: Incomplete; narrow column of air/contrast in laryngeal vestibule Pharyngeal Stripping Wave: Present - complete Pharyngoesophageal Segment Opening: Complete distension and complete duration; no obstruction of flow Tongue Base Retraction: Trace column of contrast between tongue base & post. pharyngeal wall Pharyngeal Residue: Trace residue within or on pharyngeal structures - Esophageal Phase Esophageal Clearance: Complete clearance - Treatment Strategies Effects of treatment strategies attempted:: Use of straws = Not effective. Slow rate = Effective. Decreased bolus size = Effective. - Diagnosis/Impression Diagnosis: Mild Oropharyngeal Phase Dysphagia (R13.12) Impression: The oral phase of the swallow is primarily marked by decreased bolus control and delayed swallow onset. The patient presented with posterior loss of >50% of the bolus to the pharynx, resulting in suboptimal bolus placement upon swallow onset. This delayed swallow onset was evident especially with liquid trials. He had decreased mastication abilities, requiring extended time to masticate and resulting in premature posterior loss of bolus. The pharyngeal phase of the swallow is primarily marked by decreased airway protection due to mildly decreased laryngeal elevation and anterior hyoid excursion. He presented with penetration during the swallow of cookie trial; however, bolus fully ejected from the laryngeal vestibule. He demonstrated silent aspiration of sequential sips via cup and sip via tsp. He was able to eject aspirate of sequential sips via straw with cough reflex. - Recommendations Diet: Thin Liquids Comment: Soft and Bite Size Textures For mixed consistencies, consider thickening liquid to nectar (mildly) thick or blending consistencies. Oral care before and after meals. Compensatory Strategies: Small Sips - by CUP ONLY, Slow Rate - Sips and bites one at a time, Sitting upright, Assist with verbal cues to use recommended strategies Supervision: Assist as needed Recommend Repeat Modified Barium Swallow: TBD Comment: Repeat MBS study per therapist's discretion if concern for poor diet tolerance for current diet or concern with tolerance of future trials to further upgrade solid textures. Need for Skilled Speech Therapy Services: Yes Comment: Will recommend the patient for outpatient dysphagia therapy to address remaining deficits in oropharyngeal swallow function. Would consider the patient for oropharyngeal strengthening to improve lingual coordination and strength to prevent premature spillage, as well as promote laryngeal elevation and improved swallow onset (Effortful swallow, effortful breath hold and swallow, Tessa). Would consider the patient for strengthening and trials of intake with NMES. The patient would benefit from thorough education regarding diet recommendations and recommended compensatory strategies. If pt is unable to follow precautions for consumption of thin liquids or change in pulmonary status, would consider patient for liquid downgrade to nectar thick liquids with implementation for FFWP. Education Completed: 1. Described result of evaluation., 4. Family/caregivers understand evaluation & agree w/ goals & tx plan., 7. Pt requires further education on strategies & risks. Comment: Educated pt, pt's , HH therapist, OP therapist results and recommendations of MBS study. Education well received. - Contact Information [facility] Speech Therapy:: Perri Galeano M.A. CCC-PATTERN CHART WRITER Speech-Language Pathologist [facility] [address] [place] [address] [email or web address] [phone] 10/19/21 15:15 Initialized on 10/25/21 12:43 - END OF NOTE Dysphagia Assessment - Swallowing Impairment Contributing Factors to Swallowing Impairment: Reduced Oral Strength/Coordination/Sensation, Mastication Inefficiency, Delayed Swallow Initiation, Reduced Laryngeal Excursion - Impact Impact on Safety & Functioning: Risk for Aspiration, Risk for Inadequate Nutrition/Hydration - Recommendations Swallowing Treatment: Yes - Diet Texture Recommendations Solids Other: Soft Liquids: Thin - Safety Saftey Precautions/Swallowing Recommendations (Check all that Apply): Small Sips & Bites when Eating, Other (Specify Below) Other: Small sips by cup ONLY, slow rate, verbal cues for use of strategies, sitting upright. Objective Cog/Ling/Com - Test Administered Qdglvmyud-Omvgixbeob-Byrgenwhgdrpw Assessment Administered: Yes Zhkluodsn-Jobedjrwkf-Mspawrjrnmfdn Assessment: Cognitive ? Linguistic skills were evaluated using patient/family interview, skilled observation and informal evaluation through tasks completed by the patient. - Orientation Orientation: Person, Birthdate - Identification Body parts/objects: WFL Colors: WNL Letters: WNL Numbers: WFL - Answer Yes/No Questions Simple: WFL Complex: Moderate - Follows Commands 1 Step: WNL 2 Step: WNL Complex: Mild - Comments Comments: Patient missed one part of a complex direction (wrong location on body of a 5 element direction. - Automatic Sequences Automatic Sequences: Moderate, Severe - Repetition Words: WFL Sentences: Severe - Naming Responsive naming: Severe - Conversational Tasks Conversational Tasks: Severe Comments: Patient was unable to independently state any words. He was able to imitate his on single words. He was able to complete one phrase with ) common word but when more than one option was valid he was not able to do so ( example: eat your ____). - Comments Comments: Automatic speech tasks needed cues. He was able to say 3 days of the week. HE counted 1-21 when given a starter cue. - Reading Picture-Word Matching Picture-Word matching: Moderate Comments: He choose associated words ex. time for clock. - Reading Comprehension Words: Moderate Cognitive Linguistic Comments - Comments Aphasia Patient has severe expressive aphasia. Subjective AAC - AAC Subjective: Patient has an AAC device on order. (Accent 1000) Anticipate that it will be delivered soon. Other Impressions - Comments AAC -: The patient is in the process of obtaining an augmentative and alternative communication ( AAC) device which he and his will need training to effectively use for communication. Goals will be added as necessary. Plan - Plan Plan: Speech therapy is recommended for severe expressive aphasia as well as dysarthria and mild oropharyngeal phase dysphagia. - Recommendations Treatment Warranted: Yes - Frequency Visits in this POC: 16 - Prognosis Prognosis: Good - Goals that are Established: Determination:: Goals will be added/modified as deemed necessary and appropriate. Therapy will be discontinued when results of re-evaluation indicate therapy is no longer needed or lack of progress has been documented. - Goal #1-5 Goal #1: The Patient will demonstrate and utilize recommended oropharyngeal strengthening exercises to facilitate improved oropharyngeal strength and coordination with minimal cueing and prompting provide by the clinician, across 3 to 3 sessions. VitalStim may be included as a modality during these exercises. Goal #2: Patient will complete phrases/sentences on 8/10 trials with single words on 4/5 trials with minimal prompts across 3 to 3 sessions. Goal #3: Full aphasia evaluation to be completed with goals added at that time. Education - Patient has Indicated that the Following Identified Educational Needs: Hearing/Vision/Speech Impaired - Patient Instruction Patient Education: Diagnosis, Treatment Plan, Goals Person Taught: Patient, Significant Other Teaching Method: Discussion Response to teaching: Has Prior Knowledge
--- NOTE | 2021-11-02 17:53 | HP.PTEVAL ---
Patient's Visit Information HALLE ALVA is a 71 year old M referred to Physical Therapy by Dr. Ness John MD with a diagnosis of R hemiplegia. Date of Evaluation: 10/25/21 Physical Therapist: RICK Moreno - Visit Plan Frequency: 2x /Week Duration: 2 Months Plan: Finish eval by transfer to mat and mat mobility and set additional goals. Goes by Brady. Put gait belt low on hips due to R rib nerve pain. 2X/ week for 8 weeks for standing transfers, standing endurance, strengthening, posture and core strength/endurance, bed mobility, stretching, piviot transfers, Slide Board transfers, car transfers with HEP - Subjective is [place]. Pt goes by Brady. Pt had a stoke 12-23-20 and was hemorragic. He was at [facility] for 11 days and then at [place] for 3 weeks and then at [facility] [place] until April. He had home health PT ended a long time ago. can sit transfer from bed to wheelchair. She can not get him out of the wheelchair. He can pull to stand from wheelchair pulling up at the sink ( 2 min at a time standing). They had a lot of physical set backs with UTI and C-diff etc. He is able with help and trapze to the edge of the bed. They have been doing bed exercises at home. Pt is sponge bathing. They have a tub shower. They have to rent [place] to get anywhere. Working on doing some small household things at the kitchen table. would like to work on a stand piviot transfer. She would like to eventually get him into the car. Uses the slide board to get back into bed. He sleeps well. They only roll to the R side cause he tries to use the L to stabilize. - Objective R hip flexion 2-/5, L hip flexion 3+/5, Seated hip abd R 1/5, L 3+/5, knee flexion 1/3 R and 4-/5, knee ext R 1/5 and L 3-/5. Pt is not able to raise the toes into DF on the R and L 3+/5. Pt is able to scoot to the edge of the chair using his L arm with min A for R leg placement and min A to scoot R buttcheek FW. pt is able to sit with feel flat on the floor but does lose his balance BW with fatigue or reaching overhead. Sit to stand: verbal cues and min A X 2 using L arm to pull self up to the // bar. Min A to get R leg in proper position. Pt could stand for approx 2 min with verbal cues to keep his trunk up and tuck his bottom in and weight shift onto the R leg so it does not go into adduction. Stood twice for approx 2 min and was fatigued. Tight HS on the R and gastroc on the R - Balance/Special Test Scores Lower Extremity Functional Score: 6 - Goals Goal 1:: I HEP Goal Time Frame: 8-12 Weeks Goal 2:: Be able to stand for 5 min with min A X 1 to get to astanding psition at the // bars Goal Time Frame: 8-12 Weeks Goal 3:: Be able to sit with back unsupported doing dynamic activity for 5 min without fatigue Goal Time Frame: 8-12 Weeks Goal 4:: Be able to stand piviot transfer with mod A X 1 Goal Time Frame: 8-12 Weeks - Rehabilitation Potential Rehabilitation Potential: Good - Anticipated Interventions Patient/Client Instruction: Educate patient on: Condition, Plan of Care For the Purpose of:: To improve nutrient delivery to tissue, To improve muscle performance and motor function, To improve ability to perform ADL's, To increase tolerance to activity/condition/position, To improve performance and independence with ADL's, To decrease level of supervision to perform tasks, To improve ability of physical actions for home/community/work/leisure, To improve gait and locomotor functions, To improve health of tissue, To increase flexibility/ROM, To improve balance, To improve safety with gait Therapeutic Exercise to Include: Strength training, Endurance training, Balance training, Postural training, Flexibilty training, Gait and locomotor training, Neuromotor development, Passive ROM, Active ROM, Dynamic Lumbar Stabilization, Scapular Strength/Stabilization For the Purpose of:: To improve muscle performance and motor function, To improve ability to perform ADL's, To increase tolerance to activity/condition/position, To improve performance and independence with ADL's, To decrease level of supervision to perform tasks, To improve ability of physical actions for home/community/work/leisure, To improve gait and locomotor functions, To improve health of tissue, To decrease soft tissue restriction, To increase flexibility/ROM, To improve endurance, To improve balance Functional Training to Include: ADL Training Manual Therapy Techniques to Include: Passive ROM For the Purpose of:: To increase ROM, To improve nutrient delivery to tissue IF ES: Yes For the Purpose of:: To improve nutrient delivery to tissue, To improve muscle performance and motor function, To improve ability to perform ADL's Thank you for the opportunity to evaluate your patient. For Medicare and Medicare HMO plans, please review the plan of care and approve it. It will need to be FAXED BACK to us at [phone] for Medicare purposes. For Medicare only, by signing this I certify the plan of care. Please let me know if there are questions or concerns regarding this plan of care. Physician Signature: Date:
--- NOTE | 2021-11-21 15:25 | HP.SP.DC_ITS ---
ST Discharge Summary - Discharged: Discharge: Fede Dobbs is discharged from [facility] as of November 21, 2021 as he had a hospital stay and is seeing Home Health speech therapy. He was evaluated on 10/25/21 with only one visit following that evaluation. His goals were focused on dysphagia as well as aphasia. Patient may return to outpatient therapy at a later date. A copy of this discharge summary will be sent to his referring physician.
--- NOTE | 2021-12-13 09:26 | HP.PTDCSUM ---
It has been my pleasure to treat HALLE ALVA referred by Dr. Ness John MD, with the diagnosis of R hemiplegia for a total of 1 visit(s). Discharge Date: Please see the following information for a summary of their discharge status. Goal 1:: I HEP Goal 2:: Be able to stand for 5 min with min A X 1 to get to astanding psition at the // bars Goal 3:: Be able to sit with back unsupported doing dynamic activity for 5 min without fatigue Goal 4:: Be able to stand piviot transfer with mod A X 1 Plan: Finish eval by transfer to mat and mat mobility and set additional goals. Goes by Don. Put gait belt low on hips due to R rib nerve pain. 2X/ week for 8 weeks for standing transfers, standing endurance, strengthening, posture and core strength/endurance, bed mobility, stretching, piviot transfers, Slide Board transfers, car transfers with HEP If there are questions or concerns regarding this patient's physical therapy, please feel free to call me at [phone]. Thank you for the referral of this patient. Sincerely, Maribeth Garcia, MPT Balance/Gait/Functional tests - Balance/Special Test Scores Lower Extremity Functional Score: 6
== END 2021-10-31 19:00 | disposition home or self-care (01) ==
LOC: SP 10:00
PROVIDERS: PCP Internal Medicine; Referring Provider Internal Medicine; Visit Provider Internal Medicine
DX: I69.359 Hemiplegia and hemiparesis following cerebral infarction affecting unspecified side (principal); R13.10 Dysphagia, unspecified; I69.220 Aphasia following other nontraumatic intracranial hemorrhage
CPT/HCPCS: 92507; 92610; 97162

== ENCOUNTER 2021-11-01 07:41 | Observation (INO) | payer MEDICARE, OTHER, SELFPAY ==
[2021-11-01] VITALS (16 sets, daily range): BP systolic 112–215; BP diastolic 73–142; PULSE 80–113; RESP 12–26; TEMP 33.3–37.7; O2SAT 93–100; BMI 24.0; BMI 22.8
--- NOTE | 2021-11-01 07:49 | CT_ITS ---
STUDY: CT BRAIN WITHOUT CONTRAST REASON FOR EXAM: Male, 71 years old. Altered mental status. Stroke alert. RADIATION DOSAGE (If Supplied By Facility): CTDIvol = ( 45 ) mGy, DLP = ( 866 ) mGycm TECHNIQUE: Transaxial CT imaging of the brain was performed without administration of intravenous contrast material. Individualized dose optimization techniques were used for this CT. COMPARISON: 06/25/21 FINDINGS: There is a stable old left frontal temporal infarct with encephalomalacia. There is no acute bleed or infarct. There are stable chronic ischemic and atrophic changes. The ventricles are normal in configuration. There is no hydrocephalus. The visualized paranasal sinuses are clear. The mastoid air cells are well aerated. There is no skull fracture. CT/STROKE Brain/Head without Cont IMPRESSION: Stable old left frontotemporal infarct with encephalomalacia. Stable chronic ischemic and atrophic changes. No acute intracranial abnormality. N.B. : The above Results were Read Back by Kenny Valadez MD to Vito Cortez MD, and understanding confirmed on 11/01/2021 08:08:37 (ET). Electronically Signed: Kenny Valadez MD at 8:09 EST ,
--- NOTE | 2021-11-01 07:49 | EKG12_ITS ---
Test Reason : STROKE Blood Pressure : / mmHG Vent. Rate : 099 BPM Atrial Rate : 099 BPM P-R Int : 136 ms QRS Dur : 100 ms QT Int : 382 ms P-R-T Axes : 044 057 036 degrees QTc Int : 490 ms Normal sinus rhythm Prolonged QT Abnormal ECG Confirmed by ANGELIQUE CHANEY, MILTON ([id number]), supervising film or videotape editor MEME YANEZ ([id number]) on 11/02/2021 11:50:49 AM Referred By: STEPHANIE Confirmed By:MILTON MERINO MD
--- NOTE | 2021-11-01 07:55 | CT_ITS ---
STUDY: CTA HEAD AND NECK WITH CONTRAST REASON FOR EXAM: Male, 71 years old. CVA RADIATION DOSAGE (If Supplied By Facility): CTDIvol = ( 24.32 ) mGy, DLP = ( 761.83 ) mGycm TECHNIQUE: CT angiography was performed with a multi-detector CT scanner. Data acquisition was obtained from the skull base through the vertex following intravenous administration of IV 100mL Isovue-370. MIP images were reconstructed from the axial data set. Post-processing of the angiographic images was performed, with multiplanar reformation and 3D reconstruction. Individualized dose optimization techniques were used for this CT. COMPARISON: No relevant priors. FINDINGS: Normal bilateral petrous carotid arteries. There is calcified plaque formation of the right cavernous carotid artery, without a cross-sectional luminal stenosis. There is calcified plaque formation of the left cavernous carotid artery, without a cross-sectional luminal stenosis. Normal right A1 segments of the anterior cerebral artery. Normal left A1 segments of the anterior cerebral artery. Normal intact anterior communicating artery (ACOM). Normal bilateral A2 segments of the anterior cerebral arteries. Normal right M1 and M2 segments of the middle cerebral arteries, with a normal M1 bifurcation. Normal left M1 and M2 segments of the middle cerebral arteries, with a normal M1 bifurcation. Normal right posterior communicating artery (PCOM). Normal left posterior communicating artery (PCOM). Normal bilateral vertebral arteries. Normal basilar artery with a normal basilar bifurcation. The visualized bilateral superior cerebellar (SCA) arteries are normal. Normal bilateral P1, P2 and visualized P3 segments of the posterior cerebral arteries. There is no demonstrated aneurysm of the [place]. There is no demonstrated abnormality of the visualized brain. AORTIC ARCH: There is atherosclerotic calcific plaque formation of the aortic arch and great vessels arising from the aortic arch, without a hemodynamically significant stenosis. There is a normal origin of the brachiocephalic, left common carotid, and left subclavian arteries. Nonstenotic calcific plaques at the origin of the left subclavian artery. RIGHT CAROTID ARTERIES: Normal right common carotid artery (CCA). Normal right common carotid bulb. There is mild atherosclerotic plaque formation of the origin of the right internal carotid artery with less than 50% cross sectional diameter stenosis. Normal visualized cervical portion of the right internal carotid artery. Normal origin of the right external carotid artery (ECA). LEFT CAROTID ARTERIES: Normal left common carotid artery (CCA). Normal left common carotid bulb. There is mild atherosclerotic plaque formation of the origin of the left internal carotid artery with less than 50% cross sectional diameter stenosis. Normal visualized cervical portion of the left internal carotid artery. Normal origin of the left external carotid artery (ECA). VERTEBRAL ARTERIES: There is enhancement within the bilateral vertebral arteries with a small right vertebral artery, and a dominant left vertebral artery. CT/STROKE CTA Head AND Neck W/Con IMPRESSION: Nonstenotic calcific plaques at the origin of the right and left internal carotid arteries. N.B. : Vito Cortez confirmed on 11/01/2021 08:24:14 (ET) that the referring physician received the results and does not require a verbal communication. Electronically Signed: Robles Sanchez MD at 8:25 EST ,
[2021-11-01 08:04] LABS: Absolute Neutrophil Count 3.2 X10^3/uL (2.0-7.7); Basophil# 0.04 X10^3/uL; Basophil% 0.8 % (0-1); Eosinophil# 0.26 X10^3/uL; Eosinophils% 4.9 % (0-5); Hematocrit 44.2 % (40-54); Hemoglobin 14.8 g/dL (13.0-16.5); Lymphocyte % 26.4 % (19-41); Mean Corp Hgb Conc 33.5 g/dL (32-36); Mean Corpuscular Hgb 29.2 pg (27.0-32.0); Mean Corpuscular Volume 87.2 fL (80-94); Mean Platelet Vol. 9.2 fl (6.2-12.0); Monocyte# 0.42 X10^3/uL; Monocyte% 7.9 % (0-10); NRBC Flagged by Analyzer 0 % (0-5); Neutrophil # 3.15 X10^3/uL (2.7-7.7); Neutrophil % 59.4 % (47-70); Platelet Count 189 K/mm3 (150-450); RBC Distribution Width CV 12.9 % (11.6-14.6); Red Blood Count 5.07 M/mm3 (4.6-6.2); White Blood Count 5.3 K/mm3 (4.4-11.0)
--- NOTE | 2021-11-01 08:05 | EDS_ITS ---
HPI History of Present Illness Chief Complaint: Mental Status Change Narrative Narrative: History and physical is limited secondary to patient condition,/previous stroke. Per EMS, patient has remote history last year in December of left-sided stroke with right-sided deficit, weakness of right upper and lower extremities. It was reported that this morning he was talking, and eating oatmeal with his . He experienced an aspiration episode, and now is not acting correctly. He is having difficulty with speech. [facility] Medical History Aphasia complicating stroke Benign prostate hyperplasia Dysphagia Munoz catheter in place History of hemorrhagic cerebrovascular accident (CVA) with residual deficit Hyperlipidemia Hypertension Osteoarthritis Right hemiparesis Seizure Stroke Urine retention Home Medications sertraline [Zoloft] 100 mg PO DAILY #30 tab 01/26/21 [Rx Last Taken 06/24/21] amlodipine 10 mg PO DAILY 30 Days #30 tab 06/27/21 [Rx Last Taken Unknown] nitrofurantoin macrocrystal 100 mg PO BID 07/20/21 [History Last Taken Unknown] vancomycin 125 mg PO 4X/DAY 07/20/21 [History Last Taken Unknown] Allergy/AdvReac Type Severity Reaction Status Date / Time No Known Allergies Allergy Verified 11/01/21 08:08 Family History Mother CVA (cerebral vascular accident) Rheumatoid arthritis Father Cancer Pancreatic cancer Surgical History History of umbilical hernia repair S/P tonsillectomy and adenoidectomy Social History housing: retirement Smoking Status: Former smoker alcohol intake: former substance use type: does not use ROS ROS ED ROS Narrative Unable to obtain review of systems from patient secondary to mental status. Review of Systems ROS Unobtainable: due to mental status EXAM Physical Exam Narrative Exam Narrative: Afebrile. Vital signs noted. HEENT: Normocephalic. Atraumatic. PERRL, EOMI. Neck soft and supple. No point tenderness or step off. Cardiovascular: Regular rate and rhythm. No murmurs, rubs, or gallops appreciated. Respiratory: No tachypnea. Lungs clear to auscultation bilaterally. Gastrointestinal: Abdomen soft, nontender, with normoactive bowel sounds. No rebound or guarding. Neurological: Awake. Alert. Right-sided contracture of upper extremity, chronic leg weakness. Positive expressive aphasia. Answers yes to multiple questions. Skin: No rash. Normal color. No pallor. Musculoskeletal: No pedal edema. Full range of motion extremities. Const Vital Signs: 11/01/21 07:42 11/01/21 07:53 11/01/21 08:03 Temperature 97.5 F L Temperature Source Temporal Pulse Rate 90 85 Respiratory Rate 22 H 18 Blood Pressure 142/73 H 137/81 H Blood Pressure Mean 96 99 Pulse Ox 95 95 96 Oxygen Delivery Method Room Air Room Air Room Air 11/01/21 08:18 11/01/21 08:42 11/01/21 09:00 Temperature Temperature Source Pulse Rate 85 86 86 Respiratory Rate 21 H 14 17 Blood Pressure 137/78 H 122/80 H 112/76 Blood Pressure Mean 97 94 88 Pulse Ox 96 94 95 Oxygen Delivery Method Room Air Room Air Room Air 11/01/21 10:00 Temperature Temperature Source Pulse Rate 80 Respiratory Rate 12 Blood Pressure 118/77 Blood Pressure Mean 90 Pulse Ox 94 Oxygen Delivery Method Room Air STROKE Vital Signs/Narrative: Vital Signs Temp Pulse Resp BP Pulse Ox 11/01/21 10:00 80 12 118/77 94 11/01/21 09:00 86 17 112/76 95 11/01/21 08:42 86 14 122/80 H 94 11/01/21 08:18 85 21 H 137/78 H 96 11/01/21 08:03 85 18 137/81 H 96 11/01/21 07:53 95 11/01/21 07:42 97.5 F L 90 22 H 142/73 H 95 MDM MDM MDM Narrative Medical decision making narrative: Upon arrival to the ED, patient has right- sided weakness that is as baseline. EMS did not mention problems with aphasia. Stroke team was called. His initial CT shows left-sided stroke and no significant change from previous. CTA was also obtained. However, his is now at the bedside. He has been evaluated by the stroke neurologist at the [facility]. According to his , he is at his baseline with his strokelike symptoms and he does have history of aphasia. He is having problems with dysphagia and had a swallow study recently. They are advancing to thin liquids out of a special cup, but he continues to have thickened liquids. His laboratory work is grossly unremarkable with a normal CBC, normal white count, stable hemoglobin of 14.8. Coags are negative. High-sensitivity troponin is negative at 6. His electrolyte panel is grossly unremarkable. His EKG demonstrates normal sinus rhythm at 99 bpm without ectopy or acute ST changes. CTA shows carotid artery/internal carotid with atherosclerotic changes but no large clot. The stroke team was called off. I do feel he had more of a choking episode that has resolved. Chest x-ray shows no evidence of aspiration pneumoni a. He does not have an elevated white count and is not febrile here. Hence, I think that antibiotics can be deferred/withheld. At this point in time, I do not feel that he requires admission as he is at his baseline with his stroke symptoms that are residual from last year. is agreeable to the plan. I feel he can be discharged safely home with follow-up. Return instructions were reviewed. Disposition is discharged home in stable condition. Lab Data Labs: Laboratory Results - last 24 hr 11/01/21 11/01/21 11/01/21 07:45 07:45 07:45 WBC 5.3 RBC 5.07 Hgb 14.8 Hct 44.2 MCV 87.2 MCH 29.2 MCHC 33.5 RDW Std Deviation 41.0 RDW Coeff of Osiris 12.9 Plt Count 189 MPV 9.2 Immature Gran % (Auto) 0.600 Neut % (Auto) 59.4 Lymph % (Auto) 26.4 Grand % (Auto) 7.9 Eos % (Auto) 4.9 Baso % (Auto) 0.8 Absolute Neuts (auto) 3.2 Absolute Lymphs (auto) 1.40 Nucleated RBC % 0 PT 14.5 INR 1.2 APTT 29.9 Sodium 137 Potassium 3.8 Chloride 104 Carbon Dioxide 24.0 Anion Gap 9 BUN 7 Creatinine 0.75 Estim Creat Clear Calc 75.46 Est GFR (MDRD) Af Amer 132 Est GFR (MDRD) Non-Af 109 BUN/Creatinine Ratio 9.4 L Glucose 104 Calcium 9.0 Troponin I High Sens 6 Radiography Diagnostic Testing: Clinical Impression(s) from Imaging Studies Brain CT 11/01/21 07:49 IMPRESSION: Stable old left frontotemporal infarct with encephalomalacia. Stable chronic ischemic and atrophic changes. No acute intracranial abnormality. N.B. : The above Results were Read Back by Kenny Valadez MD to Vito Cortez MD, and understanding confirmed on 11/01/2021 08:08:37 (ET). Electronically Signed: Kenny Valadez MD at 8:09 EST , ADDENDUM: 11/01/21 0816 IMPRESSION: Stable old left frontotemporal infarct with encephalomalacia. Stable chronic ischemic and atrophic changes. No acute intracranial abnormality. N.B. : The above Results were Read Back by Kenny Valadez MD to Vito Cortez MD, and understanding confirmed on 11/01/2021 08:08:37 (ET). Electronically Signed: Kenny Valadez MD at 8:09 EST , Head/Neck CTA 11/01/21 07:55 IMPRESSION: Nonstenotic calcific plaques at the origin of the right and left internal carotid arteries. N.B. : Vito Cortez confirmed on 11/01/2021 08:24:14 (ET) that the referring physician received the results and does not require a verbal communication. Electronically Signed: Robles Sanchez MD at 8:25 EST , ADDENDUM: 11/01/21 0832 IMPRESSION: Nonstenotic calcific plaques at the origin of the right and left internal carotid arteries. N.B. : Vito Cortez confirmed on 11/01/2021 08:24:14 (ET) that the referring physician received the results and does not require a verbal communication. Electronically Signed: Robles Sanchez MD at 8:25 EST , Chest X-Ray 11/01/21 08:45 IMPRESSION: No acute thoracic pathology. Electronically Signed: Kenny Valadez MD at 9:04 EST , Discharge Plan Triage Chief Complaint: Mental Status Change ED Provider: Vito Cortez Dx/Rx/DC Orders Clinical Impression: Choking episode, Dysphagia causing pulmonary aspiration with swallowing Instructions: Dysphagia Aspiration, ED Dysphagia (Adult) Prescriptions: No Action sertraline [Zoloft] 100 mg Tablet 100 mg PO DAILY Qty: 30 RF: 0 amlodipine 10 mg Tablet 10 mg PO DAILY 30 Days Qty: 30 RF: 0 vancomycin 125 mg capsule 125 mg PO 4X/DAY RF: 0 nitrofurantoin macrocrystal 100 mg capsule 100 mg PO BID RF: 0 Primary Care Provider: Ness John Referrals: Ness John MD [Primary Care Provider] - As Needed Disposition Disposition: Home, Self Care
--- NOTE | 2021-11-01 08:12 | ED.RN ---
0746 [facility] telemedicine called regarding stroke alert, 0801 patient back in room telemedicine notified. 0812 [facility] stat line called back as there was a delay noted- they are experiencing technical difficulties.
--- NOTE | 2021-11-01 08:15 | ED.RN ---
states patient awoke at 0530 AM had straight cath placed, was normal then. At 0630 AM patient woke for the day, at table eating breakfast and had what she describes as choking episode. Pt baseline is mild aphasia, right sided weakness to leg and arm from previous hemorrhagic stroke in December 2020. Noted to have right sided lean which is abnormal for patient.
[2021-11-01 08:20] LABS: Anion Gap 9 (5-15); BUN 7 mg/dL (7-18); BUN/Creat Ratio 9.4 RATIO (10-20); Chloride 104 mmol/L (98-107); Creatinine, Serum 0.75 mg/dL (0.70-1.30); EST Glomerular Filtration Rate 109 mL/min (>60); Est Glom Filt Rate - Afr Amer 132 mL/min (>60); Estimated Creatinine Clearance 75.46 ml/min; Glucose 104 mg/dL (74-106); Potassium 3.8 mmol/L (3.5-5.1); Sodium Level 137 mmol/L (136-145); Troponin-I HS 6 pg/mL (3.0-78.0)
[2021-11-01 08:29] LABS: International Normalized Ratio 1.2; Prothrombin Time (Protime)PT. 14.5 SECONDS (11.7-14.9)
--- NOTE | 2021-11-01 08:29 | ED.RN ---
Per Dr. Cortez, stroke cancelled after consulting with and [facility] telemedicine Dr. Shepherd, more respiratory assessment in nature.
[2021-11-01 08:30] LABS: Partial Thromboplast Time 29.9 Seconds (24.1-36.2)
--- NOTE | 2021-11-01 08:45 | RAD_ITS ---
STUDY: X-RAY CHEST REASON FOR EXAM: Male, 71 years old. Altered mental status TECHNIQUE: Frontal view of the chest COMPARISON: 05/13/21 FINDINGS: The lungs are clear. There are no pleural effusions. There is no pneumothorax. The heart is normal in size. The visualized osseous structures are within normal limits. RAD/Chest 1 View IMPRESSION: No acute thoracic pathology. Electronically Signed: Kenny Valadez MD at 9:04 EST ,
[2021-11-01] MEDS: LORazepam 2 MG/ML Syringe 1 MG IV (11:08)
--- NOTE | 2021-11-01 11:08 | ED.RN ---
Patient taken off all equipment awaiting EMS arrival for transport back to residence, IV discontinued, at bedside. 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
--- NOTE | 2021-11-01 11:13 | ED.RN ---
Patient witnessed seizure by staff lasting approximately 3 minutes, tonic clonic activity.
--- NOTE | 2021-11-01 11:51 | HP.PCM.HOS_ITS ---
HPI - General General Date of Admission: 11/01/21 Date of Service: 11/01/21 Chief Complaint: Mental status change HPI Narrative HALLE ALVA, is a 71 M who presented to the emergency department at [facility] on 11/01/2021 with acute mental status change. All information is obtained from the patient's as he has expressive aphasia related to a previous intraparenchymal hemorrhage. His reports that this morning he was talking and eating oatmeal and he experienced a aspiration episode and was not acting correctly afterwards. Mr. Alva suffered from a hemorrhagic stroke on 12/23/2020 to involve the left basal ganglia and the left frontal lobe that has resulted in right hemiparesis, right facial droop, dysarth john, and dysphagia. At that time he was transferred to [facility] and then underwent rehab here following. He was then discharged to [facility] where he was until April and has been home with his and her care since his discharge from the [facility]. He had overall been doing well. He has a chronic Munoz that was replaced on 06/08/2021 most recently and has an appointment with urology on Sunday to evaluate removal. This catheter has been in place since his stroke. [facility] he suffered from an episode that was concerning for seizure as [facility] staff noted some twitching in his upper extremities. At that time he was diagnosed with acute UTI discharged with antibiotics and has had no other events since that point in time until today. He was also admitted here in April with an acute UTI and was admitted in June with acute mental status change. I fortunately did his admission at that time and had concern for seizure disorder. He was admitted and was evaluated by [facility] teleneurology who did agree that he was likely having seizures and placed him on Keppra 500 mg p.o. twice daily. He unfortunately had significant sedation and confusion while on the Keppra and this was discontinued prior to discharge. At that time he was instructed to follow-up with a neurologist as an outpatient as soon as possible to start another antiepileptic medication but the patient never followed up per discussion with his as they were told by the primary care physician he was seeing at that time it was not necessary. His work-up here in the emergency department today is essentially negative and the initial plan was to discharge him home in stable condition however while he was getting ready be discharged he suffered from a seizure that was witnessed in the emergency department. He was given Ativan 1 mg x 1 dose at that time and at the time of my evaluation was slightly sleepy but for the most part back to his baseline upon discussion with his . Given the recurrent seizure and his current lack of being on antiepileptic medications and the need for more acute follow-up he was admitted for observation and an SOC consult was placed. We will start Vimpat here now until we have further input from neurology. [facility] Medical History Aphasia complicating stroke Benign prostate hyperplasia Dysphagia Munoz catheter in place History of hemorrhagic cerebrovascular accident (CVA) with residual deficit Hyperlipidemia Hypertension Osteoarthritis Right hemiparesis Seizure Stroke Urine retention Home Medications sertraline [Zoloft] 100 mg PO DAILY #30 tab 01/26/21 [Rx Last Taken 06/24/21] amlodipine 10 mg PO DAILY 30 Days #30 tab 06/27/21 [Rx Last Taken Unknown] nitrofurantoin macrocrystal 100 mg PO BID 07/20/21 [History Last Taken Unknown] vancomycin 125 mg PO 4X/DAY 07/20/21 [History Last Taken Unknown] Allergy/AdvReac Type Severity Reaction Status Date / Time No Known Allergies Allergy Verified 11/01/21 08:08 Family History Mother CVA (cerebral vascular accident) Rheumatoid arthritis Father Cancer Pancreatic cancer Surgical History History of umbilical hernia repair S/P tonsillectomy and adenoidectomy Social History [facility]: [facility] Smoking Status: Former smoker alcohol intake: former substance use type: does not use ROS ROS Narrative Unable to obtain review of systems from the patient as he has expressive aphasia all information in the HPI is from the Review of Systems ROS Unobtainable: other Vital Signs Vital Signs Vital Signs: 11/01/21 07:42 11/01/21 07:53 11/01/21 08:03 Temperature 97.5 F L Temperature Source Temporal Pulse Rate 90 85 Respiratory Rate 22 H 18 Blood Pressure 142/73 H 137/81 H Blood Pressure Mean 96 99 Pulse Ox 95 95 96 Oxygen Delivery Method Room Air Room Air Room Air 11/01/21 08:18 11/01/21 08:42 11/01/21 09:00 Temperature Temperature Source Pulse Rate 85 86 86 Respiratory Rate 21 H 14 17 Blood Pressure 137/78 H 122/80 H 112/76 Blood Pressure Mean 97 94 88 Pulse Ox 96 94 95 Oxygen Delivery Method Room Air Room Air Room Air 11/01/21 10:00 11/01/21 10:42 11/01/21 11:05 Temperature 92 F L Temperature Source Pulse Rate 80 81 94 Respiratory Rate 12 16 26 H Blood Pressure 118/77 143/86 H 215/142 H Blood Pressure Mean 90 166 Pulse Ox 94 93 Oxygen Delivery Method Room Air Room Air 11/01/21 11:16 Temperature Temperature Source Pulse Rate 81 Respiratory Rate 24 H Blood Pressure 135/84 H Blood Pressure Mean 101 Pulse Ox 96 Oxygen Delivery Method Room Air Weight Weight: 82.5 kg Body Mass Index (BMI) 24.0 Physical Exam Const alert, no apparent distress, average body habitus, healthy appearing and well nourished Constitutional Narrative: Alert older white male sitting up in bed, at bedside, patient follows commands however he has expressive aphasia and is unable to communicate, appears nontoxic and very pleasant currently on room air General Appearance: cooperative HEENT normocephalic, head/scalp atraumatic and hearing grossly normal bilaterally HEENT Narrative: Dentition is fair, Mallampati is 2, no thrush Eyes PERRL, EOMs intact bilaterally and conjunctivae normal Eyes Narrative: No scleral icterus Neck no lymphadenopathy, supple, no JVD and no carotid bruits Neck Narrative: Trachea midline, no thyroid enlargement Resp normal respiratory effort, no retractions, no use of accessory muscles and clear to auscultation bilaterally Auscultation: Negative for crackles, rales, rhonchi or wheezes Cardio regular rate, regular rhythm, S1 normal heart sound, S2 normal heart sound, no murmurs, no rub, no gallops, no clicks and no JVD GI normal to inspection, nondistended, normoactive bowel sounds, soft to palpation, non-tender and non-distended; Negative for hepatosplenomegaly Extremity no clubbing, cyanosis or edema Peripheral Pulses: Yes pulses 2+ throughout Skin no rashes or lesions noted, no wounds, skin turgor normal, no jaundice, no petechiae and no mottling Neuro Neuro Narrative: Mild right facial droop, right tongue deviation-all other cranial nerves intact, right hemiparesis, dysarthria, expressive aphasia Sensorium / Orientation: awake and alert Psych affect normal Results Lab / Micro Data Attestation: I reviewed the patient's lab results. Result Diagrams: 11/01/21 07:45 11/01/21 07:45 Labs: Laboratory Results - last 24 hr 11/01/21 07:45: WBC 5.3, RBC 5.07, Hgb 14.8, Hct 44.2, MCV 87.2, MCH 29.2, MCHC 33.5, RDW Std Deviation 41.0, RDW Coeff of Osiris 12.9, Plt Count 189, MPV 9.2, Immature Gran % (Auto) 0.600, Neut % (Auto) 59.4, Lymph % (Auto) 26.4, Johnson % (Auto) 7.9, Eos % (Auto) 4.9, Baso % (Auto) 0.8, Absolute Neuts (auto) 3.2, Absolute Lymphs (auto) 1.40, Nucleated RBC % 0 11/01/21 07:45: PT 14.5, INR 1.2, APTT 29.9 11/01/21 07:45: Sodium 137, Potassium 3.8, Chloride 104, Carbon Dioxide 24.0, Anion Gap 9, BUN 7, Creatinine 0.75, Estim Creat Clear Calc 75.46, Est GFR (MDRD) Af Amer 132, Est GFR (MDRD) Non-Af 109, BUN/Creatinine Ratio 9.4 L, Glucose 104, Calcium 9.0, Troponin I High Sens [address] 11/01/21 07:49 IMPRESSION: Stable old left frontotemporal infarct with encephalomalacia. Stable chronic ischemic and atrophic changes. No acute intracranial abnormality. N.B. : The above Results were Read Back by Kenny Valadez MD to Vito Cortez MD, and understanding confirmed on 11/01/2021 08:08:37 (ET). Electronically Signed: Kenny Valadez MD at 8:09 EST , ADDENDUM: 11/01/21 0816 IMPRESSION: Stable old left frontotemporal infarct with encephalomalacia. Stable chronic ischemic and atrophic changes. No acute intracranial abnormality. N.B. : The above Results were Read Back by Kenny Valadez MD to Vito Cortez MD, and understanding confirmed on 11/01/2021 08:08:37 (ET). Electronically Signed: Kenny Valadez MD at 8:09 EST , Head/Neck CTA 11/01/21 07:55 IMPRESSION: Nonstenotic calcific plaques at the origin of the right and left internal carotid arteries. N.B. : Vito Cortez confirmed on 11/01/2021 08:24:14 (ET) that the referring physician received the results and does not require a verbal communication. Electronically Signed: Robles Sanchez MD at 8:25 EST , ADDENDUM: 11/01/21 0832 IMPRESSION: Nonstenotic calcific plaques at the origin of the right and left internal carotid arteries. N.B. : Vito Cortez confirmed on 11/01/2021 08:24:14 (ET) that the referring physician received the results and does not require a verbal communication. Electronically Signed: Robles Sanchez MD at 8:25 EST , Chest X-Ray 11/01/21 08:45 IMPRESSION: No acute thoracic pathology. Electronically Signed: Kenny Valadez MD at 9:04 EST , Assessment & Plan Assessment/Plan (1) Seizure: PLAN: Seizure -Witnessed in the emergency department -Patient had been started on Keppra here in June when he was admitted for suspected seizures but unfortunately he did not tolerate Keppra well as it made him drunk and very sleepy -He was discharged at that time without an AED and recommended to follow-up with outpatient neurology however this appointment had never been made as his previous PCP instructed him he did not need neurology follow-up -We will start Vimpat 100 mg twice daily as this should have less side effects -Seizure precautions -As needed Ativan -No EEG at this time as patient does have structural changes in his cerebrum related to his recent intraparenchymal hemorrhage in December 2020 -Consult SOC neurology for input on AEDs and any further recommendations -Probable discharge tomorrow 11/02/2021 History of urinary tract infection/urinary retention/BPH -Patient no longer has a chronic Munoz -Incomplete bladder emptying and straight caths every 6 hours for about 250 cc -Straight cath order in place -Patient to follow-up as an outpatient with Dr. Hinton History of intraparenchymal hemorrhage -December 2020 -Seems that this was related to uncontrolled hypertension -Patient following with therapies as an outpatient -No current changes -Residual deficits are right-sided hemiparesis with hypertonicity, dysarthria, dysphagia Dysphagia/dysarthria -Patient will be following with speech as an outpatient -Modified diet is mechanical soft with nectar thick liquids -Patient has been cleared for thin liquids however the states that he does better with nectar thick liquids as he takes big gulps with thin liquids and it has been problematic so therefore we will continue nectar thick liquids while he is admitted Hypertension -Continue amlodipine -Continue to monitor Depression -Continue Zoloft History of hepatitis C -Underwent treatment in 2016 History of heavy alcohol abuse -No use since stroke History of tobacco abuse -Remote DVT prophylaxis -Lovenox prophylactic dosing -SCDs CODE STATUS -DNR CCA no intubation per discussion with the patient and his in the emergency department upon admission Charges/Coding Visit Charges Inpatient E&M: 16588 Init Hosp L3
--- NOTE | 2021-11-01 12:31 | ED.RN ---
Patient straight cath'd at home every 6 hours due to unable to completely empty bladder. Straight cath with 15FR engle placed, 350ml urine drained. Bedding changed as patient incontinent of stools.
[2021-11-01] MEDS: Lacosamide 50 MG Tablet 100 MG PO ×2 (14:20→22:18)
[2021-11-01 14:40] LABS: Red Blood Cells-Urine 0 SEEN /hpf (0-5)
[2021-11-01 14:42] LABS: Color, Urine Straw (Yellow); Glucose, Dipstick Normal (Normal); Ketone-Dipstick Negative (Negative); Leukocyte Esterase-Dipstick Negative /ul (Negative); Nitrite-Dipstick Positive (Negative); Occult Blood-Urine Negative /ul (Negative); Protein-Dipstick Negative (Negative); Specific Gravity, Urine 1.015 (1.002-1.030); Urine Bilirubin Dipstick Negative (Negative); Urine Clarity Sl. Cloudy (Clear); Urine Urobilinogen Normal (Normal)
[2021-11-01 14:49] LABS: White Blood Cells 0-5 SEEN /hpf (0-5)
[2021-11-01 14:50] LABS: Bacteria 3+ /hpf (None Seen); Mucous, Urine RARE /hpf (<or=2+); Squamous Epithelial Cells - UA 0-5 SEEN /hpf (0-5)
--- NOTE | 2021-11-01 15:35 | NURSING ---
called to room by CPS stating she thinks patient was having a seizure. pt found to have gaze to right with fine clonic jerking movements and unresponsive to verbal stimuli. after 30sec pt came to pt is able to respond verbally to yes/no questions. lasted from onset 1.5min per cps. [address] 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 informed her seizure was over before could get ativan to given. aware she will order vimpat.
--- NOTE | 2021-11-01 15:48 | CASEMGMT ---
Social Work Note Per business unit director questions, pt has completed HCPOA and LW and provided documents to [facility]. SW reviewed chart, both HCPOA and LW are on file. SW printed off documents and placed on pt's chart. Luiza Jacome ADMINISTRATOR HEALTH CARE FACILITY, [employer]
[2021-11-01] MEDS: 0.9% Saline Lock 10 ML Syringe IV ×2 (16:16→20:18)
--- NOTE | 2021-11-01 17:26 | CM.ED ---
SW Note Referral Source: Drill Operator [employer] Referral Reason: Support Drill Operator [employer] said that patient had a seizure and his is very upset. SW met with patient's . Introduced self and role. SW provided emotional support. was then able to visit with patient and said that she had no further needs or concerns. SW remains available. Plan: Emotional Support Elvira SELLERS
[2021-11-01] MEDS: Ondansetron 4 MG/2 ML Vial IV (20:18)
[2021-11-02] VITALS (7 sets, daily range): BP systolic 128–142; BP diastolic 76–91; PULSE 71–92; RESP 16–18; TEMP 36.7–37.1; O2SAT 93–97
[2021-11-02] MEDS: amLODIPine 10 MG Tablet PO (09:04)
[2021-11-02] MEDS: Enoxaparin 40 MG/0.4 ML Syringe SC (09:04)
[2021-11-02] MEDS: Sertraline 100 MG Tablet PO (09:04)
[2021-11-02] MEDS: Lacosamide 50 MG Tablet 100 MG PO (09:04)
--- NOTE | 2021-11-02 11:04 | DS.PCM_ITS ---
Providers Date of Admission: 11/01/21 Primary Care Physician: Dr. Ness John MD Reason For Visit: SEIZURE Diagnosis Discharge Diagnosis (1) Seizure: Status: Acute Code(s): R56.9 - Unspecified convulsions Medications at Discharge Home Medications sertraline [Zoloft] 100 mg PO DAILY #30 tab 01/26/21 amlodipine 10 mg PO DAILY 30 Days #30 tab 06/27/21 Probiotic 3,000 mmu cells PO DAILY 11/01/21 lacosamide [Vimpat] 100 mg PO BID #60 tab 11/02/21 lamotrigine [Lamictal] 25 mg PO DAILY 42 Days #147 tab 11/02/21 Hospital Course Operations None Procedures None Summary of Care Provided Minutes Spent on Discharge: 45 Hospital Course: HALLE ALVA, is a 71 M who presented to the emergency department at [facility] on 11/01/2021 with acute mental status change. All information is obtained from the patient's as he has expressive aphasia related to a previous intraparenchymal hemorrhage. His reported that on the morning of admission he was talking and eating oatmeal and he experienced a aspiration episode and was not acting correctly afterwards. Mr. Alva suffered from a hemorrhagic stroke on 12/23/2020 that involved the left basal ganglia and the left frontal lobe that has resulted in right hemiparesis, right facial droop, dysarthria, and dysphagia. At that time, he was transferred to [facility] and then underwent rehab here following. He was then discharged to [facility], [place] where he was until April and has been home with his and her care since his discharge from the [facility]. He had overall been doing well. While he was at the intermediate in March he suffered from an episode that was concerning for seizure as [facility] staff noted some twitching in his upper extremities. At that time he was diagnosed with acute UTI discharged with antibiotics and has had no other events since that point in time until today. He was also admitted here in April with an acute UTI and was admitted in June with acute mental status change. He was admitted and was evaluated by [facility] who did agree that he was likely having seizures and placed him on Keppra 500 mg p.o. twice daily. He unfortunately had significant sedation and confusion while on the Keppra and this was discontinued prior to discharge. At that time he was instructed to follow-up with a neurologist as an outpatient as soon as possible to start another antiepileptic medication but the patient never followed up per discussion with his as they were told by the primary care physician he was seeing at that time it was not necessary. His work-up here in the emergency department on the day of admission is essentially negative and the initial plan was to discharge him home in stable condition however while he was getting ready be discharged he suffered from a seizure that was witnessed in the emergency department. He was given Ativan 1 mg x 1 dose at that time and at the time of my evaluation was slightly sleepy but for the most part back to his baseline upon discussion with his . Given the recurrent seizure and his current lack of being on antiepileptic medications and the need for more acute follow-up he was admitted for observation and an [facility] consult was placed. He was placed on oral Vimpat 100 mg twice daily and admitted to the medical floor. [facility] neurology did see the patient and agreed to continue Vimpat and to reconsult them if any need occurred. The patient did have a seizure while admitted the hospital on the medical floor and at that time we decided to bolus him with a loading dose of Vimpat 200 mg x 1 dose. Since that time he did quite well and has had no further events. The plan was to discharge him on Vimpat 100 mg p.o. twice daily but it this is evidently quite costly and was going to cost them $500 a month for the medication. We reconsulted [facility] neurology for other suggestions and their suggestion was to give him the Vimpat 100 mg twice daily for 1 month while we could get him patient assistance and start Lamictal with a slow titration up. The recommendation for the Lamictal titration was 25 mg daily for a week, 25 mg twice daily for a week, 25 mg in the a.m. and 50 mg at at bedtime x1 week, 50 mg twice daily x1 week, 50 mg in the a.m. and 100 mg at at bedtime x1 week, and 100 mg twice daily x1 week. The neurologist felt we could stop titration there and after 4 weeks the patient could discontinue his Vimpat. She also recommended follow-up with outpatient neurology and recommendations for outpatient follow-up were given to the at discharge with instruction to call make an appointment as soon as possible. Of note a UA was obtained while he was hospitalized and was questionable for infection and a urine culture was sent. At the time of discharge his urine cx was showing growth of a GNR but he has had similar cx in the past and his last 2 organisms have been the same. His has not noted any urinary changes and he has had no fever or WBC ct elevation. The patient had a recent severe bout of C. difficile and his would like to defer antibiotics at this time as she has not noticed any changes either. I told her that I do not disagree and discussed this with his primary care physician who will follow up on the culture to assure that the cultures are resulted is similar to previous. She indicated she would follow-up with him shortly and agreed with neurology follow-up. Discharge diagnoses: Seizures Chronic bacteriuria BPH History of intraparenchymal hemorrhage Dysphagia Dysarthria Hypertension Depression History of hepatitis C History of heavy alcohol abuse History of tobacco abuse Physical Exam Const alert, no apparent distress, average body habitus, healthy appearing and well nourished Constitutional Narrative: Alert older white male sitting up in bed, at bedside, patient follows commands however he has expressive aphasia and is unable to communicate consistently, appears nontoxic and very pleasant currently on room air General Appearance: cooperative, comfortable, well kempt and well developed Orientation / Consciousness: awake HEENT normocephalic, head/scalp atraumatic, hearing grossly normal bilaterally and mo ist oral mucous membranes HEENT Narrative: Mallampati is 2, no thrush, dentition is fair Eyes PERRL, EOMs intact bilaterally and conjunctivae normal Eyes Narrative: No scleral icterus Neck no lymphadenopathy, supple and no JVD Neck Narrative: Trachea midline, no thyroid enlargement Resp normal respiratory effort, no retractions, no use of accessory muscles and clear to auscultation bilaterally Auscultation: Negative for crackles, rales, rhonchi or wheezes Cardio regular rate, regular rhythm, S1 normal heart sound, S2 normal heart sound, no murmurs, no rub, no gallops, no clicks and no JVD GI normal to inspection, nondistended, normoactive bowel sounds, soft to palpation, non-tender and non-distended; Negative for hepatosplenomegaly Extremity no clubbing, cyanosis or edema Extremity Narrative: 2+ pedal pulses Skin no rashes or lesions noted, no wounds, skin turgor normal, no jaundice, no petechiae and no mottling Neuro Neuro Narrative: Mild right facial droop, right tongue deviation-all other cranial nerves intact, right hemiparesis, dysarthria, expressive aphasia Sensorium / Orientation: awake and alert Psych affect normal Weight / BMI Weight Weight: 78.6 kg Body Mass Index (BMI) 22.8 ABG / Lab / Microbiology Data Result Diagrams: 11/01/21 07:45 11/01/21 07:45 Laboratory: Laboratory Results - last 24 hr 11/01/21 12:30: Urine Color Straw, Urine Clarity Sl. Cloudy, Urine pH 8.0, Ur Specific [place] 1.015, Urine Protein Negative, Urine Glucose (UA) Normal, Urine Ketones Negative, Urine Occult Blood Negative, Urine Nitrite Positive H, Urine Bilirubin Negative, Urine Urobilinogen Normal, Ur Leukocyte Esterase Negative, Urine RBC 0 SEEN, Urine WBC 0-5 SEEN, Ur Squamous Epith Cells 0-5 SEEN, Urine Bacteria 3+, Urine Mucus RARE D/C Instructions Discharge Diet: Low fat / Low cholesterol (Mechanical soft/nectar thick liquid diet) Discharge Activity: Return to Normal Activity Meaningful Use Info Meaningful Use Diagnoses (Choose all that apply): None applicable Discharge Plan Admission Admit Date/Time: 11/01/21 11:32 Primary Reason for Your Visit: Seizures Attending Provider: Alisha Fletcher Primary Care Provider: Ness John Instructions Patient Instructions: First Aid: Seizures, Discharge Instructions for Epilepsy Additional Instructions / Restrictions: 1. Continue Vimpat x1 month and then stop 2. Lamictal will be initiated with a slow up titration please follow titration closely Discharge Orders/Prescriptions Prescriptions: New Vimpat 50 mg Tablet 100 mg PO BID Qty: 60 RF: 1 lamotrigine [Lamictal] 25 mg tablet 25 mg PO DAILY 42 Days Qty: 147 RF: 0 Continued sertraline [Zoloft] 100 mg Tablet 100 mg PO DAILY Qty: 30 RF: 0 amlodipine 10 mg Tablet 10 mg PO DAILY 30 Days Qty: 30 RF: 0 Probiotic 3 billion cell Capsule 3,000 mmu cells PO DAILY RF: 0 Referrals / Follow Up: Ness John MD [Primary Care Provider] - See Referral Note (as scheduled) Armando Damian MD [NON-STAFF] - Within 1 Month (Seizures) Disposition Disposition (needs filled in before D/C Order can be placed): Home, Self Care Charges/Coding Visit Charges Inpatient E&M: 27557 Disch Hosp
--- NOTE | 2021-11-02 14:30 | CASEMGMT ---
Social Work Note SW updated that RX assistance form needs completed. SW completed RX assistance form and tubed to retail pharmacy. Luiza Jacome MANAGER OF BUSINESS, [employer] AND RECAUSTICIZING OPERATOR
--- NOTE | 2021-11-02 16:40 | NURSING ---
Addendum entered by Rubina Castillo 11/02/21 17:39: retail pharmacy delivered meds up to unit. physicians ambulance called for transportation. 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 appointment was made and pt and updated.
== END 2021-11-02 17:50 | disposition home or self-care (01) ==
LOC: ED 11:36 → MS3 12:03
PROVIDERS: Admitting Provider Internal Medicine; Emergency Provider Emergency Medicine; PCP Internal Medicine; Visit Provider Internal Medicine
DX: G40.901 Epilepsy, unspecified, not intractable, with status epilepticus (principal); I69.351 Hemiplegia and hemiparesis following cerebral infarction affecting right dominant side; I10 Essential (primary) hypertension; E78.5 Hyperlipidemia, unspecified; F32.A Depression, unspecified; I69.322 Dysarthria following cerebral infarction; N40.1 Benign prostatic hyperplasia with lower urinary tract symptoms; R47.9 Unspecified speech disturbances; I69.391 Dysphagia following cerebral infarction; I69.392 Facial weakness following cerebral infarction; R33.9 Retention of urine, unspecified; Z79.899 Other long term (current) drug therapy; Z87.891 Personal history of nicotine dependence; Z86.19 Personal history of other infectious and parasitic diseases; R94.31 Abnormal electrocardiogram [ECG] [EKG]
CPT/HCPCS: 70450; 70496; 70498; 71045; 80048; 81001; 84484; 85025; 85610; 85730; 87077; 87086; 87088; 87186; 93005; 96365; 96372; 96375; 99218; 99285; Q9967; A4216; C9254; G0378; J2405; J3490

== ENCOUNTER 2021-12-26 10:20 | Emergency (ER) | payer MEDICARE, OTHER, SELFPAY ==
[2021-12-26 10:21] VITALS: BP 124/70; PULSE 97; RESP 16; TEMP 37.1; O2SAT 98; BMI 24.7
--- NOTE | 2021-12-26 10:42 | EDS_ITS ---
HPI History of Present Illness Chief Complaint: Seizure Narrative Narrative: 71-year-old male with history of hemorrhagic stroke with right-sided residual debility presenting for evaluation of seizure. Patient recently admitted in October for seizures. He had a reaction to Keppra which made him feel drunk. His states that he was very confused during treatment. He has tried Vimpat at home but his states that he cannot afford this. He has also been on Lamictal which gives him an allergic reaction with rash to the neck and face. reports a similar reaction with oxcarbazepine. Patient's states that she did speak with Dr. Tinajero office and was told to discontinue the medication and wait 2 weeks until the rash resolves. The rash is resolving. Patient's states he was going to come in Sunday to see what other medications he can use. Patient reportedly had approximately a 2-minute seizure in the car today which was witnessed by his . Patient's states that he was drooling and his right arm seem to be more contracted than previously. His left leg appears to be limp. She thought maybe he bit his tongue because it was a small amount of blood in his mouth. Patient currently alert and awake and at baseline. [facility] Medical History Alcohol abuse Aphasia complicating stroke Benign prostate hyperplasia Dysphagia Munoz catheter in place Former smoker Hepatitis C History of hemorrhagic cerebrovascular accident (CVA) with residual deficit Hyperlipidemia Hypertension Non-smoker Osteoarthritis Right hemiparesis Seizure Seizure Skin cancer Stroke Urine retention UTI (urinary tract infection) Home Medications sertraline [Zoloft] 100 mg PO DAILY #30 tab 01/26/21 [Rx Last Taken 11/01/21] amlodipine 10 mg PO DAILY 30 Days #30 tab 06/27/21 [Rx Last Taken 11/01/21] Probiotic 3,000 mmu cells PO DAILY 11/01/21 [History Last Taken 10/31/21] cholecalciferol (vitamin D3) [Vitamin D3] 125 mcg PO DAILY 12/26/21 [History Last Taken Unknown] Allergy/AdvReac Type Severity Reaction Status Date / Time Sulfa (Sulfonamide Allergy Severe Bleeding Verified 12/26/21 10:26 Antibiotics) Family History Mother CVA (cerebral vascular accident) Rheumatoid arthritis Anxiety Depression Mental disorder Psychiatric care Father Cancer Pancreatic cancer Brother Depression Surgical History History of umbilical hernia repair S/P tonsillectomy and adenoidectomy Status post partial removal of lung Social History housing: senior living Smoking Status: Former smoker alcohol intake: current Alcohol type: beer substance use type: does not use what type of physical activity do you participate in: other details: table tennis 2x week ROS ROS ED Constitutional Constitutional ED: Denies chills or fever(s) Eyes Eyes: Denies blurry vision or diplopia ENT ENT ED: Denies rhinorrhea or sore throat Cardiovascular Cardiovascular: Denies chest pain or palpitations Respiratory/Chest Respiratory/Chest: Denies cough or dyspnea Gastrointestinal Gastrointestinal: Denies abdominal pain, nausea or vomiting Genitourinary Genitourinary ED: Denies dysuria or hematuria Musculoskeletal Musculoskeletal: Denies arthralgias or myalgias Integumentary Denies rash Neurologic Neurologic: Denies headache(s) or weakness Psychiatric Psychiatric: Denies anxiety or depression EXAM Physical Exam Const Vital Signs: 12/26/21 10:21 12/26/21 11:44 12/26/21 12:45 Temperature 98.7 F Temperature Source Temporal Pulse Rate 97 82 78 Respiratory Rate 16 17 16 Blood Pressure 124/70 H 129/82 H 124/77 H Blood Pressure Mean 88 97 92 Pulse Ox 98 97 98 Oxygen Delivery Method Room Air Positive well nourished General Appearance ED: NAD HEENT Reports moist mucous membranes Negative for trauma Eyes PERRL and EOMs intact bilaterally General Eye ED: Negative for pale conjunctiva or scleral icterus Neck no lymphadenopathy and supple Chest Wall inspection of chest normal Resp normal respiratory effort and clear to auscultation bilaterally Cardio regular rate and regular rhythm GI normal to inspection, nondistended, normoactive bowel sounds Neuro oriented x3 Sensorium / Orientation: alert Psych mental status grossly normal Skin no rashes or lesions noted MDM MDM MDM Narrative Medical decision making narrative: Patient with history of seizures off of his medication presenting after 2 to 3-minute seizure occurred in his car. Witnessed by his . Patient not on anticoagulation. Patient alert and awake on initial examination. He has no new deficits. Bystanders at baseline. Patient patient CT of the brain performed and the radiologist read this as 8.6 mm area of petechial hemorrhage which is new in the left parietal lobe. Patient discussed with neurosurgery at [facility]. They recommended transport to [facility]. The neurologist Dr. Rivera recommended did not start him on any antiepileptic medicine. He stated that if he had any focal seizures to use Ativan. He had no return of seizures in the emergency room. Discussed with [facility] and they cannot fly. They did obtain transport and came to the emergency room. Full report was given to them. CBC, CMP unremarkable. High-sensitivity troponin is less than 3. PT/INR normal. Urinalysis negative. Impression: 1. Seizure 2. Hemorrhage left parietal lobe Lab Data Attestation: I reviewed the patient's lab results. Labs: Laboratory Results - last 24 hr 12/26/21 12/26/21 12/26/21 10:28 10:28 10:28 WBC 5.5 RBC 4.84 Hgb 14.4 Hct 42.7 MCV 88.2 MCH 29.8 MCHC 33.7 RDW Std Deviation 42.1 RDW Coeff of Osir[place] 12.9 Plt Count 213 MPV 9.3 Immature Gran % (Auto) 0.500 Neut % (Auto) 68.7 Lymph % (Auto) 19.1 [place] % (Auto) 9.0 Eos % (Auto) 2.2 Baso % (Auto) 0.5 Absolute Neuts (auto) 3.8 Absolute Lymphs (auto) 1.06 Nucleated RBC % 0 PT 14.3 INR 1.2 Sodium 135 L Potassium 4.1 Chloride 103 Carbon Dioxide 25.0 Anion Gap 7 BUN 6 L Creatinine 0.68 L Estim Creat Clear Calc 75.46 Est GFR (MDRD) Af Amer 146 Est GFR (MDRD) Non-Af 121 BUN/Creatinine Ratio 8.8 L Glucose 108 H Calcium 8.4 L Total Bilirubin 0.60 AST 19 ALT 17 Alkaline Phosphatase 104 Troponin I High Sens < 3 L Total Protein 7.1 Albumin 3.7 Globulin 3.4 Albumin/Globulin Ratio 1.1 Urine Color Urine Clarity Urine pH Ur Specific [place] Urine Protein Urine Glucose (UA) Urine Ketones Urine Occult Blood Urine Nitrite Urine Bilirubin Urine Urobilinogen Ur Leukocyte Esterase Urine RBC Urine WBC Ur Squamous Epith Cells Urine Bacteria Urine Mucus 12/26/21 12:05 WBC RBC Hgb Hct MCV MCH MCHC RDW Std Deviation RDW Coeff of [place] Plt Count MPV Immature Gran % (Auto) Neut % (Auto) Lymph % (Auto) [place] % (Auto) Eos % (Auto) Baso % (Auto) Absolute Neuts (auto) Absolute Lymphs (auto) Nucleated RBC % PT INR Sodium Potassium Chloride Carbon Dioxide Anion Gap BUN Creatinine Estim Creat Clear Calc Est GFR (MDRD) Af Amer Est GFR (MDRD) Non-Af BUN/Creatinine Ratio Glucose Calcium Total Bilirubin AST ALT Alkaline Phosphatase Troponin I High Sens Total Protein Albumin Globulin Albumin/Globulin Ratio Urine Color Yellow Urine Clarity Clear Urine pH 8.0 Ur Specific [place] 1.015 Urine Protein 15 H Urine Glucose (UA) Normal Urine Ketones Negative Urine Occult Blood 10 H Urine Nitrite Negative Urine Bilirubin Negative Urine Urobilinogen Normal Ur Leukocyte Esterase 25 H Urine RBC 0-5 SEEN Urine WBC 0-5 SEEN Ur Squamous Epith Cells 0 SEEN Urine Bacteria 0 SEEN Urine Mucus 0 SEEN Radiography Diagnostic Testing: Clinical Impression(s) from Imaging Studies Brain CT 12/26/21 11:08 IMPRESSION: Chronic involutional changes of the brain. Encephalomalacia in the left frontal parietal lobes with new focal area of petechial hemorrhage as described. This measures 8.6 mm. Electronically Signed: Robles Sanchez MD at 11:23 EDT , Chest X-Ray 12/26/21 11:11 IMPRESSION: Stable mild increased markings at the left lung base suggestive of scarring. Soft tissue density seen overlying the medial aspect of the left lower lobe. This may represent either hiatal hernia or possible mass lesion/infiltration. Electronically Signed: Robles Sanchez MD at 11:25 EDT , Discharge Plan Triage Chief Complaint: Seizure ED Provider: Mario Garcia Dx/Rx/DC Orders Prescriptions: No Action sertraline [Zoloft] 100 mg Tablet 100 mg PO DAILY Qty: 30 RF: 0 amlodipine 10 mg Tablet 10 mg PO DAILY 30 Days Qty: 30 RF: 0 Probiotic 3 billion cell Capsule 3,000 mmu cells PO DAILY RF: 0 cholecalciferol (vitamin D3) [Vitamin D3] 125 mcg (5,000 unit) Tablet 125 mcg PO DAILY RF: 0 Primary Care Provider: Ness John Referrals: Ness John MD [Primary Care Provider] - Disposition Disposition: Acute Care Hospital Discharge Location: [facility] Discharge Date/Time: 12/26/21 12:58
[2021-12-26 10:58] LABS: Absolute Lymphocyte Count 1.06 X10^3/uL (0.83-4.51); Absolute Neutrophil Count 3.8 X10^3/uL (2.0-7.7); Basophil# 0.03 X10^3/uL; Basophil% 0.5 % (0-1); Eosinophil# 0.12 X10^3/uL; Eosinophils% 2.2 % (0-5); Hematocrit 42.7 % (40-54); Hemoglobin 14.4 g/dL (13.0-16.5); Lymphocyte # 1.06 X10^3/ul (0.83-4.51); Lymphocyte % 19.1 % (19-41); Mean Corp Hgb Conc 33.7 g/dL (32-36); Mean Corpuscular Hgb 29.8 pg (27.0-32.0); Mean Corpuscular Volume 88.2 fL (80-94); Mean Platelet Vol. 9.3 fl (6.2-12.0); NRBC Flagged by Analyzer 0 % (0-5); Neutrophil % 68.7 % (47-70); Platelet Count 213 K/mm3 (150-450); RBC Distribution Width CV 12.9 % (11.6-14.6); RBC Distribution Width SD 42.1 fl (35.1-43.9); Red Blood Count 4.84 M/mm3 (4.6-6.2); White Blood Count 5.5 K/mm3 (4.4-11.0)
--- NOTE | 2021-12-26 11:08 | CT_ITS ---
STUDY: CT BRAIN WITHOUT CONTRAST REASON FOR EXAM: Male, 71 years old. Seizure RADIATION DOSAGE (If Supplied By Facility): CTDIvol = ( 44.99 ) mGy, DLP = ( 863.60 ) mGycm TECHNIQUE: Transaxial CT imaging of the brain was performed without administration of intravenous contrast material. Individualized dose optimization techniques were used for this CT. COMPARISON: Comparison is made with prior study dated 11/01/2021. FINDINGS: Normal soft tissue structures. Normal calvarium. There is mild cerebral atrophy with widening of the extra-axial spaces and ventricular dilatation. There are areas of decreased attenuation within the white matter tracts of the supratentorial brain, consistent with microvascular disease changes. Focal encephalomalacia in the left frontal parietal lobes. At this time, a 8.6 mm focus of increased density is seen in the region of the insular cortex of the left temporal lobe. This may represent a focal area of petechial hemorrhage. Normal basal ganglia and thalami. Normal brainstem. Normal cerebellum. There is no intracranial hemorrhage. There are no findings of an acute ischemic infarction. Normal visualized paranasal sinuses. CT/Brain/Head without Contrast IMPRESSION: Chronic involutional changes of the brain. Encephalomalacia in the left frontal parietal lobes with new focal area of petechial hemorrhage as described. This measures 8.6 mm. Electronically Signed: Robles Sanchez MD at 11:23 EDT ,
--- NOTE | 2021-12-26 11:11 | RAD_ITS ---
STUDY: X-RAY CHEST REASON FOR EXAM: Male, 71 years old. Weakness TECHNIQUE: Single AP portable view of the chest. COMPARISON: Comparison is made with prior study dated 11/01/2021. FINDINGS: EKG electrodes are seen. Mild increased markings at the left lung base suggestive of scarring. There is no demonstrated pleural abnormality. Normal size heart. Normal mediastinum and shahnaz. Normal visualized pulmonary arteries. Normal visualized aortic arch and descending thoracic aorta. Normal visualized thoracic spine. Normal visualized ribs, clavicles, and shoulders. Soft tissue density is seen along the medial aspect of the left lung base. This may represent either hiatal hernia or possible consolidation. Follow-up is recommended. RAD/Chest 1 View (Portable) IMPRESSION: Stable mild increased markings at the left lung base suggestive of scarring. Soft tissue density seen overlying the medial aspect of the left lower lobe. This may represent either hiatal hernia or possible mass lesion/infiltration. Electronically Signed: Robles Sanchez MD at 11:25 EDT ,
[2021-12-26 11:18] LABS: ALB/GLOB Ratio 1.1 RATIO (0.9-2.4); AST(SGOT) 19 U/L (15-37); Alanine Aminotransfer ALT/SGPT 17 U/L (16-61); Albumin, Serum 3.7 g/dL (3.2-5.0); Alkaline Phosphatase 104 U/L (45-117); Anion Gap 7 (5-15); BUN 6 mg/dL (7-18); BUN/Creat Ratio 8.8 RATIO (10-20); Calcium,Total 8.4 mg/dL (8.5-10.1); Chloride 103 mmol/L (98-107); Creatinine, Serum 0.68 mg/dL (0.70-1.30); EST Glomerular Filtration Rate 121 mL/min (>60); Est Glom Filt Rate - Afr Amer 146 mL/min (>60); Estimated Creatinine Clearance 75.46 ml/min; Globulin 3.4 g/dL (2.2-4.2); Glucose 108 mg/dL (74-106); Potassium 4.1 mmol/L (3.5-5.1); Protein, Total 7.1 g/dL (6.4-8.2); Sodium Level 135 mmol/L (136-145); Troponin-I HS < 3 pg/mL (3.0-78.0)
[2021-12-26 11:22] LABS: International Normalized Ratio 1.2; Prothrombin Time (Protime)PT. 14.3 SECONDS (11.7-14.9)
[2021-12-26 11:44] VITALS: BP 129/82; PULSE 82; RESP 17; O2SAT 97
[2021-12-26 12:07] LABS: Bacteria 0 SEEN /hpf (None Seen); Mucous, Urine 0 SEEN /hpf (<or=2+); Squamous Epithelial Cells - UA 0 SEEN /hpf (0-5)
[2021-12-26 12:10] LABS: Color, Urine Yellow (Yellow); Glucose, Dipstick Normal (Normal); Ketone-Dipstick Negative (Negative); Leukocyte Esterase-Dipstick 25 /ul (Negative); Nitrite-Dipstick Negative (Negative); Occult Blood-Urine 10 /ul (Negative); Protein-Dipstick 15 mg/dl (Negative); Specific Gravity, Urine 1.015 (1.002-1.030); Urine Bilirubin Dipstick Negative (Negative); Urine Clarity Clear (Clear); Urine Urobilinogen Normal (Normal)
[2021-12-26 12:19] LABS: Red Blood Cells-Urine 0-5 SEEN /hpf (0-5); White Blood Cells 0-5 SEEN /hpf (0-5)
[2021-12-26 12:45] VITALS: BP 124/77; PULSE 78; RESP 16; O2SAT 98
== END 2021-12-26 12:58 | disposition short-term general hospital (02) ==
LOC: ED 10:51
PROVIDERS: Emergency Provider Student in an Organized Health Care Education/Training Program; PCP Internal Medicine; Visit Provider Student in an Organized Health Care Education/Training Program
DX: I61.1 Nontraumatic intracerebral hemorrhage in hemisphere, cortical (principal); G40.909 Epilepsy, unspecified, not intractable, without status epilepticus; I69.298 Other sequelae of other nontraumatic intracranial hemorrhage; I10 Essential (primary) hypertension; E78.5 Hyperlipidemia, unspecified; Z87.891 Personal history of nicotine dependence; Z85.828 Personal history of other malignant neoplasm of skin; Z87.440 Personal history of urinary (tract) infections; N40.0 Benign prostatic hyperplasia without lower urinary tract symptoms; Z79.899 Other long term (current) drug therapy
CPT/HCPCS: 70450; 71045; 80053; 81001; 84484; 85025; 85610; 99285; A4216

== ENCOUNTER 2022-01-03 15:26 | Outpatient (CLI) | payer MEDICARE, OTHER, SELFPAY ==
[2022-01-03 17:36] LABS: Hematocrit 43.7 % (40-54); Mean Corp Hgb Conc 34.3 g/dL (32-36); Mean Corpuscular Hgb 29.5 pg (27.0-32.0); Mean Corpuscular Volume 85.9 fL (80-94); Mean Platelet Vol. 9.6 fl (6.2-12.0); Platelet Count 219 K/mm3 (150-450); RBC Distribution Width CV 12.5 % (11.6-14.6); RBC Distribution Width SD 39.1 fl (35.1-43.9); Red Blood Count 5.09 M/mm3 (4.6-6.2); White Blood Count 5.6 K/mm3 (4.4-11.0)
[2022-01-03 17:55] LABS: ALB/GLOB Ratio 1.1 RATIO (0.9-2.4); AST(SGOT) 9 U/L (15-37); Alanine Aminotransfer ALT/SGPT 13 U/L (16-61); Albumin, Serum 3.8 g/dL (3.2-5.0); Alkaline Phosphatase 92 U/L (45-117); Anion Gap 6 (5-15); BUN 7 mg/dL (7-18); BUN/Creat Ratio 14.1 RATIO (10-20); Calcium,Total 8.8 mg/dL (8.5-10.1); Chloride 104 mmol/L (98-107); EST Glomerular Filtration Rate 174 mL/min (>60); Est Glom Filt Rate - Afr Amer 211 mL/min (>60); Globulin 3.5 g/dL (2.2-4.2); Glucose 101 mg/dL (74-106); Potassium 3.9 mmol/L (3.5-5.1); Protein, Total 7.3 g/dL (6.4-8.2); Sodium Level 135 mmol/L (136-145)
[2022-01-03 18:11] LABS: Valproic Acid (Depakene) Level 133 ug/mL (50-100)
== END 2022-01-03 23:59 | disposition home or self-care (01) ==
LOC: MTLAB 15:27
PROVIDERS: PCP Internal Medicine; Referring Provider Psychiatry & Neurology Neurology; Visit Provider Psychiatry & Neurology Neurology
DX: G40.909 Epilepsy, unspecified, not intractable, without status epilepticus (principal); I61.9 Nontraumatic intracerebral hemorrhage, unspecified
CPT/HCPCS: 36415; 80053; 80164; 82140; 85027

== ENCOUNTER 2022-02-02 03:59 | Emergency (ER) | payer MEDICARE, OTHER, SELFPAY ==
[2022-02-02 04:01] VITALS: BP 127/77; PULSE 86; RESP 22; TEMP 36.5; O2SAT 92; BMI 26.1
--- NOTE | 2022-02-02 04:03 | CT_ITS ---
STUDY: CT BRAIN WITHOUT CONTRAST REASON FOR EXAM: Male, 71 years old. ams RADIATION DOSAGE (If Supplied By Facility): CTDIvol = ( 44.99 ) mGy, DLP = ( 863.60 ) mGycm TECHNIQUE: Transaxial CT imaging of the brain was performed without administration of intravenous contrast material. Individualized dose optimization techniques were used for this CT. COMPARISON: No relevant priors. FINDINGS: Normal soft tissue structures. Normal calvarium. There is a chronic appearing ischemic infarct in the left parietal white matter extending from the cortex to the left lateral ventricle. Normal size ventricles and extra-axial spaces for the patient''s age. Normal white matter tracts of the cerebral hemispheres. Normal basal ganglia and thalami. Normal brainstem. Normal cerebellum. There is no intracranial hemorrhage. There are no findings of an acute ischemic infarction. Normal visualized paranasal sinuses. CT/Brain/Head without Contrast IMPRESSION: There is a left lateral parietal chronic appearing ischemic infarct. Electronically Signed: Ilir Vázquez MD at 5:30 EDT ,
--- NOTE | 2022-02-02 04:04 | EKG12_ITS ---
Test Reason : DYSRHYTHMIA Blood Pressure : / mmHG Vent. Rate : 091 BPM Atrial Rate : 091 BPM P-R Int : 168 ms QRS Dur : 096 ms QT Int : 368 ms P-R-T Axes : 049 054 055 degrees QTc Int : 452 ms Normal sinus rhythm Normal ECG Confirmed by YAJAIRA CHANEY, JUAN MANUEL ([id number]), map editor MEME YANEZ ([id number]) on 02/03/2022 11:03:22 A M Referred By: GIACOMO Confirmed By:ADONIS GATES MD
--- NOTE | 2022-02-02 04:05 | EX.ED.DYSGE1 ---
HPI History of Present Illness Chief Complaint: Seizure Informant: patient, spouse/S.O. and EMS Narrative Narrative: 71-year-old male who has a history of a hemorrhagic CVA that has left him with significant aphasia and right-sided deficits presenting to the emergency department with altered mental status. informed EMS that they went to bed around 2100 hrs. She woke to find him breathing funny and not responsive. EMS notes that he seemed to have agonal respirations upon their arrival and improved in route and is now awake and slowly answering questions. He reportedly has recently started having seizures and is on Depakote. After initial evaluation the arrived. She tells me that she heard him breathing funny while he was in his bed. She went to check on him and noticed that both arms were drawn up and tense his eyes were not responding and his feet were tense. She is unsure of how long that lasted. But it was gone for EMS. [facility] Medical History Alcohol abuse Aphasia complicating stroke Benign prostate hyperplasia Dysphagia Munoz catheter in place Former smoker Hepatitis C History of hemorrhagic cerebrovascular accident (CVA) with residual deficit Hyperlipidemia Hypertension Non-smoker Osteoarthritis Right hemiparesis Seizure Seizure Skin cancer Stroke Urine retention UTI (urinary tract infection) Home Medications sertraline [Zoloft] 100 mg PO DAILY #30 tab 01/26/21 [Rx Last Taken 11/01/21] amlodipine 10 mg PO DAILY 30 Days #30 tab 06/27/21 [Rx Last Taken 11/01/21] Probiotic 3,000 mmu cells PO DAILY 11/01/21 [History Last Taken 10/31/21] cholecalciferol (vitamin D3) [Vitamin D3] 125 mcg PO DAILY 12/26/21 [History Last Taken Unknown] divalproex 250 mg tablet,delayed release 250 mg PO BID #60 tab 01/03/22 [Rx Last Taken Unknown] Allergy/AdvReac Type Severity Reaction Status Date / Time Sulfa (Sulfonamide Allergy Severe Bleeding Verified 01/03/22 14:31 Antibiotics) Family History Mother CVA (cerebral vascular accident) Rheumatoid arthritis Anxiety Depression Mental disorder Psychiatric care Father Cancer Pancreatic cancer Brother Depression Surgical History History of umbilical hernia repair S/P tonsillectomy and adenoidectomy Status post partial removal of lung Social History housing: [facility] Smoking Status: Former smoker alcohol intake: current Alcohol type: beer substance use type: does not use what type of physical activity do you participate in: other details: table tennis 2x week ROS ROS ED Review of Systems ROS Unobtainable: due to mental status EXAM Physical Exam Const Vital Signs: 02/02/22 04:01 Temperature 97.7 F L Temperature Source Temporal Pulse Rate 86 Respiratory Rate 22 H Blood Pressure 127/77 H Blood Pressure Mean 93 Pulse Ox 92 Oxygen Delivery Method Room Air Positive well nourished and well developed General Appearance ED: well developed HEENT Reports normocephalic, head/scalp atraumatic, TM's clear and moist mucous membranes Negative for trauma Tympanic Membrane ED: Yes TM's clear Eyes PERRL and EOMs intact bilaterally Neck no lymphadenopathy, supple and no JVD Resp normal respiratory effort and clear to auscultation bilaterally Cardio regular rate, regular rhythm and no murmurs GI normal to inspection, nondistended, normoactive bowel sounds and non-tender Palpation: soft Back/Spine no CVA tenderness and normal ROM Extremity normal to inspection General Extremety ED: Negative for edema General Extremity: Negative for edema Neuro CN's II-XII intact bilaterally Neuro Narrative: Chronic right-sided deficits. He is moving his left arm is able to keep it up off the bed. He is moving his left leg. Patient is starting to try to answer some questions. Sensorium / Orientation: alert Psych Mood & Affect: Negative for depressed or tearful Skin no rashes or lesions noted MDM MDM MDM Narrative Medical decision making narrative: Seizure precautions were placed and he is placed on the monitor. White count at 4.0 hemoglobin 14.5. Creatinine 0.69. LFTs normal valproic acid is therapeutic at 76. Lactic acid is elevated at 4.1. Urinalysis is positive for nitrates 3+ bacteria but only 5-[address] of the brain was nonacute. In speaking with the she notes that he is colonized with bacteria. He has also had C. difficile in the past. He does not have a fever and he does not have a white count. We talked about whether or not to treat this. At this point were going to do a culture and she will speak with her doctor later today about whether or not to treat it but she is very nervous about him getting C. difficile again. I think that this is a reasonable approach. It appears the patient has achieved his neurologic baseline. The is comfortable taking him home. Lab Data Attestation: I reviewed the patient's lab results. Labs: Laboratory Results - last 24 hr 02/02/22 02/02/22 02/02/22 04:05 04:05 04:05 WBC 4.0 L RBC 4.89 Hgb 14.5 Hct 43.4 MCV 88.8 MCH 29.7 MCHC 33.4 RDW Std Deviation 42.5 RDW Coeff of Osiris 13.0 Plt Count 155 MPV 9.3 Immature Gran % (Auto) 0.800 Neut % (Auto) 54.8 Lymph % (Auto) 32.3 [place] % (Auto) 9.0 Eos % (Auto) 2.3 Baso % (Auto) 0.8 Absolute Neuts (auto) 2.2 Absolute Lymphs (auto) 1.29 Nucleated RBC % 0 Sodium 134 L Potassium 3.9 Chloride 100 Carbon Dioxide 25.0 Anion Gap 9 BUN 6 L Creatinine 0.69 L Estim Creat Clear Calc 73.29 Est GFR (MDRD) Af Amer 144 Est GFR (MDRD) Non-Af 119 BUN/Creatinine Ratio 8.7 L Glucose 88 Lactic Acid Calcium 8.8 Total Bilirubin 0.50 AST 7 L ALT 12 L Alkaline Phosphatase 84 Troponin I High Sens 7 Total Protein 7.1 Albumin 3.9 Globulin 3.2 Albumin/Globulin Ratio 1.2 Urine Color Urine Clarity Urine pH Ur Specific [place] Urine Protein Urine Glucose (UA) Urine Ketones Urine Occult Blood Urine Nitrite Urine Bilirubin Urine Urobilinogen Ur Leukocyte Esterase Urine RBC Urine WBC Ur Squamous Epith Cells Urine Bacteria Urine Mucus Valproic Acid 76 02/02/22 02/02/22 04:05 04:30 WBC RBC Hgb Hct MCV MCH MCHC RDW Std Deviation RDW Coeff of Osir[place] Plt Count MPV Immature Gran % (Auto) Neut % (Auto) Lymph % (Auto) [place] % (Auto) Eos % (Auto) Baso % (Auto) Absolute Neuts (auto) Absolute Lymphs (auto) Nucleated RBC % Sodium Potassium Chloride Carbon Dioxide Anion Gap BUN Creatinine Estim Creat Clear Calc Est GFR (MDRD) Af Amer Est GFR (MDRD) Non-Af BUN/Creatinine Ratio Glucose Lactic Acid 4.1 H* Calcium Total Bilirubin AST ALT Alkaline Phosphatase Troponin I High Sens Total Protein Albumin Globulin Albumin/Globulin Ratio Urine Color Yellow Urine Clarity Clear Urine pH 7.0 Ur Specific [place] 1.010 Urine Protein 15 H Urine Glucose (UA) Normal Urine Ketones Negative Urine Occult Blood 10 H Urine Nitrite Positive H Urine Bilirubin Negative Urine Urobilinogen Normal Ur Leukocyte Esterase 500 H Urine RBC 0 SEEN Urine WBC 5-10 SEEN Ur Squamous Epith Cells 0 SEEN Urine Bacteria 3+ Urine Mucus 0 SEEN Valproic Acid Radiography Diagnostic Testing: Clinical Impression(s) from Imaging Studies Brain CT 02/02/22 04:03 IMPRESSION: There is a left lateral parietal chronic appearing ischemic infarct. Electronically Signed: Ilir Vázquez MD at 5:30 EDT , EKG Initial EKG: Attestation: I personally reviewed and interpreted this EKG as follows: Comments: Normal sinus rhythm ventricular rate of 91 bpm Discharge Plan Triage Chief Complaint: Seizure Other Complaint: Abd Pain ED Provider: Hemanth Quintero Dx/Rx/DC Orders Clinical Impression: Epileptic seizure, Acute cystitis Instructions: ED Seizure, Recurrent (Adult), ED Bladder Infection, Male (Adult) Prescriptions: No Action divalproex 250 mg tablet,delayed release (DR/EC) 250 mg PO BID Qty: 60 RF: 4 sertraline [Zoloft] 100 mg Tablet 100 mg PO DAILY Qty: 30 RF: 0 amlodipine 10 mg Tablet 10 mg PO DAILY 30 Days Qty: 30 RF: 0 Probiotic 3 billion cell Capsule 3,000 mmu cells PO DAILY RF: 0 cholecalciferol (vitamin D3) [Vitamin D3] 125 mcg (5,000 unit) Tablet 125 mcg PO DAILY RF: 0 Primary Care Provider: Ness John Referrals: Ness John MD [Primary Care Provider] - As Needed Disposition Disposition: Home, Self Care
[2022-02-02 04:15] LABS: Hematocrit 43.4 % (40-54); Hemoglobin 14.5 g/dL (13.0-16.5); Red Blood Count 4.89 M/mm3 (4.6-6.2)
[2022-02-02 04:16] LABS: Absolute Lymphocyte Count 1.29 X10^3/uL (0.83-4.51); Absolute Neutrophil Count 2.2 X10^3/uL (2.0-7.7); Basophil# 0.03 X10^3/uL; Basophil% 0.8 % (0-1); Eosinophil# 0.09 X10^3/uL; Eosinophils% 2.3 % (0-5); Lymphocyte # 1.29 X10^3/ul (0.83-4.51); Lymphocyte % 32.3 % (19-41); Mean Corp Hgb Conc 33.4 g/dL (32-36); Mean Corpuscular Hgb 29.7 pg (27.0-32.0); Mean Corpuscular Volume 88.8 fL (80-94); Mean Platelet Vol. 9.3 fl (6.2-12.0); Monocyte# 0.36 X10^3/uL; NRBC Flagged by Analyzer 0 % (0-5); Neutrophil % 54.8 % (47-70); Platelet Count 155 K/mm3 (150-450); RBC Distribution Width SD 42.5 fl (35.1-43.9)
[2022-02-02 04:36] LABS: ALB/GLOB Ratio 1.2 RATIO (0.9-2.4); AST(SGOT) 7 U/L (15-37); Alanine Aminotransfer ALT/SGPT 12 U/L (16-61); Albumin, Serum 3.9 g/dL (3.2-5.0); Alkaline Phosphatase 84 U/L (45-117); Anion Gap 9 (5-15); BUN 6 mg/dL (7-18); BUN/Creat Ratio 8.7 RATIO (10-20); Calcium,Total 8.8 mg/dL (8.5-10.1); Chloride 100 mmol/L (98-107); Creatinine, Serum 0.69 mg/dL (0.70-1.30); EST Glomerular Filtration Rate 119 mL/min (>60); Est Glom Filt Rate - Afr Amer 144 mL/min (>60); Estimated Creatinine Clearance 73.29 ml/min; Globulin 3.2 g/dL (2.2-4.2); Glucose 88 mg/dL (74-106); Potassium 3.9 mmol/L (3.5-5.1); Protein, Total 7.1 g/dL (6.4-8.2); Sodium Level 134 mmol/L (136-145); Troponin-I HS 7 pg/mL (3.0-78.0)
[2022-02-02 04:38] LABS: Mucous, Urine 0 SEEN /hpf (<or=2+); Red Blood Cells-Urine 0 SEEN /hpf (0-5); Squamous Epithelial Cells - UA 0 SEEN /hpf (0-5)
[2022-02-02 04:39] LABS: Color, Urine Yellow (Yellow); Glucose, Dipstick Normal (Normal); Ketone-Dipstick Negative (Negative); Leukocyte Esterase-Dipstick 500 /ul (Negative); Nitrite-Dipstick Positive (Negative); Occult Blood-Urine 10 /ul (Negative); Protein-Dipstick 15 mg/dl (Negative); Urine Bilirubin Dipstick Negative (Negative); Urine Clarity Clear (Clear); Urine Urobilinogen Normal (Normal)
[2022-02-02 04:49] LABS: Valproic Acid (Depakene) Level 76 ug/mL (50-100)
[2022-02-02 05:02] LABS: Lactic Acid 4.1 mmol/L (0.4-1.9)
[2022-02-02 05:07] LABS: Bacteria 3+ /hpf (None Seen); White Blood Cells 5-10 SEEN /hpf (0-5)
[2022-02-02 05:48] VITALS: BP 129/73; PULSE 74; RESP 18; O2SAT 95
[2022-02-02 08:13] LABS: Reflex Lactate? Y
== END 2022-02-02 06:09 | disposition home or self-care (01) ==
PROVIDERS: Emergency Provider Emergency Medicine; PCP Internal Medicine; Visit Provider Emergency Medicine
DX: G40.909 Epilepsy, unspecified, not intractable, without status epilepticus (principal); Z87.891 Personal history of nicotine dependence; I10 Essential (primary) hypertension; N30.00 Acute cystitis without hematuria; E78.5 Hyperlipidemia, unspecified; I69.320 Aphasia following cerebral infarction; I69.398 Other sequelae of cerebral infarction; M19.90 Unspecified osteoarthritis, unspecified site; Z85.828 Personal history of other malignant neoplasm of skin; Z87.440 Personal history of urinary (tract) infections; N40.0 Benign prostatic hyperplasia without lower urinary tract symptoms; Z79.899 Other long term (current) drug therapy
CPT/HCPCS: 70450; 80053; 80164; 81001; 83605; 84484; 85025; 87077; 87086; 87088; 87186; 93005; 99285; A4216

== ENCOUNTER → 2022-02-21 | Outpatient (CLI) | payer MEDICARE, OTHER, SELFPAY ==
[2022-02-21 12:21] LABS: Vitamin D,25 Hydroxy 35.4 ng/mL
== END | disposition home or self-care (01) ==
PROVIDERS: Psychiatry & Neurology Neurology; PCP Internal Medicine; Referring Provider Internal Medicine; Visit Provider Internal Medicine
DX: E55.9 Vitamin D deficiency, unspecified (principal); R79.89 Other specified abnormal findings of blood chemistry
CPT/HCPCS: 36415; 82140; 82306

== ENCOUNTER → 2022-03-31 | Outpatient (CLI) | payer MEDICARE, OTHER, SELFPAY ==
--- NOTE | 2022-03-31 09:55 | US_ITS ---
STUDY: ABDOMINAL ULTRASOUND - RIGHT UPPER QUADRANT REASON FOR VISIT: Male, 71 years old HX HEP C TECHNIQUE: Ultrasound evaluation of the right upper quadrant was performed with real-time and static reynoso-scale imaging. TECHNICAL QUALITY: Adequate. COMPARISON: None. FINDINGS: Liver: The liver measures 15.8 cm. There is a heterogeneous echogenicity of the liver. The bile ducts are within normal limits. There is hepatic color flow. The direction of portal flow is hepatopetal. There is a 2.1 cm x 2 cm x 2.2 cm cyst in the right lobe of the liver. Gallbladder: Normal distended gallbladder. The gallbladder wall measures 4 mm. There is a negative sonographic Roe''s sign. There is no pericholecystic fluid. There are no gallstones. Common Bile Duct (C.B.D.): The common bile duct measures 5 mm. Pancreas: There is nonvisualization of the pancreas due to overlying bowel gas. Right Kidney: Normal size of the right kidney. The right kidney measures 10.4 cm x 5.6 cm x 5.7 cm. Normal renal cortex. The right cortex measures 1.6 cm. There is no demonstrated renal mass or cyst. There is no right hydronephrosis. US/Liver IMPRESSION: Heterogeneous echotexture of the liver. 2.1 cm x 2 cm x 2.2 cm cyst in the right lobe of the liver. Electronically Signed: Robles Sanchez MD at 10:57 EDT ,
== END | disposition home or self-care (01) ==
LOC: US 09:53
PROVIDERS: PCP Internal Medicine; Referring Provider Internal Medicine; Visit Provider Internal Medicine
DX: R79.89 Other specified abnormal findings of blood chemistry (principal); Z86.19 Personal history of other infectious and parasitic diseases
CPT/HCPCS: 76705

== ENCOUNTER 2022-04-14 08:26 | Outpatient (CLI) | payer MEDICARE, OTHER, SELFPAY ==
[2022-04-14 10:27] LABS: Carbamazepine (Tegretol) 6.3 ug/mL (4.0-12.0)
[2022-04-14 10:28] LABS: Sodium Level 135 mmol/L (136-145)
== END 2022-04-14 23:59 | disposition home or self-care (01) ==
PROVIDERS: PCP Internal Medicine; Referring Provider Psychiatry & Neurology Neurology; Visit Provider Psychiatry & Neurology Neurology
DX: G40.909 Epilepsy, unspecified, not intractable, without status epilepticus (principal)
CPT/HCPCS: 36415; 80156; 82140; 84295

== ENCOUNTER → 2022-04-24 | Outpatient (CLI) | payer MEDICARE, OTHER, SELFPAY ==
--- NOTE | 2022-04-24 09:42 | US_ITS ---
STUDY: ABDOMINAL ULTRASOUND - ELASTOGRAPHY REASON FOR VISIT: Male, 71 years old. Fatty infiltration of the liver. TECHNIQUE: Liver stiffness measurements were obtained on a Snipi RS 85 ultrasound machine using a CA 1-7 probe following the SRU guidelines. 3 measurements were obtained using a 2-D-SWE method. The IQR/M was 126% suggesting a quality data set. TECHNICAL QUALITY: Adequate. COMPARISON: Comparison is made with prior sonogram of the right upper quadrant dated 03/31/2022. FINDINGS: Liver: Fatty infiltration of the liver. Median liver stiffness measured 5.7 kPa. US/Elastography Parenchyma/Organ IMPRESSION: Liver stiffness measures 5.7 kPa compatible with F0-F1 (Normal to mild liver fibrosis) Metavir score. Electronically Signed: Robles Sanchez MD at 10:35 EDT ,
== END | disposition home or self-care (01) ==
LOC: US 09:41
PROVIDERS: PCP Internal Medicine; Referring Provider Internal Medicine; Visit Provider Internal Medicine
DX: R93.2 Abnormal findings on diagnostic imaging of liver and biliary tract (principal)
CPT/HCPCS: 76981

== ENCOUNTER → 2022-05-05 | Outpatient (CLI) | payer MEDICARE, OTHER, SELFPAY | END | disposition home or self-care (01) | LOC: MTLAB 08:48 | PROVIDERS: PCP Internal Medicine; Referring Provider Psychiatry & Neurology Neurology; Visit Provider Psychiatry & Neurology Neurology | DX: E72.20 Disorder of urea cycle metabolism, unspecified (principal) | CPT/HCPCS: 36415; 82140 ==

== ENCOUNTER → 2022-06-26 | Outpatient (CLI) | payer MEDICARE, OTHER, SELFPAY ==
--- NOTE | 2022-06-26 09:11 | US_ITS ---
STUDY: ABDOMINAL ULTRASOUND - RIGHT UPPER QUADRANT REASON FOR VISIT: Male, 72 years old ABNORMAL LIVER US -- FOLLOW UP CYST TECHNIQUE: Ultrasound evaluation of the right upper quadrant was performed with real-time and static reynoso-scale imaging. TECHNICAL QUALITY: Adequate. COMPARISON: Comparison is made with prior study dated 03/31/2022. FINDINGS: Liver: The liver measures 16.4 cm. There is normal echogenicity of the liver. The bile ducts are within normal limits. There is hepatic color flow. The direction of portal flow is hepatopetal. There is a 3.2 cm x 2.8 cm x 2 cm cyst in the right lobe of the liver. This has increased slightly in size as compared to prior study Gallbladder: Normal distended gallbladder. The gallbladder wall measures 2.8 mm. There is a negative sonographic Roe''s sign. There is no pericholecystic fluid. There are no gallstones. Common Bile Duct (C.B.D.): The common bile duct measures 4.8 mm. Pancreas: There is nonvisualization of the pancreas due to overlying bowel gas. Right Kidney: Normal size of the right kidney. The right kidney measures 11.3 cm x 4.4 cm x 5.5 cm. Normal renal cortex. The right cortex measures 1.5 cm. There is no demonstrated renal mass or cyst. There is no right hydronephrosis. US/Abdomen Limited IMPRESSION: Mild degree of enlargement of the cyst in the right lobe of the liver. Electronically Signed: Robles Sanchez MD at 14:12 EDT ,
== END | disposition home or self-care (01) ==
LOC: US 09:10
PROVIDERS: PCP Internal Medicine; Referring Provider Internal Medicine; Visit Provider Internal Medicine
DX: R93.2 Abnormal findings on diagnostic imaging of liver and biliary tract (principal)
CPT/HCPCS: 76705

== ENCOUNTER 2022-07-04 15:00 | Outpatient (RCR) | payer MEDICARE, OTHER, SELFPAY ==
--- NOTE | 2021-12-21 11:31 | ST ---
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 He received inpatient speech therapy services for aphasia, dysarthria, and dysphagia from 01/04/2021-01/25/2021. Pt had MBS study 01/18/2021 revealing silent aspiration of thin liquids. He is currently seeing home health speech therapy for oropharyngeal strengthening and training in diet recommendations: Minced and moist textures / Mildly thick liquids and Huang Free Water Protocol. The patient has been referred for repeat MBS study to assess appropriateness for diet advancement. Additional PMH includes Aphasia, Benign prostate hyperplasia, HLD, HTN, Osteoarthritis, R hemiparesis, and Urine retention. Current Diet Ordered: Minced and Moist Textures / [place] Thick Liquids Dentition: Upper Dentures, Lower Dentures Comment: Pt has aphasia. He demonstrated ability to follow all commands during the study. Respiratory Status: Oxygenating on Room Air - Penetration-Aspiration Scale Penetration-Aspiration Scale: OBJECTIVE ASSESSMENT OF SWALLOW FUNCTION (QUANTITATIVE ? PER TRIAL): PENETRATION / ASPIRATION SCALE (MONIQUE): 1 = does not enter airway 2 = enters airway/above vocal folds/ejected 3 = enters airway/above vocal folds/not ejected 4 = enters airway/contacts vocal folds/ejected 5 = enters airway/contacts vocal folds/not ejected 6 = enters airway/below vocal folds/ejected 7 = enters airway/below vocal folds/not ejected despite effort 8 = enters airway/below vocal folds/no effort VIDEOFLOROSCOPIC SCALE SCORE (MONIQUE): Grade I = aspiration of material that has penetrated into the laryngeal vestibule, intact cough reflex Grade II = aspiration < 10 % of the bolus, intact cough reflex Grade III = aspiration of < 10 % of the bolus, reduced cough reflex or aspiration of > 10 % of the bolus, intact cough reflex Grade IV = aspiration of > 10 % of the bolus, reduced cough reflex - Penetration-Aspiration Scale Score Thin Liquid via teaspoon Result: 1= does not enter airway Thin Liquid via teaspoon Trial 2 Result: 1= does not enter airway Thin Liquid via small single sip from cup Result: 1= does not enter airway Thin Liquid via small single sip from cup Trial 2 Result: 1= does not enter airway Thin Liquid via sequential sips from cup Result: 8= enters airway/below vocal folds/no effort Comment: Grade III = aspiration of < 10 % of the bolus, SILENT aspiration Thin Liquid via small single sip from cup Trial 3 Result: 1= does not enter airway [place] Thick Liquid via small single sip from cup Result: 1= does not enter airway Honey Thick Liquid via small single sip from cup Result: 1= does not enter airway Pudding with esophageal screen Result: 1= does not enter airway Cookie Result: 2= enter airway/above vocal folds/ejected Thin Liquid via single sip from straw Result: 1= does not enter airway Thin Liquid via sequential sips from straw Result: 6= enters airway/below vocal folds/ejected Comment: Cough reflex appeared to fully eject contrast aspirated just below vocal folds. Thin Liquid via small single sip from cup Trial 4 Result: 1= does not enter airway Thin Liquid via teaspoon Trial 3 Result: 8= enters airway/below vocal folds/no effort Comment: Grade III = aspiration of < 10 % of the bolus, SILENT aspiration Thin Liquid via small single sip from cup Trial 5 Result: 1= does not enter airway - Oral Phase Labial Seal: No Labial Escape Tongue Control During Bolus Hold: Posterior escape of greater than half of bolus Bolus Preparation/Mastication: Disorganized chewing/mashing with solid pieces of bolus unchewed Bolus Transport/Lingual Motion: Delayed initiation of tongue motion Oral Residue: Residue collection on oral structures - Pharyngeal Phase Initiation of Pharyngeal Swallow: Bolus head in valleculae Soft Palate Elevation: No bolus between soft palate and pharyngeal wall Laryngeal Elevation: Partial superior movement thyroid cart/partial apprx aryt-epig petiole Anterior Hyoid Excursion: Partial anterior movement Epiglottic Movement: Complete inversion Laryngeal Vestibule Closure at Height of Swallow: Incomplete; narrow column of air/contrast in laryngeal vestibule Pharyngeal Stripping Wave: Present - complete Pharyngoesophageal Segment Opening: Complete distension and complete duration; no obstruction of flow Tongue Base Retraction: Trace column of contrast between tongue base & post. pharyngeal wall Pharyngeal Residue: Trace residue within or on pharyngeal structures - Esophageal Phase Esophageal Clearance: Complete clearance - Treatment Strategies Effects of treatment strategies attempted:: Use of straws = Not effective. Slow rate = Effective. Decreased bolus size = Effective. - Diagnosis/Impression Diagnosis: Mild Oropharyngeal Phase Dysphagia (R13.12) Impression: The oral phase of the swallow is primarily marked by decreased bolus control and delayed swallow onset. The patient presented with posterior loss of >50% of the bolus to the pharynx, resulting in suboptimal bolus placement upon swallow onset. This delayed swallow onset was evident especially with liquid trials. He had decreased mastication abilities, requiring extended time to masticate and resulting in premature posterior loss of bolus. The pharyngeal phase of the swallow is primarily marked by decreased airway protection due to mildly decreased laryngeal elevation and anterior hyoid excursion. He presented with penetration during the swallow of cookie trial; however, bolus fully ejected from the laryngeal vestibule. He demonstrated silent aspiration of sequential sips via cup and sip via tsp. He was able to eject aspirate of sequential sips via straw with cough reflex. - Recommendations Diet: Thin Liquids Comment: Soft and Bite Size Textures For mixed consistencies, consider thickening liquid to nectar (mildly) thick or blending consistencies. Oral care before and after meals. Compensatory Strategies: Small Sips - by CUP ONLY, Slow Rate - Sips and bites one at a time, Sitting upright, Assist with verbal cues to use recommended strategies Supervision: Assist as needed Recommend Repeat Modified Barium Swallow: TBD Comment: Repeat MBS study per therapist's discretion if concern for poor diet tolerance for current diet or concern with tolerance of future trials to further upgrade solid textures. Need for Skilled Speech Therapy Services: Yes Comment: Will recommend the patient for outpatient dysphagia therapy to address remaining deficits in oropharyngeal swallow function. Would consider the patient for oropharyngeal strengthening to improve lingual coordination and strength to prevent premature spillage, as well as promote laryngeal elevation and improved swallow onset (Effortful swallow, effortful breath hold and swallow, Tessa). Would consider the patient for strengthening and trials of intake with NMES. The patient would benefit from thorough education regarding diet recommendations and recommended compensatory strategies. If pt is unable to follow precautions for consumption of thin liquids or change in pulmonary status, would consider patient for liquid downgrade to nectar thick liquids with implementation for FFWP. Education Completed: 1. Described result of evaluation., 4. Family/caregivers understand evaluation & agree w/ goals & tx plan., 7. Pt requires further education on strategies & risks. Comment: Educated pt, pt's , HH therapist, OP therapist results and recommendations of MBS study. Education well received. - Contact Information [facility]:: Perri Galeano M.A. [facility] Speech-Language Pathologist [facility] [address] [place] [address] [email or web address] [phone] 10/19/21 15:15
--- NOTE | 2021-12-21 11:58 | HP.SP.AD ---
History - History Date of Eval: 12/21/21 Medical Diagnosis (from RX): CVA, Aphasia, Dysphagia, Dysarthria Previous speech therapy: Yes Results: Rehab from 01/04/21 to 01/25/21 then [facility]. No speech therapy until July 07 until Oct 08 through home health. Initial eval and one session in Nov 08 with this therapist then due to seizure diagnosis. 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 He received inpatient. speech therapy services for aphasia, dysarthria, and dysphagia from 01/04/2021-01/25/2021. Pt had. MBS study 01/18/2021 revealing silent aspiration of thin liquids. Additional PMH includes Aphasia,. Benign prostate hyperplasia, HLD, HTN, Osteoarthritis, R hemiparesis, and Urine retention, seizure disorder. Medications related to this diagnosis: sertraline [Zoloft] 100 mg PO DAILY #30 tab 01/26/21 [Rx Confirmed 12/08/21]. amlodipine 10 mg PO DAILY 30 Days #30 tab 06/27/21 [Rx Confirmed 12/08/21]. Probiotic 3,000 mmu cells PO DAILY 11/01/21 [History Confirmed 12/08/21] Smoking Status: Former smoker Hx Smoking: Yes Hx Smoking Cessation Date: 12/21/91 Hx Tobacco Use: No Hx Smoking Exposure: No - Pain Is pain an issue with your current prescribed condition?: No - Personal Visual Assistive Devices: Glasses Patients Living Arrangements: With Significant Other Patient Allergies - Allergies Allergies Sulfa (Sulfonamide Antibiotics) Allergy (Severe, Verified 12/08/21 10:52) Bleeding Subjective Oral Motor - Subjective Patient Reports: Difficulty being Understood Dentures ill fitting: Yes - Comments Comments: Patient is using old dentures due to most recent dentures being lost at [facility] per . Objective Oral Motor - Oral Status Dentition: Upper Dentures, Lower Dentures - Labial Impairment: Moderate Observation at Rest: Right Droop Closure: WNL Pucker: Mild Retraction: Mild Alternating Pucker/Retraction: Mild Involuntary Movement noted: No - Lingual Protrusion: WFL Lateralization: WFL Involuntary Movement: No - Jaw Impairment: WNL - Respiratory Status Respiratory Status: Room Air Subjective Dysphagia - Symptoms Reported Symptoms/Problems with: Coughing, Hx of Aspiration - Current Diet Solids Current Diet: Soft - Current Diet Liquids Current Liquids: Thin Huang free water Protocol: No Objective Dysphagia - Results Swallowing Within Normal Limits: No Swallowing Diagnosis: Oropharyngeal Phase Dysphagia Severity: Mild Modified Barium Results Hx MBS Report Entered: Yes MBS Results (from prior exam): 12/21/21 11:31 Speech Therapy by Laith Young Rosie Modified Barium Swallow Study MR#: [id number] Acct: [id number] Name: HALLE ALVA Rep #: [id number] : 1950 71 From: Perri Galeano M.A., [facility] Modified Barium Swallow - Patient Information Study Date: 10/19/21 Study Time: 13:00 Direct Billable Minutes: 110 Total Minutes procedure & reportin Diagnosis: Hemorrhagic CVA (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 He received inpatient speech therapy services for aphasia, dysarthria, and dysphagia from 01/04/2021-01/25/2021. Pt had MBS study 01/18/2021 revealing silent aspiration of thin liquids. He is currently seeing home health speech therapy for oropharyngeal strengthening and training in diet recommendations: Minced and moist textures / Mildly thick liquids and Huang Free Water Protocol. The patient has been referred for repeat MBS study to assess appropriateness for diet advancement. Additional PMH includes Aphasia, Benign prostate hyperplasia, HLD, HTN, Osteoarthritis, R hemiparesis, and Urine retention. Current Diet Ordered: Minced and Moist Textures / [place] Thick Liquids Dentition: Upper Dentures, Lower Dentures Comment: Pt has aphasia. He demonstrated ability to follow all commands during the study. Respiratory Status: Oxygenating on Room Air - Penetration-Aspiration Scale Penetration-Aspiration Scale: OBJECTIVE ASSESSMENT OF SWALLOW FUNCTION (QUANTITATIVE ? PER TRIAL): PENETRATION / ASPIRATION SCALE (MONIQUE): 1 = does not enter airway 2 = enters airway/above vocal folds/ejected 3 = enters airway/above vocal folds/not ejected 4 = enters airway/contacts vocal folds/ejected 5 = enters airway/contacts vocal folds/not ejected 6 = enters airway/below vocal folds/ejected 7 = enters airway/below vocal folds/not ejected despite effort 8 = enters airway/below vocal folds/no effort VIDEOFLOROSCOPIC SCALE SCORE (MONIQUE): Grade I = aspiration of material that has penetrated into the laryngeal vestibule, intact cough reflex Grade II = aspiration < 10 % of the bolus, intact cough reflex Grade III = aspiration of < 10 % of the bolus, reduced cough reflex or aspiration of > 10 % of the bolus, intact cough reflex Grade IV = aspiration of > 10 % of the bolus, reduced cough reflex - Penetration-Aspiration Scale Score Thin Liquid via teaspoon Result: 1= does not enter airway Thin Liquid via teaspoon Trial 2 Result: 1= does not enter airway Thin Liquid via small single sip from cup Result: 1= does not enter airway Thin Liquid via small single sip from cup Trial 2 Result: 1= does not enter airway Thin Liquid via sequential sips from cup Result: 8= enters airway/below vocal folds/no effort Comment: Grade III = aspiration of < 10 % of the bolus, SILENT aspiration Thin Liquid via small single sip from cup Trial 3 Result: 1= does not enter airway [place] Thick Liquid via small single sip from cup Result: 1= does not enter airway [place] Thick Liquid via small single sip from cup Result: 1= does not enter airway Pudding with esophageal screen Result: 1= does not enter airway Cookie Result: 2= enter airway/above vocal folds/ejected Thin Liquid via single sip from straw Result: 1= does not enter airway Thin Liquid via sequential sips from straw Result: 6= enters airway/below vocal folds/ejected Comment: Cough reflex appeared to fully eject contrast aspirated just below vocal folds. Thin Liquid via small single sip from cup Trial 4 Result: 1= does not enter airway Thin Liquid via teaspoon Trial 3 Result: 8= enters airway/below vocal folds/no effort Comment: Grade III = aspiration of < 10 % of the bolus, SILENT aspiration Thin Liquid via small single sip from cup Trial 5 Result: 1= does not enter airway - Oral Phase Labial Seal: No Labial Escape Tongue Control During Bolus Hold: Posterior escape of greater than half of bolus Bolus Preparation/Mastication: Disorganized chewing/mashing with solid pieces of bolus unchewed Bolus Transport/Lingual Motion: Delayed initiation of tongue motion Oral Residue: Residue collection on oral structures - Pharyngeal Phase Initiation of Pharyngeal Swallow: Bolus head in valleculae Soft Palate Elevation: No bolus between soft palate and pharyngeal wall Laryngeal Elevation: Partial superior movement thyroid cart/partial apprx aryt-epig petiole Anterior Hyoid Excursion: Partial anterior movement Epiglottic Movement: Complete inversion Laryngeal Vestibule Closure at Height of Swallow: Incomplete; narrow column of air/contrast in laryngeal vestibule Pharyngeal Stripping Wave: Present - complete Pharyngoesophageal Segment Opening: Complete distension and complete duration; no obstruction of flow Tongue Base Retraction: Trace column of contrast between tongue base & post. pharyngeal wall Pharyngeal Residue: Trace residue within or on pharyngeal structures - Esophageal Phase Esophageal Clearance: Complete clearance - Treatment Strategies Effects of treatment strategies attempted:: Use of straws = Not effective. Slow rate = Effective. Decreased bolus size = Effective. - Diagnosis/Impression Diagnosis: Mild Oropharyngeal Phase Dysphagia (R13.12) Impression: The oral phase of the swallow is primarily marked by decreased bolus control and delayed swallow onset. The patient presented with posterior loss of >50% of the bolus to the pharynx, resulting in suboptimal bolus placement upon swallow onset. This delayed swallow onset was evident especially with liquid trials. He had decreased mastication abilities, requiring extended time to masticate and resulting in premature posterior loss of bolus. The pharyngeal phase of the swallow is primarily marked by decreased airway protection due to mildly decreased laryngeal elevation and anterior hyoid excursion. He presented with penetration during the swallow of cookie trial; however, bolus fully ejected from the laryngeal vestibule. He demonstrated silent aspiration of sequential sips via cup and sip via tsp. He was able to eject aspirate of sequential sips via straw with cough reflex. - Recommendations Diet: Thin Liquids Comment: Soft and Bite Size Textures For mixed consistencies, consider thickening liquid to nectar (mildly) thick or blending consistencies. Oral care before and after meals. Compensatory Strategies: Small Sips - by CUP ONLY, Slow Rate - Sips and bites one at a time, Sitting upright, Assist with verbal cues to use recommended strategies Supervision: Assist as needed Recommend Repeat Modified Barium Swallow: TBD Comment: Repeat MBS study per therapist's discretion if concern for poor diet tolerance for current diet or concern with tolerance of future trials to further upgrade solid textures. Need for Skilled Speech Therapy Services: Yes Comment: Will recommend the patient for outpatient dysphagia therapy to address remaining deficits in oropharyngeal swallow function. Would consider the patient for oropharyngeal strengthening to improve lingual coordination and strength to prevent premature spillage, as well as promote laryngeal elevation and improved swallow onset (Effortful swallow, effortful breath hold and swallow, Tessa). Would consider the patient for strengthening and trials of intake with NMES. The patient would benefit from thorough education regarding diet recommendations and recommended compensatory strategies. If pt is unable to follow precautions for consumption of thin liquids or change in pulmonary status, would consider patient for liquid downgrade to nectar thick liquids with implementation for FFWP. Education Completed: 1. Described result of evaluation., 4. Family/caregivers understand evaluation & agree w/ goals & tx plan., 7. Pt requires further education on strategies & risks. Comment: Educated pt, pt's , HH therapist, OP therapist results and recommendations of MBS study. Education well received. - Contact Information [facility] Speech Therapy:: Perri Galeano M.A. [facility] Speech-Language Pathologist [address] [address] [email or web address] [phone] 10/19/21 15:15 Initialized on 12/21/21 11:31 - END OF NOTE Dysphagia Assessment - Swallowing Impairment Contributing Factors to Swallowing Impairment: Reduced Oral Strength/Coordination/Sensation, Mastication Inefficiency, Impaired Oral-Pharyngeal Transport, Reduced Laryngeal Excursion - Impact Impact on Safety & Functioning: Risk for Aspiration, Risk for Inadequate Nutrition/Hydration - Recommendations Swallowing Treatment: Yes - Diet Texture Recommendations Solids Other: Soft Liquids: Thin Other: Provocale cup for reduced bolus size. - Safety Saftey Precautions/Swallowing Recommendations (Check all that Apply): 1 to 1 Close Supervision, Reduce Distractions, Upright Position at Least 30 Minutes After Meals, Small Sips & Bites when Eating Objective Cog/Ling/Com - Test Administered Nmppokqiy-Fqspzklsyf-Xaobfhfoigxbw Assessment Administered: Yes Txvusidou-Thklsszejk-Okaxjcwvjnzhu Assessment: Cognitive ? Linguistic skills were evaluated using patient/family interview, skilled observation and informal evaluation through tasks completed by the patient. - Orientation Orientation: Person, Place, Medical Diagnosis - Answer Yes/No Questions Simple: Moderate - Repetition Words: Moderate Sentences: Severe - Naming Responsive naming: Severe - Conversational Tasks Conversational Tasks: Severe Comments: Patient has a loaner AAC device with plans to obtain his own. Will add goals next session once patient brings device. - Comments Comments: Patient will verbally answer yes/no questions in error but when using head movements he is accurate. Plan - Plan Plan: Speech therapy is recommended for severe expressive aphasia as well as dysarthria and mild oropharyngeal phase dysphagia for increased medical safety and communication abilities. - Recommendations Treatment Warranted: Yes - Frequency Frequency: 2x /Week Duration: 2 Months Visits in this POC: 16 - Prognosis Prognosis: Good - Goals that are Established: Determination:: Goals will be added/modified as deemed necessary and appropriate. Therapy will be discontinued when results of re-evaluation indicate therapy is no longer needed or lack of progress has been documented. - Goal #1-5 Goal #1: The Patient will demonstrate and utilize recommended oropharyngeal strengthening exercises to facilitate improved oropharyngeal strength and coordination with minimal cueing and prompting provide by the clinician, across 3 to 3 sessions. VitalStim may be included as a modality during these exercises. Goal #2: Patient will complete phrases/sentences on 8/10 trials with single words on 4/5 trials with minimal prompts across 3 to 3 sessions. Goal #3: Aphasia and AAC assessments. Education - Patient has Indicated that the Following Identified Educational Needs: Cognitively Impaired, Hearing/Vision/Speech Impaired - Patient Instruction Patient Education: Diagnosis, Treatment Plan, Safety Precautions, Diet Level, Home Exercise Program Person Taught: Patient, Family Teaching Method: Discussion Response to teaching: Verbalize understanding, Has Prior Knowledge
--- NOTE | 2022-02-01 16:49 | HP.PTEVAL_ITS ---
Patient's Visit Information HALLE ALVA is a 71 year old M referred to Physical Therapy by Dr. Ness John MD with a diagnosis of Hemiplegia and R hemiparesis. Date of Evaluation: 01/30/22 Physical Therapist: RICK Moreno - Visit Plan Frequency: 2x /Week Duration: 2 Months Plan: 2X/ week for 8 months for chair weight shifting, chair core strengthening, sit to stand transfers, standing endurance/balance, core strengthening with HEP - Subjective Since the last time he was in here he had a seisure. He is now on anti-seizure med and doing better. His R leg is not as stiff and his thinks that it might be from the anti-seisure meds. is [place] and he goes by Brady. He had a hemorragic stroke 12-23-20. [facility] for 11 days and [facility] for 3 weeks and then [facility] and came home last April. lifts him and or slide board transfer from chair to bed. He is able to pull himself up at the sink. He can not pull him self up to the bed and wishes to do a stand piviot transfer and get to a bed side commode and get to a wheelchair more easier. He uses a gait belt to pull self up to get to the edge and high HOB and assists with mod A to max A. He can sit on edge of bed with feet on the floor and working on straightening his back. They are not sure what he is capable of and he can not speak much but understands everything. He has a lift chair recliner... so he can sit for most of his day. They have a ramp into the house and he pulls in the chair with his left and she pushes. Sponge bathe. Incontinent. straight caths him. - Objective R hip flex 2-/5, L hip flex 3+/5, Seated hip and 1/5 R and L 3+/5, Knee flex R 1/2, and L 4-/5, R knee ext 1/5, and L 3-/5. Pt is not able to raise toes on the L into DF and the L 3+/5. Sit to stand with mod A X 2 with use of his L arm to pull self to stand with the // bar. Was able to stand for approx 2 minutes with 2 fingers of L hand on the bar with verbal cues to lock the R knee, not to lean to his R side in standing and pull belly button to the bar. He did fatigue fast and had a slow lower to the chair using his L hand on the // bar. We also had 2 blocks between his feet to help prevent R foot from adducting...much better with the adducting than he has done in the past. Pt's R knee did tend to buckle with standing fatigue towards the end of the 2 minutes. Standing weight shifting... pt has a very weak weight shift and will tend to lean toward his R side even with L UE support on the // bar. He is able to weight shift to his L side (using his L hand). He struggles with body awareness and decreased ability to notice when he needs to weight shift back to center including retro LOB and leaning to far to the right. Standing: he is able to stand with min A on gait belt with no UE support for about 10 seconds. Sitting weight shift: pt struggles to be able to pull self up to a sitting position without the use of his arms. He is able to weight shift in all directions but struggles the most with getting himself back to center from the right side. Pt needed verbal and tactile instructions to scoot FW in his chair by pushing his hips FW by pushing on the back of his chair. Unable to fully get self back into the chair by weight shifting self.... assisted with lifting him to get butt back into the chair. - Balance/Special Test Scores Lower Extremity Functional Score: 1 - Goals Goal 1:: I HEP Goal Time Frame: 6-8 Weeks Goal 2:: Be able to reach back with his L arm to the chair rail prior to sitting to sit back to the chair safely. Goal Time Frame: 8-12 Weeks Goal 3:: Be able to weight shift FW to sit to stand using L arm to help pull self to stand with CGA Goal Time Frame: 8-12 Weeks Goal 4:: Be able to stand for 5 min while completing an activity without fatigue and with CGA and no LOB Goal Time Frame: 8-12 Weeks - Rehabilitation Potential Rehabilitation Potential: Good - Anticipated Interventions Patient/Client Instruction: Educate patient on: Condition, Plan of Care For the Purpose of:: To improve muscle performance and motor function, To improve ability to perform ADL's, To increase tolerance to activity/condition/position, To improve performance and independence with ADL's, To decrease level of supervision to perform tasks, To improve endurance, To improve balance Therapeutic Exercise to Include: Strength training, Endurance training, Balance training, Postural training, Flexibilty training, Neuromotor development, Passive ROM, Active ROM, Dynamic Lumbar Stabilization, Scapular Strength/Stabilization For the Purpose of:: To improve nutrient delivery to tissue, To improve muscle performance and motor function, To improve ability to perform ADL's, To increase tolerance to activity/condition/position, To improve performance and independence with ADL's, To decrease level of supervision to perform tasks, To increase flexibility/ROM, To improve endurance, To improve balance Manual Therapy Techniques to Include: Passive ROM For the Purpose of:: To increase ROM, To increase flexibility/ROM Thank you for the opportunity to evaluate your patient. For Medicare and Medicare HMO plans, please review the plan of care and approve it. It will need to be FAXED BACK to us at [phone] for Medicare purposes. For Medicare only, by signing this I certify the plan of care. Please let me know if there are questions or concerns regarding this plan of care. Physician Signature: Date:
--- NOTE | 2022-03-14 14:10 | HP.PTREVAL ---
Dr. Ness John MD, It has been my pleasure to treat HALLE ALVA over the last 9 visits for Hemiplegia and R hemiparesis. Please see the progress note below for an update on the physical therapy plan of care! Subjective: Pt has since gotten a motorized wheelchair and has a little bit of issue running into things and pt is not confident where his feet petals are but he is doing ok. His hip ER/abduction has been worse and he needs a chair support. reports that the transfers are better since he is able to weight shift in his chair and the transfers are easier with his chair being able to raise and lower to the surface. reports that he is sitting much better and reaching for more things. Objective/Function: Seated posture: He likes to sit with his R hip in ER. Pt is now able to shift his weight FW to give his a kiss and back to the back of the chair (little bit of trouble controlling sitting back into the chair). He is able to scoot butt forward by placing back against the chair to scoot forward. Pt likes to seed cone picker L foot when strying to scoot butt forward in the chair.. changes with tactile cues. Pt struggles with hand placement and getting R arm situated prior to standing. Still needs max cues for nose over toes for sit to stand and max cues for fulll erect posture. Plan Plan: 2X/ week for 8 months for chair weight shifting, chair core strengthening, sit to stand transfers, standing endurance/balance, core strengthening with HEP. MAY BENEFIT FROM Wheelchair mobility in and out of onstacles. Balance/Gait/Functional tests - Balance/Special Test Scores Lower Extremity Functional Score: 1 Goals Goal 1:: I HEP Goal Time Frame: 6-8 Weeks Goal 2:: Be able to reach back with his L arm to the chair rail prior to sitting to sit back to the chair safely. Goal Time Frame: 8-12 Weeks Goal Progress: Progressing Goal 3:: Be able to weight shift FW to sit to stand using L arm to help pull self to stand with CGA Goal Time Frame: 8-12 Weeks Goal Progress: Progressing Goal 4:: Be able to stand for 5 min while completing an activity without fatigue and with CGA and no LOB Goal Time Frame: 8-12 Weeks Goal Progress: Progressing Goal 5:: Be able to drive wheelchair safely in and out of tight areas without bumping into things and turning his head due to R side neglect. Goal Time Frame: 8-12 Weeks Anticipated Interventions Patient/Client Instruction: Educate patient on: Condition, Plan of Care For the Purpose of:: To improve muscle performance and motor function, To improve ability to perform ADL's, To increase tolerance to activity/condition/position, To improve performance and independence with ADL's, To decrease level of supervision to perform tasks, To improve endurance, To improve balance Therapeutic Exercise to Include: Strength training, Endurance training, Balance training, Postural training, Flexibilty training, Neuromotor development, Passive ROM, Active ROM, Dynamic Lumbar Stabilization, Scapular Strength/Stabilization For the Purpose of:: To improve nutrient delivery to tissue, To improve muscle performance and motor function, To improve ability to perform ADL's, To increase tolerance to activity/condition/position, To improve performance and independence with ADL's, To decrease level of supervision to perform tasks, To increase flexibility/ROM, To improve endurance, To improve balance Manual Therapy Techniques to Include: Passive ROM For the Purpose of:: To increase ROM, To increase flexibility/ROM Please do not hesitate to contact me at [phone] by phone or if you have questions or concerns regarding this new plan of care! Sincerely, RICK Moreno
--- NOTE | 2022-04-03 14:29 | HP.SP.REEV ---
History - History Date of Eval: 12/21/21 Medical Diagnosis (from RX): CVA, Aphasia, Dysphagia, Dysarthria Previous speech therapy: Yes Results: Rehab from 01/04/21 to 01/25/21 then [facility]. No speech therapy until July 07 until Oct 08 through home health. Initial eval and one session in Nov 08 with this therapist then due to seizure diagnosis. 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 He received inpatient. speech therapy services for aphasia, dysarthria, and dysphagia from 01/04/2021-01/25/2021. Pt had. MBS study 01/18/2021 revealing silent aspiration of thin liquids. Additional PMH includes Aphasia,. Benign prostate hyperplasia, HLD, HTN, Osteoarthritis, R hemiparesis, and Urine retention, seizure disorder. Medications related to this diagnosis: sertraline [Zoloft] 100 mg PO DAILY #30 tab 01/26/21 [Rx Confirmed 12/08/21]. amlodipine 10 mg PO DAILY 30 Days #30 tab 06/27/21 [Rx Confirmed 12/08/21]. Probiotic 3,000 mmu cells PO DAILY 11/01/21 [History Confirmed 12/08/21] Smoking Status: Former smoker Hx Smoking: Yes Hx Smoking Cessation Date: 12/21/91 Hx Tobacco Use: No Hx Smoking Exposure: No - Pain Is pain an issue with your current prescribed condition?: No - Personal Visual Assistive Devices: Glasses Patients Living Arrangements: With Significant Other Patient Allergies - Allergies Allergies Sulfa (Sulfonamide Antibiotics) Allergy (Severe, Verified 01/03/22 14:31) Bleeding Previous/Current Goals - Goals 1-5 Previous Goal #1: The Patient will demonstrate and utilize recommended oropharyngeal strengthening exercises to facilitate improved oropharyngeal strength and coordination with minimal cueing and prompting provide by the clinician, across 3 to 3 sessions. VitalStim may be included as a modality during these exercises. Goal 1 Status: Goal Patient and stated they are no longer doing exercises. He has a recommended diet of thin liquids and they declined to continue this goal. Previous Goal #2: Patient will complete phrases/sentences on 8/10 trials with single words on 4/5 trials with minimal prompts across 3 to 3 sessions. Goal 2 Status: Patient has progressed with this goal. He was able to do 5/6 with single words. Last session was 90% of common phrases completion with intermittent use of 2-3 words. Automatic speech sequences: Days of the week 02/21 with visual starter cues. Months of the year: 01/26 in imitation. second time he was able to complete 05/29 with phonemic cue. Patient is slow to complete. Able to count 1-8 with no cues but then with cues up to 10. Previous Goal #3: Patient will express wants/commenting/needs via single choices on AAC device on 4/5 trials on 2/3 consecutive sessions. Goal 3 Status: Patient is able to choose with maximal cues a single button. and patient have focused on personal information. Demonstration and teaching has been completed. [employer] rep attended one session and upgrade his buttons from 15 to 64 per page at therapist's request. Subjective Dysphagia - Symptoms Reported Symptoms/Problems with: Coughing, Hx of Aspiration - Current Diet Solids Current Diet: Soft - Current Diet Liquids Current Liquids: Thin Huang free water Protocol: No Objective Dysphagia - Swallowing Impairment Contributing Factors to Swallowing Impairment: Reduced Oral Strength/Coordination/Sensation, Mastication Inefficiency, Impaired Oral-Pharyngeal Transport, Reduced Laryngeal Excursion - Impact Impact on Safety & Functioning: Risk for Aspiration, Risk for Inadequate Nutrition/Hydration - Recommendations Swallowing Treatment: Yes - Diet Texture Recommendations Other liquids: Thin Other: Provocale cup for reduced bolus size. - Safety Saftey Precautions/Swallowing Recommendations (Check all that Apply): 1 to 1 Close Supervision, Reduce Distractions, Upright Position at Least 30 Minutes After Meals, Small Sips & Bites when Eating - Results Swallowing Within Normal Limits: No Severity: Mild Subjective Oral Motor - Subjective Patient Reports: Difficulty being Understood Dentures ill fitting: Yes - Comments Comments: Patient is using old dentures due to most recent dentures being lost at [facility] per . Objective Oral Motor - Oral Status Dentition: Upper Dentures, Lower Dentures - Labial Impairment: Moderate Observation at Rest: Right Droop Closure: WNL Pucker: Mild Retraction: Mild Alternating Pucker/Retraction: Mild Involuntary Movement noted: No - Lingual Protrusion: WFL Lateralization: WFL Involuntary Movement: No - Jaw Impairment: WNL - Respiratory Status Respiratory Status: Room Air Modified Barium Results Hx MBS Report Entered: Yes MBS Results (from prior exam): 12/21/21 11:31 Speech Therapy by Laith Young Modified Barium Swallow Study MR#: [id number] Acct: [id number] Name: HALLE ALVA Rep #: [id number] : 1950 71 From: Perri Galeano M.A., [facility]-[employer] MACHINE OPERATOR Modified Barium Swallow - Patient Information Study Date: 10/19/21 Study Time: 13:00 Direct Billable Minutes: 110 Total Minutes procedure & reportin Diagnosis: Hemorrhagic CVA (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 He received inpatient speech therapy services for aphasia, dysarthria, and dysphagia from 01/04/2021-01/25/2021. Pt had MBS study 01/18/2021 revealing silent aspiration of thin liquids. He is currently seeing home health speech therapy for oropharyngeal strengthening and training in diet recommendations: Minced and moist textures / Mildly thick liquids and Huang Free Water Protocol. The patient has been referred for repeat MBS study to assess appropriateness for diet advancement. Additional PMH includes Aphasia, Benign prostate hyperplasia, HLD, HTN, Osteoarthritis, R hemiparesis, and Urine retention. Current Diet Ordered: Minced and Moist Textures / [place] Thick Liquids Dentition: Upper Dentures, Lower Dentures Comment: Pt has aphasia. He demonstrated ability to follow all commands during the study. Respiratory Status: Oxygenating on Room Air - Penetration-Aspiration Scale Penetration-Aspiration Scale: OBJECTIVE ASSESSMENT OF SWALLOW FUNCTION (QUANTITATIVE ? PER TRIAL): PENETRATION / ASPIRATION SCALE (MONIQUE): 1 = does not enter airway 2 = enters airway/above vocal folds/ejected 3 = enters airway/above vocal folds/not ejected 4 = enters airway/contacts vocal folds/ejected 5 = enters airway/contacts vocal folds/not ejected 6 = enters airway/below vocal folds/ejected 7 = enters airway/below vocal folds/not ejected despite effort 8 = enters airway/below vocal folds/no effort VIDEOFLOROSCOPIC SCALE SCORE (MONIQUE): Grade I = aspiration of material that has penetrated into the laryngeal vestibule, intact cough reflex Grade II = aspiration < 10 % of the bolus, intact cough reflex Grade III = aspiration of < 10 % of the bolus, reduced cough reflex or aspiration of > 10 % of the bolus, intact cough reflex Grade IV = aspiration of > 10 % of the bolus, reduced cough reflex - Penetration-Aspiration Scale Score Thin Liquid via teaspoon Result: 1= does not enter airway Thin Liquid via teaspoon Trial 2 Result: 1= does not enter airway Thin Liquid via small single sip from cup Result: 1= does not enter airway Thin Liquid via small single sip from cup Trial 2 Result: 1= does not enter airway Thin Liquid via sequential sips from cup Result: 8= enters airway/below vocal folds/no effort Comment: Grade III = aspiration of < 10 % of the bolus, SILENT aspiration Thin Liquid via small single sip from cup Trial 3 Result: 1= does not enter airway [place] Thick Liquid via small single sip from cup Result: 1= does not enter airway Honey Thick Liquid via small single sip from cup Result: 1= does not enter airway Pudding with esophageal screen Result: 1= does not enter airway Cookie Result: 2= enter airway/above vocal folds/ejected Thin Liquid via single sip from straw Result: 1= does not enter airway Thin Liquid via sequential sips from straw Result: 6= enters airway/below vocal folds/ejected Comment: Cough reflex appeared to fully eject contrast aspirated just below vocal folds. Thin Liquid via small single sip from cup Trial 4 Result: 1= does not enter airway Thin Liquid via teaspoon Trial 3 Result: 8= enters airway/below vocal folds/no effort Comment: Grade III = aspiration of < 10 % of the bolus, SILENT aspiration Thin Liquid via small single sip from cup Trial 5 Result: 1= does not enter airway - Oral Phase Labial Seal: No Labial Escape Tongue Control During Bolus Hold: Posterior escape of greater than half of bolus Bolus Preparation/Mastication: Disorganized chewing/mashing with solid pieces of bolus unchewed Bolus Transport/Lingual Motion: Delayed initiation of tongue motion Oral Residue: Residue collection on oral structures - Pharyngeal Phase Initiation of Pharyngeal Swallow: Bolus head in valleculae Soft Palate Elevation: No bolus between soft palate and pharyngeal wall Laryngeal Elevation: Partial superior movement thyroid cart/partial apprx aryt-epig petiole Anterior Hyoid Excursion: Partial anterior movement Epiglottic Movement: Complete inversion Laryngeal Vestibule Closure at Height of Swallow: Incomplete; narrow column of air/contrast in laryngeal vestibule Pharyngeal Stripping Wave: Present - complete Pharyngoesophageal Segment Opening: Complete distension and complete duration; no obstruction of flow Tongue Base Retraction: Trace column of contrast between tongue base & post. pharyngeal wall Pharyngeal Residue: Trace residue within or on pharyngeal structures - Esophageal Phase Esophageal Clearance: Complete clearance - Treatment Strategies Effects of treatment strategies attempted:: Use of straws = Not effective. Slow rate = Effective. Decreased bolus size = Effective. - Diagnosis/Impression Diagnosis: Mild Oropharyngeal Phase Dysphagia (R13.12) Impression: The oral phase of the swallow is primarily marked by decreased bolus control and delayed swallow onset. The patient presented with posterior loss of >50% of the bolus to the pharynx, resulting in suboptimal bolus placement upon swallow onset. This delayed swallow onset was evident especially with liquid trials. He had decreased mastication abilities, requiring extended time to masticate and resulting in premature posterior loss of bolus. The pharyngeal phase of the swallow is primarily marked by decreased airway protection due to mildly decreased laryngeal elevation and anterior hyoid excursion. He presented with penetration during the swallow of cookie trial; however, bolus fully ejected from the laryngeal vestibule. He demonstrated silent aspiration of sequential sips via cup and sip via tsp. He was able to eject aspirate of sequential sips via straw with cough reflex. - Recommendations Diet: Thin Liquids Comment: Soft and Bite Size Textures For mixed consistencies, consider thickening liquid to nectar (mildly) thick or blending consistencies. Oral care before and after meals. Compensatory Strategies: Small Sips - by CUP ONLY, Slow Rate - Sips and bites one at a time, Sitting upright, Assist with verbal cues to use recommended strategies Supervision: Assist as needed Recommend Repeat Modified Barium Swallow: TBD Comment: Repeat MBS study per therapist's discretion if concern for poor diet tolerance for current diet or concern with tolerance of future trials to further upgrade solid textures. Need for Skilled Speech Therapy Services: Yes Comment: Will recommend the patient for outpatient dysphagia therapy to address remaining deficits in oropharyngeal swallow function. Would consider the patient for oropharyngeal strengthening to improve lingual coordination and strength to prevent premature spillage, as well as promote laryngeal elevation and improved swallow onset (Effortful swallow, effortful breath hold and swallow, Tessa). Would consider the patient for strengthening and trials of intake with NMES. The patient would benefit from thorough education regarding diet recommendations and recommended compensatory strategies. If pt is unable to follow precautions for consumption of thin liquids or change in pulmonary status, would consider patient for liquid downgrade to nectar thick liquids with implementation for FFWP. Education Completed: 1. Described result of evaluation., 4. Family/caregivers understand evaluation & agree w/ goals & tx plan., 7. Pt requires further education on strategies & risks. Comment: Educated pt, pt's , HH therapist, OP therapist results and recommendations of MBS study. Education well received. - Contact Information [facility] Speech Therapy:: Perri Galeano M.A. [facility]-[employer] MACHINE OPERATOR Speech-Language Pathologist [address] [address] [email or web address] [phone] 10/19/21 15:15 Initialized on 12/21/21 11:31 - END OF NOTE Objective Cog/Ling/Com - Test Administered Wakyjxetj-Yvjfagjulo-Lrhmzsrygyiho Assessment Administered: Yes Jgxojorqy-Mmzoodlzih-Hjjyepacfrwka Assessment: Cognitive ? Linguistic skills were evaluated using patient/family interview, skilled observation and informal evaluation through tasks completed by the patient. - Orientation Orientation: Person, Medical Diagnosis - Answer Yes/No Questions Simple: Mild - Automatic Sequences Automatic Sequences: Severe - Repetition Words: Severe - Naming Responsive naming: Severe Naming in categories: Severe - Conversational Tasks Conversational Tasks: Severe Comments: Patient has almost no functional independent communication verbally. - Comments Comments: Patient will verbally answer yes/no questions in error but when using head movements he is accurate. - Oral Reading Words: Severe - Writing Comments: Don was not able to correctly identify letters upon verbal request on his AAC device nor was he able to spell his name on the keyboard. Plan - Plan Plan: Therapy has been reduced to one time per week secondary to patient starting physical therapy also. Speech therapy is warranted for severe communication deficits. - Recommendations MBS: No Treatment Warranted: Yes Treatment Warranted: Receptive/ Expressive Language, Other: Comment: AAC - Progress Prognosis: Good - Frequency Frequency: 1x/Week Duration: 10 weeks Visits in this POC: 10 - Patient/Family Goal Patient/Family Goal: would like for patient be able to communicate his thoughts more. - Goals that are Established Determination:: Goals will be added/modified as deemed necessary and appropriate. Therapy will be discontinued when results of re-evaluation indicate therapy is no longer needed or lack of progress has been documented. - Goal #1-5 Goal #1: Patient will complete automatic speech sequences on 8/10 trials with single words on 4/5 trials with minimal prompts across 3 to 3 sessions. Goal #2: Patient will express wants/commenting/needs via single choices on AAC device on 4/5 trials on 2/3 consecutive sessions. Goal #3: Patient will give biographical information either verbally or with AAC device on 3/5 trials. Education - Patient has Indicated that the Following Identified Educational Needs: None The Patient has indicated that they have no educational or learning abilities that may effect their care.: Yes - Patient Instruction Patient Education: Diagnosis, Treatment Plan, Safety Precautions, Diet Level, Home Exercise Program Person Taught: Patient, Family Teaching Method: Discussion Response to teaching: Verbalize understanding, Has Prior Knowledge
--- NOTE | 2022-04-25 14:09 | HP.PTREVAL_ITS ---
Dr. Ness John MD, It has been my pleasure to treat HALLE ALVA over the last 17 visits for Hemiplegia and R hemiparesis. Please see the progress note below for an update on the physical therapy plan of care! Subjective: Pt got off a medicine and now he feels that he is getting stronger and he is more alert. tried to get him up to the sink with the manual chair and they struggled to get into the manual chair as the pt has almost forgotten how to do it as it has been so long. He was here with Jose Alejandro on Sunday and did much better. The meds were making him weak. They are working on unsupported exercises and making sure while he is in the chair he is using his good posture. Pt is getting an hip adductor support. Pt can not practice s tanding at home because of the footrests on his powered chair do not swing out. She bought a bar to have the patient stand up to but he is too strong and they can not screw it into the place they are staying. still can not put pt in the chair other than sling him the chair. They still can not toilet train since he was so weak from the meds they just took him off of. reports that she is struggling with transfers at home and she is not getting any younger Objective/Function: sit to stand with mod A X 2 with verbal and tactile cues to scoot FW and weight shift FW. Pt is now able to keep R leg on the ground with weight through it without it giving out or scissoring. Pt is able to modified I pull self to seated position using his L arm to help pull him to sit. or therapist have to stillhelp with his R arm in the sling. His core strength is stronger and he is able to sit longer with verbal cues.. he does like to use the back of his chair. He is becoming better at driving his chair Plan Plan: 2X/ week for 8 months for chair weight shifting, chair core strengthening, sit to stand transfers, standing endurance/balance, core strengthening with HEP. MAY BENEFIT FROM Wheelchair mobility in and out of obstacles. Balance/Gait/Functional tests - Balance/Special Test Scores Lower Extremity Functional Score: 1 Goals Goal 1:: I HEP Goal Time Frame: 6-8 Weeks Goal 2:: Be able to reach back with his L arm to the chair rail prior to sitting to sit back to the chair safely. Goal Time Frame: 8-12 Weeks Goal Progress: Progressing Goal 3:: Be able to weight shift FW to sit to stand using L arm to help pull self to stand with CGA Goal Time Frame: 8-12 Weeks Goal Progress: Progressing Goal 4:: Be able to stand for 5 min while completing an activity without fatigue and with CGA and no LOB Goal Time Frame: 8-12 Weeks Goal Progress: Progressing Goal 5:: Be able to drive wheelchair safely in and out of tight areas without bumping into things and turning his head due to R side neglect. Goal Time Frame: 8-12 Weeks Goal Progress: Progressing Anticipated Interventions Patient/Client Instruction: Educate patient on: Condition, Plan of Care For the Purpose of:: To improve muscle performance and motor function, To improve ability to perform ADL's, To increase tolerance to activity/condition/position, To improve performance and independence with ADL's, To decrease level of supervision to perform tasks, To improve endurance, To improve balance Therapeutic Exercise to Include: Strength training, Endurance training, Balance training, Postural training, Flexibilty training, Neuromotor development, Passive ROM, Active ROM, Dynamic Lumbar Stabilization, Scapular Strength/Stabilization For the Purpose of:: To improve nutrient delivery to tissue, To improve muscle performance and motor function, To improve ability to perform ADL's, To increase tolerance to activity/condition/position, To improve performance and independence with ADL's, To decrease level of supervision to perform tasks, To increase flexibility/ROM, To improve endurance, To improve balance Manual Therapy Techniques to Include: Passive ROM For the Purpose of:: To increase ROM, To increase flexibility/ROM Please do not hesitate to contact me at [phone] by phone or if you have questions or concerns regarding this new plan of care! Sincerely, RICK Moreno
--- NOTE | 2022-06-06 11:59 | HP.SP.REEV ---
History - History Date of Eval: 12/21/21 Medical Diagnosis (from RX): CVA, Aphasia, Dysphagia, Dysarthria Previous speech therapy: Yes Results: Rehab from 01/04/21 to 01/25/21 then [facility]. No speech therapy until July 07 until Oct 08 through home health. Initial eval and one session in Nov 08 with this therapist then due to seizure diagnosis. 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 He received inpatient. speech therapy services for aphasia, dysarthria, and dysphagia from 01/04/2021-01/25/2021. Pt had. MBS study 01/18/2021 revealing silent aspiration of thin liquids. Additional PMH includes Aphasia,. Benign prostate hyperplasia, HLD, HTN, Osteoarthritis, R hemiparesis, and Urine retention, seizure disorder. Medications related to this diagnosis: sertraline [Zoloft] 100 mg PO DAILY #30 tab 01/26/21 [Rx Confirmed 12/08/21]. amlodipine 10 mg PO DAILY 30 Days #30 tab 06/27/21 [Rx Confirmed 12/08/21]. Probiotic 3,000 mmu cells PO DAILY 11/01/21 [History Confirmed 12/08/21] Smoking Status: Former smoker Hx Smoking: Yes Hx Smoking Cessation Date: 12/21/91 Hx Tobacco Use: No Hx Smoking Exposure: No - Pain Is pain an issue with your current prescribed condition?: No - Personal Visual Assistive Devices: Glasses Patients Living Arrangements: With Significant Other Patient Allergies - Allergies Allergies Sulfa (Sulfonamide Antibiotics) Allergy (Severe, Verified 04/06/22 14:03) Bleeding oxcarbazepine Adverse Reaction (Severe, Verified 04/26/22 12:56) Rash lometrigene Adverse Reaction (Severe, Uncoded 04/26/22 12:56) Rash Previous/Current Goals - Goals 1-5 Previous Goal #1: Patient will complete automatic speech sequences on 8/10 trials with single words on 4/5 trials with minimal prompts across 3 to 3 sessions. Goal 1 Status: Goal continues: Phreviously: Days of the week 4/7 then 2/7 with maximal cues and with therapist. Counting 1-11 if therapist starts with 1 then fade cuing. Month of the year in tandem with therapist was 12/27. Often errors in word productions. Currently: He is able to count 1-10 with only one visual cue to start. He was able to say all days of the week with printed initial letter. Months of the year varies from 10/29 to 02/26. Previous Goal #2: Patient will express wants/commenting/needs via single choices on AAC device on 4/5 trials on 2/3 consecutive sessions. Goal 2 Status: Goal continues: The patient has had limited use of his device due to physical limitations ( he is not able at home to sit in his power chair at their table). In the last week he has had his device mounted on his wheelchairs which allows him access to it more independently than previously when only was able to hold it for him. He has been able to request a coke (preferred drink) given extra time and models. Previous Goal #3: Patient will give biographical information either verbally or with AAC device on 3/5 trials. Goal 3 Status: Goal continues. Patient is now able to verbally say his name which he did not do prior to this month. He is able to use his device to say his name, address, birthdate, phone number and 's name with 50% accuracy and moderate cues. Subjective Dysphagia - Symptoms Reported Symptoms/Problems with: Coughing, Hx of Aspiration - Current Diet Solids Current Diet: Soft - Current Diet Liquids Current Liquids: Thin Huang free water Protocol: No Objective Dysphagia - Swallowing Impairment Contributing Factors to Swallowing Impairment: Reduced Oral Strength/Coordination/Sensation, Mastication Inefficiency, Impaired Oral-Pharyngeal Transport, Reduced Laryngeal Excursion - Impact Impact on Safety & Functioning: Risk for Aspiration, Risk for Inadequate Nutrition/Hydration - Recommendations Swallowing Treatment: Yes - Diet Texture Recommendations Other liquids: Thin Other: Provocale cup for reduced bolus size. - Safety Saftey Precautions/Swallowing Recommendations (Check all that Apply): 1 to 1 Close Supervision, Reduce Distractions, Upright Position at Least 30 Minutes After Meals, Small Sips & Bites when Eating - Results Swallowing Within Normal Limits: No Severity: Mild Objective AAC - AAC Objective: Patient has been limited to using his device only when support person or therapist presents it to him. It was mounted on his wheelchair with the ability for him to independently explore and communicate with his device. He continues to need moderate cues on familiar buttons and maximal cues for all other communication with the device. At this time he is not able to functionally use it to express medical needs including pain, bathroom needs or if he is hungry. He is not able to use device independently to give any information about himself or his . Subjective Oral Motor - Subjective Patient Reports: Difficulty being Understood Dentures ill fitting: Yes - Comments Comments: Patient is using old dentures due to most recent dentures being lost at [facility] per . Objective Oral Motor - Oral Status Dentition: Upper Dentures, Lower Dentures - Labial Impairment: Moderate Observation at Rest: Right Droop Closure: WNL Pucker: Mild Retraction: Mild Alternating Pucker/Retraction: Mild Involuntary Movement noted: No - Lingual Protrusion: WFL Lateralization: WFL Involuntary Movement: No - Jaw Impairment: WNL - Respiratory Status Respiratory Status: Room Air Modified Barium Results Hx MBS Report Entered: Yes MBS Results (from prior exam): 12/21/21 11:31 Speech Therapy by Laith Young Modified Barium Swallow Study MR#: [id number] Acct: [id number] Name: HALLE ALVA Rep #: [id number] : 1950 71 From: Perri Galeano M.A., [facility] Modified Barium Swallow - Patient Information Study Date: 10/19/21 Study Time: 13:00 Direct Billable Minutes: 110 Total Minutes procedure & reportin Diagnosis: Hemorrhagic CVA (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 He received inpatient speech therapy services for aphasia, dysarthria, and dysphagia from 01/04/2021-01/25/2021. Pt had MBS study 01/18/2021 revealing silent aspiration of thin liquids. He is currently seeing home health speech therapy for oropharyngeal strengthening and training in diet recommendations: Minced and moist textures / Mildly thick liquids and Huang Free Water Protocol. The patient has been referred for repeat MBS study to assess appropriateness for diet advancement. Additional PMH includes Aphasia, Benign prostate hyperplasia, HLD, HTN, Osteoarthritis, R hemiparesis, and Urine retention. Current Diet Ordered: Minced and Moist Textures / [place] Thick Liquids Dentition: Upper Dentures, Lower Dentures Comment: Pt has aphasia. He demonstrated ability to follow all commands during the study. Respiratory Status: Oxygenating on Room Air - Penetration-Aspiration Scale Penetration-Aspiration Scale: OBJECTIVE ASSESSMENT OF SWALLOW FUNCTION (QUANTITATIVE ? PER TRIAL): PENETRATION / ASPIRATION SCALE (MONIQUE): 1 = does not enter airway 2 = enters airway/above vocal folds/ejected 3 = enters airway/above vocal folds/not ejected 4 = enters airway/contacts vocal folds/ejected 5 = enters airway/contacts vocal folds/not ejected 6 = enters airway/below vocal folds/ejected 7 = enters airway/below vocal folds/not ejected despite effort 8 = enters airway/below vocal folds/no effort VIDEOFLOROSCOPIC SCALE SCORE (MONIQUE): Grade I = aspiration of material that has penetrated into the laryngeal vestibule, intact cough reflex Grade II = aspiration < 10 % of the bolus, intact cough reflex Grade III = aspiration of < 10 % of the bolus, reduced cough reflex or aspiration of > 10 % of the bolus, intact cough reflex Grade IV = aspiration of > 10 % of the bolus, reduced cough reflex - Penetration-Aspiration Scale Score Thin Liquid via teaspoon Result: 1= does not enter airway Thin Liquid via teaspoon Trial 2 Result: 1= does not enter airway Thin Liquid via small single sip from cup Result: 1= does not enter airway Thin Liquid via small single sip from cup Trial 2 Result: 1= does not enter airway Thin Liquid via sequential sips from cup Result: 8= enters airway/below vocal folds/no effort Comment: Grade III = aspiration of < 10 % of the bolus, SILENT aspiration Thin Liquid via small single sip from cup Trial 3 Result: 1= does not enter airway [place] Thick Liquid via small single sip from cup Result: 1= does not enter airway Honey Thick Liquid via small single sip from cup Result: 1= does not enter airway Pudding with esophageal screen Result: 1= does not enter airway Cookie Result: 2= enter airway/above vocal folds/ejected Thin Liquid via single sip from straw Result: 1= does not enter airway Thin Liquid via sequential sips from straw Result: 6= enters airway/below vocal folds/ejected Comment: Cough reflex appeared to fully eject contrast aspirated just below vocal folds. Thin Liquid via small single sip from cup Trial 4 Result: 1= does not enter airway Thin Liquid via teaspoon Trial 3 Result: 8= enters airway/below vocal folds/no effort Comment: Grade III = aspiration of < 10 % of the bolus, SILENT aspiration Thin Liquid via small single sip from cup Trial 5 Result: 1= does not enter airway - Oral Phase Labial Seal: No Labial Escape Tongue Control During Bolus Hold: Posterior escape of greater than half of bolus Bolus Preparation/Mastication: Disorganized chewing/mashing with solid pieces of bolus unchewed Bolus Transport/Lingual Motion: Delayed initiation of tongue motion Oral Residue: Residue collection on oral structures - Pharyngeal Phase Initiation of Pharyngeal Swallow: Bolus head in valleculae Soft Palate Elevation: No bolus between soft palate and pharyngeal wall Laryngeal Elevation: Partial superior movement thyroid cart/partial apprx aryt-epig petiole Anterior Hyoid Excursion: Partial anterior movement Epiglottic Movement: Complete inversion Laryngeal Vestibule Closure at Height of Swallow: Incomplete; narrow column of air/contrast in laryngeal vestibule Pharyngeal Stripping Wave: Present - complete Pharyngoesophageal Segment Opening: Complete distension and complete duration; no obstruction of flow Tongue Base Retraction: Trace column of contrast between tongue base & post. pharyngeal wall Pharyngeal Residue: Trace residue within or on pharyngeal structures - Esophageal Phase Esophageal Clearance: Complete clearance - Treatment Strategies Effects of treatment strategies attempted:: Use of straws = Not effective. Slow rate = Effective. Decreased bolus size = Effective. - Diagnosis/Impression Diagnosis: Mild Oropharyngeal Phase Dysphagia (R13.12) Impression: The oral phase of the swallow is primarily marked by decreased bolus control and delayed swallow onset. The patient presented with posterior loss of >50% of the bolus to the pharynx, resulting in suboptimal bolus placement upon swallow onset. This delayed swallow onset was evident especially with liquid trials. He had decreased mastication abilities, requiring extended time to masticate and resulting in premature posterior loss of bolus. The pharyngeal phase of the swallow is primarily marked by decreased airway protection due to mildly decreased laryngeal elevation and anterior hyoid excursion. He presented with penetration during the swallow of cookie trial; however, bolus fully ejected from the laryngeal vestibule. He demonstrated silent aspiration of sequential sips via cup and sip via tsp. He was able to eject aspirate of sequential sips via straw with cough reflex. - Recommendations Diet: Thin Liquids Comment: Soft and Bite Size Textures For mixed consistencies, consider thickening liquid to nectar (mildly) thick or blending consistencies. Oral care before and after meals. Compensatory Strategies: Small Sips - by CUP ONLY, Slow Rate - Sips and bites one at a time, Sitting upright, Assist with verbal cues to use recommended strategies Supervision: Assist as needed Recommend Repeat Modified Barium Swallow: TBD Comment: Repeat MBS study per therapist's discretion if concern for poor diet tolerance for current diet or concern with tolerance of future trials to further upgrade solid textures. Need for Skilled Speech Therapy Services: Yes Comment: Will recommend the patient for outpatient dysphagia therapy to address remaining deficits in oropharyngeal swallow function. Would consider the patient for oropharyngeal strengthening to improve lingual coordination and strength to prevent premature spillage, as well as promote laryngeal elevation and improved swallow onset (Effortful swallow, effortful breath hold and swallow, Tessa). Would consider the patient for strengthening and trials of intake with NMES. The patient would benefit from thorough education regarding diet recommendations and recommended compensatory strategies. If pt is unable to follow precautions for consumption of thin liquids or change in pulmonary status, would consider patient for liquid downgrade to nectar thick liquids with implementation for FFWP. Education Completed: 1. Described result of evaluation., 4. Family/caregivers understand evaluation & agree w/ goals & tx plan., 7. Pt requires further education on strategies & risks. Comment: Educated pt, pt's , HH therapist, OP therapist results and recommendations of MBS study. Education well received. - Contact Information [facility] Speech Therapy:: Perri Galeano M.A. [facility] Speech-Language Pathologist [facility] [address] [place] [address] [email or web address] [phone] 10/19/21 15:15 Initialized on 12/21/21 11:31 - END OF NOTE Objective Cog/Ling/Com - Test Administered Jotfxnxsr-Umngkxfzpx-Vadvcljrilnvm Assessment Administered: Yes Qoxpturip-Nkhotnyoyq-Lyjkcmkvulluv Assessment: Cognitive ? Linguistic skills were evaluated using patient/family interview, skilled observation and informal evaluation through tasks completed by the patient. - Orientation Orientation: Person, Medical Diagnosis - Answer Yes/No Questions Simple: Severe Complex: Severe - Automatic Sequences Automatic Sequences: Severe - Repetition Words: Severe Sentences: Severe - Naming Responsive naming: Severe Naming in categories: Severe - Conversational Tasks Conversational Tasks: Severe - Comments Comments: Patient will verbally answer yes/no questions in error but when using head movements he is accurate. - Reading Comprehension Words: Severe - Oral Reading Words: Severe - Writing Comments: Brady was not able to correctly identify letters upon verbal request on his AAC device nor was he able to spell his name on the keyboard. Plan - Plan Plan: Speech therapy is warranted to continue for severe aphasia and AAC training. The patient has almost no functional expressive communication at this time. - Recommendations MBS: No Treatment Warranted: Yes Treatment Warranted: Receptive/ Expressive Language, Other: Comment: AAC device training. - Progress Prognosis: Good - Frequency Frequency: 1x/Week Duration: 10 weeks Visits in this POC: 10 - Patient/Family Goal Patient/Family Goal: would like for patient be able to communicate his thoughts more. - Goals that are Established Determination:: Goals will be added/modified as deemed necessary and appropriate. Therapy will be discontinued when results of re-evaluation indicate therapy is no longer needed or lack of progress has been documented. - Goal #1-5 Goal #1: Patient will complete automatic speech sequences on 4/5 trials with minimal prompts across 3 to 3 sessions. Goal #2: Patient will express wants/commenting/needs via single choices on AAC device on 4/5 trials on 2/3 consecutive sessions. Goal #3: Patient will give biographical information either verbally or with AAC device on 3/5 trials. Education - Patient has Indicated that the Following Identified Educational Needs: None The Patient has indicated that they have no educational or learning abilities that may effect their care.: Yes - Patient Instruction Patient Education: Diagnosis, Treatment Plan, Safety Precautions, Diet Level, Home Exercise Program Person Taught: Patient, Family Teaching Method: Discussion Response to teaching: Verbalize understanding, Has Prior Knowledge
--- NOTE | 2022-08-01 10:29 | HP.SP.DC_ITS ---
ST Discharge Summary - Discharged: Discharge: Fede Dobbs is discharged from speech therapy at [facility] as of 08/01/22 at his ?s request due to changes in life situation. His initial evaluation was on 12/21/21 with a total of 23 sessions after that. The focus of therapy was on using his AAC device for functional communication as well as automatic speech sequences. At the time of discharge, he was not able to functionally use his device to communicate wants and needs. He was able to give identifying information with moderate cues. Therapy may continue at the request of patient/family as he has almost no functional way to communicate to anyone beyond his . Thank you for allowing me to participate in the care of this patient.
== END 2022-07-04 19:00 | disposition home or self-care (01) ==
LOC: PT 15:00
PROVIDERS: PCP Internal Medicine; Referring Provider Internal Medicine; Visit Provider Internal Medicine
DX: I69.351 Hemiplegia and hemiparesis following cerebral infarction affecting right dominant side (principal); I69.320 Aphasia following cerebral infarction; I69.321 Dysphasia following cerebral infarction; I69.322 Dysarthria following cerebral infarction
CPT/HCPCS: 92507; 92609; 92610; 97110; 97112; 97162; 97530

== ENCOUNTER 2022-08-16 14:23 | Outpatient (CLI) | payer MEDICARE, OTHER, SELFPAY ==
[2022-08-16 17:56] LABS: Hematocrit 45.6 % (40-54); Hemoglobin 15.1 g/dL (13.0-16.5); Mean Corp Hgb Conc 33.1 g/dL (32-36); Mean Corpuscular Hgb 29.5 pg (27.0-32.0); Mean Corpuscular Volume 89.2 fL (80-94); Mean Platelet Vol. 9.7 fl (6.2-12.0); Platelet Count 271 K/mm3 (150-450); RBC Distribution Width CV 12.8 % (11.6-14.6); RBC Distribution Width SD 42.1 fl (35.1-43.9); Red Blood Count 5.11 M/mm3 (4.6-6.2); White Blood Count 6.8 K/mm3 (4.4-11.0)
[2022-08-16 18:06] LABS: Valproic Acid (Depakene) Level 44 ug/mL (50-100)
[2022-08-16 18:09] LABS: Albumin, Serum 4.1 g/dL (3.2-5.0); BUN 6 mg/dL (7-18); BUN/Creat Ratio 10.6 RATIO (10-20); Creatinine, Serum 0.56 mg/dL (0.70-1.30); EST Glomerular Filtration Rate 150 mL/min (>60); Est Glom Filt Rate - Afr Amer 182 mL/min (>60); Glucose 111 mg/dL (74-106); Protein, Total 7.3 g/dL (6.4-8.2)
[2022-08-16 18:10] LABS: ALB/GLOB Ratio 1.3 RATIO (0.9-2.4); AST(SGOT) 8 U/L (15-37); Alanine Aminotransfer ALT/SGPT 18 U/L (16-61); Alkaline Phosphatase 117 U/L (45-117); Anion Gap 8 (5-15); Calcium,Total 8.8 mg/dL (8.5-10.1); Chloride 100 mmol/L (98-107); Globulin 3.2 g/dL (2.2-4.2); Potassium 4.1 mmol/L (3.5-5.1); Sodium Level 134 mmol/L (136-145)
== END 2022-08-16 23:59 | disposition home or self-care (01) ==
LOC: MTLAB 14:24
PROVIDERS: PCP Internal Medicine; Referring Provider Psychiatry & Neurology Neurology; Visit Provider Psychiatry & Neurology Neurology
DX: G40.909 Epilepsy, unspecified, not intractable, without status epilepticus (principal)
CPT/HCPCS: 36415; 80053; 80164; 82140; 85027

== ENCOUNTER 2022-08-22 16:05 | Outpatient (CLI) | payer MEDICARE, OTHER, SELFPAY ==
[2022-08-22 18:03] LABS: Vitamin B12 297 pg/mL (211-911)
[2022-08-22 18:08] LABS: Thyroid Stim Hormone (TSH) 4.55 uIU/mL (0.358-3.74)
== END 2022-08-22 23:59 | disposition home or self-care (01) ==
LOC: MTLAB 16:06
PROVIDERS: PCP Internal Medicine; Referring Provider Psychiatry & Neurology Neurology; Visit Provider Psychiatry & Neurology Neurology
DX: G40.909 Epilepsy, unspecified, not intractable, without status epilepticus (principal); R53.83 Other fatigue
CPT/HCPCS: 36415; 82607; 82746; 84425; 84443

== ENCOUNTER 2022-08-25 15:44 | Outpatient (RCR) | payer MEDICARE, OTHER, SELFPAY | END 2022-08-25 15:45 | disposition home or self-care (01) | LOC: SP 15:44 | PROVIDERS: PCP Internal Medicine; Referring Provider Internal Medicine; Visit Provider Internal Medicine | DX: I69.359 Hemiplegia and hemiparesis following cerebral infarction affecting unspecified side (principal); I69.391 Dysphagia following cerebral infarction ==

== ENCOUNTER → 2023-02-15 | Outpatient (CLI) | payer MEDICARE, OTHER, SELFPAY ==
[2023-02-15 19:07] LABS: ALB/GLOB Ratio 1.3 RATIO (0.9-2.4); AST(SGOT) 14 U/L (15-37); Alanine Aminotransfer ALT/SGPT 16 U/L (16-61); Albumin, Serum 4.1 g/dL (3.2-5.0); Alkaline Phosphatase 103 U/L (45-117); Anion Gap 8 (5-15); BUN 8 mg/dL (7-18); BUN/Creat Ratio 17.7 RATIO (10-20); Calcium,Total 8.9 mg/dL (8.5-10.1); Chloride 103 mmol/L (98-107); Creatinine, Serum 0.45 mg/dL (0.70-1.30); EST Glomerular Filtration Rate 194 mL/min (>60); Est Glom Filt Rate - Afr Amer 234 mL/min (>60); Globulin 3.2 g/dL (2.2-4.2); Glucose 96 mg/dL (74-106); Magnesium 2.2 mg/dL (1.6-2.6); Potassium 3.9 mmol/L (3.5-5.1); Protein, Total 7.3 g/dL (6.4-8.2); Sodium Level 134 mmol/L (136-145)
== END | disposition home or self-care (01) ==
LOC: MTLAB 16:38
PROVIDERS: PCP Internal Medicine; Referring Provider Psychiatry & Neurology Neurology; Visit Provider Psychiatry & Neurology Neurology
DX: G40.909 Epilepsy, unspecified, not intractable, without status epilepticus (principal)
CPT/HCPCS: 36415; 80053; 83735

== ENCOUNTER → 2023-02-26 | Outpatient (CLI) | payer MEDICARE, OTHER, SELFPAY ==
--- NOTE | 2023-02-26 09:44 | US_ITS ---
STUDY: ABDOMINAL ULTRASOUND - RIGHT UPPER QUADRANT; ELASTOGRAPHY REASON FOR VISIT: Male, 72 years old. Liver lesion and hepatitis C. TECHNIQUE: Ultrasound evaluation of the right upper quadrant was performed with real-time and static reynoso-scale imaging. Point quantification shear wave elastography was performed ([employer] [facility]). TECHNICAL QUALITY: Adequate. COMPARISON: Comparison is made with prior ultrasound June 26, 2022. FINDINGS: Liver: The liver measures 16.7 cm. There is a heterogeneous echogenicity of the liver. The bile ducts are within normal limits. There is hepatic color flow. The direction of portal flow is hepatopetal. There is a 2.1 cm x 2.4 cm by 2.2 cm cyst in the right lobe of the liver. This has decreased slightly in size as compared to prior examination. Median liver stiffness measured 7.4 kPa. Gallbladder: Normal distended gallbladder. The gallbladder wall measures 3 mm. There is a negative sonographic Roe''s sign. There is no pericholecystic fluid. There are no gallstones. Common Bile Duct (C.B.D.): The common bile duct measures 3 mm. Pancreas: The pancreas is obscured due to overlying bowel gas. Right Kidney: Normal size of the right kidney. The right kidney measures 9.5 cm x 5.5 cm x 5.5 cm. Normal renal cortex. The right cortex measures 1.7 cm. There is a 1.3 cm x 1.1 centimeter by 1.1 cm right renal cyst. There is no right hydronephrosis. US/ABD Limited w/ Elastography IMPRESSION: 1. Liver stiffness measures 7.4 kPa compatible with F2-F3 (Mild to moderate liver fibrosis) Metavir score. Electronically Signed: Robles Sanchez MD at 15:50 EDT ,
== END | disposition home or self-care (01) ==
LOC: US 09:42
PROVIDERS: PCP Internal Medicine; Referring Provider Internal Medicine; Visit Provider Internal Medicine
DX: K76.9 Liver disease, unspecified (principal)
CPT/HCPCS: 76705; 76981

== ENCOUNTER → 2025-05-01 | Outpatient (CLI) | payer MEDICARE, OTHER, SELFPAY ==
[2025-05-01 18:42] LABS: Mucous, Urine 0 SEEN /hpf (<or=2+); Squamous Epithelial Cells - UA 0 SEEN /hpf (0-5)
[2025-05-01 21:15] LABS: Color, Urine Yellow (Yellow); Glucose, Dipstick Normal (Normal); Ketone-Dipstick Negative (Negative); Leukocyte Esterase-Dipstick 500 /ul (Negative); Nitrite-Dipstick Positive (Negative); Occult Blood-Urine 250 /ul (Negative); Protein-Dipstick 30 mg/dl (Negative); Specific Gravity, Urine 1.010 (1.002-1.030); Urine Bilirubin Dipstick Negative (Negative)
[2025-05-01 21:21] LABS: Red Blood Cells-Urine 5-10 SEEN /hpf (0-5)
== END | disposition home or self-care (01) ==
LOC: LABSPEC 18:37
PROVIDERS: PCP Internal Medicine; Visit Provider Internal Medicine
DX: R53.1 Weakness (principal); R41.0 Disorientation, unspecified
CPT/HCPCS: 81001